=== PATIENT | female | born 1990 | race Two or more races ===

== ENCOUNTER → 2023-12-27 | Outpatient (CLI) | payer OTHER, SELFPAY ==
--- OUTSIDE RECORDS SUMMARY | 2023-12-27 21:03 | XMS RPT_ITS | CCD ---
Author Name Unknown Address [address] [place] [address] Organization [facility] Care Team Providers Care Services Manager Name Role Phone ADINA MARLOW Unavailable Unavailable ADINA MARLOW Unavailable Unavailable PHYSICIAN, NONE Unavailable Unavailable REFERRING, PHY WO ID Unavailable Unavailable ADINA MARLOW Unavailable Unavailable PHYSICIAN, NONE Unavailable Unavailable Problems Problem Classification Problem Date Documented Da te Episodic/Chronic Unclassified (2 sources) Encounter for screening for malignant neoplasm of cervix; Translations: [ENCOUNTER FOR SCREENING FOR MALIGNANT NEOPLASM OF CERVIX] Onset: 04-28-2017 Episodic Results Test Name Value Interpretation Reference Range Facil ity Encounters Encounter Date Encounter Type Care Provider Facility Start: 04-28-2017 End: 04-29-2017 Ambulatory ADINA MARLOW Facility:[facility] Start: 04-28-2017 End: 04-29-2017 Ambulatory PHY WO ID REFERRING Facility:[facility] Payers Date Payer Category Payer Unknown [id number] Summary Purpose Family History No Family History Records FoundNo Family History Records Found Advance Directives No Advanced Directives Records FoundNo Advanced Directives Records Found Additional Source Comments INFORMATION SOURCE (unrecogn ized section and content) DATE CREATED AUTHOR AUTHOR'S ORGANIZ ATION 04/18/2018 [facility] FOR RECORDS PERTAINING TO PATIENTS WHO ARE OR HAVE BEEN ENROLLED IN A CHEMICAL DEPENDENCY/SUBSTANCEABUSE PROGRAM, SOME INFORMATION MAY BE OMITTED. This clinical summary was aggregated from multiple sources. Caution should be exercised in using it in the provision of clinical care. This summary normalizes information from multiple sources, and as a consequence, information in this document may materially change the coding, format and clinical context of patient data. In addition, data may be omitted in some cases. CLINICAL DECISIONS SHOULD BE BASED ON THE PRIMARY CLINICAL RECORDS. [employer] provides no warranty or guarantee of the accuracy or completeness of information in this document.
[2024-01-01 18:07] LABS: HPV APTIMA, High Risk Negative (Negative)
== END | disposition home or self-care (01) ==
PROVIDERS: Visit Provider Nurse Practitioner Women's Health
DX: Z12.4 Encounter for screening for malignant neoplasm of cervix (principal)
CPT/HCPCS: 87624; 88175; G0145

== ENCOUNTER → 2024-12-23 | Outpatient (CLI) | payer OTHER, SELFPAY | END | disposition home or self-care (01) | LOC: MTLAB 16:46 | PROVIDERS: PCP Family Medicine; Referring Provider Family Medicine; Visit Provider Family Medicine | DX: Z00.00 Encounter for general adult medical examination without abnormal findings (principal); Z82.3 Family history of stroke | CPT/HCPCS: 36415; 81241 ==

== ENCOUNTER → 2025-05-10 | Outpatient (CLI) | payer OTHER, SELFPAY ==
--- OUTSIDE RECORDS SUMMARY | 2025-05-10 08:32 | XMS RPT_ITS | CCD ---
Author Organization [facility] Care Team Providers Care Weight Count Operator Name Role Phone MARLOWADINA L Unavailable Unavailable MARLOW, RICHELE L Unavailable Unavailable PHYSICIAN, NONE Unavailable Unavailable REFERRING, PHY WO ID Unavailable Unavailable MARLOW, RICHELE L Unavailable Unavailable PHYSICIAN, NONE Unavailable Unavailable Town Doctor, Out of [facility], Out of Referring Provider Unavailab Lawrence DIVERSIFIED CROPS SUPERVISORFUENTES Attending Provider Town Doctor, Out of Primary Care [facility], Out of Referring Provider UnavailDylan Jaramillo Attending Provider [phone] Jorje Preciado MD Primary Care Provider Dr. Jorje Preciado MD Attending Provider Dr. Jorje Preciado MD Referring Provider [phone] Dylan Nagel Attending Unavailable Town Doctor, Out of Referring Unavailable Town Doctor, Out of Primary Care Unavailable Jorje Preciado Primary Care Unavailable Mihaela Burton NP Attending Unavailable Town Doctor, Out of Referring Unavailable Jorje Preciado Referring Unavailable Jorje Preciado Primary Care Unavailable Ezequiel Hurtado Attending Unavailable Jorje Preciado Referring Unavailable Jorje Preciado Attending Unavailable Jorje Preciado Primary Care Unavailable Town Doctor, Out of Primary Care Unavailable Dylan Nagel Attending Unavailable Town Doctor, Out of Referring Unavailable Town Doctor, Out of Referring Provider Phil Lawrence NP-CMihaela Attending Provider Dr. Jorje Preciado MD Primary Care Provider Dr. Jorje Preciado MD Referring Provider Dr. Ezequiel Hurtado MD Attending Provider Allergies Allergy Classification Reported Allergen(s) Allergy Type Date of Onset Reaction(s) Facility (3 sources) Amoxicillin Drug Allergy 12-27-2023 [facility] (2 sources) Penicillins Allergy to substance 11-07-2024 [facility] (1 source) Amoxicillin Drug Allergy 02-10-2025 [facility] (1 source) Penicillins Drug allergy (disorder) 02-10-2025 [facility] Medications Current Medications Medication Drug Class(es) Dates Sig (Normalized) Sig (Original) erythromycin 0.005 mg/mg ophthalmic ointment (1 source) Macrolide, Macrolide Antimicrobial Start: 05-09-2025 Erythromycin 5 mg/gram (0.5 %) ointment Active 0.5 [in_us] OPHTHALMIC TWICE A DAY 3.5 3 0 May 09, 2025 12:00am May 11, 2025 12:00am For the left lower eyelid Completed/Discontinued Medications Medication Drug Class(es) Dates Sig (Normalized) Sig (Original) Norethindrone-E.Est radiol-Iron (6 sources) Estrogen Start: 12-27-2023 End: 02-10-2025 Norethindrone-E.Estr adiol-Iron ( Fe 24) 1 mg-20 mcg (24)/75 mg (4) tablet Discontinued 1 {tbl} PO DAILY December 27, 2023 3:58pm February 10, 2025 3:30pm Start: 12-27-2023 Norethindrone- E.Estradiol-Iron ( Fe 24) 1 mg-20 mcg (24)/75 mg (4) tablet Active 1 {tbl} PO DAILY December 27, 2023 3:58pm Start: 12-27-2023 take 1 tablet by thalia once daily Norethindrone-E.Estradiol-Iron ( Fe 24) 1 mg-20 mcg (24)/75 mg (4) tablet Active 1 TABLET PO DAILY December 27, 2023 3:58pm Start: 12-27-2023 End: 12-27-2023 Norethindrone-E.Estradiol-Ir on ( Fe 24) 1 mg-20 mcg (24)/75 mg (4) tablet Discontinued 1 {tbl} PO DAILY December 27, 2023 1:00am December 27, 2023 3:59pm Start: 12-27-2023 End: 12-27-2023 take 1 tablet by mouth once daily Norethindrone-E.Estradiol-Iron (Junel Fe 24) 1 mg-20 mcg (24)/75 mg (4) tablet Discontinued 1 TABLET PO DAILY December 27, 2023 1:00am December 27, 2023 3:59pm oseltamivir 75 mg oral capsule (2 sources) Neuraminidase Inhibitor Start: 11-07-2024 End: 11-12-2024 take 1 capsule by mouth every twelve hours Oseltamivir (Tamiflu) 75 mg capsule Discontinued 75 mg PO Q12H 10 5 0 November 07, 2024 1:00am November 11, 2024 1:00am November 12, 2024 1:08am Problems Active Problems Problem Classification Problem Date Documented Da te Episodic/Chronic Influenza (3 sources) Influenza due to Influenza A virus; Translations: [Influenza due to other identified influenza virus with other respiratory manifestations] 11-07-2024 Episodic Spondylosis; intervertebral disc disorders; other back problems (2 sources) Backache; Translations: [Dorsalgia, unspecified] 11-07-2024 Episodic Past or Other Problems Problem Classification Problem Date Documented Da te Episodic/Chronic Unclassified (2 sources) Encounter for screening for malignant neoplasm of cervix; Translations: [ENCOUNTER FOR SCREENING FOR MALIGNANT NEOPLASM OF CERVIX] Onset: 04-28-2017 Episodic Results Test Name Value Interpretation Reference Range Facility Office Visit Reporton 2024 Office Visit Report [facility] [address] [place] [id number] OFFICE VISIT Date of Service: 11/07/24 MR#: [id number] Acct: [id number] Patient: NADYA MOORE Rep #: [id number] : 1990 Provider: SCOTT Alicia Age/Sex: 34/F Location: [facility] Status: Signed Intake Vital Signs 11/07/24 06:00 Height 5 ft 3.5 in Intake Visit 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: 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/ [facility] Chief Complaint: Annual Allergies amoxicillin Allergy (Mild, Verified 02/10/25 15:23) Hives Penicillins (PCN) Allergy (Mild, Verified 02/10/25 15:23) Hives Office Procedures [facility] Billing Sheet Covid Covid Swab-Rapid: Yes Results POC CEPH COV,FluAB,RSV PCR CEPHEID COVID PCR Not DETECTED Last Edit by Zully Clemens on 11/07/24 06:52 CEPHEID FLU AB PCR ONLY FLU A DETECTED Last Edit by Zully Clemens on 11/07/24 06:52 CEPHEID RSV PCR NOT DETECTED Last Edit by Zully Clemens on 11/07/24 06:52 04/10/25 0815 Date Dylan Deutsch Signature: Date (if applicable) CC: Normal [facility] 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 Reporton 02-10-2025 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 Report [facility] [address], [address] [place] [address] OFFICE VISIT Date of Service: 02/10/25 MR#: [id number] Acct: [id number] Name: NADYA MOORE Rep #: [id number] : 1990 Provider: FUENTES osborne Age/Sex: 34/F Location: [facility] Status: Signed Intake Vital Signs 12/27/23 14:46 11/07/24 06:00 02/10/25 15:23 02/10/25 15:27 Height 5 ft 3.5 in 5 ft 3.5 in 5 ft 3.5 in 5 ft 3.5 in Weight: 152 lb 6 oz BMI 26.5 BP 116/74 Intake 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) Chief Complaint: Annual Sales And Leasing Consultant Required: No Is patient in pain?: No Allergies amoxicillin Allergy (Mild, Verified 02/10/25 15:23) Hives Penicillins (PCN) Allergy (Mild, Verified 02/10/25 15:23) Hives Is last menstrual period known: No Post menopausal: No Patient : No : No [facility] Medical History (Updated 02/10/25 @ 15:33 by Mihaela Burton DIVERSIFIED CROPS SUPERVISOR, DIVERSIFIED CROPS SUPERVISOR-C) Family history of colon cancer in mother Family history of factor V Leiden mutation Back pain Surgical History S/P wisdom tooth extraction Family History Grandmother Cancer paternal- multiple myeloma Mother Cancer melanoma Social History household members: spouse 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: employed 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 Stopped OCP. Brother had stroke from clot and found out has factor V Leiden. Has recovered well. She was tested and negative. Mother diagnosed Jul 2024 with colon cancer:had surgery and now doing chemo Last PAP: 2023 History of abnormal PAP: no Last mammogram: age 41 Colon cancer screening: age 46 Other preventative health care screenings: Ilana Female Reproductive History Questions: metorrhagia: No and sexually active: Yes ROS Const Constitutional: Denies fatigue, weight gain or weight loss Cardio Card: Denies chest pain Resp Resp: Denies cough or dyspnea on exertion GI GI: Denies abdominal pain, bloating, change in stool character, constipation or vomiting : Reports as per HPI; Denies difficulty voiding, pelvic pain, urinary frequency, urinary incontinence, urinary urgency, vaginal discharge or vaginal pruritus Exam Const General: cooperative, healthy appearing, no acute distress and well developed Orientation: alert, oriented to person and oriented to place [facility] Head: normal to inspection Neck Neck: normal visual inspection Thyroid: thyroid normal Lymphatic: no lymphadenopathy noted Chest Breast inspection: normal inspection of the breasts and normal inspection of the axillae Breast palpation: normal palpation of the breasts, normal palpation of the axillae and no axillary lymphadenopathy Resp Effort Inspection: normal respiratory effort GI Palpation: soft, no masses and nontender Rectal Exam: deferred External Female Exam: normal external appearance and normal appearance of the urethra Urethra: normal appearance of the urethra and normal palpation Speculum Exam - Vagina: normal appearance of the vagina and normal vaginal discharge Speculum Exam - Cervix: normal appearance of the cervix Bimanual Exam- Vagina Uterus: normal bimanual exam, uterine size normal, uterine shape normal and non-tender Bimanual Exam- Adnexa, other: normal adnexae, no masses, normal and non-tender Pelvic Support: normal Neuro General: patient alert and patient oriented x3 Psych Affect: normal affect Coding Level of Care Code Off vis,est,prev 18-39yrs Diagnoses Encounter for gynecological examination without abnormal finding Z01.419 Gynecological examination findings: abnormal findings ABSENT Assessment and Plan Assessment and Plan (1) Encounter for routine gynecological examination: Qualifiers: Gynecological examination findings: abnormal findings ABSENT Qualified Code(s): Z01.419 - Encounter for gynecological examination (general) (routine) without abnormal findings Medications: Discontinued norethindrone-e.estradiol-i concepción 1 mg-20 mcg (24)/75 mg (4) () Discontinued Reason: Pt no longer taking 1 TAB PO DAILY 84 tabs 4RF (more content not included)... Normal [facility] Fact V Leiden Mutationon FACTOR V LEIDEN Comment Normal . [facility] Comment on above: Result Comment: Resu lt: c.1601G>A (p.[id number]) - Not Detected This result is not associated with an increased risk for venous thromboembolism. See Additional Clinical Information and Comments. Additional Clinical Information: Venous thromboembolism is a multifactorial disease influenced by genetic, environmental, and circumstantial risk factors. The c.1601G>A (p. Xqf276Tmb) variant in the F5 gene, commonly referred to as Factor V Leiden, is a genetic risk factor for venous thromboembolism. Heterozygous carriers of this variant have a 6- to 8-fold increased risk for venous thromboembolism. Individuals homozygous for this variant (ie, with a copy of the variant on each chromosome) have an approximately 80-fold increased risk for venous thromboembolism. Individuals who carry both a c.*97G>A variant in the F2 gene and Factor V Leiden have an approximately 20-fold increased risk for venous thromboembolism. Risks are likely to be even higher in more complex genotype combinations involving the F2 c.*97G>A variant and Factor V Leiden (PMID: 60753471). Additional risk factors include but are not limited to: deficiency of protein C, protein S, or antithrombin III, age, male sex, personal or family history of deep vein thromboembolism, smoking, surgery, prolonged immobilization, malignant neoplasm, tamoxifen treatment, raloxifene treatment, oral contraceptive use, hormone replacement therapy, and . Management of thrombotic risk and thrombotic events should follow established guidelines and fit the clinical circumstance. This result cannot predict the occurrence or recurrence of a thrombotic event. Comment: Genetic counseling is recommended to discuss the potential clinical implications of positive results, as well as recommendations for testing family members. Genetic Coordinators are available for health care providers to discuss results at [phone]). Test Details: Variant Analyzed: c.1601G>A (p. Gtm283Xqw), referred to as Factor V Leiden Methods/Limitations: DNA analysis of the F5 gene (NM_000130.5) was performed by PCR amplification followed by restriction enzyme analysis. The diagnostic sensitivity is >99%. Results must be combined with clinical information for the most accurate interpretation. Molecular-based testing is highly accurate, but as in any laboratory test, diagnostic errors may occur. False positive or false negative results may occur for reasons that include genetic variants, blood transfusions, bone marrow transplantation, somatic or tissue-specific mosaicism, mislabeled samples, or erroneous representation of family relationships. This test was developed and its performance characteristics determined by [facility] It has not been cleared or approved by the Food and Drug Administration. References: Sidney S, Donita AK, Toño R, Daria WW, Berny JH; ACMG Professional Practice and Guidelines Committee. Addendum: [employer] [employer] consensus statement on factor V Leiden mutation testing. Tamy Med. 2020Dec 25. doi: 10.1038/s05492-657-81090-y. PMID: 56503083. Barak SYLVESTER. Factor V Leiden Thrombophilia. 1998March 05 (Updated 2017Oct 26). In: Alex MP, Dorian HH, Ricky RA, et al., editors. Whishertorres(R) (Internet). [place] ([place]): [facility]; 7897-8733. Available from: https://www.ncbi.nlm.nih.gov/books/PQG4258/ Ant S, Donita AK, Cliff X, Neri B, Jeni EB, Ariana P, Sherri CS; [facility] Laboratory Agriculture Laboratory Technician Committee. Venous thromboembolism laboratory testing (factor V Leiden and factor II c.*97G>A), 2018 update: a technical standard of the [employer] and [employer]omics (ACMG). Tamy Med. 2018 Sep;20(12):3294-8351. doi: 10.1038/u14353-298-6377-g. Epub 2017Jul 27. PMID: 99841904. Performed By: #### L 4500.5000 #### [facility] [address] [place], [address] Reviewed By Comment Normal . [facility] Comment on above: Result Comment: Tech nical Component performed at [facility] RT Professional Component performed by: [employer] Nickolas Mckeon, Ph.D., [facility] Director, Molecular Genetics [address] [place] [address] [place] [address] Performed at: - [facility] RTP [address] [place], [place] [id number] Neurology Professor: Kimmie Saldaña [facility], Phone: [phone] Performed By: #### L 4500.5000 #### [facility] [address] [place], [address] Clotting factor V Leiden mut ation detectionOrdered By: Jorje Preciado on 12-23-2024 Factor V Leiden Mutation Comment . [facility] Comment on above: Result: c.1601G>A (p .Alw135Zrb) - Not DetectedThis result is not associated with an increased risk for venousthromboembolism. See Additional Clinical Information andComments.Additional Clinical Information:Venous thromboembolism is a multifactorial diseaseinfluenced by genetic, environmental, and circumstantialrisk factors. The c.1601G>A (p. Qfx958Unw) variant in theF5 gene, commonly referred to as Factor V Leiden, is agenetic risk factor for venous thromboembolism.Heterozygous carriers of this variant have a 6- to 8-foldincreased risk for venous thromboembolism. Individualshomozygous for this variant (ie, with a copy of the varianton each chromosome) have an approximately 80-fold increasedrisk for venous thromboembolism. Individuals who carry constantino c.*97G>A variant in the F2 gene and Factor V Leiden havean approximately 20-fold increased risk for venousthromboembolism. Risks are likely to be even higher in morecomplex genotype combinations involving the F2 c.*97G>Avariant and Factor V Leiden (PMID: 77567122). Additionalrisk factors include but are not limited to: deficiency ofprotein C, protein S, or antithrombin III, age, male sex,personal or family history of deep vein thromboembolism,smoking, surgery, prolonged immobilization, malignantneoplasm, tamoxifen treatment, raloxifene treatment, oralcontraceptive use, hormone replacement therapy, andpregnancy. Management of thrombotic risk and thromboticevents should follow established guidelines and fit theclinical circumstance. This result cannot predict theoccurrence or recurrence of a thrombotic event.Comment:Genetic counseling is recommended to discuss thepotential clinical implications of positive results, aswell as recommendations for testing family members.Genetic Coordinators are available for health careproviders to discuss results at [phone] ([phone]).Test Details:Variant Analyzed: c.1601G>A (p. Uqf133Orh), referred toas Factor V LeidenMethods/Limitations:DNA analysis of the F5 gene (NM_000130.5) was performedby PCR amplification followed by restriction enzymeanalysis. The diagnostic sensitivity is >99%. Results mustbe combined with clinical information for the most accurateinterpretation. Molecular-based testing is highly accurate,but as in any laboratory test, diagnostic errors may occur.False positive or false negative results may occur forreasons that include genetic variants, blood transfusions,bone marrow transplantation, somatic or tissue-specificmosaicism, mislabeled samples, or erroneous representationof family relationships.This test was developed and its performance characteristicsdetermined by [facility] [employer] It has not been cleared orapproved by the Food and Drug Administration.References:Sidney S, Donita AK, Toño R, Daria WW, Berny JH; ACMGProfessional Practice and Guidelines Committee. Addendum:[employer] [employer] consensus statement onfactor V Leiden mutation testing. Tamy Med. 2020Dec 25.doi: 10.1038/w06540-239-70325-q. PMID: 06675071.Barak SYLVESTER. Factor V Leiden Thrombophilia. 1998March 05(Updated 2017Oct 26). In: Alex MP, Dorian HH, Ricky RA,et al., editors. Sukh(R) (Internet). [place] ([place]):[facility]; 2390-1508. Availablefrom: https://www.ncbi.nlm.nih.gov/books/CUW4181/Ant S, Donita AK, Cliff X, Neri B, Jeni EB, Ariana P,Sherri CS; ACMG Laboratory Agriculture Laboratory Technician Committee.Venous thromboembolism laboratory testing (factor V Leidenand factor II c.*97G>A), 2018 update: a technical standardof the [employer] [employer] and Genomics(ACMG). Tamy Med. 2018 Sep;20(12):3988-6382. doi:10.1038/[id number]-g. Epub 2017Jul 27. PMID: 29214249. Laboratory - Microbiology an d Antimicrobial susceptibilityon 11-07-2024 SARS-CoV-2 (COVID-19) RNA JAOSN+probe Ql (Unsp spec) Not detected [facility] No Panel Informationon 11-07 POC Nasal Swab Influenza A,B Detected [facility] POC Nasal Swab RSV Not detected [facility] Office Visit Reporton 2024 Office Visit Report [facility] [address] [place] [address] OFFICE VISIT Date of Service: 11/07/24 MR#: [id number] Acct: [id number] Patient: NADYA MOORE Rep #: [id number] : 1990 Provider: SCOTT Alicia Age/Sex: 34/F Location: [facility] Status: Signed Employer Purchased Covid Test Note: Patient here today for Covid Testing, requested by their Employer. Assessment and Plan Assessment and Plan Orders: Orders POC Cepheid Covid, FluAB, RSV Today Medications: New oseltamivir (Tamiflu) 75 mg PO Q12H 10 caps 0RF 5 days 11/07/24725 Date Dylan CHAVEZ Cosigner Signature: Date (if applicable) CC: Normal [facility] Urgent Care Visit Reporton 0 11-07-2024 Urgent Care Visit Report [facility] [address], [address] [place] [address] OFFICE VISIT Date of Service: 11/07/24 MR#: [id number] Acct: [id number] Name: NADYA MOORE Rep #: [id number] : 1990 Provider: SCOTT Alicia Age/Sex: 34/F Location: [facility] Status: Signed Intake Vital Signs 12/27/23 14:46 11/07/24 06:00 Height 5 ft 3.5 in 5 ft 3.5 in Weight: 153 lb 2 oz 152 lb 2 oz BMI 26.6 26.5 BP 114/72 110/64 Blood Pressure Location Lt brachial Position Sitting Respiration 16 Pulse 92 Pulse Source NIBP Temp 98.7 F Temp Source Oral Pulse Oximetry (%) 98 Oxygen Delivery Method room air Intake Visit Reasons: cough, congestion Chief Complaint: cough, congest, MORRELL, BA Sales And Leasing Consultant Required: No Is patient in pain?: No Allergies amoxicillin Allergy (Mild, Verified 11/07/24 06:15) Hives Penicillins (PCN) Allergy (Mild, Verified 11/07/24 06:15) Hives Medications ???Medication ???Instructions ???Recorded ???Confirmed ???Type norethindrone 1 mg-ethinyl 1 tab PO DAILY #84 tabs 12/27/23 11/07/24 Rx estradiol 20 mcg (24)-iron 75 mg (4) tablet () oseltamivir 75 mg capsule (Tamiflu) 75 mg PO Q12H 5 days #10 caps 11/07/24 11/07/24 Rx Is last menstrual period known: No Post menopausal: No Patient : No Have you fallen in the past year?: No Nurse's Note: cough, congest, MORRELL, BA x [address], fever. 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 Patient denies hemoptysis, shortness of breath or difficulty breathing. No fever, chills, sweats. No loss of taste or smell. No other associated symptoms or alleviating/aggravating factors. ROS Const Constitutional: No other (6 system ROS completed with pertinent findings in the HPI otherwise normal.) Exam Const General: cooperative and well developed HENIL Head: normal to inspection and atraumatic Ears: hearing grossly normal bilaterally Nose: nasal discharge clear Face and sinus: normal facial exam Mouth: oral mucosae normal Throat: abnormal tonsil bilaterally hypertrophy 1+ Resp Effort Inspection: normal respiratory effort and no audible wheezes Auscultation: Bilateral: Clear to Auscultation Cardio Palpation: normal PMI Rate: regular rate Rhythm: regular rhythm Neuro General: patient alert and CN's II-XI intact bilaterally Psych Appearance: grossly normal Mental Status: mental status grossly normal Results POC CEPH COV,FluAB,RSV PCR CEPHEID COVID PCR Not DETECTED Last Edit by Zully Clemens on 11/07/24 06:52 CEPHEID FLU AB PCR ONLY FLU A DETECTED Last Edit by Zully Clemens on 11/07/24 06:52 CEPHEID RSV PCR NOT DETECTED Last Edit by Zully Clemens on 11/07/24 06:52 Coding Level of Care Code Off vis,new,level 3 Diagnoses Influenza due to influenza virus, type A, human J10.1 Assessment and Plan Assessment and Plan (1) Influenza due to influenza virus, type A, human: Status: Acute Orders: Orders POC Cepheid Covid, FluAB, RSV Today Medications: New oseltamivir (Tamiflu) 75 mg PO Q12H 10 caps 0RF 5 days Plan Patient tested positive for influenza A in the office today. Tamiflu as prescribed today. Encouraged to get plenty of rest, drink lots of clear liquids, and use Tylenol or Ibuprofen (unless contraindicated) for fever and comfort. Patient also educated on other symptomatic management techniques. To be seen in 7-10 days if no improvement; sooner if worsening of symptoms. Patient advised of potential red flags and when appropriate to report to the ED. Patient verbalized understanding and agreement with all the above. Clinical Quality Measures Falls Risk Screening/Assistive Devices Have you fallen in the past year?: No 11/07/24 0727 Date Dylan Deutsch Signature: Date (more content not included)... Normal [facility] Cervical or vaginal specimen microscopic examination by liquid based cytology (reportOrdered By: Mihaela Burton on 12-27-2023 Cytology report Cyto stain.thin prep Doc (Cvx/Vag) Comment . [facility] Comment on above: Criteria not met, HP V Genotype not performed.Performed at: [address] [id number] Director: Cristy Luis MD, Phone: [phone] at: =[address] [id number] Director: Cristy Luis MD, Phone: [phone] Cervical or vagninal specime n microscopic examination by cytology stain (reported asOrdered By: Mihaela Burton on 12-27-2023 Cytology report Cyto stain Doc (Cvx/Vag) Comment . [facility] Comment on above: The Pap smear is a s creening test designed to aid in thedetection of premalignant and malignant conditions of theuterine cervix. It is not a diagnostic procedure andshould not be used as the sole means of detecting cervicalcancer. Both false-positive and false-negative reports dooccur. Detection in cervical specim en of any of human papilloma virus (HPV) 16, 18, 31, 33,Ordered By: Mihaela Burton on 12-27-2023 HPV 16+18+31+33+35+39+4 5+51+52+56+58+59+66 +68 DNA Probe+sig amp Ql (Cvx) Negative Negative [facility] Comment on above: This nucleic acid am plification test detects fourteen high- risk HPV types (16,18,31,33,35,39,45,51,52,56,58,59,66,68)without differentiation. Laboratory - CytologyOrdered By: Mihaela Burton on 12-27-2023 Library Circulation Assistant Cyto stain Nom (Cvx/Vag) [ID] Comment . [facility] Comment on above: Lew Concepcion totechnologist (ASCP) Laboratory - Miscellaneous t estsOrdered By: Mihaela Burton on 12-27-2023 Service comment (Unsp spec) [Interp] . . [facility] Thin prep Papanicolaou smear with manual screeningOrdered By: Mihaela Burton on 12-27-2023 Thin prep Papanicolaou smear with manual screening Comment . [facility] Comment on above: NEGATIVE FOR INTRAEP ITHELIAL LESION OR MALIGNANCY. This liquid based Th inPrep(R) pap test was screened withthe use of an image guided system. Absolute lymphocyte counton 07-22-2022 Lymphocytes Auto (Unsp spec) [#/Vol] 2.29 10*3/uL 0.83-4.51 [facility] Work Phone: Absolute reticulocyte counto n 07-22-2022 Reticulocytes (Bld) [#/Vol] 0.00 10*3/uL 0-5 [facility] Work Phone: Basophil percentageon 2021 Basophil percentage 2.7 mg/dL 2.5-4.9 [facility] Work Phone: [phone] Bilirubin [Mass/Vol] 0.70 mg/dL 0.20-1.00 [facility] Work Phone: [phone] Comment on above: For patients on eltr ombopag therapy, use of Dimension [place] TBIL is not recommended. Chloride [Moles/Vol] 108 mmol/L 98-107 [facility] Work Phone: Cholesterol [Mass/Vol] 224 mg/dL <200 [facility] Work Phone: Comment on above: <200 mg/dL Desirable 200-240 mg/dL Borderline >240 mg/dL High Risk Glucose [Mass/Vol] 91 mg/dL 74-106 [facility] Work Phone: Neutrophils (Bld) [#/Vol] 5.2 10*3/uL 2.0-7.7 [facility] Work Phone: Potassium [Moles/Vol] 3.7 mmol/L 3.5-5.1 [facility] Work Phone: Protein [Mass/Vol] 7.7 g/dL 6.4-8.2 [facility] Work Phone: [phone] Sodium [Moles/Vol] 139 mmol/L 136-145 [facility] Work Phone: Triglyceride [Mass/Vol] 73 mg/dL <199 [facility] Work Phone: [phone] Comment on above: The drugs N-Acetylcy steine and Metamizole may falsely depress this assay.Serum Triglycerides Reference Interval Normal <150 mg/dL Borderline high 150 - 199 mg/dL High 200 - 499 mg/dL Very High > or = 500 mg/dL WBC (Bld) [#/Vol] 8.4 10*3/uL 4.4-11.0 [facility] Work Phone: Bilirubin Test strip Ql (U)o n 07-22-2022 Bilirubin Ql (U) Negative Negative [facility] Work Phone: [phone] Blood erythrocytes count (nu mber/volume)on 07-22-2022 RBC (Bld) [#/Vol] 4.50 10*6/uL 4.2-5.4 [facility] Work Phone: [phone] Blood hemoglobin measurement (mass/volume)on 07-22-2022 Hemoglobin (Bld) [Mass/Vol] 13.0 g/dL 12.0-15.0 [facility] Work Phone: [phone] Blood platelet mean volumeon 07-22-2022 Platelet mean volume (Bld) [Entitic vol] 10.6 fL 6.2-12.0 [facility] Work Phone: [phone] Determination of erythrocyte mean corpuscular volume (MCV)on 07-22-2022 MCV (RBC) [Entitic vol] 91.3 fL 81-99 [facility] Work Phone: Direct bilirubinon Bilirubin.direct [Mass/Vol] 0.16 mg/dL 0.00-0.30 [facility] Work Phone: [phone] Hematocrit Auto (Bld) [Volum e fraction]on 07-22-2022 Hematocrit (Bld) [Volume fraction] 41.1 % 37-47 [facility] Work Phone: [phone] Ketones Test strip Ql (U)on 07-22-2022 Ketones Ql (U) Negative Negative [facility] Work Phone: [phone] Laboratory - Chemistry and C hemistry - challengeon 07-22-2022 ALP [Catalytic activity/Vol] 62 U/L 45-117 [facility] Work Phone: ALT [Catalytic activity/Vol] 31 U/L 13-56 [facility] Work Phone: [phone] Cholesterol.total/C holesterol in HDL [Mass ratio] 3.00 {ratio} [facility] Work Phone: [phone] CO2 [Moles/Vol] 25.0 mmol/L 21.0-32.0 [facility] Work Phone: [phone] Globulin (S) [Mass/Vol] 4.4 g/dL 2.2-4.2 [facility] Work Phone: [phone] Urea nitrogen/Creatinine [Mass ratio] 11.8 mg/mg 10-20 [facility] Work Phone: [phone] Laboratory - Hematology and Cell countson 07-22-2022 Erythrocyte distribution width (RBC) [Entitic vol] 40.2 fL 35.1-43.9 [facility] Work Phone: [phone] Erythrocyte distribution width (RBC) [Ratio] 12.0 % 11.6-14.6 [facility] Work Phone: [phone] Immature granulocytes/100 WBC (Bld) 0.600 % 0.0-0.9 [facility] Work Phone: [phone] Comment on above: IG% - Immature Granu locytes (promyelocytes, myelocytes and metamyelocytes) > 1% indicates that a LEFT SHIFT is Present. MCH (RBC) [Entitic mass] 28.9 pg 27.0-32.0 [facility] Work Phone: [phone] Nucleated RBC/100 WBC (Bld) [Ratio] 0 % 0-5 [facility] Work Phone: [phone] MCHC Auto (RBC) [Mass/Vol]on 07-22-2022 MCHC (RBC) [Mass/Vol] 31.6 g/dL 32-36 [facility] Work Phone: [phone] Nitrite Test strip Ql (U)on 07-22-2022 Nitrite Ql (U) Negative Negative [facility] Work Phone: [phone] Panel Informationon 07-22 Estimated GFR (MDRD) Amer 100 mL/min >60 [facility] Work Phone: [phone] Comment on above: GFR Calc Estimated GFR (MDRD) Non-Af Amer 83 mL/min >60 [facility] Work Phone: [phone] Comment on above: Non- GFR Calc Platelets bldon 07-22-2022 Platelets (Bld) [#/Vol] See comment 150-450 [facility] Work Phone: Comment on above: Please note: For thi s sample, a platelet estimate is provided rather than a platelet count due to platelet clumping. Other parameters associated with this sample are not affected by platelet clumping. If a more accurate platelet count is required, a redraw of the patient will be necessary. Protein Test strip Ql (U)on 07-22-2022 Protein Ql (U) 30 mg/dl Negative [facility] Work Phone: [phone] Segmented neutrophils/100 WB C Auto (Bld)on 07-22-2022 Segmented neutrophils/100 WBC (Bld) 62.2 % 47-70 [facility] Work Phone: Serum or plasma albumin emeka urement (mass/volume)on 07-22-2022 Albumin [Mass/Vol] 3.3 g/dL 3.2-5.0 [facility] Work Phone: Serum or plasma albumin/glob ulin mass ratioon 07-22-2022 Albumin/Globulin [Mass ratio] 0.8 {ratio} 0.9-2.4 [facility] Work Phone: Serum or plasma calcium emeka urement (mass/volume)on 07-22-2022 Calcium [Mass/Vol] 9.0 mg/dL 8.5-10.1 [facility] Work Phone: [phone] Serum or plasma cholesterol in HDL measurement (mass/volume)on 07-22-2022 Cholesterol in HDL [Mass/Vol] 74 mg/dL >40 [facility] Work Phone: Comment on above: The drugs N-Acetylcy steine and Metamizole may falsely depress this assay. Reference Range HDL <40 mg/dL Low HDL Cholesterol HDL >or= 60 mg/dL High HDL Cholesterol Serum or plasma cholesterol in VLDL measurement (mass/volume)on 07-22-2022 Cholesterol in VLDL [Mass/Vol] 15 mg/dL 5-40 [facility] Work Phone: [phone] Serum or plasma creatinine m easurement (mass/volume)on 07-22-2022 Creatinine [Mass/Vol] 0.85 mg/dL 0.55-1.02 [facility] Work Phone: Comment on above: The validity of the calculated GFR & GFRAA in patients over 70 years has not been determined. Clinical correlation is essential. Serum or plasma low density lipoprotein (LDL) cholesterol measurement (mass/volume)on 07-22-2022 Cholesterol in LDL [Mass/Vol] 135 mg/dL 0-130 [facility] Work Phone: [phone] Serum or plasma urea nitroge n measurement (mass/volume)on 07-22-2022 Urea nitrogen [Mass/Vol] 10 mg/dL 7-18 [facility] Work Phone: Serum or plasma uric acid me asurement (mass/volume)on 07-22-2022 Urate [Mass/Vol] 4.0 mg/dL 2.6-6.0 [facility] Work Phone: Comment on above: The drugs N-Acetylcy steine and Metamizole may falsely depress this assay. Thin prep Papanicolaou smear with manual screeningon 07-22-2022 Thin prep Papanicolaou smear with manual screening 26 U/L 15-37 [facility] Work Phone: Thin prep Papanicolaou smear with manual screening 6 5-15 [facility] Work Phone: [phone] Thin prep Papanicolaou smear with manual screening 252 U/L 84-246 [facility] Work Phone: Urine blood detectionon 06-25 RBC Ql (U) 25 /ul Negative [facility] Work Phone: [phone] Urine clarityon 07-22-2022 Clarity (U) Sl. Cloudy Clear [facility] Work Phone: Urine color determinationon 07-22-2022 Color (U) Straw Yellow [facility] Work Phone: [phone] Urine glucose detectionon Glucose Ql (U) Normal mg/dl Normal [facility] Work Phone: Urine leukocyte esterase det ection by dipstickon 07-22-2022 Leukocyte esterase Test strip Ql (U) 500 /ul Negative [facility] Work Phone: Urine pHon 07-22-2022 pH (U) 6.0 [pH] 5.0 - 8.0 [facility] Work Phone: Urine specific gravity measu rementon 07-22-2022 Specific gravity (U) [Rel density] 1.015 1.002-1.030 [facility] Work Phone: Urobilinogen Auto test strip Ql (U)on 07-22-2022 Urobilinogen Ql (U) Normal mg/dl Normal [facility] Work Phone: HPVon 05-11-2017 HPV Interp Invalid Interpretation Code [facility] ([place]) Comment on above: Order Comment: Order placed by AP_HPV_ORDER rule from [id number] Performed By: #### H PV ####[place] [address] HPV Source Cervix Normal [facility] ([place]) Comment on above: Order Comment: Order placed by AP_HPV_ORDER rule from [id number] Performed By: #### H PV ####[place] [address] Vital Signs Date Time Vital Sign Value Performing Clinician Moni landin 05-09-2025 14:17040 Body height 161.29 cm Out [facility] 05-09-2025 14:170400 Body mass index (BMI) [Ratio] 26.8 kg/m2 Out [facility] 05-09-2025 14:17040 Body temperature 97.3 [degF] Out [facility] 05-09-2025 14:17040 Body weight 69.85 kg Out [facility] 05-09-2025 14:17040 Diastolic blood pressure 76 mm[Hg] Out [facility] 05-09-2025 14:17040 Heart rate 54 /min Out [facility] 05-09-2025 14:17-0400 Respiratory rate 18 /min Out [facility] 05-09-2025 14:17-0400 SaO2% (BldA) [Mass fraction] 99 % Out [facility] 05-09-2025 14:17-0400 Systolic blood pressure 127 mm[Hg] Out [facility] 02-10-2025 15:23-0400 Body mass index (BMI) [Ratio] 26.5 kg/m2 Out [facility] 02-10-2025 15:23-0400 Body weight 69.11 kg Out [facility] 02-10-2025 15:23-0400 Diastolic blood pressure 74 mm[Hg] Out [facility] 02-10-2025 15:23-0400 Systolic blood pressure 116 mm[Hg] Out [facility] 11-07-2024 06:00-0500 Body height 161.29 cm Out [facility] 11-07-2024 06:00-0500 Body mass index (BMI) [Ratio] 26.5 kg/m2 Out [facility] 11-07-2024 06:00-0500 Body temperature 98.7 [degF] Out [facility] 11-07-2024 06:00-0500 Body weight 69 kg Out [facility] 11-07-2024 06:00-0500 Diastolic blood pressure 64 mm[Hg] Out [facility] 11-07-2024 06:00-0500 Heart rate 92 /min Out [facility] 11-07-2024 06:00-0500 Respiratory rate 16 /min Out [facility] 11-07-2024 06:00-0500 SaO2% (BldA) [Mass fraction] 98 % Out [facility] 11-07-2024 06:00-0500 Systolic blood pressure 110 mm[Hg] [facility] 12-27-2023 14:46-0500 Body height 161.29 cm Out [facility] 12-27-2023 14:46-0500 Body mass index (BMI) [Ratio] 26.6 kg/m2 Out [facility] 12-27-2023 14:46-0500 Body weight 69.45 kg Out [facility] 12-27-2023 14:46-0500 Diastolic blood pressure 72 mm[Hg] Out [facility] 12-27-2023 14:46-0500 Systolic blood pressure 114 mm[Hg] Out [facility] Encounters Encounter Date Encounter Type Care Provider Facility Start: 05-09-2025 End: 05-09-2025 ambulatory [facility] Facility[facility] Start: 05-09-2025 End: 05-09-[address] Ezequiel Hurtado MD -[facility] Work Phone: Start: 02-10-2025 End: 02-10-2025 Patient encounter procedure Mihaela NAJERAC -[place] Work Phone: Start: 02-10-2025 End: 02-10-2025 Patient encounter status Mihaela Burton [facility] Start: 02-10-2025 End: 02-10-2025 ambulatory Jorje Preciado Facility:[facility] Start: 01-03-2025 Encounter for genera l adult medical examination without abnormal findings [facility] Start: 12-23-2024 End: 12-23-2024 ambulatory Out of [facility] Work Phone: Start: 12-23-2024 End: 12-23-[address] Jorje Preciado MD -Laboratory, [place] Work Phone: Start: 12-23-2024 End: 12-23-2024 ambulatory Jorje Preciado Facility:[facility] Start: 11-07-2024 End: 11-07-2024 Patient encounter procedure Dylan CHAVEZ -[facility] Work Phone: Start: 11-07-2024 End: 11-07-2024 ambulatory Dylan CHAVEZ Facility:[facility] Start: 12-27-2023 End: 12-27-2023 ambulatory [place] [facility] Work Phone: Start: 12-27-2023 End: 12-27-2023 Patient encounter procedure Out [facility] Doctor [facility], Specimen Work Phone: Start: 12-27-2023 End: 12-27-2023 Patient encounter procedure Out [facility] Doctor [facility] Work Phone: Start: 07-22-2022 Registered Referred [facility] Start: 04-28-2017 End: 04-29-2017 Ambulatory ADINA MARLOW Facility[facility] Start: 04-28-2017 End: 04-29-2017 Ambulatory RASHID SWENSON REFERRING Facility:[facility] Immunizations Immunization Date Immunization Notes Care Provider Teresa ordaz 08-01-2024 influenza, seasonal, injectable, preservative free Out [facility] 08-02-2023 influenza, injectabl e, quadrivalent, preservative free [facility] 08-01-2022 influenza, injectabl e, quadrivalent, preservative free [facility] 08-04-2021 influenza, injectabl e, quadrivalent, preservative free [facility] 08-04-2021 influenza, seasonal, injectable [facility] Work Phone: 12-18-2020 Covid (Moderna) [facility] 11-20-2020 Covid (Moderna) [facility] 08-10-2020 influenza, injectabl e, quadrivalent, preservative free [facility] 08-10-2020 influenza, seasonal, injectable [facility] Work Phone: 08-07-2019 influenza, injectabl e, quadrivalent, preservative free [facility] 08-07-2019 influenza, seasonal, injectable [facility] Work Phone: 08-01-2018 influenza, injectabl e, quadrivalent, preservative free [facility] 08-01-2018 influenza, seasonal, injectable [facility] Work Phone: Payers Date Payer Category Payer Self-pay [id number] 2023 Unknown [id number] 2016 Unknown [id number] Unknown [id number] Unknown [facility] [id number] [id number] [id number] Unknown [id number] [id number] [id number] Unknown [id number] [id number] [id number] Unknown [id number] 2.16.8 [id number] Unknown [id number] [id number] [id number] Social History Date Type Detail [facility] Work Phone: Start: 1990 Sex Assigned At Female [facility] Start: 12-27-2023 [facility] ever smoked [facility] Start: 11-07-2024 [facility] (finding) [facility] Start: 01-03-2025 Sex Female (finding) [facility] Evaluation note 02-10-2025 Note Date & Type Note Facility 02-10-2025 Evaluation note Diagnosis Onset Date Resolution Encounter for routine gynecological examination noneactive February 10, 2025 3:22pm [facility] Work Phone: Evaluation note 11-07-2024 Note Date & Type Note Facility 11-07-2024 Evaluation note Diagnosis Onset Date Resolution Influenza due to influenza virus, type A, human acute November 07 6:08am [facility] Work Phone: Clinical Note 12-27-2023 Note Date & Type Note Facility 12-27-2023 Note [facility] Pap Smear Specimen Adequacy December 27, 2023 5:50pm Comment . Satisfactory for evaluation. Endocervical and/or squamous metaplasticcells (endocervical component) are present. Comment on above: Satisfactory for brandin luation. Endocervical and/or squamous metaplasticcells (endocervical component) are present. Evaluation note Note Date & Type Note Facility Evaluation note No assessment information availa ble [facility] Work Phone: Reason for referral (narrative) Note Date & Type Note Facility Reason for referral (narrative) No reason for referral information available [facility] Work Phone: Summary Purpose Family History Relationship Condition Age at Onset Recorded Date/T kathie grandmother Malignant neoplasm Unknown mother Malignant neoplasm Unknown Advance Directives No Advanced Directives Records FoundNo Advanced Directives Records FoundNo Advanced Directives Records Found Chief Complaint and Reason for Visit 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 (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) Chief Complaint Admit Date cough, congestion November 07, 2024 6 :08am 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/ [facility] November 07, 2024 6 :16am E[employer] December 23, 2024 4:44 pm Reason for Visit Admit Date Influenza due to influenza virus, type A , human November 07, 2024 6:08am Chief Complaint Admit Date Annual (SECURITY MONITOR) February 10, 2025 3:2 2pm SKIN TAG ON THE L EYE LID May 09 2:04pm Reason for Visit Admit Date Encounter for routine gynecological exam ination February 10, 2025 3:22pm Additional Source Comments INFORMATION SOURCE (unrecogn ized section and content) DATE CREATED AUTHOR 04/18/2018 [place] [employer] ([place]) DATE CREATED AUTHOR AUTHOR'S ORGANIZ ATION 04/18/2018 [place] [employer] DATE CREATED AUTHOR AUTHOR'S ORGANIZ ATION 04/15/2025 [facility] Goals (unrecognized section and content) Goals may be documented in a n alternate sectionGoals may be documented in an alternate sectionGoals may be documented in an alternate sectionGoals may be documented in an alternate sectionGoals may be documented in an alternate section Care Teams (unrecognized sec tion and content) Team Status: Active Member Role Status Dates Out of [facility] Doctor Primary Care Provider Active Team Status: Inactive Member Role Status Dates Out of [facility] Doctor Primary Care Provider, Referring Pr ovider Active Mihaela Burton DIVERSIFIED CROPS SUPERVISOR, DIVERSIFIED CROPS SUPERVISOR-C Attending Provider Active Team Status: Inactive Member Role Status Dates Out of [facility] Doctor Primary Care Provider Active Mihaela Burton DIVERSIFIED CROPS SUPERVISOR, DIVERSIFIED CROPS SUPERVISOR-C Attending Provider Active Team Status: Active Member Role Status Dates Dr. Jorje Preciado MD Primary Care Provider Acti ve Team Status: Inactive Member Role Status Dates Out of [facility] Doctor Primary Care Provider Active Start: November 07, 2024 End: November 07, 2024 Out of [facility] Doctor Referring Provider Active Sta rt: November 07, 2024 End: November 07, 2024 Dylan CHAVEZ PA Attending Provider Active Sta rt: November 07, 2024 End: November 07, 2024 Team Status: Inactive Member Role Status Dates Dr. Jorje Preciado MD Primary Care Provider Acti ve Start: December 23, 2024 End: December 23, 2024 Dr. Jorje Preciado MD Attending Provider Active Start: December 23, 2024 End: December 23, 2024 Dr. Jorje Preciado MD Referring Provider Active Start: December 23, 2024 End: December 23, 2024 Team Status: Active Member Role/Relationship Status Dates Dr. Jorje Preciado MD Primary Care Provider Acti ve Team Status: Inactive Member Role/Relationship Status Dates Out of [facility] Doctor Referring Provider Active Sta rt: February 10, 2025 End: February 10, 2025 Mihaela Burton DIVERSIFIED CROPS SUPERVISOR, DIVERSIFIED CROPS SUPERVISOR-C Attending Provider Active Start: February 10, 2025 End: February 10, 2025 Dr. Jorje Preciado MD Primary Care Provider Acti ve Start: February 10, 2025 End: February 10, 2025 Team Status: Inactive Member Role/Relationship Status Dates Dr. Jorje Preciado MD Primary Care Provider Acti ve Start: May 09, 2025 End: May 09, 2025 Dr. Jorje Preciado MD Referring Provider Active Start: May 09, 2025 End: May 09, 2025 Dr. Ezequiel Hurtado MD Attending Provider Active Start: May 09, 2025 End: May 09, 2025 FOR RECORDS PERTAINING TO PATIENTS WHO ARE [...] BE BASED ON THE PRIMARY CLINICAL RECORDS. [facility] provides no warranty or guarantee of the accuracy or completeness of information in this document.
--- NOTE | 2025-05-10 14:44 | LES_PTH ---
PATIENT: NADYA MOORE [facility]: [facility] U#:[id number] AGE/SX: 34/F ROOM: RE05/10/[address]: Dr. Ezequiel Hurtado MD : 1990 BED: DIS: 05/10/2025 SPEC #: [id number] RECD: 05/10/25 16:12 STATUS: ALFREDO REObey #: [id number] REAGAN: 05/10/25 14:[address]: Ezequiel Hurtado DEPT: SURGICAL PATHOLOGY RECD BY: Barrera Duncan ENTERED: 05/12/25 11:05 SP TYPE: Lesion OTHR DR: Dr. Jorje Preciado MD Tissues: A - Skin of eyelid, NOS Procedures: Surgery Specimen Level III HEADER OPERATION: Excision left lower eyelid skin tag PRE-OP DIAGNOSIS: Skin tag TISSUE SUBMITTED: A- Left lower eyelid MICROSCOPIC DIAGNOSIS A. Eyelid, left, lower, skin tag, excision: - Benign acrochordon (fibroepithelial polyp, skin tag). MICROSCOPIC DESCRIPTION Slides are reviewed. GROSS DESCRIPTION A. Received in formalin labeled with the patient's name and date of . Designated as LLL is a 0.4 x 0.2 x 0.1 cm hunter to light brown polypoid portion of skin, devoid of orientation. The resection margin is inked black and the specimen is entirely submitted in 1 cassette. [place] 05/12/2025 CPT:98455
== END | disposition home or self-care (01) ==
LOC: LABSPEC 08:29
PROVIDERS: PCP Family Medicine; Referring Provider Surgery Plastic and Reconstructive Surgery; Visit Provider Surgery Plastic and Reconstructive Surgery
DX: L91.8 Other hypertrophic disorders of the skin (principal)
CPT/HCPCS: 88304; 88305

== ENCOUNTER → 2025-07-18 | Outpatient (CLI) | payer OTHER, SELFPAY ==
--- OUTSIDE RECORDS SUMMARY | 2025-07-18 09:28 | XMS RPT_ITS | CCD ---
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 Name Role Phone ADINA MARLOW Unavailable Unavailable ADINA MARLOW Unavailable Unavailable PHYSICIAN, NONE Unavailable Unavailable REFERRING, PHY WO ID Unavailable Unavailable ADINA MARLOW Unavailable Unavailable PHYSICIAN, NONE Unavailable Unavailable [facility] Doctor, Out of Primary Care Provider [facility] Doctor, Out of Referring Provider Unavailab sarai Burton OFFICE EQUIPMENT MECHANIC, OFFICE EQUIPMENT MECHANIC-C Mihaela Attending Provider [facility] Doctor, Out of Primary Care Provider [facility] Doctor, Out of Referring Provider Unavailab Dylan Al Attending Provider [phone] Jorje Preciado MD Primary Care Provider Dr. Jorje Preciado MD Attending Provider Dr. Jorje Preciado MD Referring Provider [facility] Doctor, Out of Referring Provider Unavailab Howrad CARTER-CMihaela Attending Provider Dr. Jorje Preciado MD Primary Care Provider Dr. Jorje Preciado MD Referring Provider Dr. Ezequiel Hurtado MD Attending Provider Dr. Ezequiel Hurtado MD Referring Provider Dr. Jorje Preciado MD Primary Care Provider Kamron Chapa Attending Provider Caprice Woods CNM Attending Provider Jorje Preciado Primary Care Unavailable Ezequiel Hurtado Attending Unavailable Ezequiel Hurtado Referring Unavailable [facility] Doctor, Out of Referring Unavailable Dylan Childs Attending Unavailable [facility] Doctor, Out of Primary Care Unavailable Caprice Woods Attending Unavailable [facility] Unavailable Ranney, Christanithaer Referring Unavailable Erastoney, Christanithaer Referring Unavailable Caprice Woods Attending Unavailable [place] [facility], [facility] Unavailable Ranney, Christopher Referring Unavailable Kamron Chapa Attending Unavailable [place] [facility], [facility] Unavailable Ranney, Christopher Referring Unavailable Ranney, [facility] Unavailable Ezequiel Hurtado Attending Unavailable [facility], [facility] Referring Unavailable [place] [facility], [facility] Unavailable Ezequiel Hurtado Attending Unavailable Josephine OFFICE EQUIPMENT MECHANIC, Mihaela Attending Unavailable [facility], [facility] Unavailable [place] Doctor, Out of Referring Unavailable Dylan Childs Attending Unavailable [facility] Doctor, Out of Primary Care Unavailable [facility] Doctor, Out of Referring Unavailable Ilana, [facility] Referring Unavailable [facility], [facility] Unavailable Jorje Preciado Attending Unavailable Allergies Allergy Classification Reported Allergen(s) Allergy Type Date of Onset Reaction(s) Facility (7 sources) Amoxicillin Drug Allergy 12-27-2023 [facility] (6 sources) Penicillins Allergy to substance 11-07-2024 [facility] (1 source) Amoxicillin Drug Allergy 07-04-2025 [facility] (1 source) Penicillins Drug allergy (disorder) 07-04-2025 [facility] Medications Current Medications Medication Drug Class(es) Dates Sig (Normalized) Sig (Original) Echinacea 125 mg capsule (2 sources) Start: 06-11-2025 take 1 capsule by mouth once daily Echinacea 125 mg capsule Active 125 mg PO daily June 11, 2025 12:00am Multivitamin tablet (2 sources) Start: 06-11-2025 Multivitamin tablet Active 1 {tbl} PO daily June 11, 2025 12:00am [place] (Nk) (1 source) Start: 05-16-2025 [place] (Nk) Active May 16, 2025 12:00am Completed/Discontinued Medications Medication Drug Class(es) Dates Sig (Normalized) Sig (Original) erythromycin 0.005 mg/mg ophthalmic ointment (5 sources) Macrolide, Macrolide Antimicrobial Start: 05-09-2025 End: 05-12-2025 Erythromycin 5 mg/gram (0.5 %) ointment Discontinued 0.5 [in_us] OPHTHALMIC TWICE A DAY 3.5 3 0 May 09, 2025 12:00am May 11, 2025 12:00am May 12, 2025 12:09am For the left lower eyelid Norethindrone-E.Est radiol-Iron (14 sources) Estrogen Start: 12-27-2023 End: 02-10-2025 Norethindrone-E.Es tradiol-Iron (Marchl Fe 24) 1 mg-20 mcg (24)/75 mg (4) tablet Discontinued 1 {tbl} PO DAILY December 27, 2023 3:58pm February 10, 2025 3:30pm Start: 12-27-2023 Norethindrone- E.Estradiol-Iron (Marchl Fe 24) 1 mg-20 mcg (24)/75 mg (4) tablet Active 1 {tbl} PO DAILY December 27, 2023 3:58pm Start: 12-27-2023 take 1 tablet by thalia once daily Norethindrone-E.Estradiol-Iron (Marchl Fe 24) 1 mg-20 mcg (24)/75 mg (4) tablet Active 1 TABLET PO DAILY December 27, 2023 3:58pm Start: 12-27-2023 End: 12-27-2023 Norethindrone-E.Estradiol-Ir on (Marchl Fe 24) 1 mg-20 mcg (24)/75 mg (4) tablet Discontinued 1 {tbl} PO DAILY December 27, 2023 1:00am December 27, 2023 3:59pm Start: 12-27-2023 End: 12-27-2023 take 1 tablet by mouth once daily Norethindrone-E.Estradiol-Iron (Marchl Fe 24) 1 mg-20 mcg (24)/75 mg (4) tablet Discontinued 1 TABLET PO DAILY December 27, 2023 1:00am December 27, 2023 3:59pm methylPREDNISolone 4 mg oral tablet (2 sources) Corticosteroid Start: 06-11-2025 End: 07-04-2025 take 1 tablet by mouth once Methylprednisolone (Medrol (Lee)) 4 mg tablets,dose pack Discontinued 0 PO per package directions 21 0 June 11, 2025 12:00am July 04, 2025 8:14am PO PER PKG DIR oseltamivir 75 mg oral capsule (6 sources) Neuraminidase Inhibitor Start: 11-07-2024 End: 11-12-2024 take 1 capsule by mouth every twelve hours Oseltamivir (Tamiflu) 75 mg capsule Discontinued 75 mg PO Q12H 10 5 0 November 07, 2024 1:00am November 11, 2024 1:00am November 12, 2024 1:08am Problems Active Problems Problem Classification Problem Date Documented Da te Episodic/Chronic Influenza (7 sources) Influenza due to Influenza A virus; Translations: [Influenza due to other identified influenza virus with other respiratory manifestations] 11-07-2024 Episodic Neoplasms of unspecified nature or uncertain behavior (10 sources) Neoplasm of uncertain behavior of face; Translations: [Neoplasm of uncertain behavior of other specified sites] 05-09-2025 Episodic Comment on above: Skin tag (excised Ju 2024) Skin tag on eye (exc ised April 2025) Other skin disorders (1 source) Other hypertrophic disorders of the skin; Translations: [Other hypertrophic disorders of the skin] Onset: 05-15-2025 Episodic Spondylosis; intervertebral disc disorders; other back problems (6 sources) Backache; Translations: [Dorsalgia, unspecified] 11-07-2024 Episodic Comment on above: d/t degenerative dis c, child care specialist Past or Other Problems Problem Classification Problem Date Documented Da te Episodic/Chronic Unclassified (2 sources) Encounter for screening for malignant neoplasm of cervix; Translations: [ENCOUNTER FOR SCREENING FOR MALIGNANT NEOPLASM OF CERVIX] Onset: 04-28-2017 Episodic Results Test Name Value Interpretation Reference Range Facility Office Visit Reporton 2024 Office Visit Report [facility] [address] [place] [address] OFFICE VISIT Date of Service: 07/04/25 MR#: [id number] Acct: [id number] Patient: NADYA MOORE Rep #: [id number] : 1990 Provider: RAMIREZ Serrato ams Age/Sex: 35/F Location: [facility] Status: Signed Intake Vital Signs 06/11/25 07:26 07/04/25 09:04 Height 5 ft 3.5 in 5 ft 3 in Weight: 154 lb 4 oz BMI 27.3 BP 104/76 98/70 Blood Pressure Location Lt brachial Position Sitting Respiration 12 Pulse 99 Pulse Source Monitor Temp 98.5 F Temp Source Oral Pulse Oximetry (%) 98 Oxygen Delivery Method room air Intake Visit Reasons: PNOB Vitals Education Chief Complaint: In person PNOB Allergies amoxicillin Allergy (Mild, Verified 07/04/25 08:13) Hives Penicillins (PCN) Allergy (Mild, Verified 07/04/25 08:13) Hives Medications ???Medication ???Instructions ???Recorded ???Confirmed ???Type echinacea 125 mg capsule 125 mg PO QDAY 06/11/25 07/04/25 H istory multivitamin 1 tab PO QDAY 06/11/25 07/04/25 Hi story Is last menstrual period known: Yes Post menopausal: No Patient : Yes Nurse's Note: Pt here for secondary amenorrhea. Vitals WNL. PNOB questions completed. Problem list, allergies, and medications updated. First trimester ACOG education completed. Nursing Note reviewed Assessment and Plan Assessment and Plan Orders: Orders CBC W/Diff, Automated 07/04/25 Z34.90 - Encounter for supervision of normal , unspecified, unspecified trimester Type Screen 07/04/25 Z34.90 - Encounter for supervision of normal , unspecified, unspecified trimester Rubella IgG 07/04/25 Z34.90 - Encounter for supervision of normal , unspecified, unspecified trimester Hepatitis C Antibody 07/04/25 Z34.90 - Encounter for supervision of normal , unspecified, unspecified trimester Hepatitis B Surface Antigen 07/04/25 Z34.90 - Encounter for supervision of normal , unspecified, unspecified trimester Culture, Urine 07/04/25 Z34.90 - Encounter for supervision of normal , unspecified, unspecified trimester Syphilis Antibodies 07/04/25 Z34.90 - Encounter for supervision of normal , unspecified, unspecified trimester Chlamydia/GC JASON aptima 07/04/25 Z34.90 - Encounter for supervision of normal , unspecified, unspecified trimester HIV 07/04/25 Z34.90 - Encounter for supervision of normal , unspecified, unspecified trimester 07/15/25 0850 Date Caprice Woods CNM Cosigner Signature: Date (if applicable) CC: Normal [facility] Rapid group A Streptococcus antigen assay at point of careOrdered By: Kamron Bhakta on 06-11-2025 S. pyogenes Ag IA.rapid Ql (Throat) Negative [facility] Urgent Care Visit Reporton 0 06-11-2025 Urgent Care Visit Report [facility] [address], [address] [place] [address] OFFICE VISIT Date of Service: 06/11/25 MR#: [id number] Acct: [id number] Name: NADYA MOORE Rep #: [id number] : 1990 Provider: SCOTT Hobbs Age/Sex: 34/F Location: [facility] Status: Signed Intake Vital Signs 05/16/25 08:54 06/11/25 07:26 Height 5 ft 3.5 in 5 ft 3.5 in BP 103/69 104/76 Blood Pressure Location Lt brachial Lt brachial Position Sitting Sitting Respiration 18 12 Pulse 66 99 Pulse Source Monitor Temp 97.9 F 98.5 F Temp Source Temporal Oral Pulse Oximetry (%) 96 98 Oxygen Delivery Method room air room air Intake Visit Reasons: SORE THROAT, FEVER Inspector Barrel Required: No Accompanied by: Self Is patient in pain?: Yes (headache, sore throat) Pain scale (1-10): 5 Allergies amoxicillin Allergy (Mild, Verified 06/11/25 07:24) Hives Penicillins (PCN) Allergy (Mild, Verified 06/11/25 07:24) Hives Medications ???Medication ???Instructions ???Recorded ???Confirmed ???Type echinacea 125 mg capsule 125 mg PO QDAY 06/11/25 06/11/25 H istory methylprednisolone 4 mg tablets in See Rx Instructions PO PER PKG D IR 06/11/25 06/11/25 Rx a dose pack (Medrol (Lee)) #21 tabs multivitamin 1 tab PO QDAY 06/11/25 06/11/25 Hi story Nurse's Note: headache, sore throat x1 day. temp 98.0 at home which higher than baseline. Denies fever or chills. 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 Painful swallowing appreciated though no difficulty swallowing/drooling. No rash. No complaints of chest pressure/shortness of breath/dyspnea on exertion. Unsure if close contacts with similar complaints. ???No dsfc-tqv-hsdqjia products taken to assist. No other associated symptoms and no other alleviating/aggravating factors. ROS Const Constitutional: No other (As above) Exam Const General: cooperative, healthy appearing and no acute distress Orientation: alert, awake and oriented x3 HENMT Head: normal to inspection Ears: hearing grossly normal bilaterally, external ears normal, TM's normal bilaterally and EAC's normal Nose: external nose normal, nares normal, septum normal and no nasal discharge Face and sinus: normal facial exam, sinuses nontender and face symmetric Mouth: oral mucosae normal, lip normal, tongue normal and oropharynx normal Throat: posterior oropharynx normal, uvula midline, abnormal tonsil bilaterally erythema w/ no exudates and no hypertrophy, and no postnasal drainage Eyes General: appearance normal, both eyes and all related structures Neck Neck: normal visual inspection, full ROM, no meningeal signs, supple and lymphadenopathy (Bilateral anterior cervical lymph node trace swelling/nontender to palpation) Neck mass: No Thyroid: thyroid normal Chest Chest palpation inspection: normal inspection of the chest Resp Effort Inspection: normal respiratory effort and able to speak in complete sentences Auscultation: Bilateral: Clear to Auscultation Cardio Palpation: normal PMI Rate: regular rate Rhythm: regular rhythm Heart Sounds: S1 normal, S2 normal, no gallops, no murmurs and no rubs Pulses: radial pulses present Skin General: no rashes or lesions noted Neuro General: patient alert, patient awake and patient oriented x3 Cognition: normal cognition Speech: speech normal Psych Appearance: grossly normal Mental Status: mental status grossly normal Mood: congruent mood Affect: normal affect Speech and Movement: speech and movement normal Attitude: cooperative Diagnoses Acute pharyngitis J02.9 URI (upper respiratory infection) J06.9 Assessment and Plan Assessment and Plan (1) Acute pharyngitis: Status: Acute (2 (more content not included)... Normal [facility] Plastic Surgery Visit Report on 05-16-2025 Plastic Surgery Visit Report [facility] Plastic Reconstructive Surgery [address], [address] [place] [address] OFFICE VISIT Date of Service: 05/16/25 MR#: [id number] Acct: [id number] Name: NADYA MOORE Rep #: [id number] : 1990 Provider: Dr. Ezequiel Hurtado MD Age/Sex: 34/F Location: [facility] Status: Signed Intake Vital Signs 05/09/25 14:17 05/16/25 08:54 Height 5 ft 3.5 in 5 ft 3.5 in Weight: 154 lb BMI 26.8 BP 127/76 H 103/69 Blood Pressure Location Rt brachial Lt brachial Position Sitting Sitting Respiration 18 18 Pulse 54 L 66 Pulse Source Monitor Temp 97.3 F L 97.9 F Temp Source Temporal Temporal Pulse Oximetry (%) 99 96 Oxygen Delivery Method room air room air Intake Visit Reasons: 1 W FU Chief Complaint: 1 week follow up in office biopsy Is patient in pain?: No Allergies amoxicillin Allergy (Mild, Verified 05/16/25 08:54) Hives Penicillins (PCN) Allergy (Mild, Verified 05/16/25 08:54) Hives Medications ???Medication ???Instructions ???Recorded ???Confirmed ???Type NK 05/16/25 05/16/25 History Nurse's Note: pt here post op left lower eyelid biopsy, no issues/concerns Subjective Details: No issues after left lower eyelid skin tag excision Pathology reviewed today MICROSCOPIC DIAGNOSIS A. Eyelid, left, lower, skin tag, excision: - Benign acrochordon (fibroepithelial polyp, ???skin tag???). MICROSCOPIC DESCRIPTION Slides are reviewed. GROSS DESCRIPTION A. Received in formalin labeled with the patient's name and date of . Designated as LLL is a 0.4 x 0.2 x 0.1 cm hunter to light brown polypoid portion of skin, devoid of orientation. The resection margin is inked black and the specimen is entirely submitted in 1 cassette. ME 05/12/2025 CPT:46192 Electronically Signed by: Dr. Dr. 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[employer] 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 Status: Never smoker alcohol intake: current alcohol intake frequency: a few times a month substance use type: does not use seatbelt use: always do you feel safe at home: Yes 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 Assessment and Plan (No Qualifiers) Assessment and Plan (1) Neoplasm of uncertain behavior of face: Status: Acute Comment: Skin tag (excised April 2025) Plan: Expected course Follow-up as needed 05/16/25 454 Date Ezequiel Hurtado MD [facility] Signature: Date (if applicable) CC: Normal [facility] Surgical pathology reportOrd ered By: Laila Bucio on 05-14-2025 Surgical pathology study [facility] Surgery Specimen Level Irina 05-10-2025 Surgery Specimen Level IV Patient Age/Sex Location Account Attending Physician NADYA MOORE 34/F LABSPEC [id number] Dr. Ezequiel Hurtado MD Specimen: [id number] Received: 05/10/25 Status: ALFREDO Ott Num: [id number] Spec Type: Lesion Subm Dr: Dr. Ezequiel Hurtado MD HEADER OPERATION: Excision left lower eyelid skin tag PRE-OP DIAGNOSIS: Skin tag TISSUE SUBMITTED: A- Left lower eyelid MICROSCOPIC DIAGNOSIS A. Eyelid, left, lower, skin tag, excision: - Benign acrochordon (fibroepithelial polyp, skin tag). MICROSCOPIC DESCRIPTION Slides are reviewed. GROSS DESCRIPTION A. Received in formalin labeled with the patient's name and date of . Designated as LLL is a 0.4 x 0.2 x 0.1 cm hunter to light brown polypoid portion of skin, devoid of orientation. The resection margin is inked black and the specimen is entirely submitted in 1 cassette. ME 05/12/2025 CPT:64305 Patient Age/Sex Location Account Attending Physician FINESSENADYA HernandezN 34/F LABSPEC [id number] Dr. Ezequiel Hurtado MD Signed (signature on file) Dr. Laila Bucio MD 05/14/25 1334 Normal [facility] Comment on above: Performed By: #### P SUIV #### [facility] [address] [place] [address]. [place], [place], [id number] Plastic Surgery Visit Report on 05-09-2025 Plastic Surgery Visit Report [facility] Plastic Reconstructive Surgery [address], [address] [place] [address] OFFICE VISIT Date of Service: 05/09/25 MR#: [id number] Acct: [id number] Name: NADYA MOORE Rep #: [id number] : 1990 Provider: Dr. Ezequiel Hurtado MD Age/Sex: 34/F Location: [facility] Status: Signed Intake Vital Signs 3 02/10/25 15:27 05/09/25 14:17 Height 5 ft 3.5 in 5 ft 3.5 in Weight: 154 lb BMI 26.8 BP 127/76 H Blood Pressure Location Rt brachial Position Sitting Respiration 18 Pulse 54 L Pulse Source Monitor Temp 97.3 F L Temp Source Temporal Pulse Oximetry (%) 99 Oxygen Delivery Method room air Intake Visit Reasons: SKIN TAG ON THE L EYE LID Inspector Barrel Required: No DME Vendor: n/a Accompanied by: Self Is patient in pain?: No Allergies amoxicillin Allergy (Mild, Verified 05/09/25 14:18) Hives Penicillins (PCN) Allergy (Mild, Verified 05/09/25 14:18) Hives Medications 3 ???Medication ???Instructions ???Recorded ???Confirmed ???Type erythromycin 5 mg/gram (0.5 %) eye 0.5 inch ophthalmic (eye) BID 3 05/09/25 05/09/25 Rx ointment days #3.5 grams PFSH Medical History Family history of colon cancer in mother Family history of factor V Leiden mutation Back pain Surgical History S/P wisdom tooth extraction Family History Grandmother Cancer paternal- multiple myeloma Mother Cancer melanoma Social History household members: spouse 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: employed 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 The skin tag has been present for an unspecified duration and is located in a challenging area on the eyelid, making it difficult for previous providers to address. The patient finds the skin tag annoying as it is visible and sometimes palpable, causing discomfort. There is no significant past medical history reported, and the patient does not take any medications or smoke. ROS: - General: Denies any other health issues or medication use. Attestation: Documentation on this patient encounter was supported using ambient scribe technology/ voice AI technology. The patient consented to recording for the purpose of documenting the encounter. Provider reviewed content of the generated note prior to signature. 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 The lesion is located in a challenging area on the eyelid, which has made previous interventions difficult. The patient reports that the skin tag is bothersome due to its visibility and occasional palpability. 1. Lesion on left lower eyelid The plan is to excise the skin tag and send it for histopathological examination to confirm its benign nature. The patient was informed about the potential for minor bleeding and scarring, and the need for follow-up in one week to assess healing. Procedure Shave biopsy left lower light lid lesion Consent obtained 1/2 cc of 1% lidocaine with 1-200,000 epinephrine was injected in the location given time to take effect Pickup and scissors were used for tangential biopsy at the base of the lesion Hemostasis was obtained with pressure The lesion was sent to pathology CPT: 12732 Plan: Erythromycin ointment to be applied twice daily (ordered) for 3 days Anticipate some swelling and bruising Follow-up in 1 week for wound check and to review the pathology report 05/09/25 1829 Date Ezequiel Fitzpatrick Signature: Date (if applicable) CC: Normal [facility] Office Visit Reporton 2024 Office Visit Report [facility] [address] [place] [address] OFFICE VISIT Date of Service: 11/07/24 MR#: [id number] Acct: [id number] Patient: NADYA MOORE Rep #: [id number] : 1990 Provider: SCOTT Alicia Age/Sex: 34/F Location: [facility] Status: Signed Intake Vital Signs 11/07/24 06:00 Height 5 ft 3.5 in Intake Visit Reasons: 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/ [employer] [facility] Chief Complaint: Annual Allergies amoxicillin Allergy [...] Deutsch Signature: Date (if applicable) CC: Normal [facility] Tool Dispatcher Office Visit Reporton 02-10-2025 Tool Dispatcher Office Visit Report [facility] [address], [facility] [address] [place] [address] OFFICE VISIT Date of Service: 02/10/25 MR#: [id number] Acct: [id number] Name: NADYA MOORE Rep #: [id number] : 1990 Provider: FUENTES osborne Age/Sex: 34/F Location: [facility] [place] Status: Signed Intake Vital Signs 12/27/23 14:46 11/07/24 06:00 02/10/25 15:23 02/10/25 15:27 Height 5 ft 3.5 in 5 ft 3.5 in 5 ft 3.5 in 5 ft 3.5 in Weight: 152 lb 6 oz BMI 26.5 BP 116/74 Intake Visit Reasons: Annual (NREMT) Chief Complaint: Annual Inspector Barrel Required: No Is patient in pain?: No Allergies amoxicillin Allergy (Mild, Verified 02/10/25 15:23) Hives Penicillins (PCN) Allergy (Mild, Verified 02/10/25 15:23) Hives Is last menstrual period known: No Post menopausal: No Patient : No : No PFSH Medical History (Updated 02/10/25 @ 15:33 by Mihaela Burton NP, OFFICE EQUIPMENT MECHANIC-C) Family history of colon cancer in mother Family history of factor V Leiden mutation Back pain Surgical History S/P wisdom tooth extraction Family History Grandmother Cancer paternal- multiple myeloma Mother Cancer melanoma Social History household members: spouse 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: employed 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 Normal [facility] Fact V Leiden Mutationon FACTOR V LEIDEN Comment Normal . [facility] Comment on above: Result Comment: Resu lt: c.1601G>A (p.[id number]) - Not Detected This result is not associated with an increased risk for venous thromboembolism. See Additional Clinical Information and Comments. Additional Clinical Information: Venous thromboembolism is a multifactorial disease influenced by genetic, environmental, and circumstantial risk factors. The c.1601G>A (p. [id number]) variant in the F5 gene, commonly referred [...] c.*97G>A variant and Factor V Leiden (PMID: 93970547). Additional risk factors include but are not [...] health care providers to discuss results at [phone] Test Details: Variant Analyzed: c.1601G>A (p. [id number]), referred to as Factor V Leiden Methods/Limitations: [...] developed and its performance characteristics determined by [facility]. It has not been cleared or approved by the Food and Drug Administration. References: Sidney S, Donita PIEDRA, Toño R, Daria WW, Berny JH; ACMG Professional Practice and Guidelines Committee. Addendum: [employer] consensus statement on factor V Leiden mutation testing. [employer]. 2020Dec 25. doi: 10.1038/[id number]-h. PMID: 79258814. Barak SYLVESTER. Factor V Leiden Thrombophilia. 1998March 05 (Updated 2017Oct 26). In: Alex MP, Dorian HH, Ricky RA, et al., editors. [employer](R) (Internet). [place] ([place]): [facility], [place]; 7555-1631. Available from: https://www.ncbi.nlm.nih.gov/books/QRJ9050/ Ant S, Donita PIEDRA, Cliff X, Neri B, Jeni EB, Ariana P, Sherri CS; ACMG Laboratory Rail Detector Car Operator Committee. Venous thromboembolism laboratory testing (factor V Leiden and factor II c.*97G>A), 2018 update: a technical standard of the [employer] and Genomics (ACMG). Tamy Med. 2018 Sep;20(12):5014-4042. doi: 10.1038/[id number]-c. Epub 2017Jul 27. PMID: 79071865. Performed By: #### L 4500.5000 #### [facility] [address]. [place], [place], [address] Reviewed By Comment Normal . [facility] Comment on above: Result Comment: Tech nical Component performed at [facility] Professional Component performed by: [employer] Nickolas Mckeon, Ph.D., [facility] Director, Molecular Genetics [address] [place] [address] Dr Zoraida GONZALEZ [address] Performed at: - [facility] [address] [facility], [place] [id number] Electro Mechanical Technologist: Kimmie Saldaña [facility], Phone: [phone] Performed By: #### L 4500.5000 #### [facility] [address] [place], [address] Clotting factor V Leiden [facility] ation detectionOrdered By: Jorje Preciado on 12-23-2024 Factor V Leiden Mutation Comment . [facility] Comment on above: Result: c.1601G>A (p .Zpy359Swg) - Not DetectedThis result is not associated with an increased risk for venousthromboembolism. See Additional Clinical Information andComments.Additional Clinical Information:Venous thromboembolism is a multifactorial diseaseinfluenced by genetic, environmental, and circumstantialrisk factors. The c.1601G>A (p. Rpq384Hlh) variant in theF5 gene, commonly referred to [...] F2 c.*97G>Avariant and Factor V Leiden (PMID: 84264329). Additionalrisk factors include but are not limited [...] for health careproviders to discuss results at [phone] (7421).Test Details:Variant Analyzed: c.1601G>A (p. Ldl337Exn), referred toas Factor V LeidenMethods/Limitations:DNA analysis of [...] was developed and its performance characteristicsdetermined by [facility]. It has not been cleared orapproved by the Food and Drug Administration.References:Sidney S, Donita PIEDRA, Toño R, Daria WW, Berny JH; ACMGProfessional Practice and Guidelines Committee. Addendum:[employer] consensus statement onfactor V Leiden mutation testing. Tamy Med. 2020Dec 25.doi: 10.1038/[id number]-t. PMID: 80644818.Barak SYLVESTER. Factor V Leiden Thrombophilia. 1998March 05(Updated 2017Oct 26). In: Alex MP, Dorian HH, Ricky RA,et al., editors. [employer](R) (Internet). [place] ([place]):[facility] [place]; 4686-7279. Availablefrom: https://www.ncbi.nlm.nih.gov/books/KTJ7916/Ant Holden, Donita PIEDRA, Cliff X, Neri B, Jeni EB, Ariana P,Sherri CS; ACMG Laboratory Rail Detector Car Operator Committee.Venous thromboembolism laboratory testing (factor V Leidenand factor II c.*97G>A), 2018 update: a technical standardof the [employer] and Genomics(ACMG). Tamy Med. 2018 Sep;20(12):1000-2354. doi:10.1038/[id number]-o. Epub 2017Jul 27. PMID: 86744017. Laboratory - Microbiology an d Antimicrobial susceptibilityon 11-07-2024 SARS-CoV-2 (COVID-19) RNA JASON+probe Ql (Unsp spec) Not detected [facility] No Panel Informationon 11-07 POC Nasal Swab Influenza A,B Detected [facility] POC Nasal Swab RSV Not detected [facility] Office Visit Reporton 2024 Office Visit Report [facility] [address] [place] [address] OFFICE VISIT Date of Service: 11/07/24 MR#: [id number] Acct: [id number] Patient: NADYA MOORE Rep #: [id number] [...] Cosigner Signature: Date (if applicable) CC: Normal [facility] Urgent Care Visit Reporton 0 11-07-2024 Urgent Care Visit Report [facility] [address], [address] [place] [address] OFFICE VISIT Date of Service: 11/07/24 MR#: [id number] Acct: [id number] Name: NADYA MOORE Rep #: [id number] : 1990 Provider: SCOTT Alicia Age/Sex: 34/F [...] congestion Chief Complaint: cough, congest, MORRELL, BA Inspector Barrel Required: No Is patient in pain?: No [...] occupational status: employed 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 Normal [facility] Cervical or vaginal specimen microscopic examination by liquid based cytology (reportOrdered By: Mihaela Burton on 12-27-2023 Cytology report Cyto stain.thin prep Doc (Cvx/Vag) Comment . [facility] Comment on above: Criteria not met, HP V Genotype not performed.Performed at: - [facility] [id number] Director: Cristy Luis MD, Phone: [phone] at: = - [facility] [id number] Director: Cristy Luis MD, Phone: [phone] Cervical or vagninal specime n microscopic examination by cytology stain (reported asOrdered By: Mihaela Burton on 12-27-2023 Cytology report Cyto stain Doc (Cvx/Vag) Comment . [facility] Comment on above: The Pap [...] DNA Probe+sig amp Ql (Cvx) Negative Negative [facility] Comment on above: This nucleic acid am plification test detects fourteen high- risk HPV types (16,18,31,33,35,39,45,51,52,56,58,59,66,68)without differentiation. Laboratory - CytologyOrdered By: Mihaela Burton on 12-27-2023 Materials Technician Cyto stain Nom (Cvx/Vag) [ID] Comment . [facility] Comment on above: Lew Concepcion totechnologist (ASCP) Laboratory - Miscellaneous t estsOrdered By: Mihaela Burton on 12-27-2023 Service comment (Unsp spec) [Interp] . . [facility] Thin prep Papanicolaou smear with manual screeningOrdered By: Mihaela Burton on 12-27-2023 Thin prep Papanicolaou smear with manual screening Comment . [facility] Comment on above: NEGATIVE FOR INTRAEP ITHELIAL LESION OR MALIGNANCY. This liquid based Th inPrep(R) pap test was screened withthe use of an image guided system. Absolute lymphocyte counton 07-22-2022 Lymphocytes Auto (Unsp spec) [#/Vol] 2.29 10*3/uL 0.83-4.51 [facility] Work Phone: Absolute reticulocyte counto n 07-22-2022 Reticulocytes (Bld) [#/Vol] 0.00 10*3/uL 0-5 [facility] Work Phone: Basophil percentageon 2021 Basophil percentage 2.7 mg/dL 2.5-4.9 [facility] Work Phone: Bilirubin [Mass/Vol] 0.70 mg/dL 0.20-1.00 [facility] Work Phone: Comment on above: For patients on eltr ombopag therapy, use of Dimension [place] TBIL is not recommended. Chloride [Moles/Vol] 108 mmol/L 98-107 [facility] Work Phone: Cholesterol [Mass/Vol] 224 mg/dL <200 [facility] Work Phone: Comment on above: <200 mg/dL Desirable 200-240 mg/dL Borderline >240 mg/dL High Risk Glucose [Mass/Vol] 91 mg/dL 74-106 [facility] Work Phone: Neutrophils (Bld) [#/Vol] 5.2 10*3/uL 2.0-7.7 [facility] Work Phone: Potassium [Moles/Vol] 3.7 mmol/L 3.5-5.1 [facility] Work Phone: Protein [Mass/Vol] 7.7 g/dL 6.4-8.2 [facility] Work Phone: [phone] Sodium [Moles/Vol] 139 mmol/L 136-145 [facility] Work Phone: [phone] Triglyceride [Mass/Vol] 73 mg/dL <199 [facility] Work Phone: Comment on above: The drugs N-Acetylcy steine and Metamizole may falsely depress this assay.Serum Triglycerides Reference Interval Normal <150 mg/dL Borderline high 150 - 199 mg/dL High 200 - 499 mg/dL Very High > or = 500 mg/dL WBC (Bld) [#/Vol] 8.4 10*3/uL 4.4-11.0 [facility] Work Phone: [phone] Bilirubin Test strip Ql (U)o n 07-22-2022 Bilirubin Ql (U) Negative Negative [facility] Work Phone: [phone] Blood erythrocytes count (nu mber/volume)on 07-22-2022 RBC (Bld) [#/Vol] 4.50 10*6/uL 4.2-5.4 [facility] Work Phone: [phone] Blood hemoglobin measurement (mass/volume)on 07-22-2022 Hemoglobin (Bld) [Mass/Vol] 13.0 g/dL 12.0-15.0 [facility] Work Phone: [phone] Blood platelet mean volumeon 07-22-2022 Platelet mean volume (Bld) [Entitic vol] 10.6 fL 6.2-12.0 [facility] Work Phone: [phone] Determination of erythrocyte mean corpuscular volume (MCV)on 07-22-2022 MCV (RBC) [Entitic vol] 91.3 fL 81-99 [facility] Work Phone: [phone] Direct bilirubinon Bilirubin.direct [Mass/Vol] 0.16 mg/dL 0.00-0.30 [facility] Work Phone: [phone] Hematocrit Auto (Bld) [Volum e fraction]on 07-22-2022 Hematocrit (Bld) [Volume fraction] 41.1 % 37-47 [facility] Work Phone: [phone] Ketones Test strip Ql (U)on 07-22-2022 Ketones Ql (U) Negative Negative [facility] Work Phone: [phone] Laboratory - Chemistry and C hemistry - challengeon 07-22-2022 ALP [Catalytic activity/Vol] 62 U/L 45-117 [facility] Work Phone: [phone] ALT [Catalytic activity/Vol] 31 U/L 13-56 [facility] Work Phone: [phone] Cholesterol.total/C holesterol in HDL [Mass ratio] 3.00 {ratio} [facility] Work Phone: [phone] CO2 [Moles/Vol] 25.0 mmol/L 21.0-32.0 [facility] Work Phone: [phone] Globulin (S) [Mass/Vol] 4.4 g/dL 2.2-4.2 [facility] Work Phone: [phone] Urea nitrogen/Creatinine [Mass ratio] 11.8 mg/mg 10-20 [facility] Work Phone: [phone] Laboratory - Hematology and Cell countson 07-22-2022 Erythrocyte distribution width (RBC) [Entitic vol] 40.2 fL 35.1-43.9 [facility] Work Phone: [phone] Erythrocyte distribution width (RBC) [Ratio] 12.0 % 11.6-14.6 [facility] Work Phone: [phone] Immature granulocytes/100 WBC (Bld) 0.600 % 0.0-0.9 [facility] Work Phone: [phone] Comment on above: IG% - Immature Granu locytes (promyelocytes, myelocytes and metamyelocytes) > 1% indicates that a LEFT SHIFT is Present. MCH (RBC) [Entitic mass] 28.9 pg 27.0-32.0 [facility] Work Phone: [phone] Nucleated RBC/100 WBC (Bld) [Ratio] 0 % 0-5 [facility] Work Phone: [phone] MCHC Auto (RBC) [Mass/Vol]on 07-22-2022 MCHC (RBC) [Mass/Vol] 31.6 g/dL 32-36 [facility] Work Phone: Nitrite Test strip Ql (U)on 07-22-2022 Nitrite Ql (U) Negative Negative [facility] Work Phone: No Panel Informationon 07-22 Estimated GFR (MDRD) Amer 100 mL/min >60 [facility] Work Phone: Comment on above: GFR Calc Estimated GFR (MDRD) Non-Af Amer 83 mL/min >60 [facility] Work Phone: Comment on above: Non- GFR Calc Platelets bldon 07-22-2022 Platelets (Bld) [#/Vol] See comment 150-450 [facility] Work Phone: Comment on above: [...] 07-22-2022 Protein Ql (U) 30 mg/dl Negative [facility] Work Phone: Segmented neutrophils/100 WB C Auto (Bld)on 07-22-2022 Segmented neutrophils/100 WBC (Bld) 62.2 % 47-70 [facility] Work Phone: Serum or plasma albumin emeka urement (mass/volume)on 07-22-2022 Albumin [Mass/Vol] 3.3 g/dL 3.2-5.0 [facility] Work Phone: [phone] Serum or plasma albumin/glob ulin mass ratioon 07-22-2022 Albumin/Globulin [Mass ratio] 0.8 {ratio} 0.9-2.4 [facility] Work Phone: Serum or plasma calcium emeka urement (mass/volume)on 07-22-2022 Calcium [Mass/Vol] 9.0 mg/dL 8.5-10.1 [facility] Work Phone: Serum or plasma cholesterol in HDL measurement (mass/volume)on 07-22-2022 Cholesterol in HDL [Mass/Vol] 74 mg/dL >40 [facility] Work Phone: Comment on above: The drugs N-Acetylcy steine and Metamizole may falsely depress this assay. Reference Range HDL <40 mg/dL Low HDL Cholesterol HDL >or= 60 mg/dL High HDL Cholesterol Serum or plasma cholesterol in VLDL measurement (mass/volume)on 07-22-2022 Cholesterol in VLDL [Mass/Vol] 15 mg/dL 5-40 [facility] Work Phone: Serum or plasma creatinine m easurement (mass/volume)on 07-22-2022 Creatinine [Mass/Vol] 0.85 mg/dL 0.55-1.02 [facility] Work Phone: Comment on above: The validity of the calculated GFR & GFRAA in patients over 70 years has not been determined. Clinical correlation is essential. Serum or plasma low density lipoprotein (LDL) cholesterol measurement (mass/volume)on 07-22-2022 Cholesterol in LDL [Mass/Vol] 135 mg/dL 0-130 [facility] Work Phone: Serum or plasma urea nitroge n measurement (mass/volume)on 07-22-2022 Urea nitrogen [Mass/Vol] 10 mg/dL 7-18 [facility] Work Phone: Serum or plasma uric acid me asurement (mass/volume)on 07-22-2022 Urate [Mass/Vol] 4.0 mg/dL 2.6-6.0 [facility] Work Phone: Comment on above: The drugs N-Acetylcy steine and Metamizole may falsely depress this assay. Thin prep Papanicolaou smear with manual screeningon 07-22-2022 Thin prep Papanicolaou smear with manual screening 26 U/L 15-37 [facility] Work Phone: [phone] Thin prep Papanicolaou smear with manual screening 6 5-15 [facility] Work Phone: Thin prep Papanicolaou smear with manual screening 252 U/L 84-246 [facility] Work Phone: Urine blood detectionon 06-25 RBC Ql (U) 25 /ul Negative [facility] Work Phone: [phone] Urine clarityon 07-22-2022 Clarity (U) Sl. Cloudy Clear [facility] Work Phone: [phone] Urine color determinationon 07-22-2022 Color (U) Straw Yellow [facility] Work Phone: [phone] Urine glucose detectionon Glucose Ql (U) Normal mg/dl Normal [facility] Work Phone: [phone] Urine leukocyte esterase det ection by dipstickon 07-22-2022 Leukocyte esterase Test strip Ql (U) 500 /ul Negative [facility] Work Phone: Urine pHon 07-22-2022 pH (U) 6.0 [pH] 5.0 - 8.0 [facility] Work Phone: Urine specific gravity measu rementon 07-22-2022 Specific gravity (U) [Rel density] 1.015 1.002-1.030 [facility] Work Phone: Urobilinogen Auto test strip Ql (U)on 07-22-2022 Urobilinogen Ql (U) Normal mg/dl Normal [facility] Work Phone: HPVon 05-11-2017 HPV Interp Invalid Interpretation Code [facility] ([place] Comment on above: Order Comment: Order placed by AP_HPV_ORDER rule from [id number] Performed By: #### H PV ####[address] [address] HPV Source Cervix Normal [facility] [place] Comment on above: Order Comment: Order placed by AP_HPV_ORDER rule from [id number] Performed By: #### H PV ####[address] [address] Vital Signs Date Time Vital Sign Value Performing Clinician Faci lity 06-11-2025 07:26-0400 Body height 161.[address] Jorje Preciado MD Work Phone: [facility] 06-11-2025 07:26-0400 Body temperature 98.5 [degF] Dr. Jorje Preciado MD Work Phone: [facility] 06-11-2025 07:26-0400 Diastolic blood pressure 76 mm[Hg] Dr. Jorje Preciado MD Work Phone: [facility] 06-11-2025 07:26-0400 Heart rate 99 /min Dr. Jorje Preciado MD Work Phone: [facility] 06-11-2025 07:26-0400 Respiratory rate 12 /min Dr. Jorje Preciado MD Work Phone: [facility] 06-11-2025 07:26-0400 SaO2% (BldA) [Mass fraction] 98 % Dr. Jorje Preciado MD Work Phone: [facility] 06-11-2025 07:26-0400 Systolic blood pressure 104 mm[Hg] Dr. Jorje Preciado MD Work Phone: [facility] 05-16-2025 08:54-0400 Body height 161.29 cm Out [facility] 05-16-2025 08:54-0400 Body temperature 97.9 [degF] Out [facility] 05-16-2025 08:54-0400 Diastolic blood pressure 69 mm[Hg] Out [facility] 05-16-2025 08:54-0400 Heart rate 66 /min Out [facility] 05-16-2025 08:54-0400 Respiratory rate 18 /min Out [facility] 05-16-2025 08:54-0400 SaO2% (BldA) [Mass fraction] 96 % Out [facility] 05-16-2025 08:54-0400 Systolic blood pressure 103 mm[Hg] Out [facility] 05-09-2025 14:17-0400 Body height 161.29 cm Out [facility] 05-09-2025 14:17-0400 Body mass index (BMI) [Ratio] 26.8 kg/m2 Out [facility] 05-09-2025 14:17-0400 Body temperature 97.3 [degF] Out [facility] 05-09-2025 14:17-0400 Body weight 69.85 kg Out [facility] 05-09-2025 14:17-0400 Diastolic blood pressure 76 mm[Hg] Out [facility] 05-09-2025 14:17-0400 Heart rate 54 /min Out [facility] 05-09-2025 14:17-0400 Respiratory rate 18 /min Out [facility] 05-09-2025 14:17-0400 SaO2% (BldA) [Mass fraction] 99 % Out [facility] 05-09-2025 14:17-0400 Systolic blood pressure 127 mm[Hg] Out [facility] 02-10-2025 15:23-0400 Body mass index (BMI) [Ratio] 26.5 kg/m2 Out [facility] 02-10-2025 15:23-0400 Body weight 69.11 kg Out [facility] 02-10-2025 15:23-0400 Diastolic blood pressure 74 mm[Hg] Out [facility] 02-10-2025 15:23-0400 Systolic blood pressure 116 mm[Hg] Out [facility] 11-07-2024 06:00-0500 Body height 161.29 cm Out [facility] 11-07-2024 06:00-0500 Body mass index (BMI) [Ratio] 26.5 kg/m2 Out [facility] 11-07-2024 06:00-0500 Body temperature 98.7 [degF] Out [facility] 11-07-2024 06:00-0500 Body weight 69 kg Out [facility] 11-07-2024 06:00-0500 Diastolic blood pressure 64 mm[Hg] Out [facility] 11-07-2024 06:00-0500 Heart rate 92 /min [facility] 11-07-2024 06:00-0500 Respiratory rate 16 /min [facility] 11-07-2024 06:00-0500 SaO2% (BldA) [Mass fraction] 98 % [facility] 11-07-2024 06:00-0500 Systolic blood pressure 110 mm[Hg] [facility] 12-27-2023 14:46-0500 Body height 161.29 cm [facility] 12-27-2023 14:46-0500 Body mass index (BMI) [Ratio] 26.6 kg/m2 [facility] 12-27-2023 14:46-0500 Body weight 69.45 kg [facility] 12-27-2023 14:46-0500 Diastolic blood pressure 72 mm[Hg] [facility] 12-27-2023 14:46-0500 Systolic blood pressure 114 mm[Hg] [facility] Encounters Encounter Date Encounter Type Care Provider Facility Start: 07-18-2025 ambulatory Caprice Woods Facility :[facility] Start: 07-04-2025 End: 07-04-2025 Patient encounter procedure Caprice Woods [facility] Work Phone: Start: 07-04-2025 End: 07-04-[address] Jorje Preciado MD Work Phone: -[facility] Start: 06-11-2025 End: 06-11-2025 Patient encounter procedure Kamron Bhakta [facility] Work Phone: Start: 06-11-2025 End: 06-11-[address] Jorje Preciado MD Work Phone: -[facility] Start: 05-16-2025 End: 05-16-[address] Ezequiel Hurtado MD -[facility] Work Phone: Start: 05-16-2025 End: 05-16-2025 ambulatory Out of Town Doctor -[facility] Start: 05-10-2025 End: 05-10-2025 ambulatory Out of Town Doctor -Laboratory Specimen Start: 05-10-2025 End: 05-10-[address] Ezequiel Hurtado MD -Laboratory Specimen Work Phone: Start: 05-09-2025 End: 05-09-[address] Ezequiel Hurtado MD -[facility] Work Phone: Start: 05-09-2025 End: 05-10-2025 ambulatory Out of Town Doctor -[facility] Start: 02-10-2025 End: 02-10-2025 Patient encounter procedure Mihaela Burton NP-C -[facility] Work Phone: Start: 02-10-2025 End: 02-10-2025 Patient encounter status Mihaela Burton OFFICE EQUIPMENT MECHANIC-C [facility] Start: 02-10-2025 End: 02-10-2025 ambulatory Mihaela Burton NP Facility:[facility] Start: 01-03-2025 Encounter for genera l adult medical examination without abnormal findings [facility] Start: 12-23-2024 End: 12-23-2024 ambulatory Out of Town [facility] Work Phone: Start: 12-23-2024 End: 12-23-[address] Jorje Preciado MD -Laboratory, [place] Work Phone: Start: 12-23-2024 End: 12-23-2024 ambulatory Jojre Preciado Facility:[facility] Start: 11-07-2024 End: 11-07-2024 Patient encounter procedure Dylan CHAVEZ [facility] Work Phone: Start: 11-07-2024 End: 11-07-2024 ambulatory Out of Town Doctor Facility:[facility] Start: 12-27-2023 End: 12-27-2023 ambulatory Out of Town [facility] Work Phone: Start: 12-27-2023 End: 12-27-2023 Patient encounter procedure Out [facility], [facility] Work Phone: Start: 12-27-2023 End: 12-27-2023 Patient encounter procedure Out [facility] Doctor [facility] Work Phone: Start: 07-22-2022 Registered Referred [facility] Start: 04-28-2017 End: 04-29-2017 Ambulatory ADINA MARLOW Facility[facility] Start: 04-28-2017 End: 04-29-2017 Ambulatory RASHID WO LEELA REFERRING Facility:[facility] Plan of Treatment Date Care Activity Detail Author Streptococcus pyogen es Ag [Presence] in Throat by Rapid immunoassay [facility] Immunizations Immunization Date Immunization Notes Care Provider Teresa ordaz 08-01-2024 influenza, seasonal, injectable, preservative free [facility] 08-02-2023 influenza, injectabl e, quadrivalent, preservative free [facility] 08-01-2022 influenza, injectabl e, quadrivalent, preservative free [facility] 08-04-2021 influenza, injectabl e, quadrivalent, preservative free [facility] 08-04-2021 influenza, seasonal, injectable [facility] Work Phone: 12-18-2020 Covid (Moderna) [facility] 11-20-2020 Covid (Moderna) [facility] 08-10-2020 influenza, injectabl e, quadrivalent, preservative free [facility] 08-10-2020 influenza, seasonal, injectable [facility] Work Phone: 08-07-2019 influenza, injectabl e, quadrivalent, preservative free [facility] 08-07-2019 influenza, seasonal, injectable [facility] Work Phone: 08-01-2018 influenza, injectabl e, quadrivalent, preservative free [facility] 08-01-2018 influenza, seasonal, injectable [facility] Work Phone: Payers Date Payer Category Payer Self-pay [id number] 2023 Unknown [id number] 2016 Unknown [id number] Unknown [id number] Unknown [facility] [id number] Unknown [id number] 2.16.8 [id number] Unknown [id number] 2.16.8 [id number] Unknown [id number] 2.16.8 [id number] Unknown [id number] 2.16.8 [id number] Unknown [id number] 2.16.8 [id number] Unknown [id number] 2.16.8 [id number] Unknown [id number] 2.16.8 [id number] Unknown [id number] 2.16.8 [id number] Unknown [id number] 2.16.8 [id number] Unknown [id number] 2.16.8 [id number] Social History Date Type Detail Facility [facility] Work Phone: Start: 1990 Sex Assigned At Female [facility] Start: 12-27-2023 [facility] if ever smoked [facility] Start: 11-07-2024 End: 07-04-2025 Tobacco smoking status NHIS Never smoked tobacco (finding) [facility] Start: 01-03-2025 Sex Female (finding) [facility] Evaluation note 05-09-2025 Note Date & Type Note Facility 05-09-2025 Evaluation note Diagnosis Onset Date Resolution 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, 2025 2:04pm 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 16, 2025 8:48am [employer] Work Phone: Evaluation note 05-09-2025 Note Date & Type Note Facility 05-09-2025 Evaluation note Diagnosis Onset Date Resolution 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 May 09, 2025 2:04pm 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 May 16, 2025 8:48am [employer] Work Phone: Evaluation note 02-10-2025 Note Date & Type Note Facility 02-10-2025 Evaluation note Diagnosis Onset Date Resolution Encounter for routine gynecological examination noneactive February 10, 2025 3:22pm [employer] Work Phone: Evaluation note 02-10-2025 Note Date & Type Note Facility 02-10-2025 Evaluation note Diagnosis Onset Date Resolution Encounter for routine gynecological examination noneactive February 10, 2025 3:22pm 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 Satisfactory for evaluation. Endocervical and/or squamous metaplasticcells (endocervical component) are present. Comment on above: Satisfactory for brandin luation. Endocervical and/or squamous metaplasticcells (endocervical component) are present. Evaluation note Note Date & Type Note Facility Evaluation note No assessment information availa ble [facility] Work Phone: Reason for referral (narrative) Note Date & Type Note Facility Reason for referral (narrative) No reason for referral information available [facility] Work Phone: Summary Purpose Family History No Family History Records Found Relationship Condition Age at Onset Recorded Date/T kathie grandmother Malignant neoplasm Unknown mother Malignant neoplasm Unknown Relationship Condition Age at Onset Recorded Date/T kathie grandmother Malignant neoplasm Unknown mother Malignant neoplasm Unknown Malignant neoplasm of colon 60 brother Factor V Leiden mutation Unknown Bicuspid aortic valve Unknown Congenital anomaly of heart Unknown sister Congenital anomaly of heart Unknown Advance Directives No Advanced Directives Records FoundNo Advanced Directives Records FoundNo Advanced Directives Records Found Chief Complaint and Reason for Visit 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 (NREMT) Chief Complaint Admit Date cough, congestion November 07, 2024 6 :08am 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/ [facility] November 07, 2024 6 :16am [facility] December 23, 2024 4:44 pm Reason for Visit Admit Date Influenza due to influenza virus, type A , human November 07, 2024 6:08am Chief Complaint Admit Date Annual (NREMT) February 10, 2025 3:2 2pm SKIN TAG ON THE L EYE LID May 09 2:04pm Reason for Visit Admit Date Encounter for routine gynecological exam ination February 10, 2025 3:22pm Chief Complaint Admit Date Annual (NREMT) February 10, 2025 3:2 2pm SKIN TAG ON THE L EYE LID May 09 2:04pm LEFT LOWER EYELID EXCISION SKIN TAG May 10, 2025 8:29am Reason for Visit Admit Date Encounter for routine gynecological exam ination February 10, 2025 3:22pm Neoplasm of uncertain behavior of face J david 2024 2:04pm Chief Complaint Admit Date Annual (NREMT) February 10, 2025 3:2 2pm SKIN TAG ON THE L EYE LID May 09 2:04pm LEFT LOWER EYELID EXCISION SKIN TAG May 10, 2025 8:29am 1 W FU May 16, 2025 8:48 am Chief Complaint Admit Date SKIN TAG ON THE L EYE LID May 09 2:04pm LEFT LOWER EYELID EXCISION SKIN TAG May 10, 2025 8:29am 1 W FU May 16, 2025 8:48 am SORE THROAT, FEVER June 11, 2025 7: 22am Reason for Visit Admit Date Neoplasm of uncertain behavior of face J david 2024 2:04pm Neoplasm of uncertain behavior of face J david 2024 8:48am Chief Complaint Admit Date SKIN TAG ON THE L EYE LID May 09 2:04pm LEFT LOWER EYELID EXCISION SKIN TAG May 10, 2025 8:29am 1 W FU May 16, 2025 8:48 am SORE THROAT, FEVER June 11, 2025 7: 22am [facility] July 04, 2025 8:05am Additional Source Comments INFORMATION SOURCE (unrecogn ized section and content) DATE CREATED AUTHOR 04/18/2018 [employer] ([place]) DATE CREATED AUTHOR AUTHOR'S ORGANIZ ATION 04/18/2018 [employer] DATE CREATED AUTHOR AUTHOR'S ORGANIZ ATION 07/16/2025 [facility] Goals (unrecognized section and content) Goals may [...] Active Member Role Status Dates Out of [facility] Doctor Primary Care Provider Active Team Status: Inactive Member Role Status Dates Out of [facility] Doctor Primary Care Provider, Referring Pr yesica Active Mihaela Burton OFFICE EQUIPMENT MECHANIC, OFFICE EQUIPMENT MECHANIC-C Attending Provider Active Team Status: Inactive Member Role Status Dates Out of [facility] Doctor Primary Care Provider Active Mihaela Burton OFFICE EQUIPMENT MECHANIC, OFFICE EQUIPMENT MECHANIC-C Attending Provider Active Team Status: Active Member Role Status Dates Dr. Jorje Preciado MD Primary Care Provider Acti ve Team Status: Inactive Member Role Status Dates Out of [facility] Doctor Primary Care Provider Active Start: November 07, 2024 End: November 07, 2024 Out of [facility] Doctor Referring Provider Active Sta rt: [...] Inactive Member Role/Relationship Status Dates Out of [facility] Doctor Referring Provider Active Sta rt: February 10, 2025 End: February 10, 2025 Mihaela Burton OFFICE EQUIPMENT MECHANIC, OFFICE EQUIPMENT MECHANIC-C Attending Provider Active Start: February 10, 2025 [...] May 09, 2025 End: May 09, 2025 Team Status: Inactive Member Role/Relationship Status Dates Dr. Jorje Preciado MD Primary Care Provider Acti ve Start: May 10, 2025 End: May 10, 2025 Dr. Ezequiel Hurtado MD Attending Provider Active Start: May 10, 2025 End: May 10, 2025 Dr. Ezequiel Hurtado MD Referring Provider Active Start: May 10, 2025 End: May 10, 2025 Team Status: Inactive Member Role/Relationship Status Dates Dr. Jorje Preciado MD Primary Care Provider Acti ve Start: May 16, 2025 End: May 16, 2025 Dr. Jorje Preciado MD Referring Provider Active Start: May 16, 2025 End: May 16, 2025 Dr. Ezequiel Hurtado MD Attending Provider Active Start: May 16, 2025 End: May 16, 2025 Team Status: Inactive Member Role/Relationship Status Dates Dr. Jorje Preciado MD Primary Care Provider Acti ve Start: May 09, 2025 End: May 09, 2025 Dr. Jorje Preciado MD Referring Provider Active Start: May 09, 2025 End: May 09, 2025 Dr. Ezequiel Hutrado MD Attending Provider Active Start: May 09, 2025 End: May 09, 2025 Team Status: Inactive Member Role/Relationship Status Dates Dr. Jorje Preciado MD Primary Care Provider Acti ve Start: May 10, 2025 End: May 10, 2025 Dr. Ezequiel Hurtado MD Attending Provider Active Start: May 10, 2025 End: May 10, 2025 Dr. Ezequiel Hurtado MD Referring Provider Active Start: May 10, 2025 End: May 10, 2025 Team Status: Inactive Member Role/Relationship Status Dates Dr. Jorje Preciado MD Primary Care Provider Acti ve Start: May 16, 2025 End: May 16, 2025 Dr. Jorje Preciado MD Referring Provider Active Start: May 16, 2025 End: May 16, 2025 Dr. Ezequiel Hurtado MD Attending Provider Active Start: May 16, 2025 End: May 16, 2025 Team Status: Inactive Member Role/Relationship Status Dates Dr. Jorje Preciado MD Primary Care Provider Acti ve Start: June 11, 2025 End: June 11, 2025 Dr. Jorje Preciado MD Referring Provider Active Start: June 11, 2025 End: June 11, 2025 Kamron CHAVEZ PA Attending Provider Active Start: June 11, 2025 End: June 11, 2025 Team Status: Inactive Member Role/Relationship Status Dates Dr. Jorje Preciado MD Primary Care Provider Acti ve Start: July 04, 2025 End: July 04, 2025 Dr. Jorje Preciado MD Referring Provider Active Start: July 04, 2025 End: July 04, 2025 Caprice Woods CNM Attending Provider Active S tart: July 04, 2025 End: July 04, 2025 FOR RECORDS PERTAINING TO PATIENTS WHO [...] BE BASED ON THE PRIMARY CLINICAL RECORDS. [facility]. provides no warranty or guarantee of the accuracy or completeness of information in this document.
--- OUTSIDE RECORDS SUMMARY | 2025-07-18 09:28 | XMS RPT_ITS | CCD ---
Author Organization [facility] Care Team Providers Care Traverse Rod Assembler Name Role Phone ADINA MARLOW Unavailable Unavailable ADINA MARLOW Unavailable Unavailable PHYSICIAN, NONE Unavailable Unavailable REFERRING, PHY WO ID Unavailable Unavailable ADINA MARLOW Unavailable Unavailable PHYSICIAN, NONE Unavailable Unavailable [facility] Doctor, Out of Primary Care Provider [facility] Doctor, Out of Referring Provider Unavailab sarai Burton PORTAL DEVELOPER, PORTAL DEVELOPER-C Mihaela Attending Provider [facility] Doctor, Out of Primary Care Provider [facility] Doctor, Out of Referring Provider Unavailab Dylan Al Attending Provider [phone] Jorje Preciado MD Primary Care Provider Dr. Jorje Preciado MD Attending Provider [phone] Dr. Jorje Preciado MD Referring Provider [phone] [facility] Doctor, Out of Referring Provider Unavailab Howard CARTER-CMihaela Attending Provider Dr. Jorje Preciado MD Primary Care Provider Dr. Jorje Preciado MD Referring Provider Dr. Ezequiel Hurtado MD Attending Provider Dr. Ezequiel Hurtado MD Referring Provider Dr. Jorje Preciado MD Primary Care Provider Kamron Chapa Attending Provider [phone] Caprice Woods CNM Attending Provider Jorje Preciado Primary Care Unavailable Ezequiel Hurtado Attending Unavailable Ezequiel Hurtado Referring Unavailable [facility] Doctor, Out of Referring Unavailable Dylan Childs Attending Unavailable [facility] Doctor, Out of Primary Care Unavailable Caprice Woods Attending Unavailable [place] Unavailable Ranney, Christanithaer Referring Unavailable Erastoney, Christanithaer Referring Unavailable Caprice Woods Attending Unavailable [place], [facility] Unavailable Ranney, Christopher Referring Unavailable Kamron Chapa Attending Unavailable [place], [facility] Unavailable Ranney, Christopher Referring Unavailable [place], [facility] Unavailable Ezequiel Hurtado Attending Unavailable [place], [facility] Referring Unavailable [place], [facility] Unavailable Ezequiel Hurtado Attending Unavailable Josephine PORTAL DEVELOPER, Mihaela Attending Unavailable [facility], [facility] Primary [facility] Unavailable [place] Doctor, Out of Referring Unavailable Dylan Childs Attending Unavailable [facility] Doctor, Out of Primary Care Unavailable [facility] Doctor, Out of Referring Unavailable Ilana, [facility] Referring Unavailable [facility], [facility] Unavailable Jorje Preciado Attending Unavailable Allergies Allergy Classification Reported Allergen(s) Allergy Type Date of Onset Reaction(s) Facility (7 sources) Amoxicillin Drug Allergy 12-27-2023 [facility] (6 sources) Penicillins Allergy to substance 11-07-2024 [facility] (1 source) Amoxicillin Drug Allergy 07-04-2025 [facility] (1 source) Penicillins Drug allergy (disorder) 07-04-2025 [facility] Medications Current Medications Medication Drug Class(es) Dates Sig (Normalized) Sig (Original) Echinacea 125 mg capsule (2 sources) Start: 06-11-2025 take 1 capsule by mouth once daily Echinacea 125 mg capsule Active 125 mg PO daily June 11, 2025 12:00am Multivitamin tablet (2 sources) Start: 06-11-2025 Multivitamin tablet Active 1 {tbl} PO daily June 11, 2025 12:00am Pocahontas (Nk) (1 source) Start: 05-16-2025 [place] (Nk) Active May 16, 2025 12:00am Completed/Discontinued [...] Comment on above: d/t degenerative dis c, 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 Past or Other Problems Problem Classification Problem Date Documented Da te Episodic/Chronic Unclassified (2 sources) Encounter for screening for malignant neoplasm of cervix; Translations: [ENCOUNTER FOR SCREENING FOR MALIGNANT NEOPLASM OF CERVIX] Onset: 04-28-2017 Episodic Results Test Name Value Interpretation Reference Range Facility Office Visit Reporton 2024 Office Visit Report [facility] [address] [place] [address] OFFICE VISIT Date of Service: 07/04/25 MR#: [id number] Acct: [id number] Patient: NADYA MOORE Rep #: [id number] : 1990 Provider: RAMIREZ Serrato ams Age/Sex: 35/F Location: [facility] Status: Signed Intake Vital Signs 06/11/25 07:26 [...] Cosigner Signature: Date (if applicable) CC: Normal [facility] Rapid group A Streptococcus antigen assay at point of careOrdered By: Kamron Bhakta on 06-11-2025 S. 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 Denies fever or chills. 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 ???No wbps-isz-gqwpify products taken to assist. No other associated [...] Acute (2 (more content not included)... Normal [facility] Plastic Surgery Visit Report on 05-16-2025 Plastic Surgery Visit Report [facility] Plastic Re[facility]ive Surgery [address], [address] [place] [address] OFFICE VISIT Date of Service: 05/16/25 MR#: [id number] Acct: [id number] Name: NADYA MOORE Rep #: [id number] : 1990 Provider: Dr. Ezequiel Hurtado MD Age/Sex: 34/F Location: [facility] Status: Signed Intake Vital Signs 05/09/25 14:17 [...] specimen is entirely submitted in 1 cassette. LA 05/12/2025 CPT:26069 Electronically Signed by: Dr. Dr. 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 smoker alcohol intake: current alcohol intake frequency: a few times a month substance use type: does not use seatbelt use: always do you feel safe at home: Yes 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 Ezequiel Hurtado MD Specimen: [id number] Received: 05/10/25 Status: ALFREDO Ott Num: [id number] Spec Type: Lesion Subm Dr: Dr. Ezequiel [...] specimen is entirely submitted in 1 cassette. LA 05/12/2025 CPT:17117 Patient Age/Sex Location Account Attending Physician FINESSENADYA HernandezN 34/F [facility] [id number] Dr. Ezequiel Hurtado MD Signed (signature on file) Dr. Laila Bucio MD 05/14/25 1334 Normal [facility] Comment on above: Performed By: #### P SUIV #### [facility] [address] [place] [address]. [place], [place], [id number] Plastic Surgery Visit Report on 05-09-2025 Plastic Surgery Visit Report [facility] Plastic Reconstructive Surgery [address], [address] [place] [address] OFFICE VISIT Date of Service: 05/09/25 MR#: [id number] Acct: [id number] Name: NADYA MOORE Rep #: [id number] : 1990 Provider: Dr. 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 HPI SKIN TAG ON THE L EYE [...] face D48.7 Comment 25 modifier with cpt 41829 Assessment and Plan (No Qualifiers) Assessment and [...] The lesion was sent to pathology CPT: 11996 Plan: Erythromycin ointment to be applied twice daily (ordered) for 3 days Anticipate some swelling and bruising Follow-up in 1 week for wound check and to review the pathology report 05/09/25 1829 Date Ezequiel Fitzpatrick Signature: Date (if applicable) CC: Normal [facility] Office Visit Reporton 2024 Office Visit Report [facility] [address] [place] [address] OFFICE VISIT Date of Service: 11/07/24 MR#: [id number] Acct: [id number] Patient: NADYA MOORE Rep #: [id number] : 1990 Provider: SCOTT Alicia Age/Sex: 34/F Location: [facility] Status: Signed Intake Vital Signs 11/07/24 06:00 Height 5 ft 3.5 in Intake Visit Reasons: 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/ [facility] [employer] Chief Complaint: Annual Allergies amoxicillin Allergy [...] Deutsch Signature: Date (if applicable) CC: Normal [facility] Research Assistant Office Visit Reporton 02-10-2025 Research Assistant Office Visit Report [facility] [address], [address] [place] [address] OFFICE VISIT Date of Service: 02/10/25 MR#: [id number] Acct: [id number] Name: NADYA MOORE Rep #: [id number] : 1990 Provider: FUENTES osborne Age/Sex: 34/F Location: [facility] Status: Signed Intake Vital Signs 12/27/23 14:46 11/07/24 06:00 02/10/25 15:23 02/10/25 15:27 Height 5 ft 3.5 in 5 ft 3.5 in 5 ft 3.5 in 5 ft 3.5 in Weight: 152 lb 6 oz BMI 26.5 BP 116/74 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 Complaint: Annual 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 Inside Required: No Is patient in pain?: No Allergies amoxicillin Allergy (Mild, Verified 02/10/25 15:23) Hives Penicillins (PCN) Allergy (Mild, Verified 02/10/25 15:23) Hives Is last menstrual period known: No Post menopausal: No Patient : No : No PFSH Medical History (Updated 02/10/25 @ 15:33 by Mihaela Burton NP, PORTAL DEVELOPER-C) Family history of colon cancer in mother Family history of factor V Leiden mutation Back pain Surgical History S/P wisdom tooth extraction Family History Grandmother Cancer paternal- multiple myeloma Mother Cancer melanoma Social History household members: spouse 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: employed 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 History 0 Elective abortions Hx Para Spontaneous [...] oriented to person and oriented to place HENOR Head: normal to inspection Neck Neck: normal [...] tabs 4RF (more content not included)... Normal [facility] Fact V Leiden Mutationon FACTOR V LEIDEN Comment Normal . [facility] Comment on above: Result Comment: Resu lt: c.1601G>A (p.Ugy344Atp) - Not Detected This result is not associated with an increased risk for venous thromboembolism. See Additional Clinical Information and Comments. Additional Clinical Information: Venous thromboembolism is a multifactorial disease influenced by genetic, environmental, and circumstantial risk factors. The c.1601G>A (p. Mdl249Hez) variant in the F5 gene, commonly referred [...] c.*97G>A variant and Factor V Leiden (PMID: 18426663). Additional risk factors include but are not [...] health care providers to discuss results at [phone] ([phone]). Test Details: Variant Analyzed: c.1601G>A (p. Ulj487Tkw), referred to as Factor V Leiden Methods/Limitations: [...] developed and its performance characteristics determined by [employer]. It has not been cleared or approved by the Food and Drug Administration. References: Sidney S, Donita PIEDRA, Toño R, Daria WW, Berny JH; ACMG Professional Practice and Guidelines Committee. Addendum: [place] [employer] consensus statement on factor V Leiden mutation testing. Tamy Med. 2020Dec 25. doi: 10.1038/o77278-901-50307-g. PMID: 52246390. Barak SYLVESTER. Factor V Leiden Thrombophilia. 1998March 05 (Updated 2017Oct 26). In: Alex MP, Dorian HH, Ricky RA, et al., editors. [employer](R) (Internet). [place] ([place]): [facility], [place]; 0018-9030. Available from: https://www.ncbi.nlm.nih.gov/books/DZN3148/ Ant S, Donita PIEDRA, Cliff X, Neri B, Jeni EB, Ariana P, Sherri CS; [employer]G Laboratory Lime Mixer Committee. Venous thromboembolism laboratory testing (factor V Leiden and factor II c.*97G>A), 2018 update: a technical standard of the [place] [employer] and Genomics (ACMG). Tamy Med. 2018 Sep;20(12):6061-1757. doi: 10.1038/s91395-101-2221-v. Epub 2017Jul 27. PMID: 99694190. Performed By: #### L 4500.5000 #### [facility] [address] [place], [place], [address] Reviewed By Comment Normal . [facility] Comment on above: Result Comment: Tech nical Component performed at [facility] Professional Component performed by: [employer] Nickolas Mckeon, Ph.D., [facility] Director, Molecular Genetics [address] [place] [address] Dr Zoraida GONZALEZ [address] Performed at: - [facility] [address] [facility], [place] [id number] Route Relief Driver: Kimmie Saldaña [facility], Phone: [phone] Performed By: #### L 4500.5000 #### [facility] [address] [place], [address] Clotting factor V Leiden [facility] ation detectionOrdered By: Jorje Preciado on 12-23-2024 Factor V Leiden Mutation Comment . [facility] Comment on above: Result: c.1601G>A (p .Jqw006Psa) - Not DetectedThis result is not associated with an increased risk for venousthromboembolism. See Additional Clinical Information andComments.Additional Clinical Information:Venous thromboembolism is a multifactorial diseaseinfluenced by genetic, environmental, and circumstantialrisk factors. The c.1601G>A (p. Zav186Txc) variant in theF5 gene, commonly referred to [...] F2 c.*97G>Avariant and Factor V Leiden (PMID: 03224286). Additionalrisk factors include but are not limited [...] for health careproviders to discuss results at [phone] ([phone]).Test Details:Variant Analyzed: c.1601G>A (p. Fxm730Piv), referred toas Factor V LeidenMethods/Limitations:DNA analysis of [...] was developed and its performance characteristicsdetermined by [employer]. It has not been cleared orapproved by the Food and Drug Administration.References:Sidney S, Donita PIEDRA, Toño R, Daria WW, Berny JH; ACMGProfessional Practice and Guidelines Committee. Addendum:[employer] consensus statement onfactor V Leiden mutation testing. Tamy Med. 2020Dec 25.doi: 10.1038/l91662-180-61733-z. PMID: 01706968.Barak SYLVESTER. Factor V Leiden Thrombophilia. 1998March 05(Updated 2017Oct 26). In: Alex MP, Dorian HH, Ricky RA,et al., editors. Liquefied [employer](R) (Internet). [place] ([place]):[facility], [place]; 0497-1312. Availablefrom: https://www.ncbi.nlm.nih.gov/books/JYK1054/Ant Holden, Donita PIEDRA, Cliff X, Neri B, Jeni EB, Airana P,Sherri CS; ACMG Laboratory Lime Mixer Committee.Venous thromboembolism laboratory testing (factor V Leidenand factor II c.*97G>A), 2018 update: a technical standardof the [place] College of [employer]etics and Genomics(ACMG). Tamy Med. 2018 Sep;20(12):3231-4104. doi:10.1038/i48333-017-9323-f. Epub 2017Jul 27. PMID: 06566945. Laboratory - Microbiology an d Antimicrobial susceptibilityon 11-07-2024 SARS-CoV-2 (COVID-19) RNA JASON+probe Ql (Unsp spec) Not detected [facility] No Panel Informationon 11-07 POC Nasal Swab Influenza A,B Detected [facility] POC Nasal Swab RSV Not detected [facility] Office Visit Reporton 2024 Office Visit Report [facility] [address] [place] [address] OFFICE VISIT Date of Service: 11/07/24 MR#: [id number] Acct: [id number] Patient: NADYA MOORE Rep #: [id number] : 1990 Provider: SCOTT Alicia Age/Sex: 34/F Location: [facility] Status: Signed Employer Purchased Covid Test Note: Patient here today for Covid Testing, requested by their Employer. Assessment and Plan Assessment and Plan Orders: Orders POC Cepheid Covid, FluAB, RSV Today Medications: New oseltamivir (Tamiflu) 75 mg PO Q12H 10 caps 0RF 5 days 11/07/24725 Date Dylan CHAVEZ Cosigner Signature: Date (if applicable) CC: Normal [facility] Urgent Care Visit Reporton 0 11-07-2024 Urgent Care Visit Report [facility] [address], [address] [place] [address] OFFICE VISIT Date of Service: 11/07/24 MR#: [id number] Acct: [id number] Name: NADYA MOORE Rep #: [id number] : 1990 Provider: SCOTT Alicia Age/Sex: 34/F Location: [facility] Status: Signed Intake Vital [...] congestion Chief Complaint: cough, congest, MORRELL, BA 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 Inside Required: No Is patient in pain?: No [...] occupational status: employed 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 Normal [facility] Cervical or vaginal specimen microscopic examination by liquid based cytology (reportOrdered By: Mihaela Burton on 12-27-2023 Cytology report Cyto stain.thin prep Doc (Cvx/Vag) Comment . [facility] Comment on above: Criteria not met, HP V Genotype not performed.Performed at: - [facility] [id number] Director: Cristy Luis MD, Phone: [phone] at: = - [facility] [id number] Director: Cristy Luis MD, Phone: [phone] Cervical or vagninal specime n microscopic examination by cytology stain (reported asOrdered By: Mihaela Burton on 12-27-2023 Cytology report Cyto stain Doc (Cvx/Vag) Comment . [facility] Comment on above: The Pap smear [...] DNA Probe+sig amp Ql (Cvx) Negative Negative [facility] Comment on above: This nucleic acid am plification test detects fourteen high- risk HPV types (16,18,31,33,35,39,45,51,52,56,58,59,66,68)without differentiation. Laboratory - CytologyOrdered By: Mihaela Burton on 12-27-2023 Surface Grinding Machine Hand Cyto stain Nom (Cvx/Vag) [ID] Comment . [facility] Comment on above: Lew Concepcion totechnologist (ASCP) Laboratory - Miscellaneous t estsOrdered By: Mihaela Burton on 12-27-2023 Service comment (Unsp spec) [Interp] . . [facility] Thin prep Papanicolaou smear with manual screeningOrdered By: Mihaela Burton on 12-27-2023 Thin prep Papanicolaou smear with manual screening Comment . [facility] Comment on above: NEGATIVE FOR INTRAEP ITHELIAL LESION OR MALIGNANCY. This liquid based Th inPrep(R) pap test was screened withthe use of an image guided system. Absolute lymphocyte counton 07-22-2022 Lymphocytes Auto (Unsp spec) [#/Vol] 2.29 10*3/uL 0.83-4.51 [facility] Work Phone: Absolute reticulocyte counto n 07-22-2022 Reticulocytes (Bld) [#/Vol] 0.00 10*3/uL 0-5 [facility] Work Phone: Basophil percentageon 2021 Basophil percentage 2.7 mg/dL 2.5-4.9 [facility] Work Phone: Bilirubin [Mass/Vol] 0.70 mg/dL 0.20-1.00 [facility] Work Phone: Comment on above: For patients on eltr ombopag therapy, use of Dimension [place] TBIL is not recommended. Chloride [Moles/Vol] 108 mmol/L 98-107 [facility] Work Phone: Cholesterol [Mass/Vol] 224 mg/dL <200 [facility] Work Phone: Comment on above: <200 mg/dL Desirable 200-240 mg/dL Borderline >240 mg/dL High Risk Glucose [Mass/Vol] 91 mg/dL 74-106 [facility] Work Phone: Neutrophils (Bld) [#/Vol] 5.2 10*3/uL 2.0-7.7 [facility] Work Phone: Potassium [Moles/Vol] 3.7 mmol/L 3.5-5.1 [facility] Work Phone: Protein [Mass/Vol] 7.7 g/dL 6.4-8.2 [facility] Work Phone: [phone] Sodium [Moles/Vol] 139 mmol/L 136-145 [facility] Work Phone: [phone] Triglyceride [Mass/Vol] 73 mg/dL <199 [facility] Work Phone: Comment on above: The drugs N-Acetylcy steine and Metamizole may falsely depress this assay.Serum Triglycerides Reference Interval Normal <150 mg/dL Borderline high 150 - 199 mg/dL High 200 - 499 mg/dL Very High > or = 500 mg/dL WBC (Bld) [#/Vol] 8.4 10*3/uL 4.4-11.0 [facility] Work Phone: [phone] Bilirubin Test strip Ql (U)o n 07-22-2022 Bilirubin Ql (U) Negative Negative [facility] Work Phone: [phone] Blood erythrocytes count (nu mber/volume)on 07-22-2022 RBC (Bld) [#/Vol] 4.50 10*6/uL 4.2-5.4 [facility] Work Phone: [phone] Blood hemoglobin measurement (mass/volume)on 07-22-2022 Hemoglobin (Bld) [Mass/Vol] 13.0 g/dL 12.0-15.0 [facility] Work Phone: [phone] Blood platelet mean volumeon 07-22-2022 Platelet mean volume (Bld) [Entitic vol] 10.6 fL 6.2-12.0 [facility] Work Phone: [phone] Determination of erythrocyte mean corpuscular volume (MCV)on 07-22-2022 MCV (RBC) [Entitic vol] 91.3 fL 81-99 [facility] Work Phone: [phone] Direct bilirubinon Bilirubin.direct [Mass/Vol] 0.16 mg/dL 0.00-0.30 [facility] Work Phone: [phone] Hematocrit Auto (Bld) [Volum e fraction]on 07-22-2022 Hematocrit (Bld) [Volume fraction] 41.1 % 37-47 [facility] Work Phone: [phone] Ketones Test strip Ql (U)on 07-22-2022 Ketones Ql (U) Negative Negative [facility] Work Phone: [phone] Laboratory - Chemistry and C hemistry - challengeon 07-22-2022 ALP [Catalytic activity/Vol] 62 U/L 45-117 [facility] Work Phone: [phone] [Catalytic activity/Vol] 31 U/L 13-56 [facility] Work Phone: [phone] Cholesterol.total/C holesterol in HDL [Mass ratio] 3.00 {ratio} [facility] Work Phone: [phone] CO2 [Moles/Vol] 25.0 mmol/L 21.0-32.0 [facility] Work Phone: [phone] Globulin (S) [Mass/Vol] 4.4 g/dL 2.2-4.2 [facility] Work Phone: [phone] Urea nitrogen/Creatinine [Mass ratio] 11.8 mg/mg 10-20 [facility] Work Phone: [phone] Laboratory - Hematology and Cell countson 07-22-2022 Erythrocyte distribution width (RBC) [Entitic vol] 40.2 fL 35.1-43.9 [facility] Work Phone: [phone] Erythrocyte distribution width (RBC) [Ratio] 12.0 % 11.6-14.6 [facility] Work Phone: [phone] Immature granulocytes/100 WBC (Bld) 0.600 % 0.0-0.9 [facility] Work Phone: [phone] Comment on above: IG% - Immature Granu locytes (promyelocytes, myelocytes and metamyelocytes) > 1% indicates that a LEFT SHIFT is Present. MCH (RBC) [Entitic mass] 28.9 pg 27.0-32.0 [facility] Work Phone: [phone] Nucleated RBC/100 WBC (Bld) [Ratio] 0 % 0-5 [facility] Work Phone: [phone] MCHC Auto (RBC) [Mass/Vol]on 07-22-2022 MCHC (RBC) [Mass/Vol] 31.6 g/dL 32-36 [facility] Work Phone: Nitrite Test strip Ql (U)on 07-22-2022 Nitrite Ql (U) Negative Negative [facility] Work Phone: No Panel Informationon 07-22 Estimated GFR (MDRD) Amer 100 mL/min >60 [facility] Work Phone: Comment on above: GFR Calc Estimated GFR (MDRD) Non-Af Amer 83 mL/min >60 [facility] Work Phone: Comment on above: Non- GFR Calc Platelets bldon 07-22-2022 Platelets (Bld) [#/Vol] See comment 150-450 [facility] Work Phone: Comment on above: Please [...] 07-22-2022 Protein Ql (U) 30 mg/dl Negative [facility] Work Phone: Segmented neutrophils/100 WB C Auto (Bld)on 07-22-2022 Segmented neutrophils/100 WBC (Bld) 62.2 % 47-70 [facility] Work Phone: Serum or plasma albumin emeka urement (mass/volume)on 07-22-2022 Albumin [Mass/Vol] 3.3 g/dL 3.2-5.0 [facility] Work Phone: [phone] Serum or plasma albumin/glob ulin mass ratioon 07-22-2022 Albumin/Globulin [Mass ratio] 0.8 {ratio} 0.9-2.4 [facility] Work Phone: Serum or plasma calcium emeka urement (mass/volume)on 07-22-2022 Calcium [Mass/Vol] 9.0 mg/dL 8.5-10.1 [facility] Work Phone: Serum or plasma cholesterol in HDL measurement (mass/volume)on 07-22-2022 Cholesterol in HDL [Mass/Vol] 74 mg/dL >40 [facility] Work Phone: Comment on above: The drugs N-Acetylcy steine and Metamizole may falsely depress this assay. Reference Range HDL <40 mg/dL Low HDL Cholesterol HDL >or= 60 mg/dL High HDL Cholesterol Serum or plasma cholesterol in VLDL measurement (mass/volume)on 07-22-2022 Cholesterol in VLDL [Mass/Vol] 15 mg/dL 5-40 [facility] Work Phone: Serum or plasma creatinine m easurement (mass/volume)on 07-22-2022 Creatinine [Mass/Vol] 0.85 mg/dL 0.55-1.02 [facility] Work Phone: Comment on above: The validity of the calculated GFR & GFRAA in patients over 70 years has not been determined. Clinical correlation is essential. Serum or plasma low density lipoprotein (LDL) cholesterol measurement (mass/volume)on 07-22-2022 Cholesterol in LDL [Mass/Vol] 135 mg/dL 0-130 [facility] Work Phone: Serum or plasma urea nitroge n measurement (mass/volume)on 07-22-2022 Urea nitrogen [Mass/Vol] 10 mg/dL 7-18 [facility] Work Phone: Serum or plasma uric acid me asurement (mass/volume)on 07-22-2022 Urate [Mass/Vol] 4.0 mg/dL 2.6-6.0 [facility] Work Phone: Comment on above: The drugs N-Acetylcy steine and Metamizole may falsely depress this assay. Thin prep Papanicolaou smear with manual screeningon 07-22-2022 Thin prep Papanicolaou smear with manual screening 26 U/L 15-37 [facility] Work Phone: [phone] Thin prep Papanicolaou smear with manual screening 6 5-15 [facility] Work Phone: Thin prep Papanicolaou smear with manual screening 252 U/L 84-246 [facility] Work Phone: Urine blood detectionon 06-25 RBC Ql (U) 25 /ul Negative [facility] Work Phone: [phone] Urine clarityon 07-22-2022 Clarity (U) Sl. Cloudy Clear [facility] Work Phone: [phone] Urine color determinationon 07-22-2022 Color (U) Straw Yellow [facility] Work Phone: [phone] Urine glucose detectionon Glucose Ql (U) Normal mg/dl Normal [facility] Work Phone: [phone] Urine leukocyte esterase det ection by dipstickon 07-22-2022 Leukocyte esterase Test strip Ql (U) 500 /ul Negative [facility] Work Phone: Urine pHon 07-22-2022 pH (U) 6.0 [pH] 5.0 - 8.0 [facility] Work Phone: Urine specific gravity measu rementon 07-22-2022 Specific gravity (U) [Rel density] 1.015 1.002-1.030 [facility] Work Phone: Urobilinogen Auto test strip Ql (U)on 07-22-2022 Urobilinogen Ql (U) Normal mg/dl Normal [facility] Work Phone: HPVon 05-11-2017 HPV Interp Invalid Interpretation Code [facility] ([facility]) Comment on above: Order Comment: Order placed by AP_HPV_ORDER rule from [id number] Performed By: #### H PV ####[address] [address] HPV Source Cervix Normal [facility] ([facility]) Comment on above: Order Comment: Order placed by AP_HPV_ORDER rule from [id number] Performed By: #### H PV ####[address] [address] Vital Signs Date Time Vital Sign Value Performing Clinician Faci lity 06-11-2025 07:26-0400 Body height 161.[address] Jorje Preciado MD Work Phone: [facility] 06-11-2025 07:26-0400 Body temperature 98.5 [degF] Dr. Jorje Preciado MD Work Phone: [facility] 06-11-2025 07:26-0400 Diastolic blood pressure 76 mm[Hg] Dr. Jorje Preciado MD Work Phone: [facility] 06-11-2025 07:26-0400 Heart rate 99 /min Dr. Jorje Preciado MD Work Phone: [facility] 06-11-2025 07:26-0400 Respiratory rate 12 /min Dr. Jorje Preciado MD Work Phone: [facility] 06-11-2025 07:26-0400 SaO2% (BldA) [Mass fraction] 98 % Dr. Jorje Preciado MD Work Phone: [facility] 06-11-2025 07:26-0400 Systolic blood pressure 104 mm[Hg] Dr. Jorje Preciado MD Work Phone: [facility] 05-16-2025 08:54-0400 Body height 161.29 cm Out [facility] 05-16-2025 08:54-0400 Body temperature 97.9 [degF] Out [facility] 05-16-2025 08:54-0400 Diastolic blood pressure 69 mm[Hg] Out [facility] 05-16-2025 08:54-0400 Heart rate 66 /min Out [facility] 05-16-2025 08:54-0400 Respiratory rate 18 /min Out [facility] 05-16-2025 08:54-0400 SaO2% (BldA) [Mass fraction] 96 % Out [facility] 05-16-2025 08:54-0400 Systolic blood pressure 103 mm[Hg] Out [facility] 05-09-2025 14:17-0400 Body height 161.29 cm Out [facility] 05-09-2025 14:17-0400 Body mass index (BMI) [Ratio] 26.8 kg/m2 Out [facility] 05-09-2025 14:17-0400 Body temperature 97.3 [degF] Out [facility] 05-09-2025 14:17-0400 Body weight 69.85 kg Out [facility] 05-09-2025 14:17-0400 Diastolic blood pressure 76 mm[Hg] Out [facility] 05-09-2025 14:17-0400 Heart rate 54 /min Out [facility] 05-09-2025 14:17-0400 Respiratory rate 18 /min Out [facility] 05-09-2025 14:17-0400 SaO2% (BldA) [Mass fraction] 99 % Out [facility] 05-09-2025 14:17-0400 Systolic blood pressure 127 mm[Hg] Out [facility] 02-10-2025 15:23-0400 Body mass index (BMI) [Ratio] 26.5 kg/m2 Out [facility] 02-10-2025 15:23-0400 Body weight 69.11 kg Out [facility] 02-10-2025 15:23-0400 Diastolic blood pressure 74 mm[Hg] Out [facility] 02-10-2025 15:23-0400 Systolic blood pressure 116 mm[Hg] Out [facility] 11-07-2024 06:00-0500 Body height 161.29 cm Out [facility] 11-07-2024 06:00-0500 Body mass index (BMI) [Ratio] 26.5 kg/m2 Out [facility] 11-07-2024 06:00-0500 Body temperature 98.7 [degF] Out [facility] 11-07-2024 06:00-0500 Body weight 69 kg Out [facility] 11-07-2024 06:00-0500 Diastolic blood pressure 64 mm[Hg] Out [facility] 11-07-2024 06:00-0500 Heart rate 92 /min [facility] 11-07-2024 06:00-0500 Respiratory rate 16 /min [facility] 11-07-2024 06:00-0500 SaO2% (BldA) [Mass fraction] 98 % [facility] 11-07-2024 06:00-0500 Systolic blood pressure 110 mm[Hg] [facility] 12-27-2023 14:46-0500 Body height 161.29 cm [facility] 12-27-2023 14:46-0500 Body mass index (BMI) [Ratio] 26.6 kg/m2 [facility] 12-27-2023 14:46-0500 Body weight 69.45 kg [facility] 12-27-2023 14:46-0500 Diastolic blood pressure 72 mm[Hg] [facility] 12-27-2023 14:46-0500 Systolic blood pressure 114 mm[Hg] [facility] Encounters Encounter Date Encounter Type Care Provider Facility Start: 07-18-2025 ambulatory Caprice Woods Facility :[facility] Start: 07-04-2025 End: 07-04-2025 Patient encounter procedure Caprice Woods [facility] Work Phone: Start: 07-04-2025 End: 07-04-[address] Jorje Preciado MD Work Phone: -[facility] Start: 06-11-2025 End: 06-11-2025 Patient encounter procedure Kamron Bhakta [facility] Work Phone: Start: 06-11-2025 End: 06-11-[address] Jorje Preciado MD Work Phone: -[facility] Start: 05-16-2025 End: 05-16-[address] Ezequiel Hurtado MD -[facility] Work Phone: Start: 05-16-2025 End: 05-16-2025 ambulatory Out of Town Doctor -[facility] Start: 05-10-2025 End: 05-10-2025 ambulatory Out of Town Doctor -Laboratory [facility] Start: 05-10-2025 End: 05-10-[address] Ezequiel Hurtado MD -[facility] Work Phone: Start: 05-09-2025 End: 05-09-[address] Ezequiel Hurtado MD -[facility] Work Phone: Start: 05-09-2025 End: 05-10-2025 ambulatory Out of Town Doctor -[facility] Start: 02-10-2025 End: 02-10-2025 Patient encounter procedure Mihaela Burton NP-C -[facility] Work Phone: Start: 02-10-2025 End: 02-10-2025 Patient encounter status Mihaela Burton PORTAL DEVELOPER-C [facility] Start: 02-10-2025 End: 02-10-2025 ambulatory Mihaela Burton NP Facility:[facility] Start: 01-03-2025 Encounter for genera l adult medical examination without abnormal findings [facility] Start: 12-23-2024 End: 12-23-2024 ambulatory Out of Town [facility] Work Phone: Start: 12-23-2024 End: 12-23-[address] Jorje Preciado MD -Laboratory, [place] Work Phone: Start: 12-23-2024 End: 12-23-2024 ambulatory Jorje Preciado Facility:[facility] Start: 11-07-2024 End: 11-07-2024 Patient encounter procedure Dylan CHAVEZ -[facility] Work Phone: Start: 11-07-2024 End: 11-07-2024 ambulatory Out of Town Doctor Facility:[facility] Start: 12-27-2023 End: 12-27-2023 ambulatory Out of Town [facility] Work Phone: Start: 12-27-2023 End: 12-27-2023 Patient encounter procedure Out [facility], Spec[facility] Work Phone: Start: 12-27-2023 End: 12-27-2023 Patient encounter procedure Out [facility] Doctor [facility] Work Phone: Start: 07-22-2022 Registered Referred [facility] Start: 04-28-2017 End: 04-29-2017 Ambulatory ADINA MARLOW Facility:[facility] Start: 04-28-2017 End: 04-29-2017 Ambulatory RASHID WO LEELA REFERRING Facility:[facility] Plan of Treatment Date Care Activity Detail Author Streptococcus pyogen es Ag [Presence] in Throat by Rapid immunoassay [facility] Immunizations Immunization Date Immunization Notes Care Provider Teresa ordaz 08-01-2024 influenza, seasonal, injectable, preservative free [facility] 08-02-2023 influenza, injectabl e, quadrivalent, preservative free [facility] 08-01-2022 influenza, injectabl e, quadrivalent, preservative free [facility] 08-04-2021 influenza, injectabl e, quadrivalent, preservative free [facility] 08-04-2021 influenza, seasonal, injectable [facility] Work Phone: 12-18-2020 Covid (Moderna) [facility] 11-20-2020 Covid (Moderna) [facility] 08-10-2020 influenza, injectabl e, quadrivalent, preservative free [facility] 08-10-2020 influenza, seasonal, injectable [facility] Work Phone: 08-07-2019 influenza, injectabl e, quadrivalent, preservative free [facility] 08-07-2019 influenza, seasonal, injectable [facility] Work Phone: 08-01-2018 influenza, injectabl e, quadrivalent, preservative free [facility] 08-01-2018 influenza, seasonal, injectable [facility] Work Phone: Payers Date Payer Category Payer Self-pay [id number] 2023 Unknown [id number] 2016 Unknown [id number] Unknown [id number] Unknown [facility] [id number] Unknown [id number] 2.16.8 [id number] Unknown [id number] 2.16.8 [id number] Unknown [id number] 2.16.8 [id number] Unknown [id number] 2.16.8 [id number] Unknown [id number] 2.16.8 [id number] Unknown [id number] 2.16.8 [id number] Unknown [id number] 2.16.8 [id number] Unknown [id number] 2.16.8 [id number] Unknown [id number] 2.16.8 [id number] Unknown [id number] 2.16.8 [id number] Social History Date Type Detail [facility] Work Phone: Start: 1990 Sex Assigned At Female [facility] Start: 12-27-2023 [facility] Start: 11-07-2024 End: 07-04-2025 Tobacco smoking status NHIS Never smoked tobacco (finding) [facility] Start: 01-03-2025 Sex Female (finding) [facility] Evaluation note 05-09-2025 Note Date & Type Note Facility 05-09-2025 Evaluation note Diagnosis Onset Date Resolution 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, 2025 2:04pm 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 16, 2025 8:48am [facility] Work Phone: Evaluation note 05-09-2025 Note Date & Type Note Facility 05-09-2025 Evaluation note Diagnosis Onset Date Resolution 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 May 09, 2025 2:04pm 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 May 16, 2025 8:48am [facility] Work Phone: Evaluation note 02-10-2025 Note Date & Type Note Facility 02-10-2025 Evaluation note Diagnosis Onset Date Resolution Encounter for routine gynecological examination noneactive February 10, 2025 3:22pm [facility] Work Phone: Evaluation note 02-10-2025 Note Date & Type Note Facility 02-10-2025 Evaluation note Diagnosis Onset Date Resolution Encounter for routine gynecological examination noneactive February 10, 2025 3:22pm 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 Satisfactory for evaluation. Endocervical and/or squamous metaplasticcells (endocervical component) are present. Comment on above: Satisfactory for brandin luation. Endocervical and/or squamous metaplasticcells (endocervical component) are present. 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/ [facility] November 07, 2024 6 :16am [employer] December 23, 2024 4:44 pm Reason for Visit Admit Date Influenza due to influenza virus, type A , human November 07, 2024 6:08am Chief Complaint Admit Date 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..] section and content) DATE CREATED AUTHOR 04/18/2018 [place] [facility] ([place] DATE CREATED AUTHOR AUTHOR'S ORGANIZ ATION 04/18/2018 [place] [employer] [facility] DATE CREATED AUTHOR AUTHOR'S ORGANIZ ATION 07/16/2025 [facility] Goals (unrecognized section and content) Goals may [...] Active Member Role Status Dates Out of [facility] Doctor Primary Care Provider Active Team Status: Inactive Member Role Status Dates Out of [facility] Doctor Primary Care Provider, Referring Pr yesica Active Mihaela Burton PORTAL DEVELOPER, PORTAL DEVELOPER-C Attending Provider Active Team Status: Inactive Member Role Status Dates Out of [facility] Doctor Primary Care Provider Active Mihaela Burton PORTAL DEVELOPER, PORTAL DEVELOPER-C Attending Provider Active Team Status: Active Member Role Status Dates Dr. Jorje Preciado MD Primary Care Provider Acti ve Team Status: Inactive Member Role Status Dates Out of [facility] Doctor Primary Care Provider Active Start: November 07, 2024 End: November 07, 2024 Out of [facility] Doctor Referring Provider Active Sta rt: November [...] Inactive Member Role/Relationship Status Dates Out of [facility] Doctor Referring Provider Active Sta rt: February 10, 2025 End: February 10, 2025 Mihaela Burton PORTAL DEVELOPER, PORTAL DEVELOPER-C Attending Provider Active Start: February 10, 2025 [...] BE BASED ON THE PRIMARY CLINICAL RECORDS. [facility] provides no warranty or guarantee of the accuracy or completeness of information in this document.
[2025-07-18 11:07] LABS: hCG Titer Quant., Serum 35700 mIU/mL (<9 non-preg)
[2025-07-21 03:07] LABS: Chlamydia By Nucleic Acid AMP Negative (Negative); Gonococcus By Nucleic Acid AMP Negative (Negative)
== END | disposition home or self-care (01) ==
PROVIDERS: PCP Family Medicine; Visit Provider Advanced Practice Midwife
DX: Z34.90 Encounter for supervision of normal pregnancy, unspecified, unspecified trimester (principal); N91.2 Amenorrhea, unspecified
CPT/HCPCS: 36415; 84702; 87086; 87088; 87491; 87591

== ENCOUNTER → 2025-07-20 | Outpatient (CLI) | payer OTHER, SELFPAY ==
[2025-07-20 09:28] LABS: hCG Titer Quant., Serum 38450 mIU/mL (<9 non-preg)
== END | disposition home or self-care (01) ==
LOC: LAB 08:22
PROVIDERS: PCP Family Medicine; Visit Provider Advanced Practice Midwife
DX: N91.2 Amenorrhea, unspecified (principal)
CPT/HCPCS: 36415; 84702

== ENCOUNTER → 2025-07-25 | Outpatient (CLI) | payer OTHER, SELFPAY ==
[2025-07-25 12:23] LABS: Hematocrit 41.5 % (37-47); Hemoglobin 13.8 g/dL (12.0-15.0); Immature Granulocytes Count 0.020 X10^3/uL (0.0-0.0); Mean Corp Hgb Conc 33.3 g/dL (32-36); Mean Corpuscular Volume 89.2 fL (81-99); Mean Platelet Vol. 11.0 fl (6.2-12.0); NRBC Flagged by Analyzer 0 % (0-5); Platelet Count 386 K/mm3 (150-450); RBC Distribution Width CV 12.2 % (11.6-14.6); RBC Distribution Width SD 39.8 fl (35.1-43.9); Red Blood Count 4.65 M/mm3 (4.2-5.4); White Blood Count 7.3 K/mm3 (4.4-11.0)
[2025-07-25 13:26] LABS: hCG Titer Quant., Serum 43578 mIU/mL (<9 non-preg)
[2025-07-25 13:59] LABS: HIV Nonreactive (Nonreactive); Hepatitis B Surface Antigen Nonreactive (Nonreactive); Hepatitis C Antibody Nonreactive (Nonreactive); Syphilis Antibodies Nonreactive (Nonreactive)
== END | disposition home or self-care (01) ==
PROVIDERS: PCP Family Medicine; Visit Provider Advanced Practice Midwife
DX: Z34.90 Encounter for supervision of normal pregnancy, unspecified, unspecified trimester (principal)
CPT/HCPCS: 36415; 84702; 85025; 86703; 86762; 86780; 86803; 86850; 86900; 86901; 87340

== ENCOUNTER → 2025-08-08 | Outpatient (CLI) | payer OTHER, SELFPAY ==
[2025-08-08 18:12] LABS: hCG Titer Quant., Serum 20698 mIU/mL (<9 non-preg)
== END | disposition home or self-care (01) ==
LOC: BWCLAB 13:33
PROVIDERS: PCP Family Medicine; Visit Provider Obstetrics & Gynecology
DX: O20.0 Threatened abortion (principal)
CPT/HCPCS: 36415; 84702

== ENCOUNTER → 2025-08-15 | Outpatient (CLI) | payer OTHER, SELFPAY ==
[2025-08-15 16:16] LABS: hCG Titer Quant., Serum 2069 mIU/mL (<9 non-preg)
== END | disposition home or self-care (01) ==
LOC: BWCLAB 14:14
PROVIDERS: PCP Family Medicine; Visit Provider Obstetrics & Gynecology
DX: O03.4 Incomplete spontaneous abortion without complication (principal)
CPT/HCPCS: 36415; 84702

== ENCOUNTER → 2025-08-22 | Outpatient (CLI) | payer OTHER, SELFPAY ==
--- OUTSIDE RECORDS SUMMARY | 2025-08-22 08:36 | XMS RPT_ITS | CCD ---
Author Organization [facility] Care Team Providers Care Food Preparation Supervisor Name Role Phone ADINA MARLOW Unavailable Unavailable ADINA MARLOW Unavailable Unavailable PHYSICIAN, NONE Unavailable Unavailable REFERRING, PHY WO ID Unavailable Unavailable ADINA MARLOW Unavailable Unavailable PHYSICIAN, NONE Unavailable Unavailable [facility] Doctor, Out of Primary Care Provider [facility] Doctor, Out of Referring Provider Unavailab sarai Burton PACKAGER HEAD, PACKAGER HEAD-C Mihaela Attending Provider [facility] Doctor, Out of Primary Care Provider [facility] Doctor, Out of Referring Provider Unavailab Dylan Al Attending Provider [phone] Jorje Preciado MD Primary Care Provider Dr. Jorje Preciado MD Attending Provider [phone] Dr. Jorje Preciado MD Referring Provider [phone] [facility] Doctor, Out of Referring Provider Unavailab Howard CARTER-CMihaela Attending Provider Dr. Jorje Preciado MD Primary Care Provider Dr. Jorje Preciado MD Referring Provider Dr. Ezequiel Hurtado MD Attending Provider Dr. Ezequiel Hurtado MD Referring Provider Dr. Jorje Preciado MD Primary Care Provider Kamron Chapa Attending Provider Caprice Woods CNM Attending Provider Dr. Jorje Preciado MD Primary Care Physicia n Dr. Ezequiel Hurtado MD Attending Physician [phone] Kamron Chapa Attending Physician Caprice Woods CNM Attending Physician Ranney, Christopher Primary Care Unavailable Mihaela Burton NP Attending Unavailable Town Doctor, Out of Referring Unavailable Ranney, Christopher Referring Unavailable Eugenia Paul Attending Unavailabl e Ranney, Christopher Primary Care Unavailable Ranney, Christopher Primary Care Unavailable Eugenia Paul Attending Unavailabl e Ranney, Christopher Referring Unavailable Ranney, Christopher Primary Care Unavailable Ranney, Christopher Referring Unavailable Caprice Woods Attending Unavailable Town Doctor, Out of Referring Unavailable [place] Doctor, Out of Primary Care Unavailable Dylan Nagel Attending Unavailable Ranney, Christopher Primary Care Unavailable Ranney, Christopher Referring Unavailable Caprice Woods Attending Unavailable Ranney, Christopher Primary Care Unavailable Ranney, Christopher Referring Unavailable Caprice Woods Attending Unavailable Ranney, Christopher Primary Care Unavailable Ranney, Christopher Referring Unavailable Kamron Chapa Attending Unavailable [place] Doctor, Out of Referring Unavailable [place] Doctor, Out of Primary Care Unavailable Dylan Nagel Attending Unavailable Ranney, Christopher Primary Care Unavailable Caprice Woods Attending Unavailable Ranney, Christopher Primary Care Unavailable Eugenia Paul Attending Unavailabl e Ranney, Christopher Primary Care Unavailable Caprice Woods Attending Unavailable Ranney, Christopher Primary Care Unavailable Caprice Woods Attending Unavailable Ranney, Christopher Attending Unavailable Ranney, Christopher Primary Care Unavailable Ranney, Christopher Referring Unavailable Ranney, Christopher Primary Care Unavailable Ezequiel Hurtado Referring Unavailable Ezequiel Hurtado Attending Unavailable Eugenia Paul Attending Unavailabl e Ranney, Christopher Primary Care Unavailable Ranney, Christopher Referring Unavailable Ranney, Christopher Primary Care Unavailable Eugenia Paul Attending Unavailabl e Ranney, Christopher Primary Care Unavailable Ranney, Christopher Referring Unavailable SisEzequiel ramos Attending Unavailable Ranney, Christopher Primary Care Unavailable Ranney, Christopher Referring Unavailable Ezequiel Hurtado Attending Unavailable Dr. Eugenia Paul DO Attending Physician Allergies Allergy Classification Reported Allergen(s) Allergy Type Date of Onset Reaction(s) Facility (10 sources) Amoxicillin Drug Allergy 12-27-2023 [facility] (9 sources) Penicillins Allergy to substance 11-07-2024 [facility] (1 source) Amoxicillin Drug Allergy 08-15-2025 [facility] (1 source) Penicillins Drug allergy (disorder) 08-15-2025 [facility] Medications Current Medications Medication Drug Class(es) Dates Sig (Normalized) Sig (Original) Echinacea 125 mg capsule (5 sources) Start: 06-11-2025 take 1 capsule by mouth once daily Start: 06-11-2025 take 1 capsule by mo [facility] once daily Echinacea 125 mg capsule Active 125 mg PO daily June 11, 2025 12:00am ethinyl estradiol 0.02 mg / levonorgestrel 0.1 mg oral tablet (1 source) Progestin, Estrogen, Progestin-containing Intrauterine Device Start: 08-15-2025 take 1 tablet by mouth once daily Start: 08-15-2025 take 1 tablet by mouth once da robin miSOPROStol 0.2 mg oral tablet (1 source) Prostaglandin E1 Analog Start: 08-08-2025 End: 08-15-2025 Misoprostol (Cytotec) 200 mcg tablet Discontinued 600 ug VAGINAL ONCE 3 0 August 08, 2025 12:00am August 15, 2025 1:15pm Multivitamin tablet (5 sources) Start: 06-11-2025 Start: 06-11-2025 Multivitamin t ablet Active 1 {tbl} PO daily June 11, 2025 12:00am Burket (Nk) (1 source) Start: 05-16-2025 [place] (Nk) A ctive May 16, 2025 12:00am Completed/Discontinued Medications Medication Drug Class(es) Dates Sig (Normalized) Sig (Original) erythromycin 0.005 mg/mg ophthalmic ointment (8 sources) Macrolide, Macrolide Antimicrobial Start: 05-09-2025 End: 05-12-2025 Erythromycin 5 mg/gram (0.5 %) ointment Discontinued 0.5 [in_us] OPHTHALMIC TWICE A DAY 3.5 3 0 May 09, 2025 12:00am May 11, 2025 12:00am May 12, 2025 12:09am For the left lower eyelid Norethindrone-E.Est radiol-Iron (20 sources) Estrogen Start: 12-27-2023 End: 02-10-2025 Norethindrone-E.Es tradiol-Iron (Marchl Fe 24) 1 mg-20 mcg (24)/75 mg (4) tablet Discontinued 1 {tbl} PO DAILY 84 4 December 27, 2023 3:58pm February 10, 2025 [...] Start: 12-27-2023 End: 12-27-2023 Norethindrone-E.Estradiol-Ir on ( 24) 1 mg-20 mcg (24)/75 mg (4) tablet Discontinued 1 {tbl} PO DAILY December 27, 2023 1:00am December 27, 2023 3:59pm Start: 12-27-2023 End: 12-27-2023 take 1 tablet by mouth once daily Norethindrone-E.Estradiol-Iron (Marchl Fe 24) 1 mg-20 mcg (24)/75 mg (4) tablet Discontinued 1 TABLET PO DAILY December 27, 2023 1:00am December 27, 2023 3:59pm methylPREDNISolone 4 mg oral tablet (5 sources) Corticosteroid Start: 06-11-2025 End: 07-04-2025 take 1 tablet by mouth once Methylprednisolone (Medrol (Lee)) 4 mg tablets,dose pack Discontinued 0 PO per package directions June 11, 2025 12:00am July 04, 2025 8:14am PO PER PKG DIR oseltamivir 75 mg oral capsule (9 sources) Neuraminidase Inhibitor Start: 11-07-2024 End: 11-12-2024 take 1 capsule by mouth every twelve hours Oseltamivir (Tamiflu) 75 mg capsule Discontinued 75 mg PO Q12H 10 5 0 November 07, 2024 1:00am November 11, 2024 1:00am November 12, 2024 1:08am Problems Active Problems Problem Classification Problem Date Documented Da te Episodic/Chronic Genitourinary congenital anomalies (6 sources) Bicornuate uterus; Translations: [Bicornate uterus] Onset: 08-08-2025 07-25-2025 Chronic Comment on above: in left ho rn Hemorrhage during ; abruptio placenta; placenta previa (9 sources) Threatened miscarriage; Translations: [Threatened ] Onset: 08-18-2025 07-18-2025 Episodic Comment on above: hcg x 2 and repeat U S next week Influenza (10 sources) Influenza due to Influenza A virus; Translations: [Influenza due to other identified influenza virus with other respiratory manifestations] 11-07-2024 Episodic Menstrual disorders (1 source) Amenorrhea, unspecified; Translations: [Amenorrhea, unspecified] Onset: 08-15-2025 Chronic Neoplasms of unspecified nature or uncertain behavior (19 sources) Neoplasm of uncertain behavior of face; Translations: [Neoplasm of uncertain behavior of other specified sites] 05-09-2025 Episodic Comment on above: Skin tag (excised Ju 2024) Skin tag on eye (exc ised April 2025) Other and delivery including normal (17 sources) Normal ; Translations: [Encounter for supervision of normal , unspecified, unspecified trimester] Onset: 08-18-2025 07-04-2025 Episodic Comment on above: , EAMON 02/19/26, : Wilbur Discussed genetic/ca rrier testing - undecided Residual codes; unclassified (1 source) Less than 8 weeks gestation of ; Translations: [Less than 8 weeks gestation of ] Onset: 07-25-2025 Episodic Residual codes; unclassified (1 source) 9 weeks gestation of ; Translations: [9 weeks gestation of ] Onset: 07-18-2025 Episodic Spondylosis; intervertebral disc disorders; other back problems (9 sources) Backache; Translations: [Dorsalgia, unspecified] 11-07-2024 Episodic Comment on above: d/t degenerative 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, 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 Spontaneous (4 sources) Incomplete spontaneous without complication; Translations: [ with abortive outcome] Onset: 08-15-2025 08-08-2025 Episodic Past or Other Problems Problem Classification Problem Date Documented Da te Episodic/Chronic Other skin disorders (1 source) Other hypertrophic disorders of the skin; Translations: [Other hypertrophic disorders of the skin] Onset: 05-15-2025 Episodic Unclassified (2 sources) Encounter for screening for malignant neoplasm of cervix; Translations: [ENCOUNTER FOR SCREENING FOR MALIGNANT NEOPLASM OF CERVIX] Onset: 04-28-2017 Episodic Results Test Name Value Interpretation Reference Range Facility [facility] Office Visit Reporton 08-15-2025 [facility] [employer] [facility] Office Visit Report [facility] [address], [address] [place] [address] OFFICE VISIT Date of Service: 08/15/25 MR#: [id number] Acct: [id number] Name: NADYA MOORE Rep #: [id number] : 1990 Provider: Dr. Eugenia Head DO Age/Sex: 35/F Location: [facility] Status: Signed Intake Vital Signs 08/08/25 13:09 08/15/25 13:16 08/15/25 13:16 Height 5 ft 3 in 5 ft 3 in 5 ft 3 in Weight: 156 lb 8 oz BMI 27.7 BP 129/81 H Intake Visit Reasons: Rescan, miscarriage FU Lay Out Former Required: No Is patient in pain?: No Allergies amoxicillin Allergy (Mild, Verified 08/15/25 13:15) Hives Penicillins (PCN) Allergy (Mild, Verified 08/15/25 13:15) Hives Medications ???Medication ???Instructions ???Recorded ???Confirmed ???Type echinacea 125 mg capsule 125 mg PO QDAY 06/11/25 08/15/25 H istory multivitamin 1 tab PO QDAY 06/11/25 08/15/25 Hi story levonorgestrel-ethinyl estradiol 1 tab PO QDAY #90 tabs 08/15/25 Rx 0.1 mg-20 mcg tablet (Aviane) Post menopausal: No : No PFSH Medical History Family history of colon cancer in mother Family history of factor V Leiden mutation Back pain Surgical History Neoplasm of uncertain behavior of face S/P wisdom tooth extraction Family History Grandmother Cancer paternal- multiple myeloma Mother Cancer melanoma Colon cancer, Onset Age: 60 Brother Factor V Leiden Bicuspid aortic valve Congenital heart defect Sister Congenital heart defect Bicuspid aortic valve Social History adopted: No household members: spouse number of children: 0 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 exposures/hazards: No pets and animals: Yes pets and animals: dog(s) history of recent travel: Yes sexually active: Yes Smoking Status: Never smoker second hand exposure: No alcohol intake: current alcohol intake frequency: a few times a month details: Not while substance use type: does not use well-balanced diet: daily or most days caffeine: Yes Type: coffee Number of servings: 1 eating out: rarely or never during the past year weight has: remained stable what type of physical activity do you participate in: walking, weight training and other details: Also gets physical activity with job frequency: 3-4 times per week duration: 30-45 minutes/day dago/nondenominational: Latter-Day seatbelt use: always do you feel safe at home: Yes additional social history: : Wilbur Willoughby @ [employer] HPI Rescan, miscarriage FU Details: NADYA MOORE is a 35 year old who presents for repeat scan. She believes she completely miscarried without the use of the cytotec. She feels some fatigue but overall beter. History 1 Elective abortions 0 Hx Para 0 Spontaneous abortions 1 Hx # Term Pregnancies Ectopic pregnancies Hx # Pregnancies Multiple births # of living children 0 ROS Const ROS Unobtainable: All systems reviewed are unremarkable except as noted in H Resp Resp: Reports system reviewed and no additional complaints, except as documented; Denies cough GI GI: Reports as per HPI Psych Psych: Reports system reviewed and no additional complaints, except as documented Exam Const General: cooperative, healthy appearing, comfortable and no acute distress Resp Effort Inspection: normal respiratory effort Other: ultrasound shows a thin endometrium consistent with complete miscarriage Skin General: no rashes or lesions noted Psych Appearance: grossly normal Speech and Movement: speech and movement normal Coding Level of Care Code Off vis,est,level 4 Diagnoses Incomplete O03.4 Assessment and Plan Assessment and Plan (1) Incomplete : Status: Acute Plan: plan to follow quants to zero wants to start ocps Orders: Orders hCG Titer Quant., Serum Today O03.4 - Incomplete spontaneous without complication hCG Titer Quant., Serum 08/22/25 O03.4 - Incomplete spontaneous without complication Medications: New levonorgestrel-ethinyl estrad 0.1-20 mg-mcg (Aviane) 1 TAB PO QDAY 90 tabs 4RF 08/15/25 1406 Date Eugenia Paul DO [facility] Signature: Date (if applicable) CC: Normal [facility] Serum human chorionic gonado tropin detection for pregnancyOrdered By: Eugenia Salas on 08-15-2025 HCG ( test) Ql 2069 mIU/mL High <9 [facility] Comment on above: Gestational Age0.2-1 Week: 5-50 mIU/mL1-2 Weeks: 50-500 mIU/mL2-3 Weeks: 100-5000 mIU/mL3-4 Weeks: 500-10,000 mIU/mL4-5 Weeks:1000-50,000 mIU/mL5-6 Weeks: 10,000-100,000 mIU/mL6-8 Weeks: 15,000-200,000 mIU/mL2-3 Months:10,000-100,000 mIU/mL hCG Titer Quant., Serumon HCG QUANT. 2069 mIU/mL High <9 non-preg [facility] Comment on above: Result Comment: Gest ational Age 0.2-1 Week: 5-50 mIU/mL 1-2 Weeks: 50-500 mIU/mL 2-3 Weeks: 100-5000 mIU/mL 3-4 Weeks: 500-10,000 mIU/mL 4-5 Weeks:1000-50,000 mIU/mL 5-6 Weeks: 10,000-100,000 mIU/mL 6-8 Weeks: 15,000-200,000 mIU/mL 2-3 Months:10,000-100,000 mIU/mL Performed By: #### L 700.8000 ####[facility] [id number] [place], [address] [facility] [employer] [facility] Office Visit Reporton 08-08-2025 [employer] Office Visit Report [facility] [address], [address] [place] [address] OFFICE VISIT Date of Service: 08/08/25 MR#: [id number] Acct: [id number] Name: NADYA MOORE Rep #: [id number] : 1990 Provider: Dr. Eugenia Head DO Age/Sex: 35/F Location: [facility] Status: Signed Intake Vital Signs 07/25/25 07:56 08/08/25 13:07 08/08/25 13:09 Height 5 ft 3 in 5 ft 3 in 5 ft 3 in Weight: 154 lb 1 oz 156 lb 1 oz BMI 27.3 27.6 BP 110/68 135/80 H Intake Visit Reasons: RESCAN *8w 1d Lay Out Former Required: No Is patient in pain?: No Allergies amoxicillin Allergy (Mild, Verified 08/08/25 13:06) Hives Penicillins (PCN) Allergy (Mild, Verified 08/08/25 13:06) Hives Medications ???Medication ???Instructions ???Recorded ???Confirmed ???Type echinacea 125 mg capsule 125 mg PO QDAY 06/11/25 08/08/25 H istory multivitamin 1 tab PO QDAY 06/11/25 08/08/25 Hi story misoprostol 200 mcg tablet 600 mcg (3 x 200 mcg) vaginal ONCE 08/08/25 08/08/25 Rx (Cytotec) #3 tabs Last Menstrual Period: 05/15/25 Zika: Zika virus screening: Negative : No PFSH PFSH Medical History Family history of colon cancer in mother Family history of factor V Leiden mutation Back pain Surgical History Neoplasm of uncertain behavior of face S/P wisdom tooth extraction Family History Grandmother Cancer paternal- multiple myeloma Mother Cancer melanoma Colon cancer, Onset Age: 60 Brother Factor V Leiden Bicuspid aortic valve Congenital heart defect Sister Congenital heart defect Bicuspid aortic valve Social History adopted: No household members: spouse number of children: 0 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/hazards: No pets and animals: Yes pets and animals: dog(s) history of recent travel: Yes sexually active: Yes Smoking Status: Never smoker second hand exposure: No alcohol intake: current alcohol intake frequency: a few times a month details: Not while substance use type: does not use well-balanced diet: daily or most days caffeine: Yes Type: coffee Number of servings: 1 eating out: rarely or never during the past year weight has: remained stable what type of physical activity do you participate in: walking, weight training and other details: Also gets physical activity with job frequency: 3-4 times per week duration: 30-45 minutes/day dago/nondenominational: L[employer] seatbelt use: always do you feel safe at home: Yes additional social history: : Wilbur Willoughby @ [employer] History 1 Elective abortions 0 Hx Para 0 Spontaneous abortions 1 Hx # Term Pregnancies Ectopic pregnancies Hx # Pregnancies Multiple births # of living children 0 HPI RESCAN *8w 1d Details: NADYA MOORE is a 35 year old who presents for routine OB visit. OB Visit EAMON Calculator Estimated Delivery Date Method Current WG Current Estimate 03/14/26 Ultrasound #1 8w 6d Other Estimates 02/19/26 LMP (Certain) 12w 1d Expected Delivery Route/Plan Labor Preferences- CB/BF classes: [] labor support person: [] labor intervention preferences: [] pain management options preferred: [] cut cord/dad catch: [] : [] PP control planned: [] discussed possible routes of delivery and associated risks: [] special requests: [] Specific Issue/Plans Covid status: [] Flu vaccine: [] Tdap vaccine: [] Rhogam: [] LARC form signed: [] Problem list reviewed and updated with the most current plan of care details and appropriate orders placed. Relevant counseling for the gestational age provided. Continue routine care and follow up unless otherwise noted in visit notes/problem list details Initial Weight: 154 lb Date -???-???-???-???-???-???- ???-???-???-???-???-???- EGA Weight BP Urine Prot -???-???-???-???-???-???- ???-???-???-???-???-???- Glucose FHR FuHt Pres Dilation -???-???-???-???-???-???- ???-???-???-???-???-???- Effaced St Visit Note 07/18/25 -???-???-???-???-???-???- ???-???-???-???-???-???- 5w 6d 154 lb 2 oz (+2 oz) 132/83 -???-???-???-???-???-???- ???-???-???-???-???-???- -???-???-???-???-???-???- ???-???-???-???-???-???- KW- CRL show s 5.6 weeks gestation. plan HCG x 2 and repeat US next week. did have irregular cycles at q 6 weeks. HCG on Jun 4 07/25/25 -???-???-???-???-???-???- ???-???-???-???-???-???- 6w 6d 154 lb 1 oz (+1 oz) 110/68 Negative -???-???-???-???-???-???- ???-? (more content not included)... Normal [facility] Serum human chorionic gonado tropin detection for pregnancyOrdered By: Eugenia Salas on 08-08-2025 HCG ( test) Ql [address]23 mIU/mL High <9 [facility] Comment on above: Gestational Age0.2-1 Week: 5-50 mIU/mL1-2 Weeks: 50-500 mIU/mL2-3 Weeks: 100-5000 mIU/mL3-4 Weeks: 500-10,000 mIU/mL4-5 Weeks:1000-50,000 mIU/mL5-6 Weeks: 10,000-100,000 mIU/mL6-8 Weeks: 15,000-200,000 mIU/mL2-3 Months:10,000-100,000 mIU/mL hCG Titer Quant., Serumon HCG QUANT. 39874 mIU/mL High <9 non-preg [facility] Comment on above: Result Comment: Gest ational Age 0.2-1 Week: 5-50 mIU/mL 1-2 Weeks: 50-500 mIU/mL 2-3 Weeks: 100-5000 mIU/mL 3-4 Weeks: 500-10,000 mIU/mL 4-5 Weeks:1000-50,000 mIU/mL 5-6 Weeks: 10,000-100,000 mIU/mL 6-8 Weeks: 15,000-200,000 mIU/mL 2-3 Months:10,000-100,000 mIU/mL Performed By: #### L 700.1462 ####[facility] [id number] [place], [place], [address] Absolute lymphocyte countOrd ered By: Caprice Woods on 07-25-2025 Lymphocytes Auto (Unsp spec) [#/Vol] 2.19 10*3/uL 0.83-4.51 [facility] Absolute neutrophil countOrd ered By: Caprice Woods on 07-25-2025 Neutrophils (Bld) [#/Vol] 4.3 10*3/uL 2.0-7.7 [facility] Automated lymphocyte count a s percentage of total leukocytesOrdered By: Caprice Chuck on 07-25-2025 Lymphocytes/100 WBC Auto (Unsp spec) 30.2 % 19-41 [facility] Basophil percentageOrdered B y: Caprice Woods on 07-25-2025 Basophils/100 WBC (Bld) 0.7 % 0-1 [facility] CBC W/Diff, Automatedon Absolute Lymph 2.19 X10 3/uL Normal 0.83-4.51 [facility] Comment on above: Performed By: #### L 3890.6006, L3890.6301, L509.4006, L3890.6102, BTS, L100.0100, L700.8000, L509.8002 #### [facility] [address] [place], [address] Absolute Neut 4.3 X10 3/uL Normal 2.0-7.7 [facility] Comment on above: Performed By: #### L 3890.6006, L3890.6301, L509.4006, L3890.6102, BTS, L100.0100, L700.8000, L509.8002 #### [facility] [address] [place], [address] Basophils/100 WBC (Bld) 0.7 % Normal 0-1 [facility] Comment on above: Performed By: #### L 3890.6006, L3890.6301, L509.4006, L3890.6102, BTS, L100.0100, L700.8000, L509.8002 #### [facility] [address] [place], [address] Eosinophils/100 WBC (Bld) 2.2 % Normal 0-5 [facility] Comment on above: Performed By: #### L 3890.6006, L3890.6301, L509.4006, L3890.6102, BTS, L100.0100, L700.8000, L509.8002 #### [facility] [address] [place], [address] Erythrocyte distribution width (RBC) [Ratio] 12.2 % Normal 11.6-14.6 [facility] Comment on above: Performed By: #### L 3890.6006, L3890.6301, L509.4006, L3890.6102, BTS, L100.0100, L700.8000, L509.8002 #### [facility] [address] [place], [address] Hematocrit (Bld) [Volume fraction] 41.5 % Normal 37-47 [facility] Comment on above: Performed By: #### L 3890.6006, L3890.6301, L509.4006, L3890.6102, BTS, L100.0100, L700.8000, L509.8002 #### [facility] [address] [place], [address] Hemoglobin (Bld) [Mass/Vol] 13.8 g/dL Normal 12.0-15.0 [facility] Comment on above: Performed By: #### L 3890.6006, L3890.6301, L509.4006, L3890.6102, BTS, L100.0100, L700.8000, L509.8002 #### [facility] [address] [place], [address] IG% 0.300 Normal 0.0-0.9 [facility] Comment on above: Result Comment: IG% - Immature Granulocytes (promyelocytes, myelocytes and metamyelocytes) > 1% indicates that a LEFT SHIFT is Present. Performed By: #### L 3890.6006, L3890.6301, L509.4006, L3890.6102, BTS, L100.0100, L700.8000, L509.8002 #### [facility] [address] [place], [address] Lymphocytes/100 WBC (Bld) 30.2 % Normal 19-41 [facility] Comment on above: Performed By: #### L 3890.6006, L3890.6301, L509.4006, L3890.6102, BTS, L100.0100, L700.8000, L509.8002 #### [facility] [address] [place], [address] MCH (RBC) [Entitic mass] 29.7 pg Normal 27.0-32.0 [facility] Comment on above: Performed By: #### L 3890.6006, L3890.6301, L509.4006, L3890.6102, BTS, L100.0100, L700.8000, L509.8002 #### [facility] [address] [place], [address] MCHC (RBC) [Mass/Vol] 33.3 g/dL Normal 32-36 [facility] Comment on above: Performed By: #### L 3890.6006, L3890.6301, L509.4006, L3890.6102, BTS, L100.0100, L700.8000, L509.8002 #### [facility] [address] [place], [address] MCV (RBC) [Entitic vol] 89.2 fL Normal 81-99 [facility] Comment on above: Performed By: #### L 3890.6006, L3890.6301, L509.4006, L3890.6102, BTS, L100.0100, L700.8000, L509.8002 #### [facility] [address] [place], [address] Monocytes/100 WBC (Bld) 7.4 % Normal 0-10 [facility] Comment on above: Performed By: #### L 3890.6006, L3890.6301, L509.4006, L3890.6102, BTS, L100.0100, L700.8000, L509.8002 #### [facility] [address] [place], [address] Neutrophils/100 WBC (Bld) 59.2 % Normal 47-70 [facility] Comment on above: Performed By: #### L 3890.6006, L3890.6301, L509.4006, L3890.6102, BTS, L100.0100, L700.8000, L509.8002 #### [facility] [address] [place], [address] Nucleated RBC (Bld) [#/Vol] 0 10*3/uL Normal 0-5 [facility] Comment on above: Performed By: #### L 3890.6006, L3890.6301, L509.4006, L3890.6102, BTS, L100.0100, L700.8000, L509.8002 #### [facility] [address] [place], [address] Platelet mean volume (Bld) [Entitic vol] 11.0 fL Normal 6.2-12.0 [facility] Comment on above: Performed By: #### L 3890.6006, L3890.6301, L509.4006, L3890.6102, BTS, L100.0100, L700.8000, L509.8002 #### [facility] [address] [place], [address] Platelets (Bld) [#/Vol] 386 10*3/uL Normal 150-450 [facility] Comment on above: Performed By: #### L 3890.6006, L3890.6301, L509.4006, L3890.6102, BTS, L100.0100, L700.8000, L509.8002 #### [facility] [address] [place], [address] RBC (Bld) [#/Vol] 4.65 10*6/uL Normal 4.2-5.4 [facility] Comment on above: Performed By: #### L 3890.6006, L3890.6301, L509.4006, L3890.6102, BTS, L100.0100, L700.8000, L509.8002 #### [facility] [address] [place], [address] RDW SD 39.8 fl Normal 35.1-43.9 [facility] Comment on above: Performed By: #### L 3890.6006, L3890.6301, L509.4006, L3890.6102, BTS, L100.0100, L700.8000, L509.8002 #### [facility] [address] [place], [address] WBC (Bld) [#/Vol] 7.3 10*3/uL Normal 4.4-11.0 [facility] Comment on above: Performed By: #### L 3890.6006, L3890.6301, L509.4006, L3890.6102, BTS, L100.0100, L700.8000, L509.8002 #### [facility] [address] [place], [address] Eosinophil percentageOrdered By: Caprice Woods on 07-25-2025 Eosinophils/100 WBC (Bld) 2.2 % 0-5 [facility] Erythrocyte distribution wid th ratioOrdered By: Caprice Woods on 07-25-2025 Erythrocyte distribution width (RBC) [Ratio] 12.2 % 11.6-14.6 [facility] Erythrocyte distribution wid th standard deviationOrdered By: Caprice Woods on 07-25-2025 Erythrocyte distribution width (RBC) [Ratio] 39.8 fl 35.1-43.9 [facility] HIVon 07-25-2025 HIV Non-Reactive Normal Nonreactive [facility] Comment on above: Result Comment: Non- Reactive Reactive Repeatedly reactive samples must be confirmed according to CDC recommended confirmatory algorithms. The subresults for either HIVAG or AHIV can be used as an aid in the selection of the confirmation algorithm for reactive samples. Send out specimens with Reactive results to [facility] for confirmation. Order the HIV antibody detection and differentiation: lc#[id number] Performed By: #### L 3890.6006, L3890.6301, L509.4006, L3890.6102, BTS, L100.0100, L700.8000, L509.8002 ####[facility] [address] [place], [address] Hematocrit Auto (Bld) [Volum e fraction]Ordered By: Caprice Woods on 07-25-2025 Hematocrit (Bld) [Volume fraction] 41.5 % 37-47 [facility] Hemoglobin measurementOrdere d By: Caprice Woods on 07-25-2025 Hemoglobin (Bld) [Mass/Vol] 13.8 g/dL 12.0-15.0 [facility] Hepatitis C Antibodyon 07-25 Hepatitis C Ab Non-Reactive Normal Nonreactive [facility] Comment on above: Result Comment: Reac tive: Presumptive evidence of antibodies to HCV. Follow CDC recommendations for supplemental testing. Non-Reactive: Antibodies to HCV were not detected; does not exclude the possibility of exposure to HCV Reactive Results are presumptive evidence of antibodies to HCV. Follow CDC recommendations for supplemental testing. Order confirmation testing: HCV Quant by PCR testing - HCVPCR #[id number] Non Reactive: < 0.8 Equivocal: >/= 0.8 to < 1.0 Reactive: >/= 1.0 The CDC requires that a reactive/equivocal HCV antibody result be sent out for confirmation. HCV Quant by PCR testing. Performed By: #### L 3890.6006, L3890.6301, L509.4006, L3890.6102, BTS, L100.0100, L700.8000, L509.8002 ####[facility] [address] [place], [address] Immature granulocytes/100 WB C Auto (Bld)Ordered By: Caprice Woods on 07-25-2025 Immature granulocytes/100 WBC (Bld) 0.300 % 0.0-0.9 [facility] Comment on above: IG% - Immature Granu locytes (promyelocytes, myelocytes and metamyelocytes) > 1% indicates that a LEFT SHIFT is Present. L3890.6102on 07-25-2025 HEP B Surf Ag Non-Reactive Normal Nonreactive [facility] Comment on above: Result Comment: Reac tive: Presumptive evidence of HBV. Repeatedly reactive samples must be confirmed using a neutralization test ([employer] HBsAg Confirmatory Test) Non-Reactive: HBsAg not detected; does not exclude the possibility of exposure to HBV Performed By: #### L 3890.6006, L3890.6301, L509.4006, L3890.6102, BTS, L100.0100, L700.8000, L509.8002 ####[facility] [address] [place], [address] L509.4006on 07-25-2025 Rubella IgG REAC Normal Nonreactive [facility] Comment on above: Result Comment: Anti body Result: Interpretation Non-Reactive: Non-Immune Reactive: Immune The following results were obtained with the [employer] Rubella IgG assay. Results from assays of other manufacturers cannot be used interchangeably. Performed By: #### L 3890.6006, L3890.6301, L509.4006, L3890.6102, BTS, L100.0100, L700.8000, L509.8002 #### [facility] [address] [place], [address] Laboratory - Chemistry and C hemistry - challengeOrdered By: Caprice Woods on 07-25-2025 Glucose Ql (U) Negative [facility] - Microbiology an d Antimicrobial susceptibilityOrdered By: Caprice Woods on 07-25-2025 HBV surface Ag Ql (S) Non-Reactive Nonreactive [facility] Comment on above: Reactive: Presumptiv e evidence of HBV. Repeatedly reactive samples must be confirmed using a neutralization test ([employer] HBsAg Confirmatory Test)Non-Reactive: HBsAg not detected; does not exclude the possibility of exposure to HBV Laboratory - UrinalysisOrder ed By: Caprice Woods on 07-25-2025 Protein Ql (U) Negative [facility] MCV (mean corpuscular volume ) determinationOrdered By: Caprice Woods on 07-25-2025 MCV (RBC) [Entitic vol] 89.2 fL 81-99 [facility] Mean corpuscular hemoglobin (MCH) determinationOrdered By: Caprice Woods on 07-25-2025 MCH (RBC) [Entitic mass] 29.7 pg 27.0-32.0 [facility] Mean corpuscular hemoglobin concentration (MCHC) determinationOrdered By: Caprice Woods on 07-25-2025 MCHC (RBC) [Mass/Vol] 33.3 g/dL 32-36 [facility] Mean platelet volume determi nationOrdered By: Caprice Woods on 07-25-2025 Platelet mean volume (Bld) [Entitic vol] 11.0 fL 6.2-12.0 [facility] Monocyte percentageOrdered B y: Caprice Woods on 07-25-2025 Monocytes/100 WBC (Bld) 7.4 % 0-10 [facility] Neutrophil percentageOrdered By: Caprice Woods on 07-25-2025 Neutrophils/100 WBC (Bld) 59.2 % 47-70 [facility] No Panel InformationOrdered By: Caprice Woods on 07-25-2025 HIV (1&2) Antibody Non-Reactive Nonreactive [facility] Comment on above: Non-ReactiveReactive Repeatedly reactive samples must be confirmed according to CDC recommended confirmatory algorithms. The subresults for either HIVAG or AHIV can be used as an aid in the selection of the confirmation algorithm for reactive samples.Send out specimens with Reactive results to [facility] for confirmation.Order the HIV antibody detection and differentiation: #[id number] Nucleated red blood cell per centageOrdered By: Caprice Woods on 07-25-2025 Nucleated RBC/100 WBC (Bld) [Ratio] 0 % 0-5 [facility] [employer] Office Visit Reporton 07-25-2025 [employer] Office Visit Report [facility] [address] [facility], [address] [place] [address] OFFICE VISIT Date of Service: 07/25/25 MR#: [id number] Acct: [id number] Name: NADYA MOORE Rep #: [id number] : 1990 Provider: RAMIREZ Serrato ams Age/Sex: 35/F Location: [facility] [place] Status: Signed Intake Vital Signs 07/18/25 08:33 07/25/25 07:56 Height 5 ft 3 in 5 ft 3 in Weight: 154 lb 1 oz BMI 27.3 BP 110/68 Intake Visit Reasons: rescan *kw Lay Out Former Required: No Is patient in pain?: No Allergies amoxicillin Allergy (Mild, Verified 07/25/25 07:57) Hives Penicillins (PCN) Allergy (Mild, Verified 07/25/25 07:57) Hives Medications ???Medication ???Instructions ???Recorded ???Confirmed ???Type echinacea 125 mg capsule 125 mg PO QDAY 06/11/25 07/25/25 H istory multivitamin 1 tab PO QDAY 06/11/25 07/25/25 Hi story Last Menstrual Period: 05/15/25 Zika: Zika virus screening: Negative : No Have you fallen in the past year?: No PFSH PFSH Medical History Family history of colon cancer in mother Family history of factor V Leiden mutation Back pain Surgical History Neoplasm of uncertain behavior of face S/P wisdom tooth extraction Family History Grandmother Cancer paternal- multiple myeloma Mother Cancer melanoma Colon cancer, Onset Age: 60 Brother Factor V Leiden Bicuspid aortic valve Congenital heart defect Sister Congenital heart defect Bicuspid aortic valve Social History adopted: No household members: spouse number of children: 0 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 exposures/hazards: No pets and animals: Yes pets and animals: dog(s) history of recent travel: Yes sexually active: Yes Smoking Status: Never smoker second hand exposure: No alcohol intake: current alcohol intake frequency: a few times a month details: Not while substance use type: does not use well-balanced diet: daily or most days caffeine: Yes Type: coffee Number of servings: 1 eating out: rarely or never during the past year weight has: remained stable what type of physical activity do you participate in: walking, weight training and other details: Also gets physical activity with job frequency: 3-4 times per week duration: 30-45 minutes/day dago/nondenominational: L[employer]-Day seatbelt use: always do you feel safe at home: Yes additional social history: : [employer]bur Will[employer] @ [employer] History 1 Elective abortions 0 Hx Para 0 Spontaneous abortions 0 Hx # Term Pregnancies Ectopic pregnancies Hx # Pregnancies Multiple births # of living children 0 HPI rescan *kw Details: NADYA MOORE is a 35 year old who presents for routine OB visit. OB Visit EAMON Calculator Estimated Delivery Date Method Current WG Current Estimate 03/14/26 Ultrasound #1 6w 6d Other Estimates 02/19/26 LMP (Certain) 10w 1d Comments: HIV: Urine Culture: Sequential Screen: NIPT Screen: Expected Delivery Route/Plan Labor Preferences- CB/BF classes: [] labor support person: [] labor intervention preferences: [] pain management options preferred: [] cut cord/dad catch: [] : [] PP control planned: [] discussed possible routes of delivery and associated risks: [] special requests: [] Specific Issue/Plans Covid status: [] Flu vaccine: [] Tdap vaccine: [] Rhogam: [] LARC form signed: [] Problem list reviewed and updated with the most current plan of care details and appropriate orders placed. Relevant counseling for the gestational age provided. Continue routine care and follow up unless otherwise noted in visit notes/problem list details Initial Weight: 154 lb Date -???-???-???-???-???-???- ???-???-???-???-???-???- EGA Weight BP Urine Prot -???-???-???-???-???-???- ???-???-???-???-???-???- Glucose FHR FuHt Pres Dilation -???-???-???-???-???-???- ???-???-???-???-???-???- Effaced St Visit Note 07/18/25 -???-???-???-???-???-???- ???-???-???-???-???-???- 5w 6d 154 lb 2 oz (+2 oz) 132/83 -???-???-???-???-???-???- ???-???-???-???-???-???- -???-???-???-???-???-???- ???-???-???-???-???-???- KW- CRL show s 5.6 weeks gestation. plan HCG x 2 and repeat US next week. did have irregular cycles at q 6 weeks. HCG on Jun 4 07/25/25 -???-???-???-???-???-???- ???-???-???-???-???-???- 6w 6d 154 lb 1 oz (+1 oz) 110/68 Negative -???-???-???-???-???-???- ???-???-???-???-???-???- Negative -???-???-???-???-???-???- ???-???-???-???-???-???- (more content not included)... Normal [facility] Platelet countOrdered By: Ramiro Woods on 07-25-2025 Platelets (Bld) [#/Vol] 386 10*3/uL 150-450 [facility] RBC Auto (Bld) [#/Vol]Ordere d By: Caprice Woods on 07-25-2025 RBC (Bld) [#/Vol] 4.65 10*6/uL 4.2-5.4 [facility] Serum human chorionic gonado tropin detection for pregnancyOrdered By: Caprice Woods on 07-25-2025 HCG ( test) Ql [address] mIU/mL High <9 [facility] Comment on above: Gestational Age0.2-1 Week: 5-50 mIU/mL1-2 Weeks: 50-500 mIU/mL2-3 Weeks: 100-5000 mIU/mL3-4 Weeks: 500-10,000 mIU/mL4-5 Weeks:1000-50,000 mIU/mL5-6 Weeks: 10,000-100,000 mIU/mL6-8 Weeks: 15,000-200,000 mIU/mL2-3 Months:10,000-100,000 mIU/mL Syphilis Antibodieson 2024 Syphilis Abs Non-Reactive Normal Nonreactive [facility] Comment on above: Performed By: #### L 3890.6006, L3890.6301, L509.4006, L3890.6102, BTS, L100.0100, L700.8000, L509.8002 ####[facility] [address] [place], [place], [id number] Type AND Screenon 07-25-2025 ABO and Rh group Nom (Bld) Blood group A Rh(D) positive Normal [facility] Comment on above: Order Comment: PN Performed By: #### L 3890.6006, L3890.6301, L509.4006, L3890.6102, BTS, L100.0100, L700.8000, L509.8002 #### [facility] [address] [place], [place], [id number] White blood cell (WBC) count Ordered By: Caprice Woods on 07-25-2025 WBC (Bld) [#/Vol] 7.3 10*3/uL 4.4-11.0 [facility] hCG Titer Quant., Serumon HCG QUANT. 86403 mIU/mL High <9 non-preg [facility] Comment on above: Result Comment: Gest ational Age 0.2-1 Week: 5-50 mIU/mL 1-2 Weeks: 50-500 mIU/mL 2-3 Weeks: 100-5000 mIU/mL 3-4 Weeks: 500-10,000 mIU/mL 4-5 Weeks:1000-50,000 mIU/mL 5-6 Weeks: 10,000-100,000 mIU/mL 6-8 Weeks: 15,000-200,000 mIU/mL 2-3 Months:10,000-100,000 mIU/mL Performed By: #### L 3890.6006, L3890.6301, L509.4006, L3890.6102, BTS, L100.0100, L700.8000, L509.8002 #### [facility] [address] [place], [address] Chlamydia/GC JASON aptimaon CHLAMY,NUC ACID Negative Normal Negative [facility] Comment on above: Performed By: #### L 7000.1800, M100.2200 ####[facility] [address] [place], [address] GC BY NUC ACID Negative Normal Negative [facility] Comment on above: Result Comment: Perf ormed at: =G - [facility] [address] [id number] [employer] Correspondent: Cristy Luis MD, Phone: [phone] Performed By: #### L 7000.1800, M100.2200 ####[facility] [address] [place], [address] Serum human chorionic gonado tropin detection for pregnancyOrdered By: Caprice Woods on 07-20-2025 HCG ( test) [place]l [address] mIU/mL High <9 [facility] Comment on above: Gestational Age0.2-1 Week: 5-50 mIU/mL1-2 Weeks: 50-500 mIU/mL2-3 Weeks: 100-5000 mIU/mL3-4 Weeks: 500-10,000 mIU/mL4-5 Weeks:1000-50,000 mIU/mL5-6 Weeks: 10,000-100,000 mIU/mL6-8 Weeks: 15,000-200,000 mIU/mL2-3 Months:10,000-100,000 mIU/mL Urine Cultureon 07-20-2025 URC Below infection adriana mayo Mixed Gram Positive Organisms Floyd Count 1000-10,000 MIXC Mixed contaminants. Submit a new specimen if indicated. Normal [facility] Comment on above: Performed By: #### L 7000.1800, M100.2200 ####[facility] [address] [place], [place], [address] hCG Titer Quant., Serumon HCG QUANT. 17698 mIU/mL High <9 non-preg [facility] Comment on above: Result Comment: Gest ational Age 0.2-1 Week: 5-50 mIU/mL 1-2 Weeks: 50-500 mIU/mL 2-3 Weeks: 100-5000 mIU/mL 3-4 Weeks: 500-10,000 mIU/mL 4-5 Weeks:1000-50,000 mIU/mL 5-6 Weeks: 10,000-100,000 mIU/mL 6-8 Weeks: 15,000-200,000 mIU/mL 2-3 Months:10,000-100,000 mIU/mL Performed By: #### L 700.8000 ####[facility] [address] [place], [place], [address] Chlamydia trachomatis rRNA d etection by probe and target amplification methodOrdered By: Caprice Woods on 07-18-2025 C. trachomatis rRNA JASON+probe Ql (Unsp spec) Negative Negative [facility] Neisseria gonorrhoeae nuclei c acid detection by amplified probe techniqueOrdered By: Caprice Woods on 07-18-2025 N. gonorrhoeae DNA JASON+probe Ql (Unsp spec) Negative Negative [facility] Comment on above: Performed at: =[address], [place], [place] [id number] Director: Cristy Luis MD, Phone: [phone] [employer] Office Visit Reporton 07-18-2025 [employer] Office Visit Report [facility] [address], [address] [place] [address] OFFICE VISIT Date of Service: 07/18/25 MR#: [id number] Acct: [id number] Name: NADYA MOORE Rep #: [id number] : 1990 Provider: RAMIREZ Serrato ams Age/Sex: 35/F Location: [facility] [place] Status: Signed Intake Vital Signs 06/11/25 07:26 07/04/25 09:04 07/18/25 08:31 07/18/25 08:33 Height 5 ft 3.5 in 5 ft 3 in 5 ft 3 in 5 ft 3 in Weight: 154 lb 2 oz BMI 27.3 BP 132/83 H Intake Visit Reasons: *EST* NOB LMP 05/15, EAMON 02/19 Lay Out Former Required: No Is patient in pain?: No Allergies amoxicillin Allergy (Mild, Verified 07/18/25 08:30) Hives Penicillins (PCN) Allergy (Mild, Verified 07/18/25 08:30) Hives Medications ???Medication ???Instructions ???Recorded ???Confirmed ???Type echinacea 125 mg capsule 125 mg PO QDAY 06/11/25 07/18/25 H istory multivitamin 1 tab PO QDAY 06/11/25 07/18/25 Hi story Last Menstrual Period: 05/15/25 Zika: Zika virus screening: Negative : Yes Have you fallen in the past year?: No PFSH PFSH Medical History Family history of colon cancer in mother Family history of factor V Leiden mutation Back pain Surgical History Neoplasm of uncertain behavior of face S/P wisdom tooth extraction Family History Grandmother Cancer paternal- multiple myeloma Mother Cancer melanoma Colon cancer, Onset Age: 60 Brother Factor V Leiden Bicuspid aortic valve Congenital heart defect Sister Congenital heart defect Bicuspid aortic valve Social History adopted: No household members: spouse number of children: 0 financial difficulty paying for basics: not very hard service: No 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 exposures/hazards: No pets and animals: Yes pets and animals: dog(s) history of recent travel: Yes sexually active: Yes do you think of yourself as: straight/heterosexual current gender identity: female Smoking Status: Never smoker second hand exposure: No alcohol intake: current alcohol intake frequency: a few times a month details: Not while substance use type: does not use well-balanced diet: daily or most days caffeine: Yes Type: coffee Number of servings: 1 eating out: rarely or never during the past year weight has: remained stable what type of physical activity do you participate in: walking, weight training and other details: Also gets physical activity with job How many days of moderate to strenuous exercise, like a brisk walk, did you do in the last 7 days: 3 frequency: 3-4 times per week duration: 30-45 minutes/day dago/nondenominational: Latter-Day seatbelt use: always do you feel safe at home: Yes additional social history: : 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 OB Visit EAMON Calculator Estimated Delivery Date Method Current WG Current Estimate 03/14/26 Ultrasound #1 5w 6d Other Estimates 02/19/26 LMP (Certain) 9w 1d Estimated Due Date: 02/19/26 Expected Delivery Route/Plan Labor Preferences- CB/BF classes: [] labor support person: [] labor intervention preferences: [] pain management options preferred: [] cut cord/dad catch: [] : [] PP control planned: [] discussed possible routes of delivery and associated risks: [] special requests: [] Specific Issue/Plans Covid status: [] Flu vaccine: [] Tdap vaccine: [] Rhogam: [] LARC form signed: [] Problem list reviewed and updated with the most current plan of care details and appropriate orders placed. Relevant counseling for the gestational age provided. Continue routine care and follow up unless otherwise noted in visit notes/problem list details Initial Weight: 154 lb Date -???-???-???-???-???-???- ???-???-???-???-???-???- EGA Weight BP Urine Prot -???-???-???-???-???-???- ???-???-???-???-???-???- Glucose FHR FuHt Pres Dilation -???-???-???-???-???-???- ???-???-???-???-???-???- Effaced St Visit Note 07/18/25 -???-???-???-???-???-???- ???-???-???-???-???-???- 5w 6d 154 lb 2 oz (+2 oz) 132/83 -???-???-???-???-???-???- ???-???-???-???-???-???- -???-???-???-???-???-???- ???-???-???-???-???-???- KW- CRL show s 5.6 weeks gestation. p (more content not included)... Normal [facility] Serum human chorionic gonado tropin detection for pregnancyOrdered By: Caprice Woods on 07-18-2025 HCG ( test) Ql [address]73 mIU/mL High <9 [facility] Comment on above: Gestational Age0.2-1 Week: 5-50 mIU/mL1-2 Weeks: 50-500 mIU/mL2-3 Weeks: 100-5000 mIU/mL3-4 Weeks: 500-10,000 mIU/mL4-5 Weeks:1000-50,000 mIU/mL5-6 Weeks: 10,000-100,000 mIU/mL6-8 Weeks: 15,000-200,000 mIU/mL2-3 Months:10,000-100,000 mIU/mL Urine cultureOrdered By: Henry Woods on 07-18-2025 Bacteria identified Cx Nom (U) Positive Abnormal [facility] hCG Titer Quant., Serumon HCG QUANT. 15462 mIU/mL High <9 non-preg [facility] Comment on above: Result Comment: Gest ational Age 0.2-1 Week: 5-50 mIU/mL 1-2 Weeks: 50-500 mIU/mL 2-3 Weeks: 100-5000 mIU/mL 3-4 Weeks: 500-10,000 mIU/mL 4-5 Weeks:1000-50,000 mIU/mL 5-6 Weeks: 10,000-100,000 mIU/mL 6-8 Weeks: 15,000-200,000 mIU/mL 2-3 Months:10,000-100,000 mIU/mL Performed By: #### L 700.8000 ####[facility] [address] [place], [address] Office Visit Reporton 2024 Office Visit Report [facility] [address] [place] [address] OFFICE VISIT Date of Service: 07/04/25 MR#: [id number] Acct: [id number] Patient: NADYA MOORE Rep #: [id number] : 1990 Provider: RAMIREZ Serrato ams Age/Sex: 35/F Location: [facility] [place] Status: Signed Intake Vital Signs 06/11/25 07:26 [...] unspecified, unspecified trimester 07/15/25 0850 Date Caprice Deutsch Signature: Date (if applicable) CC: Normal [facility] Rapid group A Streptococcus antigen assay at point of careOrdered By: Kamron Bhakta on 06-11-2025 S. pyogenes Ag IA.rapid Ql (Throat) Negative [facility] Urgent Care Visit Reporton 0 06-11-2025 Urgent Care Visit Report [facility] [address], [address] [place] [address] OFFICE VISIT Date of Service: 06/11/25 MR#: [id number] Acct: [id number] Name: NADYA MOORE Rep #: [id number] : 1990 Provider: SCOTT Hobbs Age/Sex: 34/F Location: [facility] Status: Signed Intake Vital Signs 05/16/25 08:54 [...] air Intake Visit Reasons: SORE THROAT, FEVER Lay Out Former Required: No Accompanied by: Self Is patient [...] higher than baseline. Denies fever or chills. 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 ???No qwsh-gct-cxnslgt products taken to assist. No other associated [...] Acute (2 (more content not included)... Normal [facility] Plastic Surgery Visit Report on 05-16-2025 Plastic Surgery Visit Report [facility] Plastic Reconstructive Surgery [address] [place] [address] OFFICE VISIT Date of Service: 05/16/25 MR#: [id number] Acct: [id number] Name: NADYA MOORE Rep #: [id number] : 1990 Provider: Dr. Ezequiel Hurtado MD Age/Sex: 34/F Location: [facility] Status: Signed Intake Vital Signs 05/09/25 [...] specimen is entirely submitted in 1 cassette. OK 05/12/2025 CPT:62558 _ Electronically Signed by: Dr. Dr. 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 @ [employer] Smoking Status: Never smoker alcohol intake: current alcohol intake frequency: a few times a month substance use type: does not use seatbelt use: always do you feel safe at home: Yes additional social history: -[employer]- [employer] Assessment and Plan (No Qualifiers) Assessment and Plan (1) Neoplasm of uncertain behavior of face: Status: Acute Comment: Skin tag (excised April 2025) Plan: Expected course Follow-up as needed 05/16/25 4783 Date Ezequiel Hurtado MD [facility] Signature: Date (if applicable) CC: Normal [facility] Surgical pathology reportOrd ered By: Laila Bucio on 05-14-2025 Surgical pathology study [facility] Surgery Specimen Level Irina 05-10-2025 Surgery Specimen Level IV Patient Age/Sex Location Account Attending Physician NADYA MOORE 34/F [facility] [id number] Dr. Ezequiel Hurtado MD Specimen: [id number] Received: 05/10/25 Status: ALFREDO Ott Num: [id number] Spec Type: Lesion Subm Dr: Dr. Ezequiel [...] specimen is entirely submitted in 1 cassette. OK 05/12/2025 CPT:86619 Patient Age/Sex Location Account Attending Physician NADYA MOORE 34/F [facility] [id number] Dr. Ezequiel Hurtado MD Signed (signature on file) Dr. Laila Bucio MD 05/14/25 1334 Normal [facility] Comment on above: Performed By: #### P SUIV ####[facility] [address] [place], [place], [id number] Plastic Surgery Visit Report on 05-09-2025 Plastic Surgery Visit Report [facility] Plastic Reconstructive Surgery [address], [address] [place] [address] OFFICE VISIT Date of Service: 05/09/25 MR#: [id number] Acct: [id number] Name: NADYA MOORE Rep #: [id number] : 1990 Provider: Dr. 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 HPI SKIN TAG ON THE L EYE [...] face D48.7 Comment 25 modifier with cpt 55678 Assessment and Plan (No Qualifiers) Assessment and [...] The lesion was sent to pathology CPT: 57737 Plan: Erythromycin ointment to be applied twice daily (ordered) for 3 days Anticipate some swelling and bruising Follow-up in 1 week for wound check and to review the pathology report 05/09/25 1829 Date Ezequiel Hurtado MD [facility] Signature: Date (if applicable) CC: Normal [facility] Office Visit Reporton 2024 Office Visit Report [facility] [address] [place] [address] OFFICE VISIT Date of Service: 11/07/24 MR#: [id number] Acct: [id number] Patient: NADYA MOORE Rep #: [id number] : 1990 Provider: SCOTT Alicia Age/Sex: 34/F Location: [facility] Status: Signed Intake Vital Signs 11/07/24 06:00 Height 5 ft 3.5 in Intake Visit Reasons: 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/ [employer] Chief Complaint: Annual Allergies amoxicillin Allergy (Mild, [...] Deutsch Signature: Date (if applicable) CC: Normal [facility] [employer] Office Visit Reporton 02-10-2025 [employer] Office Visit Report [facility] [address], [address] [place] [address] OFFICE VISIT Date of Service: 02/10/25 MR#: [id number] Acct: [id number] Name: NADYA MOORE Rep #: [id number] : 1990 Provider: FUENTES osborne Age/Sex: 34/F Location: [facility] Status: Signed Intake Vital Signs 12/27/23 14:46 11/07/24 06:00 02/10/25 15:23 04/21/25 15:27 Height 5 ft 3.5 in 5 ft 3.5 in 5 ft 3.5 in 5 ft 3.5 in Weight: 152 lb 6 oz BMI 26.5 BP 116/74 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: Annual Lay Out Former Required: No Is patient in pain?: No Allergies amoxicillin Allergy (Mild, Verified 02/10/25 15:23) Hives Penicillins (PCN) Allergy (Mild, Verified 02/10/25 15:23) Hives Is last menstrual period known: No Post menopausal: No Patient : No : No [facility] Medical History (Updated 02/10/25 @ 15:33 by Mihaela Burton PACKAGER HEAD, PACKAGER HEAD-C) Family history of colon cancer in mother Family history of factor V Leiden mutation Back pain Surgical History S/P wisdom tooth extraction Family History Grandmother Cancer paternal- multiple myeloma Mother Cancer melanoma Social History household members: spouse 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: employed 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 @ [employer] 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 Status: 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 Normal [facility] Fact V Leiden Mutationon FACTOR V LEIDEN Comment Normal . [facility] Comment on above: Result Comment: Resu lt: c.1601G>A (p.Vvm043Rhy) - Not Detected This result is not associated with an increased risk for venous thromboembolism. See Additional Clinical Information and Comments. Additional Clinical Information: Venous thromboembolism is a multifactorial disease influenced by genetic, environmental, and circumstantial risk factors. The c.1601G>A (p. Eow376Dzk) variant in the F5 gene, commonly referred [...] c.*97G>A variant and Factor V Leiden (PMID: 36656465). Additional risk factors include but are not [...] health care providers to discuss results at [phone] (8763). Test Details: Variant Analyzed: c.1601G>A (p. Sxv249Wjn), referred to as Factor V Leiden Methods/Limitations: [...] developed and its performance characteristics determined by [facility]. It has not been cleared or approved by the Food and Drug Administration. References: Donita Banda AK, Toño R, Daria WW, Berny JH; ACMG Professional Practice and Guidelines Committee. Addendum: [employer] consensus statement on factor V Leiden mutation testing. Tamy Med. 2020Dec 25. doi: 10.1038/z86698-372-76703-t. PMID: 56486938. Barak SYLVESTER. Factor V Leiden Thrombophilia. 1998March 05 (Updated 2017Oct 26). In: Alex MP, Dorian HH, Ricky RA, et al., editors. Sukh(R) (Internet). [place] ([place]): [facility]; 7476-2243. Available from: https://www.ncbi.nlm.nih.gov/books/UWJ4705/ Ant S, Donita PIEDRA, Cliff X, Neri B, Jeni EB, Ariana P, Sherri CS; ACMG Laboratory Comfort Filler Committee. Venous thromboembolism laboratory testing (factor V Leiden and factor II c.*97G>A), 2018 update: a technical standard of the [employer] and Genomics (ACMG). Tamy Med. 2018 Sep;20(12):2273-4537. doi: 10.1038/o56935-922-0127-u. Epub 2017Jul 27. PMID: 39511379. Performed By: #### L 4500.5000 #### [facility] [address] [place], [place], [id number] Reviewed By Comment Normal . [facility] Comment on above: Result Comment: Tech nical Component performed at [facility] RT Professional Component performed by: Retty Nickolas Mckeon, Ph.D., [facility] Director, Molecular Genetics [address] [place] [address] Dr Zoraida GONZALEZ [id number] Performed at: - [facility] [address] [place], [place] [id number] [employer] Correspondent: Kimmie Saldaña [facility], Phone: [phone] Performed By: #### L 4500.5000 #### [facility] [address] [place], [place], [id number] Clotting factor V Leiden mut ation detectionOrdered By: Jorje Preciado on 12-23-2024 Factor V Leiden Mutation Comment . [facility] Comment on above: Result: c.1601G>A (p .Jkn297Kfb) - Not DetectedThis result is not associated with an increased risk for venousthromboembolism. See Additional Clinical Information andComments.Additional Clinical Information:Venous thromboembolism is a multifactorial diseaseinfluenced by genetic, environmental, and circumstantialrisk factors. The c.1601G>A (p. Qcl062Ehj) variant in theF5 gene, commonly referred to [...] F2 c.*97G>Avariant and Factor V Leiden (PMID: 14245852). Additionalrisk factors include but are not limited [...] for health careproviders to discuss results at [phone] ([phone]).Test Details:Variant Analyzed: c.1601G>A (p. Kek728Gan), referred toas Factor V LeidenMethods/Limitations:DNA analysis of [...] was developed and its performance characteristicsdetermined by [facility]. It has not been cleared orapproved by the Food and Drug Administration.References:Sidney Oropeza, Donita PIEDRA, Toño R, Daria WW, Berny JH; ACMGProfessional Practice and Guidelines Committee. Addendum:[employer] consensus statement onfactor V Leiden mutation testing. Tamy Med. 2020Dec 25.doi: 10.1038/m91310-305-83322-k. PMID: 37796647.Barak SYLVESTER. Factor V Leiden Thrombophilia. 1998March 05(Updated 2017Oct 26). In: Alex MP, Dorian HH, Ricky RA,et al., editors. Sukh(R) (Internet). [place] ([place]):[facility]; 3200-0768. Availablefrom: https://www.ncbi.nlm.nih.gov/books/LYM4974/Ant Oropeza, Donita PIEDRA, Cliff X, Neri B, Jeni EB, Ariana P,Sherri CS; ACMG Laboratory Comfort Filler Committee.Venous thromboembolism laboratory testing (factor V Leidenand factor II c.*97G>A), 2018 update: a technical standardof the [employer] College of [employer] Genetics and Genomics(ACMG). Tamy Med. 2018 Sep;20(12):0091-3701. doi:10.1038/k53753-338-0354-r. Epub 2017Jul 27. PMID: 04335040. Laboratory - Microbiology an d Antimicrobial susceptibilityon 11-07-2024 SARS-CoV-2 (COVID-19) RNA JASON+probe Ql (Unsp spec) Not detected [facility] No Panel Informationon 11-07 POC Nasal Swab Influenza A,B Detected [facility] POC Nasal Swab RSV Not detected [facility] Office Visit Reporton 2024 Office Visit Report [facility] [address] [place] [address] OFFICE VISIT Date of Service: 11/07/24 MR#: [id number] Acct: [id number] Patient: NADYA MOORE Rep #: [id number] : 1990 Provider: SCOTT Alicia Age/Sex: 34/F Location: [facility] Status: Signed Employer Purchased Covid Test Note: Patient here today for Covid Testing, requested by their Employer. Assessment and Plan Assessment and Plan Orders: Orders POC Cepheid Covid, FluAB, RSV Today Medications: New oseltamivir (Tamiflu) 75 mg PO Q12H 10 caps 0RF 5 days 11/07/24725 Date Dylan Deutsch Signature: Date (if applicable) CC: Normal [facility] Urgent Care Visit Reporton 0 11-07-2024 Urgent Care Visit Report [facility] [address], [address] [place] [address] OFFICE VISIT Date of Service: 11/07/24 MR#: [id number] Acct: [id number] Name: NADYA MOORE Rep #: [id number] : 1990 Provider: SCOTT Alicia Age/Sex: 34/F Location: [facility] Status: Signed Intake Vital Signs 12/27/23 14:46 [...] congestion Chief Complaint: cough, congest, MORRELL, BA Lay Out Former Required: No Is patient in pain?: No [...] BA x [address], fever. 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 Normal [facility] Cervical or vaginal specimen microscopic examination by liquid based cytology (reportOrdered By: Mihaela Burton on 12-27-2023 Cytology report Cyto stain.thin prep Doc (Cvx/Vag) Comment . [facility] Comment on above: Criteria not met, HP V Genotype not performed.Performed at: - [facility] [id number] Director: Cristy Luis MD, Phone: [phone] at: = - [facility] [id number] Director: Cristy Luis MD, Phone: [phone] Cervical or vagninal specime n microscopic examination by cytology stain (reported asOrdered By: Mihaela Burton on 12-27-2023 Cytology report Cyto stain Doc (Cvx/Vag) Comment . [facility] Comment on above: The Pap smear [...] 34,Ordered By: Mihaela Burton on 12-27-2023 HPV 16+18+31+33+35+39+45+5 1+52+56+58+59+66+68 DNA Probe+sig amp Ql (Cvx) Negative Negative [facility] Comment on above: This nucleic acid am plification test detects fourteen high- risk HPV types (16,18,31,33,35,39,45,51,52,56,58,59,66,68)without differentiation. Laboratory - CytologyOrdered By: Mihaela Burton on 12-27-2023 Software Manager Cyto stain Nom (Cvx/Vag) [ID] Comment . [facility] Comment on above: Lew Concepcion totechnologist (ASCP) Laboratory - Miscellaneous t estsOrdered By: Mihaela Burton on 12-27-2023 Service comment (Unsp spec) [Interp] . . [facility] Thin prep Papanicolaou smear with manual screeningOrdered By: Mihaela Burton on 12-27-2023 Thin prep Papanicolaou smear with manual screening Comment . [facility] Comment on above: NEGATIVE FOR INTRAEP ITHELIAL LESION OR MALIGNANCY. This liquid based Th inPrep(R) pap test was screened withthe use of an image guided system. Absolute lymphocyte counton 07-22-2022 Lymphocytes Auto (Unsp spec) [#/Vol] 2.29 10*3/uL 0.83-4.51 [facility] Work Phone: Absolute reticulocyte counto n 07-22-2022 Reticulocytes (Bld) [#/Vol] 0.00 10*3/uL 0-5 [facility] Work Phone: Basophil percentageon 2021 Basophil percentage 2.7 mg/dL 2.5-4.9 [facility] Work Phone: Bilirubin [Mass/Vol] 0.70 mg/dL 0.20-1.00 [facility] Work Phone: Comment on above: For patients on eltr ombopag therapy, use of Dimension [place] TBIL is not recommended. Chloride [Moles/Vol] 108 mmol/L 98-107 [facility] Work Phone: Cholesterol [Mass/Vol] 224 mg/dL <200 [facility] Work Phone: Comment on above: <200 mg/dL Desirable 200-240 mg/dL Borderline >240 mg/dL High Risk Glucose [Mass/Vol] 91 mg/dL 74-106 [facility] Work Phone: Neutrophils (Bld) [#/Vol] 5.2 10*3/uL 2.0-7.7 [facility] Work Phone: Potassium [Moles/Vol] 3.7 mmol/L 3.5-5.1 [facility] Work Phone: Protein [Mass/Vol] 7.7 g/dL 6.4-8.2 [facility] Work Phone: Sodium [Moles/Vol] 139 mmol/L 136-145 [facility] Work Phone: Triglyceride [Mass/Vol] 73 mg/dL <199 [facility] Work Phone: Comment on above: The drugs N-Acetylcy steine and Metamizole may falsely depress this assay.Serum Triglycerides Reference Interval Normal <150 mg/dL Borderline high 150 - 199 mg/dL High 200 - 499 mg/dL Very High > or = 500 mg/dL WBC (Bld) [#/Vol] 8.4 10*3/uL 4.4-11.0 [facility] Work Phone: Bilirubin Test strip Ql (U)o n 07-22-2022 Bilirubin Ql (U) Negative Negative [facility] Work Phone: Blood erythrocytes count (nu mber/volume)on 07-22-2022 RBC (Bld) [#/Vol] 4.50 10*6/uL 4.2-5.4 [facility] Work Phone: Blood hemoglobin measurement (mass/volume)on 07-22-2022 Hemoglobin (Bld) [Mass/Vol] 13.0 g/dL 12.0-15.0 [facility] Work Phone: Blood platelet mean volumeon 07-22-2022 Platelet mean volume (Bld) [Entitic vol] 10.6 fL 6.2-12.0 [facility] Work Phone: Determination of erythrocyte mean corpuscular volume (MCV)on 07-22-2022 MCV (RBC) [Entitic vol] 91.3 fL 81-99 [facility] Work Phone: Direct bilirubinon 2 Bilirubin.direct [Mass/Vol] 0.16 mg/dL 0.00-0.30 [facility] Work Phone: Hematocrit Auto (Bld) [Volum e fraction]on 07-22-2022 Hematocrit (Bld) [Volume fraction] 41.1 % 37-47 [facility] Work Phone: Ketones Test strip Ql (U)on 07-22-2022 Ketones Ql (U) Negative Negative [facility] Work Phone: Laboratory - Chemistry and C hemistry - challengeon 07-22-2022 ALP [Catalytic activity/Vol] 62 U/L 45-117 [facility] Work Phone: ALT [Catalytic activity/Vol] 31 U/L 13-56 [facility] Work Phone: Cholesterol.total/Chol esterol in HDL [Mass ratio] 3.00 {ratio} [facility] Work Phone: CO2 [Moles/Vol] 25.0 mmol/L 21.0-32.0 [facility] Work Phone: Globulin (S) [Mass/Vol] 4.4 g/dL 2.2-4.2 [facility] Work Phone: Urea nitrogen/Creatinine [Mass ratio] 11.8 mg/mg 10-20 [facility] Work Phone: Laboratory - Hematology and Cell countson 07-22-2022 Erythrocyte distribution width (RBC) [Entitic vol] 40.2 fL 35.1-43.9 [facility] Work Phone: Erythrocyte distribution width (RBC) [Ratio] 12.0 % 11.6-14.6 [facility] Work Phone: Immature granulocytes/100 WBC (Bld) 0.600 % 0.0-0.9 [facility] Work Phone: Comment on above: IG% - Immature Granu locytes (promyelocytes, myelocytes and metamyelocytes) > 1% indicates that a LEFT SHIFT is Present. MCH (RBC) [Entitic mass] 28.9 pg 27.0-32.0 [facility] Work Phone: Nucleated RBC/100 WBC (Bld) [Ratio] 0 % 0-5 [facility] Work Phone: MCHC Auto (RBC) [Mass/Vol]on 07-22-2022 MCHC (RBC) [Mass/Vol] 31.6 g/dL 32-36 [facility] Work Phone: Nitrite Test strip Ql (U)on 07-22-2022 Nitrite Ql (U) Negative Negative [facility] Work Phone: No Panel Informationon 07-22 Estimated GFR (MDRD) Amer 100 mL/min >60 [facility] Work Phone: Comment on above: GFR Calc Estimated GFR (MDRD) Non-Af Amer 83 mL/min >60 [facility] Work Phone: Comment on above: Non- GFR Calc Platelets bldon 07-22-2022 Platelets (Bld) [#/Vol] See comment 150-450 [facility] Work Phone: Comment on above: Please [...] 07-22-2022 Protein Ql (U) 30 mg/dl Negative [facility] Work Phone: Segmented neutrophils/100 WB C Auto (Bld)on 07-22-2022 Segmented neutrophils/100 WBC (Bld) 62.2 % 47-70 [facility] Work Phone: Serum or plasma albumin emeka urement (mass/volume)on 07-22-2022 Albumin [Mass/Vol] 3.3 g/dL 3.2-5.0 [facility] Work Phone: Serum or plasma albumin/glob ulin mass ratioon 07-22-2022 Albumin/Globulin [Mass ratio] 0.8 {ratio} 0.9-2.4 [facility] Work Phone: Serum or plasma calcium emeka urement (mass/volume)on 07-22-2022 Calcium [Mass/Vol] 9.0 mg/dL 8.5-10.1 [facility] Work Phone: Serum or plasma cholesterol in HDL measurement (mass/volume)on 07-22-2022 Cholesterol in HDL [Mass/Vol] 74 mg/dL >40 [facility] Work Phone: Comment on above: The drugs N-Acetylcy steine and Metamizole may falsely depress this assay. Reference Range HDL <40 mg/dL Low HDL Cholesterol HDL >or= 60 mg/dL High HDL Cholesterol Serum or plasma cholesterol in VLDL measurement (mass/volume)on 07-22-2022 Cholesterol in VLDL [Mass/Vol] 15 mg/dL 5-40 [facility] Work Phone: Serum or plasma creatinine m easurement (mass/volume)on 07-22-2022 Creatinine [Mass/Vol] 0.85 mg/dL 0.55-1.02 [facility] Work Phone: Comment on above: The validity of the calculated GFR & GFRAA in patients over 70 years has not been determined. Clinical correlation is essential. Serum or plasma low density lipoprotein (LDL) cholesterol measurement (mass/volume)on 07-22-2022 Cholesterol in LDL [Mass/Vol] 135 mg/dL 0-130 [facility] Work Phone: Serum or plasma urea nitroge n measurement (mass/volume)on 07-22-2022 Urea nitrogen [Mass/Vol] 10 mg/dL 7-18 [facility] Work Phone: Serum or plasma uric acid me asurement (mass/volume)on 07-22-2022 Urate [Mass/Vol] 4.0 mg/dL 2.6-6.0 [facility] Work Phone: Comment on above: The drugs N-Acetylcy steine and Metamizole may falsely depress this assay. Thin prep Papanicolaou smear with manual screeningon 07-22-2022 Thin prep Papanicolaou smear with manual screening 26 U/L 15-37 [facility] Work Phone: Thin prep Papanicolaou smear with manual screening 6 5-15 [facility] Work Phone: Thin prep Papanicolaou smear with manual screening 252 U/L 84-246 [facility] Work Phone: Urine blood detectionon 06-25 RBC Ql (U) 25 /ul Negative [facility] Work Phone: Urine clarityon 07-22-2022 Clarity (U) Sl. Cloudy Clear [facility] Work Phone: Urine color determinationon 07-22-2022 Color (U) Straw Yellow [facility] Work Phone: Urine glucose detectionon Glucose Ql (U) Normal mg/dl Normal [facility] Work Phone: Urine leukocyte esterase det ection by dipstickon 07-22-2022 Leukocyte esterase Test strip Ql (U) 500 /ul Negative [facility] Work Phone: Urine pHon 07-22-2022 pH (U) 6.0 [pH] 5.0 - 8.0 [facility] Work Phone: Urine specific gravity measu rementon 07-22-2022 Specific gravity (U) [Rel density] 1.015 1.002-1.030 [facility] Work Phone: Urobilinogen Auto test strip Ql (U)on 07-22-2022 Urobilinogen Ql (U) Normal mg/dl Normal [facility] Work Phone: HPVon 05-11-2017 HPV Interp Invalid Interpretation Code Replaced By [facility] ([place] Comment on above: Order Comment: Order placed by AP_HPV_ORDER rule from [id number] Performed By: #### H PV ####[address] [address] HPV Source Cervix Normal Replaced By [facility] [place] Comment on above: Order Comment: Order placed by AP_HPV_ORDER rule from [id number] Performed By: #### H PV ####[address] [address] Vital Signs Date Time Vital Sign Value Performing Clinician Eloisai mushtaq 08-15-2025 13:16-0400 Body height 160.[address] Jorje Preciado MD Work Phone: 6(335)775-617025 [place] [address] 08-15-2025 13:16-0400 Body mass index (BMI) [Ratio] 27.7 kg/m2 Dr. Jorje Preciado MD Work Phone: 0(216)111-437825 [place] [address] 08-15-2025 13:16-0400 Body weight 70.[address] Jorje Preciado MD Work Phone: 1(160)923-496525 [place] [address] 08-15-2025 13:16-0400 Diastolic blood pressure 81 mm[Hg] Dr. Jorje Preciado MD Work Phone: 4(792)589-929325 [place] [address] 08-15-2025 13:16-0400 Systolic blood pressure 129 mm[Hg] Dr. Jorje Preciado MD Work Phone: 7(585)680-637025 [place] [address] 08-08-2025 13:07-0400 Body mass index (BMI) [Ratio] 27.6 kg/m2 Dr. Jorje Preciado MD Work Phone: 0(257)580-786725 [place] [address] 08-08-2025 13:07-0400 Body weight 70.[address] Jorje Preciado MD Work Phone: 6(300)086-693625 [place] [address] 08-08-2025 13:07-0400 Diastolic blood pressure 80 mm[Hg] Dr. Jorje Preciado MD Work Phone: 7(888)101-802425 [place] [address] 08-08-2025 13:07-0400 Systolic blood pressure 135 mm[Hg] Dr. Jorje Preciado MD Work Phone: 4(437)937-370725 [place] [address] 07-25-2025 07:56-0400 Body height 160.[address] Jorje Preciado MD Work Phone: 0(430)836-499725 [place] [address] 07-25-2025 07:56-0400 Body mass index (BMI) [Ratio] 27.3 kg/m2 Dr. Jorje Preciado MD Work Phone: 1(907)385-552125 [place] [address] 07-25-2025 07:56-0400 Body weight 69.[address] Jorje Preciado MD Work Phone: 8(488)918-226925 [place] [address] 07-25-2025 07:56-0400 Diastolic blood pressure 68 mm[Hg] Dr. Jorje Preciado MD Work Phone: 2(741)506-224825 [place] [address] 07-25-2025 07:56-0400 Systolic blood pressure 110 mm[Hg] Dr. Jorje Preciado MD Work Phone: 4(657)708-541125 [place] [address] 07-18-2025 08:33-0400 Body height 160.[address] Jorje Preciado MD Work Phone: 7(749)924-376925 [place] [address] 07-18-2025 08:31-0400 Body mass index (BMI) [Ratio] 27.3 kg/m2 Dr. Jorje Preciado MD Work Phone: 1(755)360-928525 [place] [address] 07-18-2025 08:31-0400 Body weight 69.[address] Jorje Preciado MD Work Phone: 8(688)606-945625 [place] [address] 07-18-2025 08:31-0400 Diastolic blood pressure 83 mm[Hg] Dr. Jorje Preciado MD Work Phone: 7(852)766-767925 [place] [address] 07-18-2025 08:31-0400 Systolic blood pressure 132 mm[Hg] Dr. Jorje Preciado MD Work Phone: 1(174)704-495625 [place] [address] 07-04-2025 09:04-0400 Body mass index (BMI) [Ratio] 27.3 kg/m2 Dr. Jorje Preciado MD Work Phone: 3(750)237-564425 [place] [address] 07-04-2025 09:04-0400 Body weight 69.[address] Jorje Preciado MD Work Phone: 6(834)283-149125 [place] [address] 07-04-2025 09:04-0400 Diastolic blood pressure 70 mm[Hg] Dr. Jorje Preciado MD Work Phone: 1(641)606-978825 [place] [address] 07-04-2025 09:04-0400 Systolic blood pressure 98 mm[Hg] Dr. Jorje Preciado MD Work Phone: 1(926)769-178525 [place] [address] 06-11-2025 07:26-0400 Body height 161.[address] Jorje Preciado MD Work Phone: [facility] 06-11-2025 07:26-0400 Body temperature 98.5 [degF] Dr. Jorje Preciado MD Work Phone: [facility] 06-11-2025 07:26-0400 Diastolic blood pressure 76 mm[Hg] Dr. Jorje Preciado MD Work Phone: [facility] 06-11-2025 07:26-0400 Heart rate 99 /min Dr. Jorje Preciado MD Work Phone: [facility] 06-11-2025 07:26-0400 Respiratory rate 12 /min Dr. Jorje Preciado MD Work Phone: [facility] 06-11-2025 07:26-0400 SaO2% (BldA) [Mass fraction] 98 % Dr. Jorje Preciado MD Work Phone: [facility] 06-11-2025 07:26-0400 Systolic blood pressure 104 mm[Hg] Dr. Jorje Preciado MD Work Phone: [facility] 05-16-2025 08:54-0400 Body height 161.29 cm Out [facility] 05-16-2025 08:54-0400 Body temperature 97.9 [degF] Out [facility] 05-16-2025 08:54-0400 Diastolic blood pressure 69 mm[Hg] Out [facility] 05-16-2025 08:54-0400 Heart rate 66 /min Out [facility] 05-16-2025 08:54-0400 Respiratory rate 18 /min Out [facility] 05-16-2025 08:54-0400 SaO2% (BldA) [Mass fraction] 96 % Out [facility] 05-16-2025 08:54-0400 Systolic blood pressure 103 mm[Hg] Out [facility] 05-09-2025 14:17-0400 Body height 161.29 cm Out [facility] 05-09-2025 14:17-0400 Body mass index (BMI) [Ratio] 26.8 kg/m2 Out [facility] 05-09-2025 14:17-0400 Body temperature 97.3 [degF] Out [facility] 05-09-2025 14:17-0400 Body weight 69.85 kg Out [facility] 05-09-2025 14:17-0400 Diastolic blood pressure 76 mm[Hg] Out [facility] 05-09-2025 14:17-0400 Heart rate 54 /min Out [facility] 05-09-2025 14:17-0400 Respiratory rate 18 /min Out [facility] 05-09-2025 14:17-0400 SaO2% (BldA) [Mass fraction] 99 % Out [facility] 05-09-2025 14:17-0400 Systolic blood pressure 127 mm[Hg] Out [facility] 02-10-2025 15:23-0400 Body mass index (BMI) [Ratio] 26.5 kg/m2 Out [facility] 02-10-2025 15:23-0400 Body weight 69.11 kg Out [facility] 02-10-2025 15:23-0400 Diastolic blood pressure 74 mm[Hg] Out [facility] 02-10-2025 15:23-0400 Systolic blood pressure 116 mm[Hg] Out [facility] 11-07-2024 06:00-0500 Body height 161.29 cm Out [facility] 11-07-2024 06:00-0500 Body mass index (BMI) [Ratio] 26.5 kg/m2 Out [facility] 11-07-2024 06:00-0500 Body temperature 98.7 [degF] Out [facility] 11-07-2024 06:00-0500 Body weight 69 kg Out [facility] 11-07-2024 06:00-0500 Diastolic blood pressure 64 mm[Hg] Out [facility] 11-07-2024 06:00-0500 Heart rate 92 /min Out [facility] 11-07-2024 06:00-0500 Respiratory rate 16 /min Out [facility] 11-07-2024 06:00-0500 SaO2% (BldA) [Mass fraction] 98 % [facility] 11-07-2024 06:00-0500 Systolic blood pressure 110 mm[Hg] [facility] 12-27-2023 14:46-0500 Body height 161.29 cm [facility] 12-27-2023 14:46-0500 Body mass index (BMI) [Ratio] 26.6 kg/m2 [facility] 12-27-2023 14:46-0500 Body weight 69.45 kg [facility] 12-27-2023 14:46-0500 Diastolic blood pressure 72 mm[Hg] [facility] 12-27-2023 14:46-0500 Systolic blood pressure 114 mm[Hg] [facility] Encounters Encounter Date Encounter Type Care Provider Facility Start: 08-15-2025 ambulatory Jorje Preciado [facility] lity:[facility] Start: 08-15-2025 End: 08-15-2025 ambulatory Jorje Preciado Facility:[facility] Start: 08-15-2025 ambulatory Jorje Montenegro lity:[facility] Start: 08-08-2025 End: 08-08-[address] Eugenia Paul DO -[facility] Work Phone: Start: 08-08-2025 End: 08-08-2025 ambulatory Jorje Preciado Facility:[facility] Start: 08-08-2025 End: 08-08-2025 ambulatory Eugenia Paul Facility:[facility] Start: 07-25-2025 End: 07-25-2025 Patient encounter procedure Caprice Woods CNM -[facility] Work Phone: Start: 07-25-2025 End: 07-25-[address] Jorje Preciado MD Work Phone: -[facility] Start: 07-25-2025 End: 07-25-2025 ambulatory Jorje Maurercullen Facility:[facility] Start: 07-20-2025 End: 07-20-2025 Patient encounter procedure Caprice ROGEL -Laboratory Work Phone: Start: 07-20-2025 End: 07-20-2025 ambulatory Jorje Maurercullen Facility:[facility] Start: 07-18-2025 End: 07-18-2025 Patient encounter procedure Caprice Woods [employer] -[facility] Work Phone: Start: 07-18-2025 End: 07-18-[address] Jorje Preciado MD Work Phone: -[facility] Start: 07-18-2025 End: 07-18-2025 ambulatory [facility] Facility:[facility] Start: 07-04-2025 End: 07-04-2025 Patient encounter procedure Caprice Woods [employer] -[facility] Work Phone: Start: 07-04-2025 End: 07-04-[address] Jorje Preciado MD Work Phone: -[facility] Start: 06-11-2025 End: 06-11-2025 Patient encounter procedure Kamron Bhakta PR -[facility] Work Phone: Start: 06-11-2025 End: 06-11-[address] Jorje Preciado MD Work Phone: -[facility] Start: 05-16-2025 End: 05-16-[address] Ezequiel Hurtado MD -[facility] Work Phone: Start: 05-16-2025 End: 05-16-2025 ambulatory [place] Town Doctor -[facility] Start: 05-10-2025 End: 05-10-2025 ambulatory Out of Town Doctor -Laboratory Specimen Start: 05-10-2025 End: 05-10-[address] Ezequiel Hurtado MD -Laboratory Specimen Work Phone: Start: 05-09-2025 End: 05-09-[address] Ezequiel Hurtado MD -[facility] Work Phone: Start: 05-09-2025 End: 05-10-2025 ambulatory Out of Town Doctor -[facility] Start: 02-10-2025 End: 02-10-2025 Patient encounter procedure Mihaela Burton [employer] -[facility] Work Phone: Start: 02-10-2025 End: 02-10-2025 Patient encounter status Mihaela Josephine [employer] [facility] Start: 02-10-2025 End: 02-10-2025 ambulatory [facility] Facility:[facility] Start: 01-03-2025 Encounter for genera l adult medical examination without abnormal findings [facility] Start: 12-23-2024 End: 12-23-2024 ambulatory Out of Town [facility] Work Phone: Start: 12-23-2024 End: 12-23-[address] Jorje Preciado MD -[facility] Work Phone: Start: 12-23-2024 End: 12-23-2024 ambulatory [facility] Facility:[facility] Start: 11-07-2024 End: 11-07-2024 Patient encounter procedure Dylan Childs PA -[facility] Work Phone: Start: 11-07-2024 End: 11-07-2024 ambulatory Out of Town Doctor Facility:[facility] Start: 12-27-2023 End: 12-27-2023 ambulatory Out of Town [facility] Work Phone: Start: 12-27-2023 End: 12-27-2023 Patient encounter procedure Out [facility], Specimen Work Phone: Start: 12-27-2023 End: 12-27-2023 Patient encounter procedure Out [facility] Work Phone: Start: 07-22-2022 Registered Referred [facility] Start: 04-28-2017 End: 04-29-2017 Ambulatory ADINA MARLOW Facility[place] Start: 04-28-2017 End: 04-29-2017 Ambulatory RASHID SWENSON REFERRING Facility:[facility] Procedures Date Procedure Procedure Detail Performing Clinician Start: 07-25-2025 Hepatitis C antibody measurement Dr. Jorje Preciado MD Work Phone: Comment on above: Reactive: Presumptiv e evidence of antibodies to HCV. Follow CDC recommendations for supplemental testing.Non-Reactive: Antibodies to HCV were not detected; does not exclude the possibility of exposure to HCVReactive Results are presumptive evidence of antibodies to HCV. Follow CDC recommendations for supplemental testing.Order confirmation testing: HCV Quant by PCR testing - HCVPCR #[id number] Non Reactive: < 0.8 Equivocal: >/= 0.8 to < 1.0 Reactive: >/= 1.0The CDC requires that a reactive/equivocal HCV antibody result be sent out for confirmation. HCV Quant by PCR testing. Start: 07-25-[address] Jorje Preciado MD Work Phone: Comment on above: Antibody Result: Int erpretationNon-Reactive: Non- ImmuneReactive: ImmuneThe following results were obtained with the [employer] Rubella IgG assay. Results from assays of other manufacturers cannot be used interchangeably. Start: 07-25-2025 Serologic test for syphilis Dr. Jorje Preciado MD Work Phone: Start: 07-18-[address] Zhang Preciado MD Work Phone: Plan of Treatment Date Care Activity Detail Author Start: 08-15-2025 Patient encounter procedure Registered Clinical -Lab [facility] Start: 08-15-2025 End: 08-15-2025 Patient encounter procedure Incomplete -[facility] Work Phone: Start: 07-25-2025 CBC W Auto Differential panel - Blood [facility] Start: 07-25-2025 Choriogonadotropin ( test) [Presence] in Serum or Plasma [facility] Start: 07-25-2025 Hepatitis C antibody measurement [facility] Start: 07-25-2025 Rubella IgG measurement [facility] Start: 07-25-2025 Serologic test for syphilis [facility] Start: 07-25-2025 [facility] Start: 07-04-2025 Hepatitis C antibody measurement [facility] Start: 07-04-2025 Rubella IgG measurement [facility] Start: 07-04-2025 Serologic test for syphilis [facility] Start: 07-04-2025 [facility] CBC W Auto Different ial panel - Blood [facility] Choriogonadotropin ( test) [Presence] in Serum or Plasma [facility] Erythrocyte mean cor puscular volume determination [facility] Hematocrit [Volume F raction] of Blood [facility] Hemoglobin [Mass/vol ume] in Blood [facility] Hepatitis B virus aguilar rface Ag [Presence] in Serum [facility] Leukocytes [#/volume ] in Blood [facility] Mean corpuscular hem oglobin concentration determination [facility] Mean corpuscular hem oglobin determination [facility] Neutrophil count [facility] Neutrophil percent differential count [facility] Platelets [#/volume] in Blood [facility] Red blood cell count [facility] Red cell distributio n width determination [facility] Streptococcus pyogen es Ag [Presence] in Throat by Rapid immunoassay [facility] Immunizations Immunization Date Immunization Notes [facility]25 influenza, seasonal, injectable, preservative free Dr. Jorje Preciado MD Work Phone: [facility] 08-01-2024 influenza, seasonal, injectable, preservative free Out [facility] Doctor [facility] 08-02-2023 influenza, injectabl e, quadrivalent, preservative free Out [facility] Doctor [facility] 08-01-2022 influenza, injectabl e, quadrivalent, preservative free Out [facility] Doctor [facility] 08-04-2021 influenza, injectabl e, quadrivalent, preservative free Out [facility] Doctor [facility] 08-04-2021 influenza, seasonal, injectable [facility] Work Phone: 12-18-2020 Covid (Moderna) [facility] 11-20-2020 Covid (Moderna) [facility] 08-10-2020 influenza, injectabl e, quadrivalent, preservative free [place] Doctor [facility] 08-10-2020 influenza, seasonal, injectable [facility] Work Phone: 08-07-2019 influenza, injectabl e, quadrivalent, preservative free [place] Doctor [facility] 08-07-2019 influenza, seasonal, injectable [facility] Work Phone: 08-01-2018 influenza, injectabl e, quadrivalent, preservative free Out [facility] Doctor [facility] 08-01-2018 influenza, seasonal, injectable [facility] Work Phone: Payers Date Payer Category Payer Self-pay [id number] 2023 Unknown [id number] 2016 Unknown [id number] Unknown [id number] Unknown [facility] [id number] Unknown [id number] 2.16.8 [id number] Unknown [id number] 2.16.8 [id number] Unknown [id number] 2.16.8 [id number] Unknown [id number] 2.16.8 40.1.454013.3.579.2.462 Unknown [id number] 2.16.8 40.1.072548.3.579.2.462 Unknown [id number] 2.16.8 40.1.793497.3.579.2.462 Unknown [id number] 2.16.8 40.1.717559.3.579.2.462 Unknown [id number] 2.16.8 40.1.643097.3.579.2.462 Unknown [id number] 2.16.8 40.1.964050.3.579.2.462 Unknown [id number] 2.16.8 40.1.492513.3.579.2.462 Unknown [id number] 2.16.8 40.1.023361.3.579.2.462 Unknown [id number] 2.16.8 40.1.826368.3.579.2.462 Unknown [id number] 2.16.8 40.1.955522.3.579.2.462 Unknown [id number] 2.16.8 40.1.451276.3.579.2.462 Unknown [id number] 2.16.8 40.1.275507.3.579.2.462 Unknown [id number] 2.16.8 40.1.068991.3.579.2.462 Unknown [id number] 2.16.8 40.1.183622.3.579.2.462 Unknown [id number] 2.16.8 40.1.175434.3.579.2.462 Unknown [id number] 2.16.8 40.1.162502.3.579.2.462 Social History Date Type Detail [facility] Work Phone: Start: 1990 Sex Assigned At Female [facility] Start: 12-27-2023 [facility] if ever smoked [facility] Start: 11-07-2024 End: 07-18-2025 Tobacco smoking status NHIS Never smoked tobacco (finding) [facility] Start: 01-03-2025 Sex Female (finding) 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 16, 2025 8:48am [facility] Work Phone: 1(920) 153-938707-18-2025 Evaluation note* Diagnosis Onset Date Resolution Status Admit Date 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 May 09, 2025 2:04pm 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 May 16, 2025 8:48am [facility] [employer] Work Phone: 1(874) 602-180107-18-2025 Evaluation note* Diagnosis Onset Date Resolution Status Admit Date 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 May 09, 2025 2:04pm 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 May 16, 2025 8:48am acute June 8:17am Supervision of normal acute July 18, 2025 8:17am Threatened acute Sept2024 8:17am [place] [facility] [employer] Work Phone: 1(238) 240-909507-18-2025 Evaluation note* Diagnosis Onset Date Resolution Status Admit Date 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 May 09, 2025 2:04pm 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 May 16, 2025 8:48am acute June 8:17am Supervision of normal acute July 18, 2025 8:17am Threatened acute Septe 2024 8:17am 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, 2025 7:51am acute July 25, 2 025 7:51am Supervision of normal acute July 25 7:51am Threatened acute Octob 2024 7:51am [place] [employer] Work Phone: 1(855) 708-265407-18-2025 Evaluation note* Diagnosis Onset Date Resolution Status Admit Date 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 May 09, 2025 2:04pm 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 May 16, 2025 8:48am acute June 8:17am Supervision of normal acute July 18, 2025 8:17am Threatened acute Septe 2024 8:17am 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, 2025 7:51am acute July 25, 2 025 7:51am Supervision of normal acute July 25 7:51am Threatened acute Octob er 2024 7:51am Bicornate uterus acute August 08, 2025 12:57pm Incomplete acute Octob er 2024 12:57pm Incomplete acute Octob er 2024 1:11pm [facility] Work Phone: 1(544) 191-382704-21-2025 Evaluation note* Diagnosis Onset Date Resolution Status Admit Date Encounter for routine gynecological examination noneactive February 10, 2025 3:22pm [facility] Work Phone: 1(150) 988-353104-21-2025 Evaluation note* Diagnosis Onset Date Resolution Status Admit Date Encounter for routine gynecological examination noneactive February 10, 2025 3:22pm 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 Endocervical and/or squamous metaplasticcells (endocervical component)are present.[facility] A#[id number] Hospital [place]Comment on above:Satisfactory for evaluation. Endocervical and/or squamous metaplasticcells (endocervical component)are present.Evaluation noteNo assessment information availableWRegency Hospital [place] Work Phone: Progress note Author Caprice Woods [facility] Note Date/Time July 18, 2025 9:05am [facility] [address] [place] [address], [address] [place] [address] OFFICE VISIT Date of Service: 07/18/25 MR#: [id number] Acct: [id number] Name: NADYA MOORE Rep #: [id number] : 1990 Provider: RAMIREZ Woods Age/Sex: 35/F Location: [facility] Status: Signed Intake Vital Signs 06/11/25 07:26 07/04/25 09:04 07/18/25 08:31 07/18/25 08:33 Height 5 ft 3.5 in 5 ft 3 in 5 ft 3 in 5 ft 3 in Weight: 154 lb 2 oz BMI 27.3 BP 132/83 H Intake Visit Reasons: *EST* NOB LMP 05/15, EAMON 02/19 Lay Out Former Required: No Is patient in pain?: No Allergies amoxicillin Allergy (Mild, Verified 07/18/25 08:30) Hives Penicillins (PCN) Allergy (Mild, Verified 07/18/25 08:30) Hives Medications ?Medication ?Instructions ?Recorded ?Confirmed ?Type echinacea 125 mg capsule 125 mg PO QDAY 06/11/2506/24 History multivitamin 1 tab PO QDAY 06/11/2507/18 History Last Menstrual Period: 05/15/25 Zika: Zika virus screening: Negative : Yes Have you fallen in the past year?: No PFSH PFSH Medical History Family history of colon cancer in mother Family history of factor V Leiden mutation Back pain Surgical History Neoplasm of uncertain behavior of face S/P wisdom tooth extraction Family History Grandmother Cancer paternal- multiple myeloma Mother Cancer melanoma Colon cancer, Onset Age: 60 Brother Factor V Leiden Bicuspid aortic valve Congenital heart defect Sister Congenital heart defect Bicuspid aortic valve Social History adopted: No household members: spouse number of children: 0 financial difficulty paying for basics: not very hard service: No 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 exposures/hazards: No pets and animals: Yes pets and animals: dog(s) history of recent travel: Yes sexually active: Yes do you think of yourself as: straight/heterosexual current gender identity: female Smoking Status: Never smoker second hand exposure: No alcohol intake: current alcohol intake frequency: a few times a month details: Not while substance use type: does not use well-balanced diet: daily or most days caffeine: Yes Type: coffee Number of servings: 1 eating out: rarely or never during the past year weight has: remained stable what type of physical activity do you participate in: walking, weight training and other details: Also gets physical activity with job How many days of moderate to strenuous exercise, like a brisk walk, did you do in the last 7 days: 3 frequency: 3-4 times per week duration: 30-45 minutes/day dago/nondenominational: Latter-Day seatbelt use: always do you feel safe at home: Yes additional social history: : 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 OB Visit EAMON Calculator Estimated Delivery Date Method Current WG Current Estimate 03/14/26 Ultrasound #1 5w 6d Other Estimates 02/19/26 LMP (Certain) 9w 1d Estimated Due Date: 02/19/26 Expected Delivery Route/Plan Labor Preferences- CB/BF classes: [] labor support person: [] labor intervention preferences: [] pain management options preferred: [] cut cord/dad catch: [] : [] PP control planned: [] discussed possible routes of delivery and associated risks: [] special requests: [] Specific Issue/Plans Covid status: [] Flu vaccine: [] Tdap vaccine: [] Rhogam: [] LARC form signed: [] Problem list reviewed and updated with the most current plan of care details and appropriate orders placed. Relevant counseling for the gestational age provided. Continue routine care and follow up unless otherwise noted in visit notes/problem list details Initial Weight: 154 lb Date -?-?-?-?-?-?-?-?-?-?-?-?- EGA Weight BP Urine Prot -?-?-?-?-?-?-?-?-?-?-?-?- Glucose FHR FuHt Pres Dilation -?-?-?-?-?-?-?-?-?-?-?-?- Effaced St Visit Note 07/18/25 -?-?-?-?-?-?-?-?-?-?-?-?- 5w 6d 154 lb 2 oz (+2 oz) 132/83 -?-?-?-?-?-?-?-?-?-?-?-?- -?-?-?-?-?-?-?-?-?-?-?-?- KW- CRL shows 5. 6 weeks gestation. plan HCG x 2 and repeat US next week. did have irregular cycles at q 6 weeks. HCG on Jun 26 Menstrual History Last Menstrual Period: 05/15/25 Reported LMP: definite Normal amount/duration: No Frequency in days: 42 On hormonal BC at conception: No (Off BC in January) hCG+: 06/27/25 Antepartum Record Genetic Screening: Congenital Heart Defect: Patient (Pt's brother & sister w/bicuspid aortic valve (pt has been tested and is fine)), Neural Tube Defect: Other, Hemoglobinopathy Or Carrier: Other, Cystic Fibrosis: Other, Chromosome Abnormality: Other, Saúl-Sachs: Other, Hemophilia: Other, Intellectual Disability/Autism: Other, Recurrent Loss/Stillbirth: Other, Other Structural Defect: Other, Other Genetic Disease: Patient (Pt's Factor V - brother, sister & mom is heterozygous (pt is tested and is negative)) and Maternal Metabolic Disorder: Other Infection History: Live with someone with TB or Exposed to TB: No, Patient or Partner has history of Genital Herpes: No, Rash or Viral illness since last mentrual period: No, Prior GBS-Infected child: No, History of STD: No, HIV Infection: No, History of Hepatitis: No, Recent travel outside of [place]: No, Concern for hepatitis exposure: No, Varicella immune: Yes (Had chicken pox) and Covid Vaccinated: Yes (Moderna - 10 24, Pfizer booster ... nothing since 2020) Medical History Medical History: Positive: Drug/latex allergies/reactions (Cillins) and Operations/hospitalizations (see surg hx) and Negative: Diabetes, Hypertension, Heart disease, Auto-immune disorder, Kidney disease/UTI, Neurologic/epilepsy, Psychiatric, Depression/ depression, Hepatitis/liver disease, Varicosities/phlebitis, Thyroid dysfunction, Trauma/domestic violence, History of blood transfusions, D (Rh) Sensitized, Pulmonary (e.g.,TB,Asthma), Seasonal allergies, Breast, Squeegee Finisher surgery, Anesthetic complications, History of abnormal pap, Uterine anomaly/ángel, Infertility, Anti-retroviral treatment, Relevant family history and Other ACOG First Trimester First Trimester: Desire for , Alcohol, Tobacco Cessation, Illicit/Recreational Drug/Substance Use, Intimate Partner Violence, Barriers to care, Unstable Housing, Communication Barriers, Environmental/Work Hazards, Anticipated Course of Care, Toxoplasmosis Precations, Use of Any medications, Sexual activity, Exercise, Dental Care, Sauna/Hot tub use, Seat Belt use, Childbirth classes/Hospital facilities, , Travel, Indications for Ultrasound and Screening for Aneuploidy Second Trimester Second Trimester: Signs and Symptoms of Labor, Selecting a care provider, Reproductive Life Planning & Contreception, Care Planning, Depression/Anxiety and Intimate Partner Violence; Discussed Tobacco Cessation Third Trimester Third Trimester: Pain Management Plans, Labor support person(s), Immediate Larc, Signs and Symptoms of Preeclampsia, Feeding Yes , [place] Education and Family Medical Leave or Disability Forms ROS Const Reports system reviewed and no additional complaints, except as documented, Denies fatigue, Denies headache(s) and Denies lethargy ENT Denies headache(s) Card Reports system reviewed and no additional complaints, except as documented Resp Reports system reviewed and no additional complaints, except as documented GI Reports system reviewed and no additional complaints, except as documented, Denies abdominal pain, Denies constipation, Denies cramping, Denies diarrhea and Denies dyspepsia Reports system reviewed and no additional complaints, except as documented, Denies abnormal vaginal bleeding, Denies difficulty voiding, Denies dyspareunia and Denies dysuria Musc Reports system reviewed and no additional complaints, except as documented Skin/Breast Reports system reviewed and no additional complaints, except as documented Neuro Yes system reviewed and no additional complaints, except as documented and No headache(s) Psych Reports system reviewed and no additional complaints, except as documented, Denies anhedonia and Denies anxiety Endo Reports system reviewed and no additional complaints, except as documented and Denies fatigue Exam Const General: cooperative, healthy appearing and comfortable Neck Neck: normal visual inspection and full ROM Chest Chest palpation & inspection: normal inspection of the chest Breast inspection: normal inspection of the breasts and normal inspection of the axillae Breast palpation: normal palpation of the breasts and normal palpation of the axillae Resp Effort & Inspection: normal respiratory effort and able to speak in complete sentences GI Inspection: normal to inspection Palpation: soft External Female Exam: normal external appearance and normal appearance of the urethra Urethra: normal appearance of the urethra Skin General: no rashes or lesions noted Neuro General: patient alert, patient awake and patient oriented x3 Extrem General: normal to inspection and full ROM Psych Appearance: grossly normal and well kempt Mental Status: mental status grossly normal Mood: congruent mood Affect: normal affect Speech and Movement: speech and movement normal Thought Process: normal Thought Content: normal Coding Level of Care Code OB Routine Diagnoses Supervision of normal Z34.90 9 weeks gestation of Z3A.09 Weeks of gestation: 9 weeks Threatened O20.0 Assessment and Plan Assessment and Plan (1) Supervision of normal : Status: Acute Comment: , EAMON 02/19/26, : Wilbur (2) : Status: Acute Qualifiers: Weeks of gestation: 9 weeks Qualified Code(s): Z3A.09 - 9 weeks gestation of Comment: Discussed genetic/carrier testing - undecided (3) Threatened : Status: Acute Comment: hcg x 2 and repeat US next week Orders: Orders hCG Titer Quant., Serum Today N91.2 - Amenorrhea, unspecified hCG Titer Quant., Serum 2 Days N91.2 - Amenorrhea, unspecified Comments Comments: Patient oriented to practice and discussed care expectations and screenings. ACOG book offered to patient. Discussed routine and specially indicated labs if needed- patient consents to testing. See problem list details for plan information. Optional screening including maternal carrier screenings, neural tube defect screening, genetic screening options including quad screen, nuchal translucency, sequential screening, and NIPT screening offered to patient and patient chose: NIPT and Carrier Clinical Quality Measures Falls Risk Screening/Assistive Devices Have you fallen in the past year?: No 07/18/25904 <Electronically signed by Caprice oropeza CNM> Date _ Caprice Woods CNM Cosigner Signature: Date (if applicable) CC: ~ [facility] Work Phone: Progress note Author Caprice Woods [facility] Note Date/Time July 25, 2025 8: 35am [facility] [address] [place] [address], [address] [place] [address] OFFICE VISIT Date of Service: 07/25/25 MR#: [id number] Acct: [id number] Name: NADYA MOORE Rep #: [id number] : 1990 Provider: RAMIREZ Woods Age/Sex: 35/F Location: [facility] Status: Signed Intake Vital Signs 07/18/25 08:33 07/25/25 07:56 Height 5 ft 3 in 5 ft 3 in Weight: 154 lb 1 oz BMI 27.3 BP 110/68 Intake Visit Reasons: rescan *kw Lay Out Former Required: No Is patient in pain?: No Allergies amoxicillin Allergy (Mild, Verified 07/25/25 07:57) Hives Penicillins (PCN) Allergy (Mild, Verified 07/25/25 07:57) Hives Medications ?Medication ?Instructions ?Recorded ?Confirmed ?Type echinacea 125 mg capsule 125 mg PO QDAY 06/11/2501/14 History multivitamin 1 tab PO QDAY 06/11/2507/25 History Last Menstrual Period: 05/15/25 Zika: Zika virus screening: Negative : No Have you fallen in the past year?: No PFSH PFSH Medical History Family history of colon cancer in mother Family history of factor V Leiden mutation Back pain Surgical History Neoplasm of uncertain behavior of face S/P wisdom tooth extraction Family History Grandmother Cancer paternal- multiple myeloma Mother Cancer melanoma Colon cancer, Onset Age: 60 Brother Factor V Leiden Bicuspid aortic valve Congenital heart defect Sister Congenital heart defect Bicuspid aortic valve Social History adopted: No household members: spouse number of children: 0 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 exposures/hazards: No pets and animals: Yes pets and animals: dog(s) history of recent travel: Yes sexually active: Yes Smoking Status: Never smoker second hand exposure: No alcohol intake: current alcohol intake frequency: a few times a month details: Not while substance use type: does not use well-balanced diet: daily or most days caffeine: Yes Type: coffee Number of servings: 1 eating out: rarely or never during the past year weight has: remained stable what type of physical activity do you participate in: walking, weight training and other details: Also gets physical activity with job frequency: 3-4 times per week duration: 30-45 minutes/day dago/nondenominational: Latter-Day seatbelt use: always do you feel safe at home: Yes additional social history: : Wilbur Willoughby @ [employer] History 1 Elective abortions 0 Hx Para 0 Spontaneous abortions 0 Hx # Term Pregnancies Ectopic pregnancies Hx # Pregnancies Multiple births # of living children 0 HPI rescan *kw Details: NADYA MOORE is a 35 year old who presents for routine OB visit. OB Visit EAMON Calculator Estimated Delivery Date Method Current WG Current Estimate 03/14/26 Ultrasound #1 6w 6d Other Estimates 02/19/26 LMP (Certain) 10w 1d Comments: HIV: Urine Culture: Sequential Screen: NIPT Screen: Expected Delivery Route/Plan Labor Preferences- CB/BF classes: [] labor support person: [] labor intervention preferences: [] pain management options preferred: [] cut cord/dad catch: [] : [] PP control planned: [] discussed possible routes of delivery and associated risks: [] special requests: [] Specific Issue/Plans Covid status: [] Flu vaccine: [] Tdap vaccine: [] Rhogam: [] LARC form signed: [] Problem list reviewed and updated with the most current plan of care details and appropriate orders placed. Relevant counseling for the gestational age provided. Continue routine care and follow up unless otherwise noted in visit notes/problem list details Initial Weight: 154 lb Date -?-?-?-?-?-?-?-?-?-?-?-?- EGA Weight BP Urine Prot -?-?-?-?--?-?-?-?-?-?-?-?- Glucose FHR FuHt Pres Dilation -?-?-?-?-?-?-?-?-?-?--?-?- Effaced St Visit Note 07/18/25 -?-?-?-?-?-?-?-?-?-?-?-?- 5w 6d 154 lb 2 oz (+2 oz) 132/83 -?-?-?-?-?-?-?-?-?-?-?-?- -?-?-?-?-?-?-?-?-?-?-?-?- KW- CRL shows 5. 6 weeks gestation. plan HCG x 2 and repeat US next week. did have irregular cycles at q 6 weeks. HCG on Jun 26 07/25/25 -?-?-?-?-?-?-?-?-?-?-?-?- 6w 6d 154 lb 1 oz (+1 oz) 110/68 Negative -?-?-?-?-?-?-?-?-?-?-?-?- Negative -?-?-?-?-?-?-?-?-?-?-?-?- KW- no vb/crampi ng. rescan today shows CRL of 6.1 weeks by JV with no FHT. is leaving for [place] tomorrow. will rescan when she gets back ACOG First Trimester First Trimester: Desire for , Alcohol, Tobacco Cessation, Illicit/Recreational Drug/Substance Use, Intimate Partner Violence, Barriers to care, Unstable Housing, Communication Barriers, Environmental/Work Hazards, Anticipated Course of Care, Toxoplasmosis Precations, Use of Any medications, Sexual activity, Exercise, Dental Care, Sauna/Hot tub use, Seat Belt use, Childbirth classes/Hospital facilities, Travel, Indications for Ultrasound and Screening for Aneuploidy; Discussed Second Trimester Second Trimester: Signs and Symptoms of Labor, Selecting a care provider, Reproductive Life Planning & Contreception, Care Planning, Depression/Anxiety and Intimate Partner Violence; Discussed Tobacco Cessation Third Trimester Third Trimester: Pain Management Plans, Labor support person(s), Immediate Larc, Signs and Symptoms of Preeclampsia, Feeding No , Education and Family Medical Leave or Disability Forms ROS Const Reports system reviewed and no additional complaints, except as documented Eyes Reports system reviewed and no additional complaints, except as documented ENT Reports system reviewed and no additional complaints, except as documented Card Reports system reviewed and no additional complaints, except as documented Resp Reports system reviewed and no additional complaints, except as documented GI Reports system reviewed and no additional complaints, except as documented, Denies nausea and Denies vomiting Reports system reviewed and no additional complaints, except as documented Musc Reports system reviewed and no additional complaints, except as documented Skin/Breast Reports system reviewed and no additional complaints, except as documented Neuro Yes system reviewed and no additional complaints, except as documented Psych Reports system reviewed and no additional complaints, except as documented Endo Reports system reviewed and no additional complaints, except as documented Derik/Lymph Reports system reviewed and no additional complaints, except as documented Aller/Immun Reports system reviewed and no additional complaints, except as documented Exam Const General: cooperative, healthy appearing and no acute distress Orientation: alert, awake and oriented x3 Neck Neck: normal visual inspection and full ROM Resp Effort & Inspection: normal respiratory effort, able to speak in complete sentences and symmetric chest movement GI Inspection: normal to inspection Palpation: soft and other Other: gravid Skin General: no rashes or lesions noted Neuro General: patient alert, patient awake and patient oriented x3 Cognition: normal cognition Speech: speech normal Gait: normal gait Motor: muscle tone normal throughout Extrem General: normal to inspection and full ROM Psych Appearance: grossly normal Mental Status: mental status grossly normal Mood: congruent mood Affect: normal affect Speech and Movement: speech and movement normal Attitude: cooperative Thought Process: normal Thought Content: normal Judgment: judgment good Results POC Urinalysis 2 Dip (Clinic) Office Urine Glucose Negative Last Edit by Belle Song on 07/25/25 08:02 Office Urine Protein Negative Last Edit by Belle Song on 07/25/25 08:02 Coding Level of Care Code OB Routine Diagnoses Threatened O20.0 Supervision of normal Z34.90 Less than 8 weeks gestation of Z3A.01 Weeks of gestation: less than 8 weeks Bicornate uterus Q51.3 Assessment and Plan Assessment and Plan (1) Threatened : Status: Acute Comment: hcg x 2 and repeat US next week (2) Supervision of normal : Status: Acute Comment: , EAMON 02/19/26, : Wilbur (3) : Status: Acute Qualifiers: Weeks of gestation: less than 8 weeks Qualified Code(s): Z3A.01 - Less than 8 weeks gestation of Comment: Discussed genetic/carrier testing - undecided (4) Bicornate uterus: Status: Acute Comment: in left horn Orders: Orders POC Urinalysis 2 Dip (Clinic) Today hCG Titer Quant., Serum Today O20.0 - Threatened Plan Details Additional Comments: ACOG trimester education reviewed and updated. see problem list details for updated plan management information and see below for orders placed at this visit. GA appropriate handout given. Clinical Quality Measures Falls Risk Screening/Assistive Devices Have you fallen in the past year?: No 07/25/25 0835 <Electronically signed by Caprice oropeza CNM> Date _ Caprice Woods CNM Cosigner Signature: Date (if applicable) CC: ~ [facility] Work Phone: Progrpsn note Author Eugenia Salas [facility] Note Date/Time August 08, 2025 1 :36pm [facility] [address] [place] [address], [address] [place] [address] OFFICE VISIT Date of Service: 08/08/25 MR#: [id number] Acct: [id number] Name: NADYA MOORE Rep #: [id number] : 1990 Provider: Dr. Adeline Paul DO Age/Sex: 35/F Location: [facility] [place] Status: Signed Intake Vital Signs 07/25/25 07:56 08/08/25 13:07 08/08/25 13:09 Height 5 ft 3 in 5 ft 3 in 5 ft 3 in Weight: 154 lb 1 oz 156 lb 1 oz BMI 27.3 27.6 BP 110/68 135/80 H Intake Visit Reasons: RESCAN *8w 1d Lay Out Former Required: No Is patient in pain?: No Allergies amoxicillin Allergy (Mild, Verified 08/08/25 13:06) Hives Penicillins (PCN) Allergy (Mild, Verified 08/08/25 13:06) Hives Medications ?Medication ?Instructions ?Recorded ?Confirmed ?Type echinacea 125 mg capsule 125 mg PO QDAY 06/11/2507/23 History multivitamin 1 tab PO QDAY 06/11/2508/08 History misoprostol 200 mcg tablet 600 mcg (3 x 200 mcg) vagin al ONCE 08/08/25 08/08/25 Rx (Cytotec) #3 tabs Last Menstrual Period: 05/15/25 Zika: Zika virus screening: Negative : No PFSH PFSH Medical History Family history of colon cancer in mother Family history of factor V Leiden mutation Back pain Surgical History Neoplasm of uncertain behavior of face S/P wisdom tooth extraction Family History Grandmother Cancer paternal- multiple myeloma Mother Cancer melanoma Colon cancer, Onset Age: 60 Brother Factor V Leiden Bicuspid aortic valve Congenital heart defect Sister Congenital heart defect Bicuspid aortic valve Social History adopted: No household members: spouse number of children: 0 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 exposures/hazards: No pets and animals: Yes pets and animals: dog(s) history of recent travel: Yes sexually active: Yes Smoking Status: Never smoker second hand exposure: No alcohol intake: current alcohol intake frequency: a few times a month details: Not while substance use type: does not use well-balanced diet: daily or most days caffeine: Yes Type: coffee Number of servings: 1 eating out: rarely or never during the past year weight has: remained stable what type of physical activity do you participate in: walking, weight training and other details: Also gets physical activity with job frequency: 3-4 times per week duration: 30-45 minutes/day dago/nondenominational: Latter-Day seatbelt use: always do you feel safe at home: Yes additional social history: : Wilbur Willoughby @ [employer] History 1 Elective abortions 0 Hx Para 0 Spontaneous abortions 1 Hx # Term Pregnancies Ectopic pregnancies Hx # Pregnancies Multiple births # of living children 0 HPI RESCAN *8w 1d Details: NADYA MOORE is a 35 year old who presents for routine OB visit. OB Visit EAMON Calculator Estimated Delivery Date Method Current WG Current Estimate 03/14/26 Ultrasound #1 8w 6d Other Estimates 02/19/26 LMP (Certain) 12w 1d Expected Delivery Route/Plan Labor Preferences- CB/BF classes: [] labor support person: [] labor intervention preferences: [] pain management options preferred: [] cut cord/dad catch: [] : [] PP control planned: [] discussed possible routes of delivery and associated risks: [] special requests: [] Specific Issue/Plans Covid status: [] Flu vaccine: [] Tdap vaccine: [] Rhogam: [] LARC form signed: [] Problem list reviewed and updated with the most current plan of care details and appropriate orders placed. Relevant counseling for the gestational age provided. Continue routine care and follow up unless otherwise noted in visit notes/problem list details Initial Weight: 154 lb Date -?-?-?-?-?-?-?-?-?-?-?-?- EGA Weight BP Urine Prot -?-?-?-?-?-?-?-?-?-?-?-?- Glucose FHR FuHt Pres Dilation -?-?-?-?-?-?-?-?-?-?-?-?- Effaced St Visit Note 07/18/25 -?-?-?-?-?-?-?-?-?-?-?-?- 5w 6d 154 lb 2 oz (+2 oz) 132/83 -?-?-?-?-?-?-?-?-?-?-?-?- -?-?-?-?-?-?-?-?-?-?-?-?- KW- CRL shows 5. 6 weeks gestation. plan HCG x 2 and repeat US next week. did have irregular cycles at q 6 weeks. HCG on Jun 26 07/25/25 -?-?-?-?-?-?-?-?-?-?-?-?- 6w 6d 154 lb 1 oz (+1 oz) 110/68 Negative -?-?-?-?-?-?-?-?-?-?-?-?- Negative -?-?-?-?-?-?-?-?-?-?-?-?- KW- no vb/crampi ng. rescan today shows CRL of 6.1 weeks by JV with no FHT. is leaving [place] tomorrow. will rescan when she gets back 08/08/25 -?-?-?-?-?-?-?-?-?-?-?-?- 8w 6d 156 lb 1 oz (+2 lb 1 oz) 135/80 -?-?-?-?-?-?-?-?-?-?-?-?- -?-?-?-?-?-?-?-?-?-?-?-?- JV- no andrea e present today on ultrasound. Pelvic exam shows dark blood in vagina and cervix closed. ACOG First Trimester First Trimester: Desire for , Alcohol, Tobacco Cessation, Illicit/Recreational Drug/Substance Use, Intimate Partner Violence, Barriers to care, Unstable Housing, Communication Barriers, Environmental/Work Hazards, Anticipated Course of Care, Toxoplasmosis Precations, Use of Any medications, Sexual activity, Exercise, Dental Care, Sauna/Hot tub use, Seat Belt use, Childbirth classes/Hospital facilities, Travel, Indications for Ultrasound and Screening for Aneuploidy; Discussed Second Trimester Second Trimester: Signs and Symptoms of Labor, Selecting a care provider, Reproductive Life Planning & Contreception, Care Planning, Depression/Anxiety and Intimate Partner Violence; Discussed Tobacco Cessation Third Trimester Third Trimester: Pain Management Plans, Labor support person(s), Immediate Larc, Signs and Symptoms of Preeclampsia, Infant Feeding No , [place] Education and Family Medical Leave or Disability Forms ROS Const All systems reviewed & are unremarkable except as noted in H Resp Reports system reviewed and no additional complaints, except as documented and Denies cough GI Reports as per HPI Psych Reports system reviewed and no additional complaints, except as documented Exam Const General: cooperative, healthy appearing, comfortable and no acute distress Resp Effort & Inspection: normal respiratory effort General: bimanual renal exam normal bilaterally External Female Exam: normal appearance of the urethra Urethra: normal appearance of the urethra Speculum Exam - Vagina: normal appearance of the vagina Speculum Exam - Cervix: normal appearance of the cervix Bimanual Exam- Adnexa, other: normal adnexae and normal Pelvic Support: normal Skin General: no rashes or lesions noted Psych Appearance: grossly normal Speech and Movement: speech and movement normal Coding Level of Care Code Off vis,est,level 4 Diagnoses Bicornate uterus Q51.3 Incomplete O03.4 Assessment and Plan Assessment and Plan (1) Bicornate uterus: Status: Acute Comment: in left horn (2) Incomplete : Status: Acute Plan: patient was given option for D&C vs cytotec. She wants to do nothing this weekend and wait untl repeat quant comes back. She understands this is a miscarriage, we are ruling out molar by looking at quant numbers. We discussed that if her quant went up from her last draw that I would recommend a D&C. if it went down then we can try cytotec. bleeding precautions discussed. 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) Chief Complaint Admit Date cough, congestion November 07, 2024 6 :08am 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/ [facility] November 07, 2024 6 :16am EORDER December 23, 2024 4:44 pm Reason for Visit Admit Date Influenza due to influenza virus, type A , human November 07, 2024 6:08am Chief Complaint Admit Date 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) February 10, 2025 3:2 2pm SKIN TAG ON THE L EYE LID May 09 2:04pm Reason for Visit Admit Date Encounter for routine gynecological exam ination February 10, 2025 3:22pm Chief Complaint Admit Date 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) February 10, 2025 3:2 2pm SKIN TAG ON THE L EYE LID May 09 2:04pm LEFT LOWER EYELID EXCISION SKIN TAG May 10, 2025 8:29am Reason for Visit Admit Date Encounter for routine gynecological exam ination February 10, 2025 3:22pm Neoplasm of uncertain behavior of face J david 2024 2:04pm Chief Complaint Admit Date 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) February 10, 2025 3:2 2pm SKIN TAG [...] Vitals & Education July 04, 2025 8:05am Chief Complaint Admit Date SKIN TAG ON THE L EYE LID May 09 2:04pm LEFT LOWER EYELID EXCISION SKIN TAG May 10, 2025 8:29am 1 W FU May 16, 2025 8:48 am SORE THROAT, FEVER June 11, 2025 7: 22am PNOB Vitals & Education July 04, 2025 8:05am *EST* NOB LMP 05/15, EAMON 02/19June 242024 8:17am Reason for Visit Admit Date Neoplasm of uncertain behavior of face J david 2024 2:04pm Neoplasm of uncertain behavior of face J david 2024 8:48am July 18, 2025 8:17am [facility] 8:17am Threatened July 18, 2025 8:17am Chief Complaint Admit Date SKIN TAG ON THE L EYE LID May 09 2:04pm LEFT LOWER EYELID EXCISION SKIN TAG May 10, 2025 8:29am 1 W May 16, 2025 8:48 am SORE THROAT, FEVER June 11, 2025 7: 22am PNOB Vitals & Education July 04, 2025 8:05am *EST* NOB LMP 05/15, EAMON 02/19June 242024 8:17am rescan *kw July 25, 2025 7: 51am Reason for Visit Admit Date Neoplasm of uncertain behavior of face J david 2024 2:04pm Neoplasm of uncertain behavior of face J david 2024 8:48am July 18, 2025 8:17am [facility] 8:17am Threatened July 18, 2025 8:17am Bicornate uterus July 25, 2025 7: 51am July 25, 2025 7: 51am Supervision of normal July 25, 2025 7:51am Threatened July 25, 2025 7: 51am Chief Complaint Admit Date SKIN TAG ON THE L EYE LID May 09 2:04pm LEFT LOWER EYELID EXCISION SKIN TAG May 10, 2025 8:29am 1 W FU May 16, 2025 8:48 am SORE THROAT, FEVER June 11, 2025 7: 22am PNOB Vitals & Education July 04, 2025 8:05am *EST* NOB LMP 05/15, EAMON 02/19June [id number] 8:17am rescan *kw July 25, 2025 7: 51am RESCAN *8w 1d August 08, 2025 1 2:57pm Rescan, miscarriage FU August 15 1:11pm Reason for Visit Admit Date Neoplasm of uncertain behavior of face J david 2024 2:04pm Neoplasm of uncertain behavior of face J david 2024 8:48am July 18, 2025 8:17am Supervision of normal Septembe r 2024 8:17am Threatened July 18, 2025 8:17am Bicornate uterus July 25, 2025 7: 51am July 25, 2025 7: 51am Supervision of normal July 25, 2025 7:51am Threatened July 25, 2025 7: 51am Bicornate uterus August 08, 2025 1 2:57pm Incomplete August 08, 2025 1 2:57pm Incomplete August 15, 2025 1 :11pm Additional Source Comments INFORMATION SOURCE (unrecogn ized section and content) DATE CREATED AUTHOR 04/18/2018 [facility] ([place]) DATE CREATED AUTHOR AUTHOR'S ORGANIZ ATION 04/18/2018 [facility] DATE CREATED AUTHOR AUTHOR'S ORGANIZ ATION 08/19/2025 [facility] Goals (unrecognized section and content) Type Care Experience Labor Preferences-CB /BF classes: []labor support person: []labor intervention preferences: []pain management options preferred: []cut cord/dad catch: []: []PP control planned: []discussed possible routes of delivery and associated risks: []special requests: [] Care Teams (unrecognized sec tion and content) Team Status: Active Member Role Status Dates Out of [facility] Doctor Primary Care Provider Active Team Status: Inactive Member Role Status Dates Out of [facility] Doctor Primary Care Provider, Referring Pr ovider Active Mihaela Burton PACKAGER HEAD, PACKAGER HEAD-C Attending Provider Active Team Status: Inactive Member Role Status Dates Out of [facility] Doctor Primary Care Provider Active Mihaela Burton PACKAGER HEAD, PACKAGER HEAD-C Attending Provider Active Team Status: Active Member Role Status Dates Dr. Jorje Preciado MD Primary Care Provider Acti ve Team Status: Inactive Member Role Status Dates Out of [facility] Doctor Primary Care Provider Active Start: November 07, 2024 End: November 07, 2024 Out of [facility] Doctor Referring Provider Active Sta rt: [...] Inactive Member Role/Relationship Status Dates Out of [facility] Doctor Referring Provider Active Sta rt: February 10, 2025 End: February 10, 2025 Mihaela Burton PACKAGER HEAD, PACKAGER HEAD-C Attending Provider Active Start: February 10, 2025 [...] June 11, 2025 End: June 11, 2025 SCOTT Tafoya Attending Provider Active Start: June 11, 2025 [...] July 04, 2025 End: July 04, 2025 Team Status: Active Member Role/Relationship Status Dates Dr. Jorje Preciado MD Primary care physician Act agustin Team Status: Inactive Member Role/Relationship Status Dates Dr. Jorje Preciado MD Primary care physician Act agustin Start: May 09, 2025 End: May 09, 2025 Dr. Jorje Preciado MD Referring Provider Active Start: May 09, 2025 End: May 09, 2025 Dr. Ezequiel Hurtado MD Attending physician Active Start: May 09, 2025 End: May 09, 2025 Team Status: Inactive Member Role/Relationship Status Dates Dr. Jorje Preciado MD Primary care physician Act agustin Start: May 10, 2025 End: May 10, 2025 Dr. Ezequiel Hurtado MD Attending physician Active Start: May 10, 2025 End: May 10, 2025 Dr. Ezequiel Hurtado MD Referring Provider Active Start: May 10, 2025 End: May 10, 2025 Team Status: Inactive Member Role/Relationship Status Dates Dr. Jorje Preciado MD Primary care physician Act agustin Start: May 16, 2025 End: May 16, 2025 Dr. Jorje Preciado MD Referring Provider Active Start: May 16, 2025 End: May 16, 2025 Dr. Ezequiel Hurtado MD Attending physician Active Start: May 16, 2025 End: May 16, 2025 Team Status: Inactive Member Role/Relationship Status Dates Dr. Jorje Preciado MD Primary care physician Act agustin Start: June 11, 2025 End: June 11, 2025 Dr. Jorje Preciado MD Referring Provider Active Start: June 11, 2025 End: June 11, 2025 SCOTT Tafoya Attending physician Active Start: June 11, 2025 End: June 11, 2025 Team Status: Inactive Member Role/Relationship Status Dates Dr. Jorje Preciado MD Primary care physician Act agustin Start: July 04, 2025 End: July 04, 2025 Dr. Jorje Preciado MD Referring Provider Active Start: July 04, 2025 End: July 04, 2025 Caprice Woods CNM Attending physician Active Start: July 04, 2025 End: July 04, 2025 Team Status: Inactive Member Role/Relationship Status Dates Dr. Jorje Preciado MD Primary care physician Act agustin Start: July 18, 2025 End: July 18, 2025 Dr. Jorje Preciado MD Referring Provider Active Start: July 18, 2025 End: July 18, 2025 Caprice Woods CNM Attending physician Active Start: July 18, 2025 End: July 18, 2025 Team Status: Active Member Role/Relationship Status Dates Dr. Jorje Preciado MD Primary care physician Act agustin Start: July 18, 2025 Caprice Woods CNM Attending physician Active Start: July 18, 2025 Team Status: Active Member Role/Relationship Status Dates Dr. Jorje Preciado MD Primary care physician Act agustin Start: July 20, 2025 Caprice Woods CNM Attending physician Active Start: July 20, 2025 Team Status: Inactive Member Role/Relationship Status Dates Dr. Jorje Preciado MD Primary care physician Act agustin Start: July 25, 2025 End: July 25, 2025 Dr. Jorje Preciado MD Referring Provider Active Start: July 25, 2025 End: July 25, 2025 Caprice Woods CNM Attending physician Active Start: July 25, 2025 End: July 25, 2025 Team Status: Active Member Role/Relationship Status Dates Dr. Jorje Preciado MD Primary care physician Act agustin Start: July 25, 2025 Caprice Woods CNM Attending physician Active Start: July 25, 2025 Team Status: Inactive Member Role/Relationship Status Dates Dr. Jorje Preciado MD Primary care physician Act agustin Start: July 18, 2025 End: July 18, 2025 Caprice Woods CNM Attending physician Active Start: July 18, 2025 End: July 18, 2025 Team Status: Inactive Member Role/Relationship Status Dates Dr. Jorje Preciado MD Primary care physician Act agustin Start: July 20, 2025 End: July 20, 2025 Caprice Woods CNM Attending physician Active Start: July 20, 2025 End: July 20, 2025 Team Status: Inactive Member Role/Relationship Status Dates Dr. Jorje Preciado MD Primary care physician Act agustin Start: July 25, 2025 End: July 25, 2025 Caprice Woods CNM Attending physician Active Start: July 25, 2025 End: July 25, 2025 Team Status: Inactive Member Role/Relationship Status Dates Dr. Jorje Preciado MD Primary care physician Act agustin Start: August 08, 2025 End: August 08, 2025 Dr. Jorje Preciado MD Referring Provider Active Start: August 08, 2025 End: August 08, 2025 Dr. Eugenia Paul DO Attending physician Acti ve Start: August 08, 2025 End: August 08, 2025 Team Status: Inactive Member Role/Relationship Status Dates Dr. Jorje Preciado MD Primary care physician Act agustin Start: August 08, 2025 End: August 08, 2025 Dr. Eugenia Paul DO Attending physician Acti ve Start: August 08, 2025 End: August 08, 2025 Team Status: Inactive Member Role/Relationship Status Dates Dr. Jorje Preciado MD Primary care physician Act agustin Start: August 15, 2025 End: August 15, 2025 Dr. Jorje Preciado MD Referring Provider Active Start: August 15, 2025 End: August 15, 2025 Dr. Eugenia Paul DO Attending physician Acti ve Start: August 15, 2025 End: August 15, 2025 Team Status: Active Member Role/Relationship Status Dates Dr. Jorje Preciado MD Primary care physician Act agustin Start: August 15, 2025 Dr. Eugenia Paul DO Attending physician Acti ve Start: August 15, 2025 FOR RECORDS PERTAINING TO PATIENTS WHO [...] BE BASED ON THE PRIMARY CLINICAL RECORDS. [facility] [employer] [facility]. provides no warranty or guarantee of the accuracy or completeness of information in this document.
[2025-08-22 12:48] LABS: hCG Titer Quant., Serum 322 mIU/mL (<9 non-preg)
== END | disposition home or self-care (01) ==
PROVIDERS: PCP Family Medicine; Visit Provider Obstetrics & Gynecology
DX: O03.4 Incomplete spontaneous abortion without complication (principal)
CPT/HCPCS: 36415; 84702

== ENCOUNTER → 2025-08-29 | Outpatient (CLI) | payer OTHER, SELFPAY ==
--- OUTSIDE RECORDS SUMMARY | 2025-08-29 08:25 | XMS RPT_ITS | CCD ---
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 Jorje Preciado MD Primary Care Provider Dr. Jorje Preciado MD Attending Provider Dr. Jorje Preciado MD Referring Provider [facility] Doctor, Out of Referring Provider Unavailab [...] Attending Physician Caprice Woods CNM Attending Physician Dr. Eugenia Paul DO Attending Physician Ranney, Christopher Primary Care Unavailable Caprice Woods Attending Unavailable Ranney, Christopher Primary Care Unavailable Ranney, Christopher Referring Unavailable Ezequiel Hurtado Attending Unavailable Ranney, Christopher Primary Care Unavailable Ranney, Christopher Referring Unavailable Vande Eugenia Salas Attending Unavailabl e Town Doctor, Out of Referring Unavailable [place] Doctor, Out of Primary Care Unavailable Dylan Nagel Attending Unavailable Ranney, Christopher Primary Care Unavailable Ranney, Christopher Referring Unavailable Ezequiel Hurtado Attending Unavailable Ranney, Christopher Primary Care Unavailable Mihaela Burton Attending Unavailable Town Doctor, Out of Referring Unavailable Ranney, Christopher Primary Care Unavailable Ranney, Christopher Referring Unavailable VandEugenia Jaime Attending Unavailabl e Ranney, Christopher Referring Unavailable Ranney, Christopher Primary Care Unavailable Vande Eugenia Salas Attending Unavailabl e Ranney, Christopher Primary Care Unavailable Ranney, Christopher Referring Unavailable Caprice Woods Attending Unavailable Town Doctor, Out of Referring Unavailable Town Doctor, Out of Primary Care Unavailable Dylan Nagel Attending Unavailable Ranney, Christopher Primary Care Unavailable Ranney, Christopher Referring Unavailable Caprice oWods Attending Unavailable Ranney, Christopher Attending Unavailable Ranney, Christopher Primary Care Unavailable Ranney, Christopher Referring Unavailable Ranney, Christopher Primary Care Unavailable Elizabethe Eugenia Salas Attending Unavailabl e Ranney, Christopher Primary Care Unavailable Vande VelEugenia la Attending Unavailabl e Ranney, Christopher Primary Care Unavailable Caprice Woods Attending Unavailable Ranney, Christopher Primary Care Unavailable Ranney, Christopher Referring Unavailable Caprice Woods Attending Unavailable Ranney, Christopher Primary Care Unavailable Caprice Woods Attending Unavailable Ranney, Christopher Primary Care Unavailable Vande Eugenia Salas Attending Unavailabl e Ranney, Christopher Primary Care Unavailable Ezequiel Hurtado Referring Unavailable Ezequiel Hurtado Attending Unavailable Ranney, Christopher Primary Care Unavailable Ranney, Christopher Referring Unavailable Kamron Chapa Attending Unavailable Allergies Allergy Classification Reported Allergen(s) Allergy Type Date of Onset Reaction(s) Facility (10 sources) Amoxicillin Drug Allergy 12-27-2023 [facility] (9 sources) Penicillins Allergy to substance 11-07-2024 [facility] (1 source) Amoxicillin Drug Allergy 08-15-2025 [facility] (1 source) Penicillins Drug allergy (disorder) 08-15-2025 [facility] Rep[facility] Medications Current Medications Medication Drug Class(es) Dates Sig (Normalized) Sig (Original) Echinacea 125 mg capsule (5 sources) Start: 06-11-2025 take 1 capsule by mouth once daily Start: 06-11-2025 take 1 capsule by sc ut once daily Echinacea 125 mg capsule Active [...] {tbl} PO daily June 11, 2025 12:00am [place] (Nk) (1 source) Start: 05-16-2025 [place] (Nk) A ctive May 16, 2025 12:00am [...] Comment on above: d/t 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 322 mIU/mL High <9 non-preg [facility] Comment on above: Result Comment: Gest ational Age 0.2-1 Week: 5-50 mIU/mL 1-2 Weeks: 50-500 mIU/mL 2-3 Weeks: 100-5000 mIU/mL 3-4 Weeks: 500-10,000 mIU/mL 4-5 Weeks:1000-50,000 mIU/mL 5-6 Weeks: 10,000-100,000 mIU/mL 6-8 Weeks: 15,000-200,000 mIU/mL 2-3 Months:10,000-100,000 mIU/mL Performed By: #### L 700.8000 ####[facility] [address] [place], [address] Analyst [employer] Office Visit Reporton 08-15-2025 Analyst [employer] Office Visit Report [facility]'s [address], [address] [place] [address] OFFICE VISIT Date of Service: 08/15/25 MR#: [id number] Acct: [id number] Name: NADYA MOORE Rep #: [id number] : 1990 Provider: Dr. 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/hazards: No pets and [...] 3-4 times per week duration: 30-45 minutes/day dago/adventism: Jew seatbelt use: always do you feel safe at home: Yes additional social history: : Wilbur Willoughby @ [employer] HPI Rescan, miscarriage FU Details: NADYA MOORE [...] 4RF 08/15/25 1406 Date Eugenia Paul DO [facility] Signature: Date (if applicable) CC: Normal [facility] Serum human chorionic gonado tropin detection for pregnancyOrdered By: Eugenia Salas on 08-15-2025 HCG ( test) Ql 2069 mIU/mL High <9 [facility] Comment on above: Gestational Age0.2-1 Week: 5-50 mIU/mL1-2 Weeks: 50-500 mIU/mL2-3 Weeks: 100-5000 mIU/mL3-4 Weeks: 500-10,000 mIU/mL4-5 Weeks:1000-50,000 mIU/mL5-6 Weeks: 10,000-100,000 mIU/mL6-8 Weeks: 15,000-200,000 mIU/mL2-3 Months:10,000-100,000 mIU/mL hCG Titer Quant., Serumon HCG QUANT. 2069 mIU/mL High <9 non-preg [facility] Comment on above: Result Comment: Gest ational Age 0.2-1 Week: 5-50 mIU/mL 1-2 Weeks: 50-500 mIU/mL 2-3 Weeks: 100-5000 mIU/mL 3-4 Weeks: 500-10,000 mIU/mL 4-5 Weeks:1000-50,000 mIU/mL 5-6 Weeks: 10,000-100,000 mIU/mL 6-8 Weeks: 15,000-200,000 mIU/mL 2-3 Months:10,000-100,000 mIU/mL Performed By: #### L 700.8000 ####[facility] [address] [place], [address] Analyst [employer]ing Office Visit Reporton 08-08-2025 Analyst [employer]ochemical Prospecting Office Visit Report [facility] [address], [address] [place] [address] OFFICE VISIT Date of Service: 08/08/25 MR#: [id number] Acct: [id number] Name: NADYA MOORE Rep #: [id number] : 1990 Provider: Dr. 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 HCG on Jun 26 07/25/25 -???-???-???-???-???-???- ???-???-???-???-???-???- 6w 6d 154 lb 1 oz (+1 oz) 110/68 Negative -???-???-???-???-???-???- ???-? (more content not included)... Normal [facility] Serum human chorionic gonado tropin detection for pregnancyOrdered By: Eugenia Salas on 08-08-2025 HCG ( test) [place]l [address] mIU/mL High <9 [facility] Comment on above: Gestational Age0.2-1 Week: 5-50 mIU/mL1-2 Weeks: 50-500 mIU/mL2-3 Weeks: 100-5000 mIU/mL3-4 Weeks: 500-10,000 mIU/mL4-5 Weeks:1000-50,000 mIU/mL5-6 Weeks: 10,000-100,000 mIU/mL6-8 Weeks: 15,000-200,000 mIU/mL2-3 Months:10,000-100,000 mIU/mL hCG Titer Quant., Serumon HCG QUANT. 96859 mIU/mL High <9 non-preg [facility] Comment on above: Result Comment: Gest ational Age 0.2-1 Week: 5-50 mIU/mL 1-2 Weeks: 50-500 mIU/mL 2-3 Weeks: 100-5000 mIU/mL 3-4 Weeks: 500-10,000 mIU/mL 4-5 Weeks:1000-50,000 mIU/mL 5-6 Weeks: 10,000-100,000 mIU/mL 6-8 Weeks: 15,000-200,000 mIU/mL 2-3 Months:10,000-100,000 mIU/mL Performed By: #### L 700.8000 ####[facility] [address] [facility]. [place], [place], [id number] Absolute lymphocyte countOrd ered By: Caprice Woods on 07-25-2025 Lymphocytes Auto (Unsp spec) [#/Vol] 2.19 10*3/uL 0.83-4.51 [facility] Absolute neutrophil countOrd ered By: Caprice Woods on 07-25-2025 Neutrophils (Bld) [#/Vol] 4.3 10*3/uL 2.0-7.7 [facility] Automated lymphocyte count a s percentage of total leukocytesOrdered By: Caprice Woods on 07-25-2025 Lymphocytes/100 WBC Auto (Unsp spec) 30.2 % 19-41 [facility] Basophil percentageOrdered B y: Caprice Woods on 07-25-2025 Basophils/100 WBC (Bld) 0.7 % 0-1 [facility] CBC W/Diff, Automatedon 10-0 Absolute Lymph 2.19 X10 3/uL Normal 0.83-4.51 [facility] Comment on above: Performed By: #### L 3890.6006, L3890.6301, L509.4006, L3890.6102, BTS, L100.0100, L700.8000, L509.8002 #### [facility] [address] [place], [place], [id number] Absolute Neut 4.3 X10 3/uL Normal 2.0-7.7 [facility] Comment on above: Performed By: #### L 3890.6006, L3890.6301, L509.4006, L3890.6102, BTS, L100.0100, L700.8000, L509.8002 #### [facility] [address] [place], [address] Basophils/100 WBC (Bld) 0.7 % Normal 0-1 [facility] Comment on above: Performed By: #### L 3890.6006, L3890.6301, L509.4006, L3890.6102, BTS, L100.0100, L700.8000, L509.8002 #### [facility] [address] [place], [address] Eosinophils/100 WBC (Bld) 2.2 % Normal 0-5 [facility] Comment on above: Performed By: #### L 3890.6006, L3890.6301, L509.4006, L3890.6102, BTS, L100.0100, L700.8000, L509.8002 #### [facility] [address] [place], [address] Erythrocyte distribution width (RBC) [Ratio] 12.2 % Normal 11.6-14.6 [facility] Comment on above: Performed By: #### L 3890.6006, L3890.6301, L509.4006, L3890.6102, BTS, L100.0100, L700.8000, L509.8002 #### [facility] [address] [place], [address] Hematocrit (Bld) [Volume fraction] 41.5 % Normal 37-47 [facility] Comment on above: Performed By: #### L 3890.6006, L3890.6301, L509.4006, L3890.6102, BTS, L100.0100, L700.8000, L509.8002 #### [facility] [address] [place], [address] Hemoglobin (Bld) [Mass/Vol] 13.8 g/dL Normal 12.0-15.0 [facility] Comment on above: Performed By: #### L 3890.6006, L3890.6301, L509.4006, L3890.6102, BTS, L100.0100, L700.8000, L509.8002 #### [facility] [address] [place], [address] IG% 0.300 Normal 0.0-0.9 [facility] Comment on above: Result Comment: IG% - Immature Granulocytes (promyelocytes, myelocytes and metamyelocytes) > 1% indicates that a LEFT SHIFT is Present. Performed By: #### L 3890.6006, L3890.6301, L509.4006, L3890.6102, BTS, L100.0100, L700.8000, L509.8002 #### [facility] [address] [place], [address] Lymphocytes/100 WBC (Bld) 30.2 % Normal 19-41 [facility] Comment on above: Performed By: #### L 3890.6006, L3890.6301, L509.4006, L3890.6102, BTS, L100.0100, L700.8000, L509.8002 #### [facility] [address] [place], [address] MCH (RBC) [Entitic mass] 29.7 pg Normal 27.0-32.0 [facility] Comment on above: Performed By: #### L 3890.6006, L3890.6301, L509.4006, L3890.6102, BTS, L100.0100, L700.8000, L509.8002 #### [facility] [address] [place], [address] MCHC (RBC) [Mass/Vol] 33.3 g/dL Normal 32-36 [facility] Comment on above: Performed By: #### L 3890.6006, L3890.6301, L509.4006, L3890.6102, BTS, L100.0100, L700.8000, L509.8002 #### [facility] [address] [place], [address] MCV (RBC) [Entitic vol] 89.2 fL Normal 81-99 [facility] Comment on above: Performed By: #### L 3890.6006, L3890.6301, L509.4006, L3890.6102, BTS, L100.0100, L700.8000, L509.8002 #### [facility] [address] [place], [address] Monocytes/100 WBC (Bld) 7.4 % Normal 0-10 [facility] Comment on above: Performed By: #### L 3890.6006, L3890.6301, L509.4006, L3890.6102, BTS, L100.0100, L700.8000, L509.8002 #### [facility] [address] [place], [address] Neutrophils/100 WBC (Bld) 59.2 % Normal 47-70 [facility] Comment on above: Performed By: #### L 3890.6006, L3890.6301, L509.4006, L3890.6102, BTS, L100.0100, L700.8000, L509.8002 #### [facility] [address] [place], [address] Nucleated RBC (Bld) [#/Vol] 0 10*3/uL Normal 0-5 [facility] Comment on above: Performed By: #### L 3890.6006, L3890.6301, L509.4006, L3890.6102, BTS, L100.0100, L700.8000, L509.8002 #### [facility] [address] [place], [address] Platelet mean volume (Bld) [Entitic vol] 11.0 fL Normal 6.2-12.0 [facility] Comment on above: Performed By: #### L 3890.6006, L3890.6301, L509.4006, L3890.6102, BTS, L100.0100, L700.8000, L509.8002 #### [facility] [address] [place], [address] Platelets (Bld) [#/Vol] 386 10*3/uL Normal 150-450 [facility] Comment on above: Performed By: #### L 3890.6006, L3890.6301, L509.4006, L3890.6102, BTS, L100.0100, L700.8000, L509.8002 #### [facility] [address] [place], [address] RBC (Bld) [#/Vol] 4.65 10*6/uL Normal 4.2-5.4 [facility] Comment on above: Performed By: #### L 3890.6006, L3890.6301, L509.4006, L3890.6102, BTS, L100.0100, L700.8000, L509.8002 #### [facility] [address] [place], [address] RDW SD 39.8 fl Normal 35.1-43.9 [facility] Comment on above: Performed By: #### L 3890.6006, L3890.6301, L509.4006, L3890.6102, BTS, L100.0100, L700.8000, L509.8002 #### [facility] [address] [place], [address] WBC (Bld) [#/Vol] 7.3 10*3/uL Normal 4.4-11.0 [facility] Comment on above: Performed By: #### L 3890.6006, L3890.6301, L509.4006, L3890.6102, BTS, L100.0100, L700.8000, L509.8002 #### [facility] [address] [place], [address] Eosinophil percentageOrdered By: Caprice Woods on 07-25-2025 Eosinophils/100 WBC (Bld) 2.2 % 0-5 [facility] Erythrocyte distribution wid th ratioOrdered By: Caprice Woods on 07-25-2025 Erythrocyte distribution width (RBC) [Ratio] 12.2 % 11.6-14.6 [facility] Erythrocyte distribution wid th standard deviationOrdered By: Caprice Woods on 07-25-2025 Erythrocyte distribution width (RBC) [Ratio] 39.8 fl 35.1-43.9 [facility] HIVon 07-25-2025 HIV Non-Reactive Normal Nonreactive [facility] Comment on above: Result Comment: Non- Reactive Reactive Repeatedly reactive samples must be confirmed according to CDC recommended confirmatory algorithms. The subresults for either HIVAG or AHIV can be used as an aid in the selection of the confirmation algorithm for reactive samples. Send out specimens with Reactive results to [facility] for confirmation. Order the HIV antibody detection and differentiation: lc#[id number] Performed By: #### L 3890.6006, L3890.6301, L509.4006, L3890.6102, BTS, L100.0100, L700.8000, L509.8002 ####[facility] [address] [place], [address] Hematocrit Auto (Bld) [Volum e fraction]Ordered By: Caprice Woods on 07-25-2025 Hematocrit (Bld) [Volume fraction] 41.5 % 37-47 [facility] Hemoglobin measurementOrdere d By: Caprice Woods on 07-25-2025 Hemoglobin (Bld) [Mass/Vol] 13.8 g/dL 12.0-15.0 [facility] Hepatitis C Antibodyon 07-25 Hepatitis C Ab Non-Reactive Normal Nonreactive [facility] Comment on above: Result Comment: Reac tive: Presumptive evidence of antibodies to HCV. Follow CDC recommendations for supplemental testing. Non-Reactive: Antibodies to HCV were not detected; does not exclude the possibility of exposure to HCV Reactive Results are presumptive evidence of antibodies to HCV. Follow CDC recommendations for supplemental testing. Order confirmation testing: HCV Quant by PCR testing - HCVPCR #[id number] Non Reactive: < 0.8 Equivocal: >/= 0.8 to < 1.0 Reactive: >/= 1.0 The [facility] requires that a reactive/equivocal HCV antibody result be sent out for confirmation. HCV Quant by PCR testing. Performed By: #### L 3890.6006, L3890.6301, L509.4006, L3890.6102, BTS, L100.0100, L700.8000, L509.8002 ####[facility] [address] [place], [place], [id number] Immature granulocytes/100 WB C Auto (Bld)Ordered By: Caprice Woods on 07-25-2025 Immature granulocytes/100 WBC (Bld) 0.300 % 0.0-0.9 [facility] Comment on above: IG% - Immature Granu locytes (promyelocytes, myelocytes and metamyelocytes) > 1% indicates that a LEFT SHIFT is Present. L3890.6102on 07-25-2025 HEP B Surf Ag Non-Reactive Normal Nonreactive [facility] Comment on above: Result Comment: Reac tive: Presumptive evidence of HBV. Repeatedly reactive samples must be confirmed using a neutralization test ([employer] HBsAg Confirmatory Test) Non-Reactive: HBsAg not detected; does not exclude the possibility of exposure to HBV Performed By: #### L 3890.6006, L3890.6301, L509.4006, L3890.6102, BTS, L100.0100, L700.8000, L509.8002 ####[facility] [address] [place], [place], [address] L509.4006on 07-25-2025 Rubella IgG REAC Normal Nonreactive [facility] Comment on above: Result Comment: Anti body Result: Interpretation Non-Reactive: Non-Immune Reactive: Immune The following results were obtained with the [employer] Rubella IgG assay. Results from assays of other manufacturers cannot be used interchangeably. Performed By: #### L 3890.6006, L3890.6301, L509.4006, L3890.6102, BTS, L100.0100, L700.8000, L509.8002 #### [facility] [address] [place], [address] Laboratory - Chemistry and C hemistry - challengeOrdered By: Caprice Woods on 07-25-2025 Glucose Ql (U) Negative [facility] Laboratory - Microbiology an d Antimicrobial susceptibilityOrdered By: Caprice Woods on 07-25-2025 HBV surface Ag Ql (S) Non-Reactive Nonreactive [facility] Comment on above: Reactive: Presumptiv e evidence of HBV. Repeatedly reactive samples must be confirmed using a neutralization test ([employer] HBsAg Confirmatory Test)Non-Reactive: HBsAg not detected; does not exclude the possibility of exposure to HBV Laboratory - UrinalysisOrder ed By: Caprice Woods on 07-25-2025 Protein Ql (U) Negative [facility] MCV (mean corpuscular volume ) determinationOrdered By: Caprice Woods on 07-25-2025 MCV (RBC) [Entitic vol] 89.2 fL 81-99 [facility] Mean corpuscular hemoglobin (MCH) determinationOrdered By: Caprice Woods on 07-25-2025 MCH (RBC) [Entitic mass] 29.7 pg 27.0-32.0 [facility] Mean corpuscular hemoglobin concentration (MCHC) determinationOrdered By: Caprice Woods on 07-25-2025 MCHC (RBC) [Mass/Vol] 33.3 g/dL 32-36 [facility] Mean platelet volume determi nationOrdered By: Caprice Woods on 07-25-2025 Platelet mean volume (Bld) [Entitic vol] 11.0 fL 6.2-12.0 [facility] Monocyte percentageOrdered B y: Caprice Woods on 07-25-2025 Monocytes/100 WBC (Bld) 7.4 % 0-10 [facility] Neutrophil percentageOrdered By: Caprice Woods on 07-25-2025 Neutrophils/100 WBC (Bld) 59.2 % 47-70 [facility] No Panel InformationOrdered By: Caprice Woods on 07-25-2025 HIV (1&2) Antibody Non-Reactive Nonreactive [facility] Comment on above: Non-ReactiveReactive Repeatedly reactive samples must be confirmed according to CDC recommended confirmatory algorithms. The subresults for either HIVAG or AHIV can be used as an aid in the selection of the confirmation algorithm for reactive samples.Send out specimens with Reactive results to [facility] for confirmation.Order the HIV antibody detection and differentiation: #[id number] Nucleated red blood cell per centageOrdered By: Caprice Woods on 07-25-2025 Nucleated RBC/100 WBC (Bld) [Ratio] 0 % 0-5 [facility] [employer]st [employer] Office Visit Reporton 07-25-2025 Analyst [employer] Office Visit Report [facility]'s [address], [address] [place] [address] OFFICE VISIT Date of Service: 07/25/25 MR#: [id number] Acct: [id number] Name: NADYA MOORE Rep #: [id number] : 1990 Provider: RAMIREZ Serrato ams Age/Sex: 35/F Location: [facility] [place] Status: Signed Intake Vital Signs 07/18/25 08:33 07/25/25 07:56 Height 5 ft 3 in 5 ft 3 in Weight: 154 lb 1 oz BMI 27.3 BP 110/68 Intake Visit Reasons: rescan *kw 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 Is patient in pain?: No [...] occupational status: employed 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 HCG on Jun 26 07/25/25 -???-???-???-???-???-???- ???-???-???-???-???-???- 6w 6d 154 lb 1 oz (+1 oz) 110/68 Negative -???-???-???-???-???-???- ???-???-???-???-???-???- Negative -???-???-???-???-???-???- ???-???-???-???-???-???- (more content not included)... Normal [facility] Platelet countOrdered By: Ramiro Woods on 07-25-2025 Platelets (Bld) [#/Vol] 386 10*3/uL 150-450 [facility] RBC Auto (Bld) [#/Vol]Ordere d By: Caprice Woods on 07-25-2025 RBC (Bld) [#/Vol] 4.65 10*6/uL 4.2-5.4 [facility] Serum human chorionic gonado tropin detection for pregnancyOrdered By: Caprice Woods on 07-25-2025 HCG ( [place]) [place]l [address] mIU/mL High <9 [facility] Comment on above: Gestational Age0.2-1 Week: 5-50 mIU/mL1-2 Weeks: 50-500 mIU/mL2-3 Weeks: 100-5000 mIU/mL3-4 Weeks: 500-10,000 mIU/mL4-5 Weeks:1000-50,000 mIU/mL5-6 Weeks: 10,000-100,000 mIU/mL6-8 Weeks: 15,000-200,000 mIU/mL2-3 Months:10,000-100,000 mIU/mL Syphilis Antibodieson 2024 Syphilis Abs Non-Reactive Normal Nonreactive [facility] Comment on above: Performed By: #### L 3890.6006, L3890.6301, L509.4006, L3890.6102, BTS, L100.0100, L700.8000, L509.8002 #### [facility] Laboratory [address] [place], [address] Type AND Screenon 07-25-2025 ABO and Rh group Nom (Bld) Blood group A Rh(D) positive Normal [facility] Comment on above: Order Comment: PN Performed By: #### L 3890.6006, L3890.6301, L509.4006, L3890.6102, BTS, L100.0100, L700.8000, L509.8002 #### [facility] [address] [place], [address] White blood cell (WBC) count Ordered By: Caprice Woods on 07-25-2025 WBC (Bld) [#/Vol] 7.3 10*3/uL 4.4-11.0 [facility] hCG Titer Quant., Serumon HCG QUANT. 39882 mIU/mL High <9 non-preg [facility] Comment on above: Result Comment: Gest ational Age 0.2-1 Week: 5-50 mIU/mL 1-2 Weeks: 50-500 mIU/mL 2-3 Weeks: 100-5000 mIU/mL 3-4 Weeks: 500-10,000 mIU/mL 4-5 Weeks:1000-50,000 mIU/mL 5-6 Weeks: 10,000-100,000 mIU/mL 6-8 Weeks: 15,000-200,000 mIU/mL 2-3 Months:10,000-100,000 mIU/mL Performed By: #### L 3890.6006, L3890.6301, L509.4006, L3890.6102, BTS, L100.0100, L700.8000, L509.8002 #### [facility] [address] [place], [place], [id number] Chlamydia/GC JASON aptimaon CHLAMY,NUC ACID Negative Normal Negative [facility] Comment on above: Performed By: #### L 7000.1800, ####[facility] [address] [place], [address] GC BY NUC ACID Negative Normal Negative [facility] Comment on above: Result Comment: Perf ormed at: =G - [facility] [address] Zacarias Hart[place] W [id number] Senior Solutions Engineer: Cristy Luis MD, Phone: [phone] Performed By: #### L 7000.1800, ####[facility] [address] [place], [address] Serum human chorionic gonado tropin detection for pregnancyOrdered By: Caprice Woods on 07-20-2025 HCG ( test) [place]l [address] mIU/mL High <9 [facility] Comment on above: Gestational Age0.2-1 Week: 5-50 mIU/mL1-2 Weeks: 50-500 mIU/mL2-3 Weeks: 100-5000 mIU/mL3-4 Weeks: 500-10,000 mIU/mL4-5 Weeks:1000-50,000 mIU/mL5-6 Weeks: 10,000-100,000 mIU/mL6-8 Weeks: 15,000-200,000 mIU/mL2-3 Months:10,000-100,000 mIU/mL Urine Cultureon 07-20-2025 [facility] Below infection leve l. Mixed Gram Positive Organisms Trinchera Count 1000-10,000 MIXC Mixed contaminants. Submit a new specimen if indicated. Normal [facility] Comment on above: Performed By: #### L 7000.1800, ####[facility] [address] [place], [place], [address] hCG Titer Quant., Serumon HCG QUANT. 10075 mIU/mL High <9 non-preg [facility] Comment on above: Result Comment: Gest ational Age 0.2-1 Week: 5-50 mIU/mL 1-2 Weeks: 50-500 mIU/mL 2-3 Weeks: 100-5000 mIU/mL 3-4 Weeks: 500-10,000 mIU/mL 4-5 Weeks:1000-50,000 mIU/mL 5-6 Weeks: 10,000-100,000 mIU/mL 6-8 Weeks: 15,000-200,000 mIU/mL 2-3 Months:10,000-100,000 mIU/mL Performed By: #### L 700.8000 ####[facility] [address] [place], [address] Chlamydia trachomatis rRNA d etection by probe and target amplification methodOrdered By: Caprice Woods on 07-18-2025 C. trachomatis rRNA JASON+probe Ql (Unsp spec) Negative Negative [facility] Neisseria gonorrhoeae nuclei c acid detection by amplified probe techniqueOrdered By: Caprice Woods on 07-18-2025 N. gonorrhoeae DNA JASON+probe Ql (Unsp spec) Negative Negative [facility] Comment on above: Performed at: =[address] [id number] Director: Cristy Luis MD, Phone: [phone] [employer] Office Visit Reporton 07-18-2025 [employer] Office Visit Report [facility] [address], [address] [place] [address] OFFICE VISIT Date of Service: 07/18/25 MR#: [id number] Acct: [id number] Name: NADYA MOORE Rep #: [id number] : 1990 Provider: RAMIREZ Serrato ams Age/Sex: 35/F Location: [facility] Status: Signed Intake Vital Signs 06/11/25 07:26 07/04/25 09:04 07/18/25 08:31 07/18/25 08:33 Height 5 ft 3.5 in 5 ft 3 in 5 ft 3 in 5 ft 3 in Weight: 154 lb 2 oz BMI 27.3 BP 132/83 H Intake Visit Reasons: *EST* NOB LMP 05/15, EAMON 02/19 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 p (more content not included)... Normal [facility] Serum human chorionic gonado tropin detection for pregnancyOrdered By: Caprice Woods on 07-18-2025 HCG ( [place]) [place]l [address] mIU/mL High <9 [facility] Comment on above: Gestational Age0.2-1 Week: 5-50 mIU/mL1-2 Weeks: 50-500 mIU/mL2-3 Weeks: 100-5000 mIU/mL3-4 Weeks: 500-10,000 mIU/mL4-5 Weeks:1000-50,000 mIU/mL5-6 Weeks: 10,000-100,000 mIU/mL6-8 Weeks: 15,000-200,000 mIU/mL2-3 Months:10,000-100,000 mIU/mL Urine cultureOrdered By: Henry Woods on 07-18-2025 Bacteria identified Cx Nom (U) Positive Abnormal [facility] hCG Titer Quant., Serumon HCG QUANT. 11161 mIU/mL High <9 non-preg [facility] Comment on above: Result Comment: Gest ational Age 0.2-1 Week: 5-50 mIU/mL 1-2 Weeks: 50-500 mIU/mL 2-3 Weeks: 100-5000 mIU/mL 3-4 Weeks: 500-10,000 mIU/mL 4-5 Weeks:1000-50,000 mIU/mL 5-6 Weeks: 10,000-100,000 mIU/mL 6-8 Weeks: 15,000-200,000 mIU/mL 2-3 Months:10,000-100,000 mIU/mL Performed By: #### L 700.8000 ####[facility] [address] [place], [address] Office Visit Reporton 2024 Office Visit Report [facility] [address] [place] [address] OFFICE VISIT Date of Service: 07/04/25 MR#: [id number] Acct: [id number] Patient: NADYA MOORE Rep #: [id number] : 1990 Provider: RAMIREZ Serrato ams Age/Sex: 35/F Location: [facility] Status: Signed Intake Vital Signs 06/11/25 07:26 [...] Cosigner Signature: Date (if applicable) CC: Normal [facility] Rapid group A Streptococcus antigen assay at point of careOrdered By: Kamron Bhakta on 06-11-2025 S. pyogenes Ag IA.rapid Ql (Throat) Negative [facility] Urgent Care Visit Reporton 0 06-11-2025 Urgent Care Visit Report [facility] 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 ???No cvtq-txh-oioclwr products taken to assist. No other associated [...] Acute (2 (more content not included)... Normal [facility] Plastic Surgery Visit Report on 05-16-2025 Plastic Surgery Visit Report [facility] Plastic Reconstructive Surgery [facility] [address] [place], [place] [address] OFFICE VISIT Date of Service: 05/16/25 MR#: [id number] Acct: [id number] Name: NADYA MOORE Rep #: [id number] : 1990 Provider: Dr. Ezequiel Hurtado MD Age/Sex: 34/F Location: [facility] Status: Signed Intake Vital Signs 05/09/25 14:17 [...] specimen is entirely submitted in 1 cassette. [place] 05/12/2025 CPT:50927 _ Electronically Signed by: Dr. Dr. 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 @ [employer] Smoking Status: Never smoker alcohol intake: current alcohol intake frequency: a few times a month substance use type: does not use seatbelt use: always do you feel safe at home: Yes additional social history: -Peter- named account executive Assessment and Plan (No Qualifiers) Assessment and Plan (1) Neoplasm of uncertain behavior of face: Status: Acute Comment: Skin tag (excised April 2025) Plan: Expected course Follow-up as needed 05/16/25 8387 Date Ezequiel Hurtado MD Cosigner Signature: Date (if applicable) CC: Normal [facility] Surgical pathology reportOrd ered By: Laila Bucio on 05-14-2025 Surgical pathology study [facility] Surgery Specimen Level Irina 05-10-2025 Surgery Specimen Level IV Patient Age/Sex Location Account Attending Physician NADYA MOORE 34/F [facility] [id number] Dr. Ezequiel Hurtado MD Specimen: [id number] Received: 05/10/25 Status: ALFREDO Ott Num: [id number] Spec Type: Lesion Subm Dr: Dr. Ezequiel [...] specimen is entirely submitted in 1 cassette. [place] 05/12/2025 CPT:94874 Patient Age/Sex Location Account Attending Physician NADYA MOORE 34/F [facility] [id number] Dr. Ezequiel Hurtado MD Signed (signature on file) Dr. Laila Bucio MD 05/14/25 1334 Normal [facility] Comment on above: Performed By: #### P AALIYAH ####[facility] [address] [place], [address] Plastic Surgery Visit Report on 05-09-2025 Plastic Surgery Visit Report [facility] Plastic Reconstructive Surgery [address], [address] [place] [address] OFFICE VISIT Date of Service: 05/09/25 MR#: [id number] Acct: [id number] Name: NADYA MOORE Rep #: [id number] : 1990 Provider: Dr. 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 smoker alcohol intake: current alcohol intake frequency: a few times a month substance use type: does not use seatbelt use: always do you feel safe at home: Yes additional social history: -Wilbur- named account executive HPI SKIN TAG ON THE L EYE [...] face D48.7 Comment 25 modifier with cpt 29044 Assessment and Plan (No Qualifiers) Assessment and [...] The lesion was sent to pathology CPT: 10465 Plan: Erythromycin ointment to be applied twice daily (ordered) for 3 days Anticipate some swelling and bruising Follow-up in 1 week for wound check and to review the pathology report 05/09/25 1829 Date Ezequiel Deutsch Signature: Date (if applicable) CC: Normal [facility] Office Visit Reporton 2024 Office Visit Report [facility] [address] [place] [address] OFFICE VISIT Date of Service: 11/07/24 MR#: [id number] Acct: [id number] Patient: NADYA MOORE Rep #: [id number] : 1990 Provider: SCOTT Alicia Age/Sex: 34/F Location: [facility] [facility] Status: Signed Intake Vital Signs 11/07/24 06:00 Height 5 ft 3.5 in Intake Visit Reasons: 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/ [facility] Chief Complaint: Annual Allergies amoxicillin Allergy [...] on 11/07/24 06:52 04/10/25 0815 Date Dylan Amadeo PA PA Cosigner Signature: Date (if applicable) CC: Normal [facility] [employer] Office Visit Reporton 02-10-2025 [employer]st [employer] Office Visit Report [facility] [address], [address] [place] [address] OFFICE VISIT Date of Service: 02/10/25 MR#: [id number] Acct: [id number] Name: NADYA MOORE Rep #: [id number] : 1990 Provider: FUENTES osborne Age/Sex: 34/F Location: [facility] Status: Signed Intake Vital Signs 12/27/23 14:46 11/07/24 06:00 02/10/25 15:23 02/10/25 15:27 Height 5 ft 3.5 in 5 ft 3.5 in 5 ft 3.5 in 5 ft 3.5 in Weight: 152 lb 6 oz BMI 26.5 BP 116/74 Intake Visit Reasons: Annual (BAR BACK) Chief Complaint: Annual 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 Is patient in pain?: No Allergies amoxicillin Allergy (Mild, Verified 02/10/25 15:23) Hives Penicillins (PCN) Allergy (Mild, Verified 02/10/25 15:23) Hives Is last menstrual period known: No Post menopausal: No Patient : No : No [facility] Medical History (Updated 02/10/25 @ 15:33 by Mihaela Burton NP, FUENTES) Family history of colon cancer in mother Family history of factor V Leiden mutation Back pain Surgical History S/P wisdom tooth extraction Family History Grandmother Cancer paternal- multiple myeloma Mother Cancer melanoma Social History household members: spouse 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: employed 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 Normal [facility] Fact V Leiden Mutationon FACTOR V LEIDEN Comment Normal . [facility] Comment on above: Result Comment: Gerriu lt: c.1601G>A (p.Kdj959Twl) - Not Detected This result is not associated with an increased risk for venous thromboembolism. See Additional Clinical Information and Comments. Additional Clinical Information: Venous thromboembolism is a multifactorial disease influenced by genetic, environmental, and circumstantial risk factors. The c.1601G>A (p. Nfg977Vvc) variant in the F5 gene, commonly referred [...] c.*97G>A variant and Factor V Leiden (PMID: 65683021). Additional risk factors include but are not [...] health care providers to discuss results at [phone] (6325). Test Details: Variant Analyzed: c.1601G>A (p. Jmf489Lhf), referred to as Factor V Leiden Methods/Limitations: [...] developed and its performance characteristics determined by [employer]. It has not been cleared or approved by the Food and Drug Administration. References: Sidney Oropeza, Donita PIEDRA, Toño R, Daria WW, Berny JH; ACMG Professional Practice and Guidelines Committee. Addendum: [employer] consensus statement on factor V Leiden mutation testing. Tamy Med. 2020Dec 25. doi: 10.1038/r38349-632-76292-d. PMID: 38280355. Barak SYLVESTER. Factor V Leiden Thrombophilia. 1998March 05 (Updated 2017Oct 26). In: Alex MP, Dorian HH, Ricky RA, et al., editors. Sukh(R) (Internet). [place] ([place]): [facility]; 2115-4659. Available from: https://www.ncbi.nlm.nih.gov/books/GYC3336/ Ant Oropeza, Donita PIEDRA, Cliff X, Neri B, Jeni EB, Ariana P, Sherri CS; [employer] Laboratory Grain Unloader Committee. Venous thromboembolism laboratory testing (factor V Leiden and factor II c.*97G>A), 2018 update: a technical standard of the [employer] and Genomics (ACMG). Tamy Med. 2017;20(12):8287-5488. doi: 10.1038/k97311-154-4351-s. Ep2017Jul 27. PMID: 36967858. Performed By: #### L 4500.5000 #### [facility] [address] [place], [place], [address] Reviewed By Comment Normal . [facility] Comment on above: Result Comment: Tech nical Component performed at [facility] Professional Component performed by: [employer] Nickolas Mckeon, Ph.D., [facility] Director, Molecular Genetics [address] [place] [address] [place] [address] Performed at: - [facility] [address] [facility], [facility], [place] [id number] Senior Solutions Engineer: Kimmie Saldaña [facility], Phone: [phone] Performed By: #### L 4500.5000 #### [facility] [address] [place], [place], [address] Clotting factor V Leiden mut ation detectionOrdered By: Jorje Preciado on 12-23-2024 Factor V Leiden Mutation Comment . [facility] Comment on above: Result: c.1601G>A (p .Ugt684Vgb) - Not DetectedThis result is not associated with an increased risk for venousthromboembolism. See Additional Clinical Information andComments.Additional Clinical Information:Venous thromboembolism is a multifactorial diseaseinfluenced by genetic, environmental, and circumstantialrisk factors. The c.1601G>A (p. Hsc641Tlk) variant in theF5 gene, commonly referred to [...] F2 c.*97G>Avariant and Factor V Leiden (PMID: 23827016). Additionalrisk factors include but are not limited [...] for health careproviders to discuss results at [phone] (4312).Test Details:Variant Analyzed: c.1601G>A (p. Qji387Elp), referred toas Factor V LeidenMethods/Limitations:DNA analysis of [...] was developed and its performance characteristicsdetermined by [employer]. It has not been cleared orapproved by the Food and Drug Administration.References:Sidney S, Donita AK, Toño R, Daria WW, Berny JH; ACMGProfessional Practice and Guidelines Committee. Addendum:[employer] consensus statement onfactor V Leiden mutation testing. Tamy Med. 2020Dec 25.doi: 10.1038/r92787-139-49279-f. PMID: 04102971.Barak SYLVESTER. Factor V Leiden Thrombophilia. 1998March 05(Updated 2017Oct 26). In: Alex MP, Dorian HH, Ricky RA,et al., editors. Sukh(R) (Internet). [place] ([place]):[facility]; 2972-4844. Availablefrom: https://www.ncbi.nlm.nih.gov/books/DFQ6380/Ant S, Donita AK, Coronado X, Neri B, Jeni EB, Ariana P,Sherri CS; [facility] Laboratory Grain Unloader Committee.Venous thromboembolism laboratory testing (factor V Leidenand factor II c.*97G>A), 2018 update: a technical standardof the [employer] and Genomics(ACMG). Tamy Med. 2018 Sep;20(12):4035-7539. doi:10.1038/r66889-856-7435-r. Epub 2017Jul 27. PMID: 11074353. Laboratory - Microbiology an d Antimicrobial susceptibilityon 11-07-2024 SARS-CoV-2 (COVID-19) RNA JASON+probe Ql (Unsp spec) Not detected [facility] No Panel Informationon 11-07 POC Nasal Swab Influenza A,B Detected [facility] POC Nasal Swab RSV Not detected [facility] Office Visit Reporton 2024 Office Visit Report [facility] [address] [place] [address] OFFICE VISIT Date of Service: 11/07/24 MR#: [id number] Acct: [id number] Patient: NADYA MOORE Rep #: [id number] : 1990 Provider: SCOTT Alicia Age/Sex: 34/F Location: [facility] Status: Signed Employer Purchased Covid Test Note: Patient here today for Covid Testing, requested by their Employer. Assessment and Plan Assessment and Plan Orders: Orders POC Cepheid Covid, FluAB, RSV Today Medications: New oseltamivir (Tamiflu) 75 mg PO Q12H 10 caps 0RF 5 days 11/07/24 0726 Date Dylan CHAVEZ Cosigner Signature: Date (if applicable) CC: Normal [facility] Urgent Care Visit Reporton 0 11-07-2024 Urgent Care Visit Report [facility] [address], [address] [place] [address] OFFICE VISIT Date of Service: 11/07/24 MR#: [id number] Acct: [id number] Name: NADYA MOORE Rep #: [id number] : 1990 Provider: SCOTT Alicia Age/Sex: 34/F Location: [facility] Status: Signed Intake [...] congestion Chief Complaint: cough, congest, MORRELL, BA 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 Normal [facility] Cervical or vaginal specimen microscopic examination by liquid based cytology (reportOrdered By: Mihaela Burton on 12-27-2023 Cytology report Cyto stain.thin prep Doc (Cvx/Vag) Comment . [facility] Comment on above: Criteria not met, HP V Genotype not performed.Performed at: - [address] [id number] Director: Cristy Luis MD, Phone: [phone] at: = - [facility] [id number] Director: Cristy Luis MD, Phone: [phone] Cervical or vagninal specime n microscopic examination by cytology stain (reported asOrdered By: Mihaela Burton on 12-27-2023 Cytology report Cyto stain Doc (Cvx/Vag) Comment . [facility] Comment on above: The Pap smear [...] DNA Probe+sig amp Ql (Cvx) Negative Negative [facility] Comment on above: This nucleic acid am plification test detects fourteen high- risk HPV types (16,18,31,33,35,39,45,51,52,56,58,59,66,68)without differentiation. Laboratory - CytologyOrdered By: Mihaela Burton on 12-27-2023 Blower Insulator Cyto stain Nom (Cvx/Vag) [ID] Comment . [facility] Comment on above: Lew Concepcion totechnologist (ASCP) Laboratory - Miscellaneous t estsOrdered By: Mihaela Burton on 12-27-2023 Service comment (Unsp spec) [Interp] . . [facility] Thin prep Papanicolaou smear with manual screeningOrdered By: Mihaela Burton on 12-27-2023 Thin prep Papanicolaou smear with manual screening Comment . [facility] Comment on above: NEGATIVE FOR INTRAEP ITHELIAL LESION OR MALIGNANCY. This liquid based Th inPrep(R) pap test was screened withthe use of an image guided system. Absolute lymphocyte counton 07-22-2022 Lymphocytes Auto (Unsp spec) [#/Vol] 2.29 10*3/uL 0.83-4.51 [facility] Work Phone: Absolute reticulocyte counto n 07-22-2022 Reticulocytes (Bld) [#/Vol] 0.00 10*3/uL 0-5 [facility] Work Phone: Basophil percentageon 2021 Basophil percentage 2.7 mg/dL 2.5-4.9 [facility] Work Phone: Bilirubin [Mass/Vol] 0.70 mg/dL 0.20-1.00 [facility] Work Phone: Comment on above: For patients on eltr ombopag therapy, use of Dimension [place] TBIL is not recommended. Chloride [Moles/Vol] 108 mmol/L 98-[address] [facility] Work Phone: Cholesterol [Mass/Vol] 224 mg/dL <200 [facility] Work Phone: Comment on above: <200 mg/dL Desirable 200-240 mg/dL Borderline >240 mg/dL High Risk Glucose [Mass/Vol] 91 mg/dL 74-106 [facility] Work Phone: Neutrophils (Bld) [#/Vol] 5.2 10*3/uL 2.0-7.7 [facility] Work Phone: Potassium [Moles/Vol] 3.7 mmol/L 3.5-5.1 [facility] Work Phone: Protein [Mass/Vol] 7.7 g/dL 6.4-8.2 [facility] Work Phone: Sodium [Moles/Vol] 139 mmol/L 136-145 [facility] Work Phone: Triglyceride [Mass/Vol] 73 mg/dL <199 [facility] Work Phone: Comment on above: The drugs N-Acetylcy steine and Metamizole may falsely depress this assay.Serum Triglycerides Reference Interval Normal <150 mg/dL Borderline high 150 - 199 mg/dL High 200 - 499 mg/dL Very High > or = 500 mg/dL WBC (Bld) [#/Vol] 8.4 10*3/uL 4.4-11.0 [facility] Work Phone: Bilirubin Test strip Ql (U)o n 07-22-2022 Bilirubin Ql (U) Negative Negative [facility] Work Phone: Blood erythrocytes count (nu mber/volume)on 07-22-2022 RBC (Bld) [#/Vol] 4.50 10*6/uL 4.2-5.4 [facility] Work Phone: Blood hemoglobin measurement (mass/volume)on 07-22-2022 Hemoglobin (Bld) [Mass/Vol] 13.0 g/dL 12.0-15.0 [facility] Work Phone: Blood platelet mean volumeon 07-22-2022 Platelet mean volume (Bld) [Entitic vol] 10.6 fL 6.2-12.0 [facility] Work Phone: Determination of erythrocyte mean corpuscular volume (MCV)on 07-22-2022 MCV (RBC) [Entitic vol] 91.3 fL 81-99 [facility] Work Phone: Direct bilirubinon 2 Bilirubin.direct [Mass/Vol] 0.16 mg/dL 0.00-0.30 [facility] Work Phone: Hematocrit Auto (Bld) [Volum e fraction]on 07-22-2022 Hematocrit (Bld) [Volume fraction] 41.1 % 37-47 [facility] Work Phone: Ketones Test strip Ql (U)on 07-22-2022 Ketones Ql (U) Negative Negative [facility] Work Phone: Laboratory - Chemistry and C hemistry - challengeon 07-22-2022 ALP [Catalytic activity/Vol] 62 U/L 45-117 [facility] Work Phone: ALT [Catalytic activity/Vol] 31 U/L 13-56 [facility] Work Phone: Cholesterol.total/Chol esterol in HDL [Mass ratio] 3.00 {ratio} [facility] Work Phone: CO2 [Moles/Vol] 25.0 mmol/L 21.0-32.0 [facility] Work Phone: Globulin (S) [Mass/Vol] 4.4 g/dL 2.2-4.2 [facility] Work Phone: Urea nitrogen/Creatinine [Mass ratio] 11.8 mg/mg 10-20 [facility] Work Phone: Laboratory - Hematology and Cell countson 07-22-2022 Erythrocyte distribution width (RBC) [Entitic vol] 40.2 fL 35.1-43.9 [facility] Work Phone: Erythrocyte distribution width (RBC) [Ratio] 12.0 % 11.6-14.6 [facility] Work Phone: Immature granulocytes/100 WBC (Bld) 0.600 % 0.0-0.9 [facility] Work Phone: Comment on above: IG% - Immature Granu locytes (promyelocytes, myelocytes and metamyelocytes) > 1% indicates that a LEFT SHIFT is Present. MCH (RBC) [Entitic mass] 28.9 pg 27.0-32.0 [facility] Work Phone: Nucleated RBC/100 WBC (Bld) [Ratio] 0 % 0-5 [facility] Work Phone: MCHC Auto (RBC) [Mass/Vol]on 07-22-2022 MCHC (RBC) [Mass/Vol] 31.6 g/dL 32-36 [facility] Work Phone: Nitrite Test strip Ql (U)on 07-22-2022 Nitrite Ql (U) Negative Negative [facility] Work Phone: No Panel Informationon 07-22 Estimated GFR (MDRD) Amer 100 mL/min >60 [facility] Work Phone: Comment on above: GFR Calc Estimated GFR (MDRD) Non-Af Amer 83 mL/min >60 [facility] Work Phone: Comment on above: Non- GFR Calc Platelets bldon 07-22-2022 Platelets (Bld) [#/Vol] See comment 150-450 [facility] Work Phone: Comment on above: Please [...] 07-22-2022 Protein Ql (U) 30 mg/dl Negative [facility] Work Phone: Segmented neutrophils/100 WB C Auto (Bld)on 07-22-2022 Segmented neutrophils/100 WBC (Bld) 62.2 % 47-70 [facility] Work Phone: Serum or plasma albumin emeka urement (mass/volume)on 07-22-2022 Albumin [Mass/Vol] 3.3 g/dL 3.2-5.0 [facility] Work Phone: Serum or plasma albumin/glob ulin mass ratioon 07-22-2022 Albumin/Globulin [Mass ratio] 0.8 {ratio} 0.9-2.4 [facility] Work Phone: Serum or plasma calcium emeka urement (mass/volume)on 07-22-2022 Calcium [Mass/Vol] 9.0 mg/dL 8.5-10.1 [facility] Work Phone: Serum or plasma cholesterol in HDL measurement (mass/volume)on 07-22-2022 Cholesterol in HDL [Mass/Vol] 74 mg/dL >40 [facility] Work Phone: Comment on above: The drugs N-Acetylcy steine and Metamizole may falsely depress this assay. Reference Range HDL <40 mg/dL Low HDL Cholesterol HDL >or= 60 mg/dL High HDL Cholesterol Serum or plasma cholesterol in VLDL measurement (mass/volume)on 07-22-2022 Cholesterol in VLDL [Mass/Vol] 15 mg/dL 5-40 [facility] Work Phone: Serum or plasma creatinine m easurement (mass/volume)on 07-22-2022 Creatinine [Mass/Vol] 0.85 mg/dL 0.55-1.02 [facility] Work Phone: Comment on above: The validity of the calculated GFR & GFRAA in patients over 70 years has not been determined. Clinical correlation is essential. Serum or plasma low density lipoprotein (LDL) cholesterol measurement (mass/volume)on 07-22-2022 Cholesterol in LDL [Mass/Vol] 135 mg/dL 0-130 [facility] Work Phone: Serum or plasma urea nitroge n measurement (mass/volume)on 07-22-2022 Urea nitrogen [Mass/Vol] 10 mg/dL 7-18 [facility] Work Phone: Serum or plasma uric acid me asurement (mass/volume)on 07-22-2022 Urate [Mass/Vol] 4.0 mg/dL 2.6-6.0 [facility] Work Phone: Comment on above: The drugs N-Acetylcy steine and Metamizole may falsely depress this assay. Thin prep Papanicolaou smear with manual screeningon 07-22-2022 Thin prep Papanicolaou smear with manual screening 26 U/L 15-37 [facility] Work Phone: Thin prep Papanicolaou smear with manual screening 6 5-15 [facility] Work Phone: Thin prep Papanicolaou smear with manual screening 252 U/L 84-246 [facility] Work Phone: Urine blood detectionon 06-25 RBC Ql (U) 25 /ul Negative [facility] Work Phone: Urine clarityon 07-22-2022 Clarity (U) Sl. Cloudy Clear [facility] Work Phone: Urine color determinationon 07-22-2022 Color (U) Straw Yellow [facility] Work Phone: Urine glucose detectionon Glucose Ql (U) Normal mg/dl Normal [facility] Work Phone: Urine leukocyte esterase det ection by dipstickon 07-22-2022 Leukocyte esterase Test strip Ql (U) 500 /ul Negative [facility] Work Phone: Urine pHon 07-22-2022 pH (U) 6.0 [pH] 5.0 - 8.0 [facility] Work Phone: Urine specific gravity measu rementon 07-22-2022 Specific gravity (U) [Rel density] 1.015 1.002-1.030 [facility] Work Phone: Urobilinogen Auto test strip Ql (U)on 07-22-2022 Urobilinogen Ql (U) Normal mg/dl Normal [facility] Work Phone: HPVon 05-11-2017 HPV Interp Invalid Interpretation Code [facility] ([place] Comment on above: Order Comment: Order placed by AP_HPV_ORDER rule from [id number] Performed By: #### H PV ####[place] [address] HPV Source Cervix Normal [facility] ([place]) Comment on above: Order Comment: Order placed by AP_HPV_ORDER rule from [id number] Performed By: #### H PV ####[address] [address] Vital Signs Date Time Vital Sign Value Performing Clinician Faci lity 08-15-2025 13:16-0400 Body height 160.[address] Jorje Preciado MD Work Phone: [facility] 08-15-2025 13:16-0400 Body mass index (BMI) [Ratio] 27.7 kg/m2 Dr. Jorje Preciado MD Work Phone: [facility] 08-15-2025 13:16-0400 Body weight 70.[address] Jorje Preciado MD Work Phone: [facility] 08-15-2025 13:16-0400 Diastolic blood pressure 81 mm[Hg] Dr. Jorje Preciado MD Work Phone: [facility] 08-15-2025 13:16-0400 Systolic blood pressure 129 mm[Hg] Dr. Jorje Preciado MD Work Phone: [facility] 08-08-2025 13:07-0400 Body mass index (BMI) [Ratio] 27.6 kg/m2 Dr. Jorje Preciado MD Work Phone: [facility] 08-08-2025 13:07-0400 Body weight 70.[address] Jorje Preciado MD Work Phone: 5(706)887-272288 [place] [address] 08-08-2025 13:07-0400 Diastolic blood pressure 80 mm[Hg] Dr. Jorje Preciado MD Work Phone: 8(107)014-348788 [place] [address] 08-08-2025 13:07-0400 Systolic blood pressure 135 mm[Hg] Dr. Jorje Preciado MD Work Phone: 5(839)463-756688 [place] [address] 07-25-2025 07:56-0400 Body height 160.[address] Jorje Preciado MD Work Phone: 6(269)859-264288 [place] [address] 07-25-2025 07:56-0400 Body mass index (BMI) [Ratio] 27.3 kg/m2 Dr. Jorje Preciado MD Work Phone: 7(082)620-136088 [place] [address] 07-25-2025 07:56-0400 Body weight 69.[address] Jorje Preciado MD Work Phone: 3(792)909-330588 [place] [address] 07-25-2025 07:56-0400 Diastolic blood pressure 68 mm[Hg] Dr. Jorje Preciado MD Work Phone: 8(467)038-033288 [place] [address] 07-25-2025 07:56-0400 Systolic blood pressure 110 mm[Hg] Dr. Jorje Preciado MD Work Phone: 8(003)144-029688 [place] [address] 07-18-2025 08:33-0400 Body height 160.[address] Jorje Preciado MD Work Phone: 9(682)757-141788 [place] [address] 07-18-2025 08:31-0400 Body mass index (BMI) [Ratio] 27.3 kg/m2 Dr. Jorje Preciado MD Work Phone: 2(904)979-116288 [place] [address] 07-18-2025 08:31-0400 Body weight 69.[address] Jorje Preciado MD Work Phone: 3(008)153-072288 [place] [address] 07-18-2025 08:31-0400 Diastolic blood pressure 83 mm[Hg] Dr. Jorje Preciado MD Work Phone: 8(373)639-369988 [place] [address] 07-18-2025 08:31-0400 Systolic blood pressure 132 mm[Hg] Dr. Jorje Preciado MD Work Phone: 0(936)625-531188 [place] [address] 07-04-2025 09:04-0400 Body mass index (BMI) [Ratio] 27.3 kg/m2 Dr. Jorje Preciado MD Work Phone: 4(753)829-004188 [place] [address] 07-04-2025 09:04-0400 Body weight 69.[address] Jorje Preciado MD Work Phone: 2(022)239-146888 [place] [address] 07-04-2025 09:04-0400 Diastolic blood pressure 70 mm[Hg] Dr. Jorje Preciado MD Work Phone: 6(413)179-306388 [place] [address] 07-04-2025 09:04-0400 Systolic blood pressure 98 mm[Hg] Dr. Jorje Preciado MD Work Phone: 3(763)142-573588 [place] [address] 06-11-2025 07:26-0400 Body height 161.[address] Jorje Preciado MD Work Phone: 0(114)223-774288 [place] [address] 06-11-2025 07:26-0400 Body temperature 98.5 [degF] Dr. Jorje Preciado MD Work Phone: 6(527)776-629888 [place] [address] 06-11-2025 07:26-0400 Diastolic blood pressure 76 mm[Hg] Dr. Jorje Preciado MD Work Phone: 0(241)313-693988 [place] [address] 06-11-2025 07:26-0400 Heart rate 99 /min Dr. Jorje Preciado MD Work Phone: 1(658)193-917688 [place] [address] 06-11-2025 07:26-0400 Respiratory rate 12 /min Dr. Jorje Preciado MD Work Phone: 8(439)941-746888 [place] [address] 06-11-2025 07:26-0400 SaO2% (BldA) [Mass fraction] 98 % Dr. Jorje Preciado MD Work Phone: 2(438)526-020088 [place] [address] 06-11-2025 07:26-0400 Systolic blood pressure 104 mm[Hg] Dr. Jorje Preciado MD Work Phone: 6(055)761-950788 [place] [address] 05-16-2025 08:54-0400 Body height 161.29 cm Out [facility] 05-16-2025 08:54-0400 Body temperature 97.9 [degF] Out [facility] 05-16-2025 08:54-0400 Diastolic blood pressure 69 mm[Hg] Out [facility] 05-16-2025 08:54-0400 Heart rate 66 /min Out [facility] 05-16-2025 08:54-0400 Respiratory rate 18 /min Out [facility] 05-16-2025 08:54-0400 SaO2% (BldA) [Mass fraction] 96 % Out [facility] 05-16-2025 08:54-0400 Systolic blood pressure 103 mm[Hg] Out [facility] 05-09-2025 14:17-0400 Body height 161.29 cm Out [facility] 05-09-2025 14:17-0400 Body mass index (BMI) [Ratio] 26.8 kg/m2 Out [facility] 05-09-2025 14:17-0400 Body temperature 97.3 [degF] Out [facility] 05-09-2025 14:17-0400 Body weight 69.85 kg Out [facility] 05-09-2025 14:17-0400 Diastolic blood pressure 76 mm[Hg] Out [facility] 05-09-2025 14:17-0400 Heart rate 54 /min Out [facility] 05-09-2025 14:17-0400 Respiratory rate 18 /min Out [facility] 05-09-2025 14:17-0400 SaO2% (BldA) [Mass fraction] 99 % Out [facility] 05-09-2025 14:17-0400 Systolic blood pressure 127 mm[Hg] Out [facility] 02-10-2025 15:23-0400 Body mass index (BMI) [Ratio] 26.5 kg/m2 Out [facility] 02-10-2025 15:23-0400 Body weight 69.11 kg Out [facility] 02-10-2025 15:23-0400 Diastolic blood pressure 74 mm[Hg] Out [facility] 02-10-2025 15:23-0400 Systolic blood pressure 116 mm[Hg] Out [facility] 11-07-2024 06:00-0500 Body height 161.29 cm Out [facility] 11-07-2024 06:00-0500 Body mass index (BMI) [Ratio] 26.5 kg/m2 Out [facility] 11-07-2024 06:00-0500 Body temperature 98.7 [degF] Out [facility] 11-07-2024 06:00-0500 Body weight 69 kg Out [facility] 11-07-2024 06:00-0500 Diastolic blood pressure 64 mm[Hg] Out [facility] 11-07-2024 06:00-0500 Heart rate 92 /min Out [facility] 11-07-2024 06:00-0500 Respiratory rate 16 /min Out [facility] 11-07-2024 06:00-0500 SaO2% (BldA) [Mass fraction] 98 % Out [facility] 11-07-2024 06:00-0500 Systolic blood pressure 110 mm[Hg] Out [facility] 12-27-2023 14:46-0500 Body height 161.29 cm Out [facility] 12-27-2023 14:46-0500 Body mass index (BMI) [Ratio] 26.6 kg/m2 Out [facility] 12-27-2023 14:46-0500 Body weight 69.45 kg Out [facility] 12-27-2023 14:46-0500 Diastolic blood pressure 72 mm[Hg] [facility] 12-27-2023 14:46-0500 Systolic blood pressure 114 mm[Hg] Out [facility] Encounters Encounter Date Encounter Type Care Provider Facility Start: 08-22-2025 ambulatory Jorje landin:[facility] Start: 08-15-2025 End: 08-15-2025 ambulatory Chijose g Preciado Facility:[facility] Start: 08-15-2025 ambulatory Jorje Preciado Faci lity:[facility] Start: 08-15-2025 End: 08-15-20[facility] Start: 08-08-2025 End: 08-08-[address] Eugenia Paul DO -[facility] Work Phone: Start: 08-08-2025 End: 08-08-[address] Jorje Preciado MD Work Phone: [facility] Start: 08-08-2025 End: 08-08-2025 ambulatory Jorje Preciado Facility:[facility] Start: 07-25-2025 End: 07-25-2025 Patient encounter procedure Caprice Woods CNM -[facility] Work Phone: Start: 07-25-2025 End: 07-25-[address] Jorje Preciado MD Work Phone: [facility] Start: 07-25-2025 End: 07-25-2025 ambulatory Jorje Preciado Facility:[facility] Start: 07-20-2025 End: 07-20-2025 Patient encounter procedure Caprice Woods CNM -Laboratory Work Phone: Start: 07-20-2025 End: 07-20-2025 ambulatory Jorje Preciado Facility:[facility] Start: 07-18-2025 End: 07-18-2025 Patient encounter procedure Caprice Woods CNM -[facility] Work Phone: Start: 07-18-2025 End: 07-18-[address] Jorje Preciado MD Work Phone: [facility] Start: 07-18-2025 End: 07-18-2025 ambulatory Jorje Preciado Facility:[facility] Start: 07-04-2025 End: 07-04-2025 Patient encounter procedure Caprice Woods CNM -[facility] Work Phone: Start: 07-04-2025 End: 07-04-[address] Jorje Preciado MD Work Phone: -[facility] Start: 06-11-2025 End: 06-11-2025 Patient encounter procedure Kamron Bhakta [place] -[facility] Work Phone: Start: 06-11-2025 End: 06-11-[address] Jorje Preciado MD Work Phone: -[employer] Start: 05-16-2025 End: 05-16-[address] Ezequiel Hurtado MD -[facility] Work Phone: Start: 05-16-2025 End: 05-16-2025 ambulatory Out of Town Doctor -[facility] Start: 05-10-2025 End: 05-10-2025 ambulatory Out of Town Doctor -Laboratory Specimen Start: 05-10-2025 End: 05-10-[address] Ezequiel Hurtado MD -Laboratory Specimen Work Phone: Start: 05-09-2025 End: 05-09-[address] Ezequiel Hurtado MD -[facility] Work Phone: Start: 05-09-2025 End: 05-10-2025 ambulatory Out of Town Doctor -[facility] Start: 02-10-2025 End: 02-10-2025 Patient encounter procedure Mihaela DILL -[facility] Work Phone: Start: 02-10-2025 End: 02-10-2025 Patient encounter status Mihaela Burton NP-C [facility] Start: 02-10-2025 End: 02-10-2025 ambulatory Jorje Preciado Facility:[facility] Start: 01-03-2025 Encounter for genera l adult medical examination without abnormal findings [facility] Start: 12-23-2024 End: 12-23-2024 ambulatory Out of Town [facility] Work Phone: Start: 12-23-2024 End: 12-23-[address] Jorje Preciado MD -Laboratory, [place] Work Phone: Start: 12-23-2024 End: 12-23-2024 ambulatory Jorje Preciado Facility:[facility] Start: 11-07-2024 End: 11-07-2024 Patient encounter procedure Dylan Childs PA -[facility] Work Phone: Start: 11-07-2024 End: 11-07-2024 ambulatory Out of Town Doctor Facility:[facility] Start: 12-27-2023 End: 12-27-2023 ambulatory Out of [facility] Doctor [facility] Work Phone: Start: 12-27-2023 End: 12-27-2023 Patient encounter procedure Out [facility]-Laboratory, Specimen Work Phone: Start: 12-27-2023 End: 12-27-2023 Patient encounter procedure Out [facility] Doctor [facility] Work Phone: Start: 07-22-2022 Registered Referred [facility] Start: 04-28-2017 End: 04-29-2017 Ambulatory ADINA MARLOW Facility:[facility] Start: 04-28-2017 End: 04-29-2017 Ambulatory RASHID SWENSON REFERRING Facility:[facility] Procedures Date Procedure Procedure Detail [...] HCV Quant by PCR testing - HCVPCR #[id number] Non Reactive: < 0.8 Equivocal: >/= 0.8 [...] 08-15-2025 Patient encounter procedure Registered Clinical -Lab [facility] Start: 08-15-2025 End: 08-15-2025 Patient encounter procedure Incomplete -[facility] Work Phone: Start: 07-25-2025 CBC W Auto Differential panel - Blood [facility] Start: 07-25-2025 Choriogonadotropin ( test) [Presence] in Serum or Plasma [facility] Start: 07-25-2025 Hepatitis C antibody measurement [facility] Start: 07-25-2025 Rubella IgG measurement [facility] Start: 07-25-2025 Serologic test for syphilis [facility] Start: 07-25-2025 [facility] Start: 07-04-2025 Hepatitis C antibody measurement [facility] Start: 07-04-2025 Rubella IgG measurement [facility] Start: 07-04-2025 Serologic test for syphilis [facility] Start: 07-04-2025 [facility] CBC W Auto Different ial panel - Blood [facility] Choriogonadotropin ( test) [Presence] in Serum or Plasma [facility] Erythrocyte mean cor puscular volume determination [facility] Hematocrit [Volume F raction] of Blood [facility] Hemoglobin [Mass/vol ume] in Blood [facility] Hepatitis B virus aguilar rface Ag [Presence] in Serum [facility] Leukocytes [#/volume ] in Blood [facility] Mean corpuscular hem oglobin concentration determination [facility] Mean corpuscular hem oglobin determination [facility] Neutrophil count [facility] Neutrophil percent differential count [facility] Platelets [#/volume] in Blood [facility] Red blood cell count [facility] Red cell distributio n width determination [facility] Streptococcus pyogen es Ag [Presence] in Throat by Rapid immunoassay [facility] Immunizations Immunization Date Immunization Notes Care Provider Teresa ordaz 08-11-2025 influenza, seasonal, injectable, preservative free Dr. Jorje Preciado MD Work Phone: [facility] 08-01-2024 influenza, seasonal, injectable, preservative free Out [facility] Doctor [facility] 08-02-2023 influenza, injectabl e, quadrivalent, preservative free [facility] Doctor [facility] 08-01-2022 influenza, injectabl e, quadrivalent, preservative free [facility] Doctor [facility] 08-04-2021 influenza, injectabl e, quadrivalent, preservative free Out [facility] Doctor [facility] 08-04-2021 influenza, seasonal, injectable [facility] Work Phone: 12-18-2020 Covid (Moderna) [facility] 11-20-2020 Covid (Moderna) [facility] 08-10-2020 influenza, injectabl e, quadrivalent, preservative free Out [facility] Doctor [facility] 08-10-2020 influenza, seasonal, injectable [facility] Work Phone: 08-07-2019 influenza, injectabl e, quadrivalent, preservative free Out [facility] Doctor [facility] 08-07-2019 influenza, seasonal, injectable [facility] Work Phone: 08-01-2018 influenza, injectabl e, quadrivalent, preservative free Out [facility] Doctor [facility] 08-01-2018 influenza, seasonal, injectable [facility] Work Phone: Payers Date Payer Category Payer Self-pay [id number] 2023 Unknown [id number] 2016 Unknown [id number] Unknown [id number] Unknown [facility] [id number] Unknown [id number] 2.16.8 40.1.043308.3.579.2.462 Unknown [id number] 2.16.8 40.1.302137.3.579.2.462 Unknown [id number] 2.16.8 40.1.147675.3.579.2.462 Unknown [id number] 2.16.8 40.1.923543.3.579.2.462 Unknown [id number] 2.16.8 40.1.330781.3.579.2.462 Unknown [id number] 2.16.8 40.1.599426.3.579.2.462 Unknown [id number] 2.16.8 40.1.978322.3.579.2.462 Unknown [id number] 2.16.8 40.1.477273.3.579.2.462 Unknown [id number] 2.16.8 40.1.983020.3.579.2.462 Unknown [id number] 2.16.8 40.1.228944.3.579.2.462 Unknown [id number] 2.16.8 40.1.134651.3.579.2.462 Unknown [id number] 2.16.8 40.1.493066.3.579.2.462 Unknown [id number] 2.16.8 40.1.618216.3.579.2.462 Unknown [id number] 2.16.8 40.1.313704.3.579.2.462 Unknown [id number] 2.16.8 40.1.195414.3.579.2.462 Unknown [id number] 2.16.8 40.1.550112.3.579.2.462 Unknown [id number] 2.16.8 40.1.151802.3.579.2.462 Unknown [id number] 2.16.8 40.1.700297.3.579.2.462 Unknown [id number] 2.16.8 40.1.093944.3.579.2.462 Unknown [id number] 2.16.8 40.1.290931.3.579.2.462 Social History Date Type Detail [facility] Work Phone: Start: 1990 Sex Assigned At Female [facility] Start: 12-27-2023 Tobacco smoking stat [facility] Unknown if ever smoked [facility] Start: 11-07-2024 End: 07-18-2025 Tobacco smoking status NHIS Never smoked tobacco (finding) [facility] Start: 01-03-2025 Sex Female (finding) [facility] Sex [facility] Clinical Notes 12-27-2023 to 08-08-2025 Note Date & Type Note Facility 08-08-2025 Progress note [facility] 07-25-2025 Progress note [facility] 07-18-2025 Progress note [facility] 05-09-2025 Evaluation note Diagnosis Onset Date Resolution 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, 2025 2:04pm 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 16, 2025 8:48am [facility] Work Phone: 1(166) 302-358307-18-2025 Evaluation note* Diagnosis Onset Date Resolution Status Admit Date 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 May 09, 2025 2:04pm 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 May 16, 2025 8:48am [facility] Work Phone: 1(201) 570-761507-18-2025 Evaluation note* Diagnosis Onset Date Resolution Status Admit Date 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 May 09, 2025 2:04pm 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 May 16, 2025 8:48am acute June 8:17am Supervision of normal acute July 18, 2025 8:17am Threatened acute Septe 2024 8:17am [facility] [employer] [facility] Work Phone: 1(326) 331-159407-18-2025 Evaluation note* Diagnosis Onset Date Resolution Status Admit Date 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 May 09, 2025 2:04pm 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 May 16, 2025 8:48am acute June 8:17am Supervision of normal acute July 18, 2025 8:17am Threatened acute Septe mb2024 8:17am 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, 2025 7:51am acute July 25, 025 7:51am Supervision of normal acute July 25 7:51am Threatened acute Octob 2024 7:51am [facility] Work Phone: 1(337) 106-420707-18-2025 Evaluation note* Diagnosis Onset Date Resolution Status Admit Date 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 May 09, 2025 2:04pm 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 May 16, 2025 8:48am acute June 8:17am Supervision of normal acute July 18, 2025 8:17am Threatened acute 2024 8:17am 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, 2025 7:51am acute July 25, 025 7:51am Supervision of normal acute July 25 7:51am Threatened acute Octob er 2024 7:51am Bicornate uterus acute August 08, 2025 12:57pm Incomplete acute Octob er 2024 12:57pm Incomplete acute Octob er 2024 1:11pm [facility] Work Phone: 1(636) 188-542504-21-2025 Evaluation note* Diagnosis Onset Date Resolution Status Admit Date Encounter for routine gynecological examination noneactive February 10, 2025 3:22pm [facility] Work Phone: 1(582) 459-889504-21-2025 Evaluation note* Diagnosis Onset Date Resolution Status Admit Date Encounter for routine gynecological examination noneactive February 10, 2025 3:22pm 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 Endocervical and/or squamous metaplasticcells (endocervical component)are present.[facility] A#[id number] Memorial HospitalComment on above:Satisfactory for evaluation. Endocervical and/or squamous metaplasticcells (endocervical component)are present.Evaluation noteNo assessment information availableWCommunity Memorial Hospital Work Phone: Progress note Author Caprice Woods [facility] Note Date/Time July 18, 2025 9:05am [facility] [address], [address] [place] [address] OFFICE VISIT Date of Service: 07/18/25 MR#: [id number] Acct: [id number] Name: NADYA MOORE Rep #: [id number] : 1990 Provider: RAMIREZ Woods Age/Sex: 35/F Location: [facility] Status: Signed Intake Vital Signs 06/11/25 07:26 07/04/25 09:04 07/18/25 08:31 07/18/25 08:33 Height 5 ft 3.5 in 5 ft 3 in 5 ft 3 in 5 ft 3 in Weight: 154 lb 2 oz BMI 27.3 BP 132/83 H Intake Visit Reasons: *EST* NOB LMP 05/15, EAMON 02/19 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 Is patient in pain?: No Allergies amoxicillin Allergy (Mild, Verified 07/18/25 08:30) Hives Penicillins (PCN) Allergy (Mild, Verified 07/18/25 08:30) Hives Medications ?Medication ?Instructions ?Recorded ?Confirmed ?Type echinacea 125 mg capsule 125 mg PO QDAY 06/11/25 09/2 04/16 History multivitamin 1 tab PO QDAY 06/11/2507/18 [...] occupational status: employed 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 exposures/hazards: No pets and [...] 3-4 times per week duration: 30-45 minutes/day dago/adventism: Jew seatbelt use: always do you feel safe at home: Yes additional social history: : Wilbur Willoughby @ [employer] History 1 Elective abortions 0 Hx Para [...] (Rh) Sensitized, Pulmonary (e.g.,TB,Asthma), Seasonal allergies, Breast, Flight Service Agent surgery, Anesthetic complications, History of abnormal pap, [...] and Symptoms of Preeclampsia, Feeding Yes , Education and Family Medical Leave or [...] Cosigner Signature: Date (if applicable) CC: ~ [facility] Work Phone: Progress note Author Caprice Woods [facility] Note Date/Time July 25, 2025 8: 35am [facility] [address] [place] [address], [address] [place] [address] OFFICE VISIT Date of Service: 07/25/25 MR#: [id number] Acct: [id number] Name: NADYA MOORE Rep #: [id number] : 1990 Provider: RAMIREZ Woods Age/Sex: 35/F Location: [facility] Status: Signed Intake Vital Signs 07/18/25 08:33 07/25/25 07:56 Height 5 ft 3 in 5 ft 3 in Weight: 154 lb 1 oz BMI 27.3 BP 110/68 Intake Visit Reasons: rescan *kw 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 Is patient in pain?: No [...] occupational status: employed 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 exposures/hazards: No pets and [...] 3-4 times per week duration: 30-45 minutes/day dago/adventism: Jew seatbelt use: always do you feel safe [...] Symptoms of Preeclampsia, Infant Feeding No , Education and Family Medical [...] fallen in the past year?: No 07/25/25 0865 <Electronically signed by Caprice Bill s CNM> Date _ Caprice Woods CNM Cosigner Signature: Date (if applicable) CC: ~ [facility] Work Phone: Progress note Author Eugenia Salas [facility] Note Date/Time August 08, 2025 1 :36pm [facility] [address], [address] [place] [address] OFFICE VISIT Date of Service: 08/08/25 MR#: [id number] Acct: [id number] Name: NADYA MOORE Rep #: [id number] : 1990 Provider: Dr. 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 (BAR BACK) Chief Complaint Admit Date cough, congestion November 07, 2024 6 :08am 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/ [facility] November 07, 2024 6 :16am [employer] December 23, 2024 4:44 pm Reason for Visit Admit Date Influenza due to influenza virus, type A , human November 07, 2024 6:08am Chief Complaint Admit Date Annual (BAR BACK) February 10, 2025 3:2 2pm SKIN TAG ON THE L EYE LID May 09 2:04pm Reason for Visit Admit Date Encounter for routine gynecological exam ination February 10, 2025 3:22pm Chief Complaint Admit Date Annual (BAR BACK) February 10, 2025 3:2 2pm SKIN TAG ON THE L EYE LID May 09 2:04pm LEFT LOWER EYELID EXCISION SKIN TAG May 10, 2025 8:29am Reason for Visit Admit Date Encounter for routine gynecological exam ination February 10, 2025 3:22pm Neoplasm of uncertain behavior of face J david 2024 2:04pm Chief Complaint Admit Date Annual (BAR BACK) February 10, 2025 3:2 2pm SKIN TAG [...] July 18, 2025 8:17am [facility] 8:17[facility] Threatened July 18, 2025 8:17am Chief [...] Neoplasm of uncertain behavior of face J 2024 2:04pm Neoplasm of uncertain behavior of face J david 2024 8:48am July 18, 2025 8:17am Supervision of normal [facility] 2024 8:17am Threatened July 18, 2025 8:17am [...] Neoplasm of uncertain behavior of face J 2024 8:48am July 18, 2025 8:17am Supervision [...] section and content) DATE CREATED AUTHOR 04/18/2018 [facility] ([place]) DATE CREATED AUTHOR AUTHOR'S ORGANIZ ATION 04/18/2018 [facility] DATE CREATED AUTHOR AUTHOR'S ORGANIZ ATION 08/23/2025 [facility] Goals (unrecognized section and content) Type Care Experience Labor Preferences-CB /BF classes: []labor support person: []labor intervention preferences: []pain management options preferred: []cut cord/dad catch: []: []PP control planned: []discussed possible routes of delivery and associated risks: []special requests: [] Care Teams (unrecognized sec tion and content) Team Status: Active Member Role Status Dates Out of [facility] Doctor Primary Care Provider Active Team Status: Inactive Member Role Status Dates Out of [facility] Doctor Primary Care Provider, Referring Pr ovider Active Mihaela Burton BELLOWS ASSEMBLER, BELLOWS ASSEMBLER-C Attending Provider Active Team Status: Inactive Member Role Status Dates Out of [facility] Doctor Primary Care Provider Active Mihaela Burton NP BELLOWS ASSEMBLER-C Attending Provider Active Team Status: Active Member Role Status Dates Dr. Jorje Preciado MD Primary Care Provider Acti ve Team Status: Inactive Member Role Status Dates Out of [facility] Doctor Primary Care Provider Active Start: November 07, 2024 End: November 07, 2024 Out of [facility] Doctor Referring Provider Active Sta rt: November 07, 2024 End: November 07, 2024 Dylan CHAVEZ, PA Attending Provider Active Sta rt: November [...] Inactive Member Role/Relationship Status Dates Out of [facility] Doctor Referring Provider Active Sta rt: February 10, 2025 End: February 10, 2025 Mihaela Burton BELLOWS ASSEMBLER, BELLOWS ASSEMBLER-C Attending Provider Active Start: February 10, 2025 [...] Inactive Member Role/Relationship Status Dates Dr. Jorje Precidao MD Primary Care Provider Acti ve Start: [...] 11, 2025 End: June 11, 2025 Kamron CHAVEZ, PA Attending Provider Active Start: June 11, [...] 11, 2025 End: June 11, 2025 Kamron Bhakta PA, PA Attending physician Active Start: June 11, 2025 [...] 2025 End: August 08, 2025 Dr. Eugenia Pual DO Attending physician Acti ve Start: August [...] BE BASED ON THE PRIMARY CLINICAL RECORDS. [employer] provides no warranty or guarantee of the accuracy or completeness of information in this document.
[2025-08-29 13:05] LABS: hCG Titer Quant., Serum 79 mIU/mL (<9 non-preg)
== END | disposition home or self-care (01) ==
PROVIDERS: Obstetrics & Gynecology; PCP Family Medicine; Visit Provider Obstetrics & Gynecology
DX: O03.4 Incomplete spontaneous abortion without complication (principal)
CPT/HCPCS: 36415; 84702

== ENCOUNTER → 2025-09-05 | Outpatient (CLI) | payer OTHER, SELFPAY ==
[2025-09-05 13:14] LABS: hCG Titer Quant., Serum 28 mIU/mL (<9 non-preg)
== END | disposition home or self-care (01) ==
LOC: BWCLAB 08:08
PROVIDERS: Obstetrics & Gynecology; PCP Family Medicine; Visit Provider Obstetrics & Gynecology
DX: O03.4 Incomplete spontaneous abortion without complication (principal)
CPT/HCPCS: 36415; 84702

== ENCOUNTER → 2025-09-15 | Outpatient (CLI) | payer OTHER, SELFPAY ==
[2025-09-15 10:11] LABS: hCG Titer Quant., Serum 10 mIU/mL (<9 non-preg)
--- OUTSIDE RECORDS SUMMARY | 2025-09-15 10:29 | XMS RPT_ITS | CCD ---
Author Organization [facility] Care Team Providers Care Food And Beverage Service Manager Name Role Phone ADINA MARLOW Unavailable Unavailable ADINA MARLOW Unavailable Unavailable PHYSICIAN, NONE Unavailable Unavailable REFERRING, PHY WO ID Unavailable Unavailable ADINA MARLOW Unavailable Unavailable PHYSICIAN, NONE Unavailable Unavailable [facility] Doctor, Out of Primary Care Provider [facility] Doctor, Out of Referring Provider Unavailab sarai Burton INSULATION CUTTER AND FORMER, INSULATION CUTTER AND FORMER-C Mihaela Attending Provider [facility] Doctor, Out of Primary Care Provider [facility] Doctor, Out of Referring Provider Unavailab Dylan Al Attending Provider Dr. Jorje Preciado MD Primary Care Provider Dr. Jorje Preciado MD Attending Provider [phone] Dr. Jorje Preciado MD Referring Provider [phone] [facility] Doctor, Out of Referring Provider Unavailab [...] Attending Physician [phone] Kamron Chapa Attending Physician [phone] Caprice Woods CNM Attending Physician Dr. Eugenia Paul DO Attending Physician Ranney, Christopher Primary Care Unavailable Caprice Woods Attending Unavailable Ranney, Christopher Primary Care Unavailable Caprice Woods Attending Unavailable Ranney, Christopher Primary Care Unavailable Caprice Woods Attending Unavailable Ranney, Christopher Primary Care Unavailable Ranney, Christopher Referring Unavailable Kamron Chapa Attending Unavailable Ranney, Christopher Primary Care Unavailable Ranney, Christopher Referring Unavailable Caprice Woods Attending Unavailable Ranney, Christopher Primary Care Unavailable Ezequiel Hurtado Referring Unavailable Ezequiel Hurtado Attending Unavailable Ranney, Christopher Primary Care Unavailable Vande Eugenia Salas Attending Unavailabl e Ranney, Christzachary Attending Unavailable Ranney, Christopher Primary Care Unavailable Ranney, Christopher Referring Unavailable Ranney, Christopher Primary Care Unavailable Ranney, Christopher Referring Unavailable Caprice Woods Attending Unavailable Dylan Nagel Attending Unavailable Town Doctor, Out of Referring Unavailable [facility] Doctor, Out of Primary Care Unavailable Ranney, Christopher Primary Care Unavailable Eugenia Paul Attending Unavailabl e Ranney, Christopher Primary Care Unavailable Miley Corral Attending Unavailable Ranney, Christopher Primary Care Unavailable Vande Eugenia Salas Attending Unavailabl e Ranney, Christopher Primary Care Unavailable Ranney, Christopher Referring Unavailable Caprice Woods Attending Unavailable Ranney, Christopher Primary Care Unavailable Ranney, Christopher Referring Unavailable Vande Eugenia Salas Attending Unavailabl e Ranney, Christopher Primary Care Unavailable Mihaela Burton NP Attending Unavailable Town Doctor, Out of Referring Unavailable Ranney, Christopher Primary Care Unavailable Ranney, Christopher Referring Unavailable Ezequiel Hurtado Attending Unavailable Vande Eugenia Salas Attending Unavailabl e Ranney, Christopher Primary Care Unavailable Ranney, Christopher Referring Unavailable Dylan Nagel Attending Unavailable Town Doctor, Out of Referring Unavailable [place] Doctor, Out of Primary Care Unavailable Ranney, Christopher Primary Care Unavailable Ranney, Christopher Referring Unavailable Vande Eugenia Salas Attending Unavailabl e Ranney, Christopher Primary Care Unavailable Jorje Preciado Referring Unavailable Ezequiel Hurtado Attending Unavailable Allergies Allergy Classification Reported Allergen(s) Allergy Type Date of Onset Reaction(s) Facility (10 sources) Amoxicillin Drug Allergy 12-27-2023 [facility] (9 sources) Penicillins Allergy to substance 11-07-2024 [facility] (1 source) Amoxicillin Drug Allergy 08-15-2025 [facility] (1 source) Penicillins Drug allergy (disorder) 08-15-2025 [facility] Rep[facility] Medications Current Medications Medication Drug Class(es) Dates Sig (Normalized) Sig (Original) Echinacea 125 mg capsule (5 sources) Start: 06-11-2025 take 1 capsule by mouth once daily Start: 06-11-2025 take 1 capsule by mo uth once daily Echinacea 125 mg capsule Active [...] {tbl} PO daily June 11, 2025 12:00am Justin (Nk) (1 source) Start: 05-16-2025 Justin (Nk) A ctive May 16, 2025 12:00am [...] Comment on above: d/t degenerative dis c, 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 79 mIU/mL High <9 [facility] Comment on above: Result Comment: Gest ational Age 0.2-1 Week: 5-50 mIU/mL 1-2 Weeks: 50-500 mIU/mL 2-3 Weeks: 100-5000 mIU/mL 3-4 Weeks: 500-10,000 mIU/mL 4-5 Weeks:1000-50,000 mIU/mL 5-6 Weeks: 10,000-100,000 mIU/mL 6-8 Weeks: 15,000-200,000 mIU/mL 2-3 Months:10,000-100,000 mIU/mL Performed By: #### L 700.8000 #### [facility] Laboratory [facility] [place], [address] hCG Titer Quant., Serumon HCG QUANT. 322 mIU/mL High <9 [facility] Comment on above: Result Comment: Gest ational Age 0.2-1 Week: 5-50 mIU/mL 1-2 Weeks: 50-500 mIU/mL 2-3 Weeks: 100-5000 mIU/mL 3-4 Weeks: 500-10,000 mIU/mL 4-5 Weeks:1000-50,000 mIU/mL 5-6 Weeks: 10,000-100,000 mIU/mL 6-8 Weeks: 15,000-200,000 mIU/mL 2-3 Months:10,000-100,000 mIU/mL Performed By: #### L 700.8000 ####[facility] [address] [place], [place], [id number] Real Estate Specialist Office Visit Reporton 08-15-2025 Real Estate Specialist Office Visit Report [facility] [place] [address], [address] [place] [address] OFFICE VISIT Date of Service: 08/15/25 MR#: [id number] Acct: [id number] Name: NADYA MOORE Rep #: [id number] : 1990 Provider: Dr. 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 exposures/hazards: No pets and [...] 3-4 times per week duration: 30-45 minutes/day dago/zoroastrian: Anabaptism seatbelt use: always do you feel safe at home: Yes additional social history: : Wilbur Willoughby @ [employer] HPI Rescan, miscarriage FU Details: NADYA MOORE [...] 4RF 08/15/25 1406 Date Eugenia Paul DO [facility] Signature: Date (if applicable) CC: Normal [facility] Serum human chorionic gonado tropin detection for pregnancyOrdered By: Eugenia Salas on 08-15-2025 HCG ( test) Ql 2069 mIU/mL High <9 [facility] Comment on above: Gestational Age0.2-1 Week: 5-50 mIU/mL1-2 Weeks: 50-500 mIU/mL2-3 Weeks: 100-5000 mIU/mL3-4 Weeks: 500-10,000 mIU/mL4-5 Weeks:1000-50,000 mIU/mL5-6 Weeks: 10,000-100,000 mIU/mL6-8 Weeks: 15,000-200,000 mIU/mL2-3 Months:10,000-100,000 mIU/mL hCG Titer Quant., Serumon HCG QUANT. 2069 mIU/mL High <9 non-preg [facility] Comment on above: Result Comment: Gest ational Age 0.2-1 Week: 5-50 mIU/mL 1-2 Weeks: 50-500 mIU/mL 2-3 Weeks: 100-5000 mIU/mL 3-4 Weeks: 500-10,000 mIU/mL 4-5 Weeks:1000-50,000 mIU/mL 5-6 Weeks: 10,000-100,000 mIU/mL 6-8 Weeks: 15,000-200,000 mIU/mL 2-3 Months:10,000-100,000 mIU/mL Performed By: #### L 700.8000 ####[facility] [address] [place], [address] Real Estate Specialist Office Visit Reporton 08-08-2025 Real Estate Specialist Office Visit Report [facility] [place] [address], [address] [place] [address] OFFICE VISIT Date of Service: 08/08/25 MR#: [id number] Acct: [id number] Name: NADYA MOORE Rep #: [id number] : 1990 Provider: Dr. 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 HCG on Sept 4 07/25/25 -???-???-???-???-???-???- ???-???-???-???-???-???- 6w 6d 154 lb 1 oz (+1 oz) 110/68 Negative -???-???-???-???-???-???- ???-? (more content not included)... Normal [facility] Serum human chorionic gonado tropin detection for pregnancyOrdered By: Eugenia Salas on 08-08-2025 HCG ( [place]) [place] [address] mIU/mL High <9 [facility] Comment on above: Gestational Age0.2-1 Week: 5-50 mIU/mL1-2 Weeks: 50-500 mIU/mL2-3 Weeks: 100-5000 mIU/mL3-4 Weeks: 500-10,000 mIU/mL4-5 Weeks:1000-50,000 mIU/mL5-6 Weeks: 10,000-100,000 mIU/mL6-8 Weeks: 15,000-200,000 mIU/mL2-3 Months:10,000-100,000 mIU/mL hCG Titer Quant., Serumon HCG QUANT. 30900 mIU/mL High <9 non-preg [facility] Comment on above: Result Comment: Gest ational Age 0.2-1 Week: 5-50 mIU/mL 1-2 Weeks: 50-500 mIU/mL 2-3 Weeks: 100-5000 mIU/mL 3-4 Weeks: 500-10,000 mIU/mL 4-5 Weeks:1000-50,000 mIU/mL 5-6 Weeks: 10,000-100,000 mIU/mL 6-8 Weeks: 15,000-200,000 mIU/mL 2-3 Months:10,000-100,000 mIU/mL Performed By: #### L 700.8089 ####[facility] [address] [place], [address] Absolute lymphocyte countOrd ered By: Caprice Woods on 07-25-2025 Lymphocytes Auto (Unsp spec) [#/Vol] 2.19 10*3/uL 0.83-4.51 [facility] Absolute neutrophil countOrd ered By: Caprice Woods on 07-25-2025 Neutrophils (Bld) [#/Vol] 4.3 10*3/uL 2.0-7.7 [facility] Automated lymphocyte count a s percentage of total leukocytesOrdered By: Caprice Woods on 07-25-2025 Lymphocytes/100 WBC Auto (Unsp spec) 30.2 % 19-41 [facility] Basophil percentageOrdered B y: Caprice Woods on 07-25-2025 Basophils/100 WBC (Bld) 0.7 % 0-1 [facility] CBC W/Diff, Automatedon Absolute Lymph 2.19 X10 3/uL Normal 0.83-4.51 [facility] Comment on above: Performed By: #### L 509.8002, L3890.6006, L3890.6301, L509.4006, L3890.6102, BTS, L100.0100, L700.8000 #### [facility] Laboratory [address] [place], [address] Absolute Neut 4.3 X10 3/uL Normal 2.0-7.7 [facility] Comment on above: Performed By: #### L 509.8002, L3890.6006, L3890.6301, L509.4006, L3890.6102, BTS, L100.0100, L700.8000 #### [facility] [address] [place], [address] Basophils/100 WBC (Bld) 0.7 % Normal 0-1 [facility] Comment on above: Performed By: #### L 509.8002, L3890.6006, L3890.6301, L509.4006, L3890.6102, BTS, L100.0100, L700.8000 #### [facility] [address] [place], [address] Eosinophils/100 WBC (Bld) 2.2 % Normal 0-5 [facility] Comment on above: Performed By: #### L 509.8002, L3890.6006, L3890.6301, L509.4006, L3890.6102, BTS, L100.0100, L700.8000 #### [facility] [address] [place], [address] Erythrocyte distribution width (RBC) [Ratio] 12.2 % Normal 11.6-14.6 [facility] Comment on above: Performed By: #### L 509.8002, L3890.6006, L3890.6301, L509.4006, L3890.6102, BTS, L100.0100, L700.8000 #### [facility] [address] [place], [address] Hematocrit (Bld) [Volume fraction] 41.5 % Normal 37-47 [facility] Comment on above: Performed By: #### L 509.8002, L3890.6006, L3890.6301, L509.4006, L3890.6102, BTS, L100.0100, L700.8000 #### [facility] [address] [place], [address] Hemoglobin (Bld) [Mass/Vol] 13.8 g/dL Normal 12.0-15.0 [facility] Comment on above: Performed By: #### L 509.8002, L3890.6006, L3890.6301, L509.4006, L3890.6102, BTS, L100.0100, L700.8000 #### [facility] [address] [place], [address] IG% 0.300 Normal 0.0-0.9 [facility] Comment on above: Result Comment: IG% - Immature Granulocytes (promyelocytes, myelocytes and metamyelocytes) > 1% indicates that a LEFT SHIFT is Present. Performed By: #### L 509.8002, L3890.6006, L3890.6301, L509.4006, L3890.6102, BTS, L100.0100, L700.8000 #### [facility] [address] [place], [address] Lymphocytes/100 WBC (Bld) 30.2 % Normal 19-41 [facility] Comment on above: Performed By: #### L 509.8002, L3890.6006, L3890.6301, L509.4006, L3890.6102, BTS, L100.0100, L700.8000 #### [facility] [address] [place], [address] MCH (RBC) [Entitic mass] 29.7 pg Normal 27.0-32.0 [facility] Comment on above: Performed By: #### L 509.8002, L3890.6006, L3890.6301, L509.4006, L3890.6102, BTS, L100.0100, L700.8000 #### [facility] [address] [place], [address] MCHC (RBC) [Mass/Vol] 33.3 g/dL Normal 32-36 [facility] Comment on above: Performed By: #### L 509.8002, L3890.6006, L3890.6301, L509.4006, L3890.6102, BTS, L100.0100, L700.8000 #### [facility] [address] [place], [address] MCV (RBC) [Entitic vol] 89.2 fL Normal 81-99 [facility] Comment on above: Performed By: #### L 509.8002, L3890.6006, L3890.6301, L509.4006, L3890.6102, BTS, L100.0100, L700.8000 #### [facility] [address] [place], [address] Monocytes/100 WBC (Bld) 7.4 % Normal 0-10 [facility] Comment on above: Performed By: #### L 509.8002, L3890.6006, L3890.6301, L509.4006, L3890.6102, BTS, L100.0100, L700.8000 #### [facility] [address] [place], [address] Neutrophils/100 WBC (Bld) 59.2 % Normal 47-70 [facility] Comment on above: Performed By: #### L 509.8002, L3890.6006, L3890.6301, L509.4006, L3890.6102, BTS, L100.0100, L700.8000 #### [facility] [address] [place], [address] Nucleated RBC (Bld) [#/Vol] 0 10*3/uL Normal 0-5 [facility] Comment on above: Performed By: #### L 509.8002, L3890.6006, L3890.6301, L509.4006, L3890.6102, BTS, L100.0100, L700.8000 #### [facility] [address] [place], [address] Platelet mean volume (Bld) [Entitic vol] 11.0 fL Normal 6.2-12.0 [facility] Comment on above: Performed By: #### L 509.8002, L3890.6006, L3890.6301, L509.4006, L3890.6102, BTS, L100.0100, L700.8000 #### [facility] [address] [place], [address] Platelets (Bld) [#/Vol] 386 10*3/uL Normal 150-450 [facility] Comment on above: Performed By: #### L 509.8002, L3890.6006, L3890.6301, L509.4006, L3890.6102, BTS, L100.0100, L700.8000 #### [facility] [address] [place], [address] RBC (Bld) [#/Vol] 4.65 10*6/uL Normal 4.2-5.4 [facility] Comment on above: Performed By: #### L 509.8002, L3890.6006, L3890.6301, L509.4006, L3890.6102, BTS, L100.0100, L700.8000 #### [facility] [address] [place], [address] RDW SD 39.8 fl Normal 35.1-43.9 [facility] Comment on above: Performed By: #### L 509.8002, L3890.6006, L3890.6301, L509.4006, L3890.6102, BTS, L100.0100, L700.8000 #### [facility] [address] [place], [address] WBC (Bld) [#/Vol] 7.3 10*3/uL Normal 4.4-11.0 [facility] Comment on above: Performed By: #### L 509.8002, L3890.6006, L3890.6301, L509.4006, L3890.6102, BTS, L100.0100, L700.8000 #### [facility] [address] [place], [address] Eosinophil percentageOrdered By: Caprice Woods on 07-25-2025 Eosinophils/100 WBC (Bld) 2.2 % 0-5 [facility] Erythrocyte distribution wid th ratioOrdered By: Caprice Woods on 07-25-2025 Erythrocyte distribution width (RBC) [Ratio] 12.2 % 11.6-14.6 [facility] Erythrocyte distribution wid th standard deviationOrdered By: Caprice Woods on 07-25-2025 Erythrocyte distribution width (RBC) [Ratio] 39.8 fl 35.1-43.9 [facility] HIVon 07-25-2025 HIV Non-Reactive Normal Nonreactive [facility] Comment on above: Result Comment: Non- Reactive Reactive Repeatedly reactive samples must be confirmed according to CDC recommended confirmatory algorithms. The subresults for either HIVAG or AHIV can be used as an aid in the selection of the confirmation algorithm for reactive samples. Send out specimens with Reactive results to [facility] for confirmation. Order the HIV antibody detection and differentiation: lc#[id number] Performed By: #### L 509.8002, L3890.6006, L3890.6301, L509.4006, L3890.6102, BTS, L100.0100, L700.8000 ####[facility] [address] [place], [place], [id number] Hematocrit Auto (Bld) [Volum e fraction]Ordered By: Caprice Woods on 07-25-2025 Hematocrit (Bld) [Volume fraction] 41.5 % 37-47 [facility] Hemoglobin measurementOrdere d By: Caprice Woods on 07-25-2025 Hemoglobin (Bld) [Mass/Vol] 13.8 g/dL 12.0-15.0 [facility] Hepatitis C Antibodyon 07-25 Hepatitis C Ab Non-Reactive Normal Nonreactive [facility] Comment on above: Result Comment: Reac tive: Presumptive evidence of antibodies to HCV. Follow CDC recommendations for supplemental testing. Non-Reactive: Antibodies to HCV were not detected; does not exclude the possibility of exposure to HCV Reactive Results are presumptive evidence of antibodies to HCV. Follow CDC recommendations for supplemental testing. Order confirmation testing: HCV Quant by PCR testing - HCVPCR #[id number] Non Reactive: < 0.8 Equivocal: >/= 0.8 to < 1.0 Reactive: >/= 1.0 The CDC requires that a reactive/equivocal HCV antibody result be sent out for confirmation. HCV Quant by PCR testing. Performed By: #### L 509.8002, L3890.6006, L3890.6301, L509.4006, L3890.6102, BTS, L100.0100, L700.8000 ####[facility] [address] [place], [place], [id number] Immature granulocytes/100 WB C Auto (Bld)Ordered By: Caprice Woods on 07-25-2025 Immature granulocytes/100 WBC (Bld) 0.300 % 0.0-0.9 [facility] Comment on above: IG% - Immature Granu locytes (promyelocytes, myelocytes and metamyelocytes) > 1% indicates that a LEFT SHIFT is Present. L3890.6102on 07-25-2025 HEP B Surf Ag Non-Reactive Normal Nonreactive [facility] Comment on above: Result Comment: Reac tive: Presumptive evidence of HBV. Repeatedly reactive samples must be confirmed using a neutralization test ([employer] HBsAg Confirmatory Test) Non-Reactive: HBsAg not detected; does not exclude the possibility of exposure to HBV Performed By: #### L 509.8002, L3890.6006, L3890.6301, L509.4006, L3890.6102, BTS, L100.0100, L700.8000 ####[facility] [address] [facility] [place], [place], [address] L509.4006on 07-25-2025 Rubella IgG REAC Normal Nonreactive [facility] Comment on above: Result Comment: Anti body Result: Interpretation Non-Reactive: Non-Immune Reactive: Immune The following results were obtained with the [employer] Rubella IgG assay. Results from assays of other manufacturers cannot be used interchangeably. Performed By: #### L 509.8002, L3890.6006, L3890.6301, L509.4006, L3890.6102, BTS, L100.0100, L700.8000 #### [facility] [address] [place], [place], [id number] Laboratory - Chemistry and C hemistry - challengeOrdered By: Caprice Woods on 07-25-2025 Glucose Ql (U) Negative [facility] Laboratory - Microbiology an d Antimicrobial susceptibilityOrdered By: Caprice Woods on 07-25-2025 HBV surface Ag Ql (S) Non-Reactive Nonreactive [facility] Comment on above: Reactive: Presumptiv e evidence of HBV. Repeatedly reactive samples must be confirmed using a neutralization test ([employer] HBsAg Confirmatory Test)Non-Reactive: HBsAg not detected; does not exclude the possibility of exposure to HBV Laboratory - UrinalysisOrder ed By: Caprice Woods on 07-25-2025 Protein Ql (U) Negative [facility] MCV (mean corpuscular volume ) determinationOrdered By: Caprice Woods on 07-25-2025 MCV (RBC) [Entitic vol] 89.2 fL 81-99 [facility] Mean corpuscular hemoglobin (MCH) determinationOrdered By: Caprice Woods on 07-25-2025 MCH (RBC) [Entitic mass] 29.7 pg 27.0-32.0 [facility] Mean corpuscular hemoglobin concentration (MCHC) determinationOrdered By: Caprice Woods on 07-25-2025 MCHC (RBC) [Mass/Vol] 33.3 g/dL 32-36 [facility] Mean platelet volume determi nationOrdered By: Caprice Woods on 07-25-2025 Platelet mean volume (Bld) [Entitic vol] 11.0 fL 6.2-12.0 [facility] Monocyte percentageOrdered B y: Caprice Woods on 07-25-2025 Monocytes/100 WBC (Bld) 7.4 % 0-10 [facility] Neutrophil percentageOrdered By: Caprice Woods on 07-25-2025 Neutrophils/100 WBC (Bld) 59.2 % 47-70 [facility] No Panel InformationOrdered By: Caprice Woods on 07-25-2025 HIV (1&2) Antibody Non-Reactive Nonreactive [facility] Comment on above: Non-ReactiveReactive Repeatedly reactive samples must be confirmed according to CDC recommended confirmatory algorithms. The subresults for either HIVAG or AHIV can be used as an aid in the selection of the confirmation algorithm for reactive samples.Send out specimens with Reactive results to [facility] for confirmation.Order the HIV antibody detection and differentiation: #[id number] Nucleated red blood cell per centageOrdered By: Caprice Woods on 07-25-2025 Nucleated RBC/100 WBC (Bld) [Ratio] 0 % 0-5 [facility] Real Estate Specialist Office Visit Reporton 07-25-2025 Real Estate Specialist Office Visit Report [address], [address] [place] [address] OFFICE VISIT Date of Service: 07/25/25 MR#: [id number] Acct: [id number] Name: NADYA MOORE Rep #: [id number] : 1990 Provider: RAMIREZ Serrato ams Age/Sex: 35/F [place] [facility] Status: Signed Intake Vital Signs 07/18/25 08:33 07/25/25 07:56 Height 5 ft 3 in 5 ft 3 in Weight: 154 lb 1 oz BMI 27.3 BP 110/68 Intake Visit Reasons: rescan *kw Seasonal Clerk Required: No Is patient in pain?: No [...] occupational status: employed 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 Normal [facility] Platelet countOrdered By: Ramiro Woods on 07-25-2025 Platelets ([facility]) [#/Vol] 386 10*3/uL 150-450 [facility] RBC Auto (d) [#/Vol]Ordere d By: Caprice Woods on 07-25-2025 RBC (d) [#/Vol] 4.65 10*6/uL 4.2-5.4 [facility] Serum human chorionic gonado tropin detection for pregnancyOrdered By: Caprice Woods on 07-25-2025 HCG ( test) [place]l [address] mIU/mL High <9 [facility] Comment on above: Gestational Age0.2-1 Week: 5-50 mIU/mL1-2 Weeks: 50-500 mIU/mL2-3 Weeks: 100-5000 mIU/mL3-4 Weeks: 500-10,000 mIU/mL4-5 Weeks:1000-50,000 mIU/mL5-6 Weeks: 10,000-100,000 mIU/mL6-8 Weeks: 15,000-200,000 mIU/mL2-3 Months:10,000-100,000 mIU/mL Syphilis Antibodieson 2024 Syphilis Abs Non-Reactive Normal Nonreactive [facility] Comment on above: Performed By: #### L 509.8002, L3890.6006, L3890.6301, L509.4006, L3890.6102, BTS, L100.0100, L700.8000 #### [facility] [address] [place], [place], [id number] Type AND Screenon 07-25-2025 ABO and Rh group Nom (Bld) Blood group A Rh(D) positive Normal [facility] Comment on above: Order Comment: PN Performed By: #### L 509.8002, L3890.6006, L3890.6301, L509.4006, L3890.6102, BTS, L100.0100, L700.8000 #### [facility] [address] [place], [place], [address] White blood cell (WBC) count Ordered By: Caprice Woods on 07-25-2025 WBC (Bld) [#/Vol] 7.3 10*3/uL 4.4-11.0 [facility] hCG Titer Quant., Serumon HCG QUANT. 61757 mIU/mL High <9 non-preg [facility] Comment on above: Result Comment: Gest ational Age 0.2-1 Week: 5-50 mIU/mL 1-2 Weeks: 50-500 mIU/mL 2-3 Weeks: 100-5000 mIU/mL 3-4 Weeks: 500-10,000 mIU/mL 4-5 Weeks:1000-50,000 mIU/mL 5-6 Weeks: 10,000-100,000 mIU/mL 6-8 Weeks: 15,000-200,000 mIU/mL 2-3 Months:10,000-100,000 mIU/mL Performed By: #### L 509.8002, L3890.6006, L3890.6301, L509.4006, L3890.6102, BTS, L100.0100, L700.8000 #### [facility] [address] [place], [address] Chlamydia/GC JASON aptimaon CHLAMY,NUC ACID Negative Normal Negative [facility] Comment on above: Performed By: #### L 7000.1800, M100.2200 ####[facility] [address] [place], [place], [address] GC BY NUC ACID Negative Normal Negative [facility] Comment on above: Result Comment: Perf ormed at: =G - [facility] [address] [id number] Herbarium Curator: Cristy Luis MD, Phone: [phone] Performed By: #### L 7000.1800, M100.2200 ####[facility] [address] [place], [place], [address] Serum human chorionic gonado tropin detection for pregnancyOrdered By: Caprice Woods on 07-20-2025 HCG ( test) [place]l [address] mIU/mL High <9 [facility] Comment on above: Gestational Age0.2-1 Week: 5-50 mIU/mL1-2 Weeks: 50-500 mIU/mL2-3 Weeks: 100-5000 mIU/mL3-4 Weeks: 500-10,000 mIU/mL4-5 Weeks:1000-50,000 mIU/mL5-6 Weeks: 10,000-100,000 mIU/mL6-8 Weeks: 15,000-200,000 mIU/mL2-3 Months:10,000-100,000 mIU/mL Urine Cultureon 07-20-2025 URC Below infection leve l. Mixed Gram Positive Organisms [place] Count 1000-10,000 MIXC Mixed contaminants. Submit a new specimen if indicated. Normal [facility] Comment on above: Performed By: #### L 7000.1800, M100.2200 ####[facility] [address] [place], [place], [address] hCG Titer Quant., Serumon HCG QUANT. 80318 mIU/mL High <9 non-preg [facility] Comment on above: Result Comment: Gest ational Age 0.2-1 Week: 5-50 mIU/mL 1-2 Weeks: 50-500 mIU/mL 2-3 Weeks: 100-5000 mIU/mL 3-4 Weeks: 500-10,000 mIU/mL 4-5 Weeks:1000-50,000 mIU/mL 5-6 Weeks: 10,000-100,000 mIU/mL 6-8 Weeks: 15,000-200,000 mIU/mL 2-3 Months:10,000-100,000 mIU/mL Performed By: #### L 700.8000 ####[facility] [address] [place], [place], [address] Chlamydia trachomatis rRNA d etection by probe and target amplification methodOrdered By: Caprice Woods on 07-18-2025 C. trachomatis rRNA JASON+probe Ql (Unsp spec) Negative Negative [facility] Neisseria gonorrhoeae nuclei c acid detection by amplified probe techniqueOrdered By: Caprice Woods on 07-18-2025 N. gonorrhoeae DNA JASON+probe Ql (Unsp spec) Negative Negative [facility] Comment on above: Performed at: =[facility] [id number] Director: Cristy Luis MD, Phone: [phone] Real Estate Specialist Office Visit Reporton 07-18-2025 Real Estate Specialist Office Visit Report [facility] [address], [address] [place] [id number] OFFICE VISIT Date of Service: 07/18/25 MR#: [id number] Acct: [id number] Name: NADYA MOORE Rep #: [id number] : 1990 Provider: RAMIREZ Serrato ams Age/Sex: 35/F Location: [facility] Status: Signed Intake Vital Signs 06/11/25 07:26 07/04/25 09:04 07/18/25 08:31 07/18/25 08:33 Height 5 ft 3.5 in 5 ft 3 in 5 ft 3 in 5 ft 3 in Weight: 154 lb 2 oz BMI 27.3 BP 132/83 H Intake Visit Reasons: *EST* NOB LMP 05/15, EAMON 02/19 Seasonal Clerk Required: No Is patient in pain?: No [...] occupational status: employed 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 p (more content not included)... Normal [facility] Serum human chorionic gonado tropin detection for pregnancyOrdered By: Caprice Woods on 07-18-2025 HCG ( test) Ql [address] mIU/mL High <9 [facility] Comment on above: Gestational Age0.2-1 Week: 5-50 mIU/mL1-2 Weeks: 50-500 mIU/mL2-3 Weeks: 100-5000 mIU/mL3-4 Weeks: 500-10,000 mIU/mL4-5 Weeks:1000-50,000 mIU/mL5-6 Weeks: 10,000-100,000 mIU/mL6-8 Weeks: 15,000-200,000 mIU/mL2-3 Months:10,000-100,000 mIU/mL Urine cultureOrdered By: Hnery Woods on 07-18-2025 Bacteria identified Cx Nom (U) Positive Abnormal [facility] hCG Titer Quant., Serumon HCG QUANT. 40067 mIU/mL High <9 non-preg [facility] Comment on above: Result Comment: Gest ational Age 0.2-1 Week: 5-50 mIU/mL 1-2 Weeks: 50-500 mIU/mL 2-3 Weeks: 100-5000 mIU/mL 3-4 Weeks: 500-10,000 mIU/mL 4-5 Weeks:1000-50,000 mIU/mL 5-6 Weeks: 10,000-100,000 mIU/mL 6-8 Weeks: 15,000-200,000 mIU/mL 2-3 Months:10,000-100,000 mIU/mL Performed By: #### L 700.8000 ####[facility] [address] [place], [address] Office Visit Reporton 2024 Office Visit Report [facility] [address] [place] [address] OFFICE VISIT Date of Service: 07/04/25 MR#: [id number] Acct: [id number] Patient: NADYA MOORE Rep #: [id number] : 1990 Provider: RAMIREZ Serrato ams Age/Sex: 35/F Location: [facility] Status: Signed Intake Vital Signs 06/11/25 07:26 [...] Deutsch Signature: Date (if applicable) CC: Normal [facility] Rapid group A Streptococcus antigen assay at point of careOrdered By: Kamron Bhakta on 06-11-2025 S. pyogenes Ag IA.rapid Ql (Throat) Negative [facility] Urgent Care Visit Reporton 0 06-11-2025 Urgent Care Visit Report [facility] [address], [address] [place] [address] OFFICE VISIT Date of Service: 06/11/25 MR#: [id number] Acct: [id number] Name: NADYA MOORE Rep #: [id number] : 1990 Provider: SCOTT Hobbs Age/Sex: 34/F Location: [facility] Status: Signed Intake Vital Signs 05/16/25 08:54 [...] air Intake Visit Reasons: SORE THROAT, FEVER Seasonal Clerk Required: No Accompanied by: Self Is patient [...] occupational status: employed 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 ???No viwj-zdu-tpcvspg products taken to assist. No other associated [...] Acute (2 (more content not included)... Normal [facility] Plastic Surgery Visit Report on 05-16-2025 Plastic Surgery Visit Report [facility] Plastic Reconstructive Surgery [address], [address] [place] [address] OFFICE VISIT Date of Service: 05/16/25 MR#: [id number] Acct: [id number] Name: NADYA MOORE Rep #: [id number] : 1990 Provider: Dr. Ezequiel Hurtado MD Age/Sex: 34/F Location: [facility] Status: Signed Intake Vital Signs 05/09/25 [...] specimen is entirely submitted in 1 cassette. TN 05/12/2025 CPT:59719 _ Electronically Signed by: Dr. Dr. 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 @ [employer] Smoking Status: Never smoker alcohol intake: current alcohol intake frequency: a few times a month substance use type: does not use seatbelt use: always do you feel safe at home: Yes 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 Ezequiel Hurtado MD Specimen: [id number] Received: 05/10/25-1611 Status: ALFREDO Ott Num: [id number] Spec Type: Lesion Subm Dr: Dr. Ezequiel [...] specimen is entirely submitted in 1 cassette. [place] 05/12/2025 CPT:16857 Patient Age/Sex Location Account Attending Physician NADYA MOORE 34/F [facility] [id number] Dr. Ezequiel Hurtado MD Signed (signature on file) Dr. Laila Bucio MD 05/14/25 1334 Normal [facility] Comment on above: Performed By: #### P SUIV ####[facility] [address] [place], [place], [id number] Plastic Surgery Visit Report on 05-09-2025 Plastic Surgery Visit Report [facility] Plastic Reconstructive Surgery [address], [address] [place], [place] [address] OFFICE VISIT Date of Service: 05/09/25 MR#: [id number] Acct: [id number] Name: NADYA MOORE Rep #: [id number] : 1990 Provider: Dr. 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 @ [employer] Smoking Status: Never smoker alcohol intake: current alcohol intake frequency: a few times a month substance use type: does not use seatbelt use: always do you feel safe at home: Yes 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 HPI SKIN TAG ON THE L EYE [...] face D48.7 Comment 25 modifier with cpt 35733 Assessment and Plan (No Qualifiers) Assessment and [...] The lesion was sent to pathology CPT: 89947 Plan: Erythromycin ointment to be applied twice daily (ordered) for 3 days Anticipate some swelling and bruising Follow-up in 1 week for wound check and to review the pathology report 05/09/25 182 Date Ezequiel Hurtado MD [facility] Signature: Date (if applicable) CC: Normal [facility] Office Visit Reporton 2024 Office Visit Report [facility] [address] [place] [address] OFFICE VISIT Date of Service: 11/07/24 MR#: [id number] Acct: [id number] Patient: NADYA MOORE Rep #: [id number] : 1990 Provider: SCOTT Alicia Age/Sex: 34/F Location: [facility] Status: Signed Intake Vital Signs 11/07/24 06:00 Height 5 ft 3.5 in Intake Visit Reasons: 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/ [employer] [employer] [facility] Chief Complaint: Annual Allergies amoxicillin Allergy (Mild, [...] Deutsch Signature: Date (if applicable) CC: Normal [facility] Real Estate Specialist Office Visit Reporton 02-10-2025 Real Estate Specialist Office Visit Report [facility] [address], [facility] [address] [place] [address] OFFICE VISIT Date of Service: 02/10/25 MR#: [id number] Acct: [id number] Name: NADYA MOOREN Rep #: [id number] : 1990 Provider: FUENTES osborne Age/Sex: 34/F Location: [facility] Status: Signed Intake Vital Signs 12/27/23 14:46 11/07/24 06:00 02/10/25 15:23 02/10/25 15:27 Height 5 ft 3.5 in 5 ft 3.5 in 5 ft 3.5 in 5 ft 3.5 in Weight: 152 lb 6 oz BMI 26.5 BP 116/74 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) Chief Complaint: Annual Seasonal Clerk Required: No Is patient in pain?: No Allergies amoxicillin Allergy (Mild, Verified 02/10/25 15:23) Hives Penicillins (PCN) Allergy (Mild, Verified 02/10/25 15:23) Hives Is last menstrual period known: No Post menopausal: No Patient : No : No PFS Medical History (Updated 02/10/25 @ 15:33 by Mihaela Burton INSULATION CUTTER AND FORMER, INSULATION CUTTER AND FORMER-C) Family history of colon cancer in mother Family history of factor V Leiden mutation Back pain Surgical History S/P wisdom tooth extraction Family History Grandmother Cancer paternal- multiple myeloma Mother Cancer melanoma Social History household members: spouse 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: employed 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 Normal [facility] Fact V Leiden Mutationon FACTOR V LEIDEN Comment Normal . [facility] Comment on above: Result Comment: Resu lt: c.1601G>A (p.Tbm547Ive) - Not Detected This result is not associated with an increased risk for venous thromboembolism. See Additional Clinical Information and Comments. Additional Clinical Information: Venous thromboembolism is a multifactorial disease influenced by genetic, environmental, and circumstantial risk factors. The c.1601G>A (p. Qdh232Zoj) variant in the F5 gene, commonly referred [...] c.*97G>A variant and Factor V Leiden (PMID: 44910555). Additional risk factors include but are not [...] health care providers to discuss results at [phone] (0047). Test Details: Variant Analyzed: c.1601G>A (p. Xhi071Bhi), referred to as Factor V Leiden Methods/Limitations: [...] developed and its performance characteristics determined by [facility]. It has not been cleared or approved by the Food and Drug Administration. References: Sidney S, Donita AK, Toño R, Daria WW, Berny CARTER; ACMG Professional Practice and Guidelines Committee. Addendum: [employer] [employer] consensus statement on factor V Leiden mutation testing. Tamy Med. 2020Dec 25. doi: 10.1038/i39029-588-36595-j. PMID: 99571044. Barak SYLVESTER. Factor V Leiden Thrombophilia. 1998March 05 (Updated 2017Oct 26). In: Alex MP, Dorian HH, Ricky RA, et al., editors. Sukh(Samara) (Internet). [place] ([place]): [facility]; 2945-0002. Available from: https://www.ncbi.nlm.nih.gov/books/QPR5167/ Ant S, Donita AK, Cliff X, Neri B, Jeni EB, Ariana P, Sherri CS; [employer] Laboratory Inbound Sales Advisor Committee. Venous thromboembolism laboratory testing (factor V Leiden and factor II c.*97G>A), 2018 update: a technical standard of the [employer] [employer] and Genomics (ACMG). Tamy Med. 2018 Sep;20(12):6405-2864. doi: 10.1038/x96829-370-0369-z. Epub 2017Jul 27. PMID: 15266449. Performed By: #### L 4500.5000 #### [facility] [address] [place], [address] Reviewed By Comment Normal . [facility] Comment on above: Result Comment: Tech nical Component [facility] at [facility] Professional Component performed by: Génie Numérique Nickolas Mckeon, Ph.D., [facility] Director, Molecular Genetics [address] [place] [address] [place] [address] Performed at: [facility] [address] [place], [place] [id number] Herbarium Curator: Kimmie Saldaña [facility], Phone: [phone] Performed By: #### L 4500.5000 #### [facility] [address] [place], [place], [address] Clotting factor V Leiden mut ation detectionOrdered By: Jorje Preciado on 12-23-2024 Factor V Leiden Mutation Comment . [facility] Comment on above: Result: c.1601G>A (p .Kln863Vkm) - Not DetectedThis result is not associated with an increased risk for venousthromboembolism. See Additional Clinical Information andComments.Additional Clinical Information:Venous thromboembolism is a multifactorial diseaseinfluenced by genetic, environmental, and circumstantialrisk factors. The c.1601G>A (p. Jzr417Qiy) variant in theF5 gene, commonly referred to [...] F2 c.*97G>Avariant and Factor V Leiden (PMID: 76812682). Additionalrisk factors include but are not limited [...] for health careproviders to discuss results at [phone] (4335).Test Details:Variant Analyzed: c.1601G>A (p. Gkk188Dld), referred toas Factor V LeidenMethods/Limitations:DNA analysis of [...] was developed and its performance characteristicsdetermined by [facility]. It has not been cleared orapproved by the Food and Drug Administration.References:Sidney Oropeza, Donita PIEDRA, Toño R, Daria WW, Berny JH; ACMGProfessional Practice and Guidelines Committee. Addendum:[employer] [employer] consensus statement onfactor V Leiden mutation testing. Tamy Med. 2020Dec 25.doi: 10.1038/b15488-210-78532-l. PMID: 20005090.Barak SYLVESTER. Factor V Leiden Thrombophilia. 1998March 05(Updated 2017Oct 26). In: Alex MP, Dorian HH, Ricky RA,et al., editors. Sukh(R) (Internet). [place] ([place]):[facility]; 1571-7395. Availablefrom: https://www.ncbi.nlm.nih.gov/books/TEY9611/Ant Oropeza, Donita PIEDRA, Cliff X, Neri B, Jeni EB, Ariana P,Sherri CS; [employer] Laboratory Inbound Sales Advisor Committee.Venous thromboembolism laboratory testing (factor V Leidenand factor II c.*97G>A), 2018 update: a technical standardof the [place] College of [employer] and Genomics(ACMG). Tamy Med. 2018 Sep;20(12):3078-0219. doi:10.1038/u51793-853-5325-b. Epub 2017Jul 27. PMID: 31005479. Laboratory - Microbiology an d Antimicrobial susceptibilityon 11-07-2024 SARS-CoV-2 (COVID-19) RNA JASON+probe Ql (Unsp spec) Not detected [facility] No Panel Informationon 11-07 POC Nasal Swab Influenza A,B Detected [facility] POC Nasal Swab RSV Not detected [facility] Office Visit Reporton 2024 Office Visit Report [facility] [address] [place] [address] OFFICE VISIT Date of Service: 11/07/24 MR#: [id number] Acct: [id number] Patient: NADYA MOORE Rep #: [id number] : 1990 Provider: SCOTT Alicia Age/Sex: 34/F Location: [facility] Status: Signed Employer Purchased Covid Test Note: Patient here today for Covid Testing, requested by their Employer. Assessment and Plan Assessment and Plan Orders: Orders POC Cepheid Covid, FluAB, RSV Today Medications: New oseltamivir (Tamiflu) 75 mg PO Q12H 10 caps 0RF 5 days 11/07/24725 Date Dylan CHAVEZ Cosigner Signature: Date (if applicable) CC: Normal [facility] Urgent Care Visit Reporton 0 11-07-2024 Urgent Care Visit Report [facility] 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 Normal [facility] Cervical or vaginal specimen microscopic examination by liquid based cytology (reportOrdered By: Mihaela Burton on 12-27-2023 Cytology report Cyto stain.thin prep Doc (Cvx/Vag) Comment . [facility] Comment on above: Criteria not met, HP V Genotype not performed.Performed at: - [facility] [address] [id number] Director: Cristy Luis MD, Phone: [phone] at: = - [facility] [address] [place], [place] [id number] Director: Cristy Luis MD, Phone: [phone] Cervical or vagninal specime n microscopic examination by cytology stain (reported asOrdered By: Mihaela Burton on 12-27-2023 Cytology report Cyto stain Doc (Cvx/Vag) Comment . [facility] Comment on above: The Pap smear is [...] DNA Probe+sig amp Ql (Cvx) Negative Negative [facility] Comment on above: This nucleic acid am plification test detects fourteen high- risk HPV types (16,18,31,33,35,39,45,51,52,56,58,59,66,68)without differentiation. Laboratory - CytologyOrdered By: Mihaela Burton on 12-27-2023 Financial Internship Cyto stain Nom (Cvx/Vag) [ID] Comment . [facility] Comment on above: Lew Concepcion totechnologist (ASCP) Laboratory - Miscellaneous t estsOrdered By: Mihaela Burton on 12-27-2023 Service comment (Unsp spec) [Interp] . . [facility] Thin prep Papanicolaou smear with manual screeningOrdered By: Mihaela Burton on 12-27-2023 Thin prep Papanicolaou smear with manual screening Comment . [facility] Comment on above: NEGATIVE FOR INTRAEP ITHELIAL LESION OR MALIGNANCY. This liquid based Th inPrep(R) pap test was screened withthe use of an image guided system. Absolute lymphocyte counton 07-22-2022 Lymphocytes Auto (Unsp spec) [#/Vol] 2.29 10*3/uL 0.83-4.51 [facility] Work Phone: Absolute reticulocyte counto n 07-22-2022 Reticulocytes (Bld) [#/Vol] 0.00 10*3/uL 0-5 [facility] Work Phone: Basophil percentageon 2021 Basophil percentage 2.7 mg/dL 2.5-4.9 [facility] Work Phone: Bilirubin [Mass/Vol] 0.70 mg/dL 0.20-1.00 [facility] Work Phone: Comment on above: For patients on eltr ombopag therapy, use of Dimension Norris TBIL is not recommended. Chloride [Moles/Vol] 108 mmol/L 98-107 [facility] Work Phone: Cholesterol [Mass/Vol] 224 mg/dL <200 [facility] [facility] Work Phone: Comment on above: <200 mg/dL Desirable 200-240 mg/dL Borderline >240 mg/dL High Risk Glucose [Mass/Vol] 91 mg/dL 74-106 [facility] Work Phone: Neutrophils (Bld) [#/Vol] 5.2 10*3/uL 2.0-7.7 [facility] Work Phone: Potassium [Moles/Vol] 3.7 mmol/L 3.5-5.1 [facility] Work Phone: Protein [Mass/Vol] 7.7 g/dL 6.4-8.2 [facility] Work Phone: Sodium [Moles/Vol] 139 mmol/L 136-145 [facility] Work Phone: Triglyceride [Mass/Vol] 73 mg/dL <199 [facility] Work Phone: Comment on above: The drugs N-Acetylcy steine and Metamizole may falsely depress this assay.Serum Triglycerides Reference Interval Normal <150 mg/dL Borderline high 150 - 199 mg/dL High 200 - 499 mg/dL Very High > or = 500 mg/dL WBC (Bld) [#/Vol] 8.4 10*3/uL 4.4-11.0 [facility] Work Phone: Bilirubin Test strip Ql (U)o n 07-22-2022 Bilirubin Ql (U) Negative Negative [facility] Work Phone: Blood erythrocytes count (nu mber/volume)on 07-22-2022 RBC (Bld) [#/Vol] 4.50 10*6/uL 4.2-5.4 [facility] Work Phone: Blood hemoglobin measurement (mass/volume)on 07-22-2022 Hemoglobin (Bld) [Mass/Vol] 13.0 g/dL 12.0-15.0 [facility] Work Phone: Blood platelet mean volumeon 07-22-2022 Platelet mean volume (Bld) [Entitic vol] 10.6 fL 6.2-12.0 [facility] Work Phone: Determination of erythrocyte mean corpuscular volume (MCV)on 07-22-2022 MCV (RBC) [Entitic vol] 91.3 fL 81-99 [facility] Work Phone: Direct bilirubinon 2 Bilirubin.direct [Mass/Vol] 0.16 mg/dL 0.00-0.30 [facility] Work Phone: Hematocrit Auto (Bld) [Volum e fraction]on 07-22-2022 Hematocrit (Bld) [Volume fraction] 41.1 % 37-47 [facility] Work Phone: Ketones Test strip Ql (U)on 07-22-2022 Ketones Ql (U) Negative Negative [facility] Work Phone: Laboratory - Chemistry and C hemistry - challengeon 07-22-2022 ALP [Catalytic activity/Vol] 62 U/L 45-117 [facility] Work Phone: ALT [Catalytic activity/Vol] 31 U/L 13-56 [facility] Work Phone: Cholesterol.total/Chol esterol in HDL [Mass ratio] 3.00 {ratio} [facility] Work Phone: CO2 [Moles/Vol] 25.0 mmol/L 21.0-32.0 [facility] Work Phone: Globulin (S) [Mass/Vol] 4.4 g/dL 2.2-4.2 [facility] Work Phone: Urea nitrogen/Creatinine [Mass ratio] 11.8 mg/mg 10-20 [facility] Work Phone: Laboratory - Hematology and Cell countson 07-22-2022 Erythrocyte distribution width (RBC) [Entitic vol] 40.2 fL 35.1-43.9 [facility] Work Phone: Erythrocyte distribution width (RBC) [Ratio] 12.0 % 11.6-14.6 [facility] Work Phone: Immature granulocytes/100 WBC (Bld) 0.600 % 0.0-0.9 [facility] Work Phone: Comment on above: IG% - Immature Granu locytes (promyelocytes, myelocytes and metamyelocytes) > 1% indicates that a LEFT SHIFT is Present. MCH (RBC) [Entitic mass] 28.9 pg 27.0-32.0 [facility] Work Phone: Nucleated RBC/100 WBC (Bld) [Ratio] 0 % 0-5 [facility] Work Phone: MCHC Auto (RBC) [Mass/Vol]on 07-22-2022 MCHC (RBC) [Mass/Vol] 31.6 g/dL 32-36 [facility] Work Phone: Nitrite Test strip Ql (U)on 07-22-2022 Nitrite Ql (U) Negative Negative [facility] Work Phone: No Panel Informationon 07-22 Estimated GFR (MDRD) Amer 100 mL/min >60 [facility] Work Phone: Comment on above: GFR Calc Estimated GFR (MDRD) Non-Af Amer 83 mL/min >60 [facility] Work Phone: Comment on above: Non- GFR Calc Platelets bldon 07-22-2022 Platelets (Bld) [#/Vol] See comment 150-450 [facility] Work Phone: Comment on above: Please note: [...] 07-22-2022 Protein Ql (U) 30 mg/dl Negative [facility] Work Phone: Segmented neutrophils/100 WB C Auto (Bld)on 07-22-2022 Segmented neutrophils/100 WBC (Bld) 62.2 % 47-70 [facility] Work Phone: Serum or plasma albumin emeka urement (mass/volume)on 07-22-2022 Albumin [Mass/Vol] 3.3 g/dL 3.2-5.0 [facility] Work Phone: Serum or plasma albumin/glob ulin mass ratioon 07-22-2022 Albumin/Globulin [Mass ratio] 0.8 {ratio} 0.9-2.4 [facility] Work Phone: Serum or plasma calcium emeka urement (mass/volume)on 07-22-2022 Calcium [Mass/Vol] 9.0 mg/dL 8.5-10.1 [facility] Work Phone: Serum or plasma cholesterol in HDL measurement (mass/volume)on 07-22-2022 Cholesterol in HDL [Mass/Vol] 74 mg/dL >40 [facility] Work Phone: Comment on above: The drugs N-Acetylcy steine and Metamizole may falsely depress this assay. Reference Range HDL <40 mg/dL Low HDL Cholesterol HDL >or= 60 mg/dL High HDL Cholesterol Serum or plasma cholesterol in VLDL measurement (mass/volume)on 07-22-2022 Cholesterol in VLDL [Mass/Vol] 15 mg/dL 5-40 [facility] Work Phone: Serum or plasma creatinine m easurement (mass/volume)on 07-22-2022 Creatinine [Mass/Vol] 0.85 mg/dL 0.55-1.02 [facility] Work Phone: Comment on above: The validity of the calculated GFR & GFRAA in patients over 70 years has not been determined. Clinical correlation is essential. Serum or plasma low density lipoprotein (LDL) cholesterol measurement (mass/volume)on 07-22-2022 Cholesterol in LDL [Mass/Vol] 135 mg/dL 0-130 [facility] Work Phone: Serum or plasma urea nitroge n measurement (mass/volume)on 07-22-2022 Urea nitrogen [Mass/Vol] 10 mg/dL 7-18 [facility] Work Phone: Serum or plasma uric acid me asurement (mass/volume)on 07-22-2022 Urate [Mass/Vol] 4.0 mg/dL 2.6-6.0 [facility] Work Phone: Comment on above: The drugs N-Acetylcy steine and Metamizole may falsely depress this assay. Thin prep Papanicolaou smear with manual screeningon 07-22-2022 Thin prep Papanicolaou smear with manual screening 26 U/L 15-37 [facility] Work Phone: Thin prep Papanicolaou smear with manual screening 6 5-15 [facility] Work Phone: Thin prep Papanicolaou smear with manual screening 252 U/L 84-246 [facility] Work Phone: Urine blood detectionon 06-25 RBC Ql (U) 25 /ul Negative [facility] Work Phone: Urine clarityon 07-22-2022 Clarity (U) Sl. Cloudy Clear [facility] Work Phone: Urine color determinationon 07-22-2022 Color (U) Straw Yellow [facility] Work Phone: Urine glucose detectionon Glucose Ql (U) Normal mg/dl Normal [facility] Work Phone: Urine leukocyte esterase det ection by dipstickon 07-22-2022 Leukocyte esterase Test strip Ql (U) 500 /ul Negative [facility] Work Phone: Urine pHon 07-22-2022 pH (U) 6.0 [pH] 5.0 - 8.0 [facility] Work Phone: Urine specific gravity measu rementon 07-22-2022 Specific gravity (U) [Rel density] 1.015 1.002-1.030 [facility] Work Phone: Urobilinogen Auto test strip Ql (U)on 07-22-2022 Urobilinogen Ql (U) Normal mg/dl Normal [facility] Work Phone: HPVon 05-11-2017 HPV Interp Invalid Interpretation Code [facility] ([place]) Comment on above: Order Comment: Order placed by AP_HPV_ORDER rule from [id number] Performed By: #### H PV ####[place] [address] HPV Source Cervix Normal [facility] ([place]) Comment on above: Order Comment: Order placed by AP_HPV_ORDER rule from [id number] Performed By: #### H PV ####[address] [address] Vital Signs Date Time Vital Sign Value Performing Clinician Moni landin 08-15-2025 13:16-0400 Body height 160.[address] Jorje Preciado MD Work Phone: [facility] 08-15-2025 13:16-0400 Body mass index (BMI) [Ratio] 27.7 kg/m2 Dr. Jorje Preciado MD Work Phone: 0(820)629-964231 [place] [address] 08-15-2025 13:16-0400 Body weight 70.[address] Jorje Preciado MD Work Phone: 4(059)671-306531 [place] [address] 08-15-2025 13:16-0400 Diastolic blood pressure 81 mm[Hg] Dr. Jorje Preciado MD Work Phone: 4(306)968-614231 [place] [address] 08-15-2025 13:16-0400 Systolic blood pressure 129 mm[Hg] Dr. Jorje Preciado MD Work Phone: 1(288)072-368731 [place] [address] 08-08-2025 13:07-0400 Body mass index (BMI) [Ratio] 27.6 kg/m2 Dr. Jorje Preciado MD Work Phone: 5(466)414-121031 [place] [address] 08-08-2025 13:07-0400 Body weight 70.[address] Jorje Preciado MD Work Phone: 6(442)955-973731 [place] [address] 08-08-2025 13:07-0400 Diastolic blood pressure 80 mm[Hg] Dr. Jorje Preciado MD Work Phone: 0(202)824-198031 [place] [address] 08-08-2025 13:07-0400 Systolic blood pressure 135 mm[Hg] Dr. Jorje Preciado MD Work Phone: 4(747)737-369331 [place] [address] 07-25-2025 07:56-0400 Body height 160.[address] Jorje Preciado MD Work Phone: 3(482)275-735131 [place] [address] 07-25-2025 07:56-0400 Body mass index (BMI) [Ratio] 27.3 kg/m2 Dr. Jorje Preciado MD Work Phone: 7(863)213-610631 [place] [address] 07-25-2025 07:56-0400 Body weight 69.[address] Jorje Preciado MD Work Phone: 6(362)999-734831 [place] [address] 07-25-2025 07:56-0400 Diastolic blood pressure 68 mm[Hg] Dr. Jorje Preciado MD Work Phone: 6(542)488-920331 [place] [address] 07-25-2025 07:56-0400 Systolic blood pressure 110 mm[Hg] Dr. Jorje Preciado MD Work Phone: [facility] 07-18-2025 08:33-0400 Body height 160.[address] Jorje Preciado MD Work Phone: [facility] 07-18-2025 08:31-0400 Body mass index (BMI) [Ratio] 27.3 kg/m2 Dr. Jorje Preciado MD Work Phone: 2(061)292-573898 [address] 07-18-2025 08:31-0400 Body weight 69.[address] Jorje Preciado MD Work Phone: 8(586)437-440931 [place] [address] 07-18-2025 08:31-0400 Diastolic blood pressure 83 mm[Hg] Dr. Jorje Preciado MD Work Phone: 5(249)203-188431 [place] [address] 07-18-2025 08:31-0400 Systolic blood pressure 132 mm[Hg] Dr. Jorje Preciado MD Work Phone: 6(308)630-442731 [place] [address] 07-04-2025 09:04-0400 Body mass index (BMI) [Ratio] 27.3 kg/m2 Dr. Jorje Preciado MD Work Phone: 4(179)061-597131 [place] [address] 07-04-2025 09:04-0400 Body weight 69.[address] Jorje Preciado MD Work Phone: 5(167)023-089131 [place] [address] 07-04-2025 09:04-0400 Diastolic blood pressure 70 mm[Hg] Dr. Jorje Preciado MD Work Phone: 8(848)951-191573 [place] [address] 07-04-2025 09:04-0400 Systolic blood pressure 98 mm[Hg] Dr. Jorje Preciado MD Work Phone: 0(702)881-744231 [place] [address] 06-11-2025 07:26-0400 Body height 161.[address] Jorje Preciado MD Work Phone: 8(686)898-119198 [address] 06-11-2025 07:26-0400 Body temperature 98.5 [degF] Dr. Jorje Preciado MD Work Phone: [facility] 06-11-2025 07:26-0400 Diastolic blood pressure 76 mm[Hg] Dr. Jorje Preciado MD Work Phone: [facility] 06-11-2025 07:26-0400 Heart rate 99 /min Dr. Jorje Preciado MD Work Phone: [facility] 06-11-2025 07:26-0400 Respiratory rate 12 /min Dr. Jorje Preciado MD Work Phone: [facility] 06-11-2025 07:26-0400 SaO2% (BldA) [Mass fraction] 98 % Dr. Jorje Preciado MD Work Phone: [facility] 06-11-2025 07:26-0400 Systolic blood pressure 104 mm[Hg] Dr. Jorje Preciado MD Work Phone: [facility] 05-16-2025 08:54-0400 Body height 161.29 cm Out [facility] 05-16-2025 08:54-0400 Body temperature 97.9 [degF] Out [facility] 05-16-2025 08:54-0400 Diastolic blood pressure 69 mm[Hg] Out [facility] 05-16-2025 08:54-0400 Heart rate 66 /min Out [facility] 05-16-2025 08:54-0400 Respiratory rate 18 /min Out [facility] 05-16-2025 08:54-0400 SaO2% (BldA) [Mass fraction] 96 % Out [facility] 05-16-2025 08:54-0400 Systolic blood pressure 103 mm[Hg] Out [facility] 05-09-2025 14:17-0400 Body height 161.29 cm Out [facility] 05-09-2025 14:17-0400 Body mass index (BMI) [Ratio] 26.8 kg/m2 Out [facility] 05-09-2025 14:17-0400 Body temperature 97.3 [degF] Out [facility] 05-09-2025 14:17-0400 Body weight 69.85 kg Out [facility] 05-09-2025 14:17-0400 Diastolic blood pressure 76 mm[Hg] Out [facility] 05-09-2025 14:17-0400 Heart rate 54 /min Out [facility] 05-09-2025 14:17-0400 Respiratory rate 18 /min Out [facility] 05-09-2025 14:17-0400 SaO2% (BldA) [Mass fraction] 99 % Out [facility] 05-09-2025 14:17-0400 Systolic blood pressure 127 mm[Hg] Out [facility] 02-10-2025 15:23-0400 Body mass index (BMI) [Ratio] 26.5 kg/m2 Out [facility] 02-10-2025 15:23-0400 Body weight 69.11 kg Out [facility] 02-10-2025 15:23-0400 Diastolic blood pressure 74 mm[Hg] Out [facility] 02-10-2025 15:23-0400 Systolic blood pressure 116 mm[Hg] Out [facility] 11-07-2024 06:00-0500 Body height 161.29 cm Out [facility] 11-07-2024 06:00-0500 Body mass index (BMI) [Ratio] 26.5 kg/m2 Out [facility] 11-07-2024 06:00-0500 Body temperature 98.7 [degF] Out [facility] 11-07-2024 06:00-0500 Body weight 69 kg Out [facility] 11-07-2024 06:00-0500 Diastolic blood pressure 64 mm[Hg] Out [facility] 11-07-2024 06:00-0500 Heart rate 92 /min Out [facility] 11-07-2024 06:00-0500 Respiratory rate 16 /min Out [facility] 11-07-2024 06:00-0500 SaO2% (BldA) [Mass fraction] 98 % [facility] 11-07-2024 06:00-0500 Systolic blood pressure 110 mm[Hg] [facility] 12-27-2023 14:46-0500 Body height 161.29 cm [facility] 12-27-2023 14:46-0500 Body mass index (BMI) [Ratio] 26.6 kg/m2 [facility] 12-27-2023 14:46-0500 Body weight 69.45 kg [facility] 12-27-2023 14:46-0500 Diastolic blood pressure 72 mm[Hg] [facility] 12-27-2023 14:46-0500 Systolic blood pressure 114 mm[Hg] [facility] Encounters Encounter Date Encounter Type Care Provider Facility Start: 08-29-2025 ambulatory Jorje Preciado [facility] lity:[facility] Start: 08-22-2025 End: 08-22-2025 [facility] Start: 08-15-2025 End: 08-15-2025 ambulatory [facility] Start: 08-15-2025 [facility] Start: 08-15-2025 End: 08-15-2025 [facility] Start: 08-08-2025 End: 08-08-[address] Eugenia Paul DO -[facility] Work Phone: Start: 08-08-2025 End: 08-08-[address] Jorje Preciado MD Work Phone: -[facility] Start: 08-08-2025 End: 08-08-2025 ambulatory Jorje Preciado Facility:[facility] Start: 07-25-2025 End: 07-25-2025 Patient encounter procedure Caprice Woods CNM -[facility] Work Phone: Start: 07-25-2025 End: 07-25-[address] Jorje Preciado MD Work Phone: -[facility] Start: 07-25-2025 End: 07-25-2025 ambulatory Jorje Preciado Facility:[facility] Start: 07-20-2025 End: 07-20-2025 Patient encounter procedure Caprice ROGEL -Laboratory Work Phone: Start: 07-20-2025 End: 07-20-2025 ambulatory Jorje Preciado Facility:[facility] Start: 07-18-2025 End: 07-18-2025 Patient encounter procedure Caprice ROGEL -[facility] Work Phone: Start: 07-18-2025 End: 07-18-[address] Jorje Preciado MD Work Phone: -[facility] Start: 07-18-2025 End: 07-18-2025 ambulatory Jorje Preciado Facility:[facility] Start: 07-04-2025 End: 07-04-2025 Patient encounter procedure Caprice ROGEL -[facility] Work Phone: Start: 07-04-2025 End: 07-04-[address] Jorje Preciado MD Work Phone: -[facility] Start: 06-11-2025 End: 06-11-2025 Patient encounter procedure Kamron Bhakta [place] -[facility] Work Phone: Start: 06-11-2025 End: 06-11-[address] Jorje Preciado MD Work Phone: -[facility] Start: 05-16-2025 End: 05-16-[address] Ezequiel Hurtado MD -[facility] Work Phone: Start: 05-16-2025 End: 05-16-2025 ambulatory Out of Town Doctor -[facility] Start: 05-10-2025 End: 05-10-2025 ambulatory [place] of Town Doctor -Laboratory Specimen Start: 05-10-2025 End: 05-10-[address] Ezequiel Hurtado MD -Laboratory Specimen Work Phone: Start: 05-09-2025 End: 05-09-[address] Ezequiel Hurtado MD -[facility] Work Phone: Start: 05-09-2025 End: 05-10-2025 ambulatory Out of Town Doctor -[facility] Start: 02-10-2025 End: 02-10-2025 Patient encounter procedure Mihaela Burton INS[employer] C[employer]TER AND FORMER-C -[facility] Work Phone: Start: 02-10-2025 End: 02-10-2025 Patient encounter status Mihaela Josephine INSULATION CUTTER AND FORMER-C [facility] Start: 02-10-2025 End: 02-10-2025 ambulatory [facility] [place] [facility] Start: 01-03-2025 Encounter for genera l adult medical examination without abnormal findings [facility] Start: 12-23-2024 End: 12-23-2024 ambulatory Out of Town [facility] Work Phone: Start: 12-23-2024 End: 12-23-[address] Jorje Preciado MD -Laboratory, [place] Work Phone: Start: 12-23-2024 End: 12-23-[facility] Start: 11-07-2024 End: 11-07-2024 Patient encounter procedure Dylan CHAVEZ -[facility] Work Phone: Start: 11-07-2024 End: 11-07-2024 ambulatory Dylan CHAVEZ Facility:[facility] Start: 12-27-2023 End: 12-27-2023 ambulatory Out of Town [facility] Work Phone: Start: 12-27-2023 End: 12-27-2023 Patient encounter procedure Out Town [facility], Specimen Work Phone: Start: 12-27-2023 End: 12-27-2023 Patient encounter procedure Out [facility] [place] Work Phone: Start: 07-22-2022 Registered Referred [facility] Start: 04-28-2017 End: 04-29-2017 Ambulatory ADINA MARLOW Facility[facility] Start: 04-28-2017 End: 04-29-2017 Ambulatory RASHID SWENSON REFERRING Facility:[facility] Procedures Date Procedure Procedure Detail Performing Clinician [...] HCV Quant by PCR testing - HCVPCR #[id number] Non Reactive: < 0.8 Equivocal: >/= 0.8 [...] 08-15-2025 Patient encounter procedure Registered Clinical -Lab [facility] [place] Start: 08-15-2025 End: 08-15-2025 Patient encounter procedure Incomplete -[facility] Work Phone: Start: 07-25-2025 CBC W Auto Differential panel - Blood [facility] Start: 07-25-2025 Choriogonadotropin ( test) [Presence] in Serum or Plasma [facility] Start: 07-25-2025 Hepatitis C antibody measurement [facility] Start: 07-25-2025 Rubella IgG measurement [facility] Start: 07-25-2025 Serologic test for syphilis [facility] Start: 07-25-2025 [facility] Start: 07-04-2025 Hepatitis C antibody measurement [facility] Start: 07-04-2025 Rubella IgG measurement [facility] Start: 07-04-2025 Serologic test for syphilis [facility] Start: 07-04-2025 [facility] CBC W Auto Different ial panel - Blood [facility] Choriogonadotropin ( test) [Presence] in Serum or Plasma [facility] Erythrocyte mean cor puscular volume determination [facility] Hematocrit [Volume F raction] of Blood [facility] Hemoglobin [Mass/vol ume] in Blood [facility] Hepatitis B virus aguilar rface Ag [Presence] in Serum [facility] Leukocytes [#/volume ] in Blood [facility] Mean corpuscular hem oglobin concentration determination [facility] Mean corpuscular hem oglobin determination [facility] Neutrophil count [facility] Neutrophil percent differential count [facility] Platelets [#/volume] in Blood [facility] Red blood cell count [facility] Red cell distributio n width determination [facility] Streptococcus pyogen es Ag [Presence] in Throat by Rapid immunoassay [facility] Immunizations Immunization Date Immunization Notes Care Provider [facility] 08-11-2025 influenza, seasonal, injectable, preservative free Dr. Jorje Preciado MD Work Phone: [facility] 08-01-2024 influenza, seasonal, injectable, preservative free Out [facility] Doctor [facility] 08-02-2023 influenza, injectabl e, quadrivalent, preservative free Out [facility] Doctor [facility] 08-01-2022 influenza, injectabl e, quadrivalent, preservative free Out [facility] Doctor [facility] 08-04-2021 influenza, injectabl e, quadrivalent, preservative free Out [facility] Doctor [facility] 08-04-2021 influenza, seasonal, injectable [facility] Work Phone: 12-18-2020 Covid (Moderna) [facility] 11-20-2020 Covid (Moderna) [facility] 08-10-2020 influenza, injectabl e, quadrivalent, preservative free [place] Doctor [facility] 08-10-2020 influenza, seasonal, injectable [facility] Work Phone: 08-07-2019 influenza, injectabl e, quadrivalent, preservative free [place] Doctor [facility] 08-07-2019 influenza, seasonal, injectable [facility] Work Phone: 08-01-2018 influenza, injectabl e, quadrivalent, preservative free Out [facility] Doctor [facility] 08-01-2018 influenza, seasonal, injectable [facility] Work Phone: Payers Date Payer Category Payer Self-pay [id number] 2023 Unknown [id number] 2016 Unknown [id number] Unknown [id number] Unknown [facility] [id number] Unknown [id number] 2.16.8 [id number] Unknown [id number] 2.16.8 [id number] Unknown [id number] 2.16.8 [id number] Unknown [id number] 2.16.8 [id number] Unknown [id number] 2.16.8 [id number] Unknown [id number] 2.16.8 [id number] Unknown [id number] 2.16.8 [id number] Unknown [id number] 2.16.8 [id number] Unknown [id number] 2.16.8 [id number] Unknown [id number] 2.16.8 40.1.694494.3.579.2.462 Unknown [id number] 2.16.8 40.1.751368.3.579.2.462 Unknown [id number] 2.16.8 40.1.915871.3.579.2.462 Unknown [id number] 2.16.8 40.1.334289.3.579.2.462 Unknown [id number] 2.16.8 40.1.270577.3.579.2.462 Unknown [id number] 2.16.8 40.1.860036.3.579.2.462 Unknown [id number] 2.16.8 40.1.131492.3.579.2.462 Unknown [id number] 2.16.8 40.1.885894.3.579.2.462 Unknown [id number] 2.16.8 40.1.844260.3.579.2.462 Unknown [id number] 2.16.8 40.1.459352.3.579.2.462 Unknown [id number] 2.16.8 40.1.527272.3.579.2.462 Unknown [id number] 2.16.8 40.1.511757.3.579.2.462 Social History Date Type Detail [facility] Work Phone: Start: 1990 Sex Assigned At Female [facility] Start: 12-27-2023 [facility] Start: 11-07-2024 End: 07-18-2025 Tobacco smoking status NHIS Never smoked tobacco (finding) [facility] Start: 01-03-2025 Sex Female (finding) [place] [facility] Sex [place] [facility] Clinical Notes 12-27-2023 to 08-08-2025 Note Date & Type Note Facility 08-08-2025 Progress note [facility] 07-25-2025 Progress note [facility] 07-18-2025 Progress note [facility] 05-09-2025 Evaluation note Diagnosis Onset Date Resolution 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, 2025 2:04pm 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 16, 2025 8:48am [facility] Work Phone: 1(451) 152-946807-18-2025 Evaluation note* Diagnosis Onset Date Resolution Status Admit Date 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 May 09, 2025 2:04pm 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 May 16, 2025 8:48am [facility] Work Phone: 1(395) 513-937707-18-2025 Evaluation note* Diagnosis Onset Date Resolution Status Admit Date 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 May 09, 2025 2:04pm 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 May 16, 2025 8:48am acute June 8:17am Supervision of normal acute July 18, 2025 8:17am Threatened acute Septe 2024 8:17am [facility] Work Phone: 1(251) 564-176307-18-2025 Evaluation note* Diagnosis Onset Date Resolution Status [...] normal acute July 25 7:51am Threatened acute Oct2024 7:51am [facility] Work Phone: 1(875) 517-445007-18-2025 Evaluation note* Diagnosis Onset Date Resolution Status Admit Date 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 May 09, 2025 2:04pm 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 May 16, 2025 8:48am acute June 8:17am Supervision of normal acute July 18, 2025 8:17am Threatened acute Septe mber 2024 8:17am 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, 2025 7:51am acute July 25, 2 025 7:51am Supervision of normal acute July 25 7:51am Threatened acute Octob 2024 7:51am Bicornate uterus acute August 08, 2025 12:57pm Incomplete acute Octob er 2024 12:57pm Incomplete acute Octob er 2024 1:11pm [facility] Work Phone: 1(369) 504-146404-21-2025 Evaluation note* Diagnosis Onset Date Resolution Status Admit Date Encounter for routine gynecological examination noneactive February 10, 2025 3:22pm [facility] Work Phone: 1(708) 357-321704-21-2025 Evaluation note* Diagnosis Onset Date Resolution Status Admit Date Encounter for routine gynecological examination noneactive February 10, 2025 3:22pm 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 Endocervical and/or squamous metaplasticcells (endocervical component)are present.[facility] A#[id number] Parma Medical CenterComment on above:Satisfactory for evaluation. Endocervical and/or squamous metaplasticcells (endocervical component)are present.Evaluation noteNo assessment information availableWOhioHealth Gr[facility] Work Phone: Progress note Author Caprice Woods [facility] Note Date/Time July 18, 2025 9:05am [facility] [address] [place] [address], [address] [place] [address] OFFICE VISIT Date of Service: 07/18/25 MR#: [id number] Acct: [id number] Name: NADYA MOORE Rep #: [id number] : 1990 Provider: RAMIREZ Woods Age/Sex: 35/F [place] [facility] Status: Signed Intake Vital Signs 06/11/25 07:26 07/04/25 09:04 07/18/25 08:31 07/18/25 08:33 Height 5 ft 3.5 in 5 ft 3 in 5 ft 3 in 5 ft 3 in Weight: 154 lb 2 oz BMI 27.3 BP 132/83 H Intake Visit Reasons: *EST* NOB LMP 05/15, EAMON 02/19 Seasonal Clerk Required: No Is patient in pain?: No Allergies amoxicillin Allergy (Mild, Verified 07/18/25 08:30) Hives Penicillins (PCN) Allergy (Mild, Verified 07/18/25 08:30) Hives Medications ?Medication ?Instructions ?Recorded ?Confirmed ?Type echinacea 125 mg capsule 125 mg PO QDAY 06/11/25 09/04/16 History multivitamin 1 tab PO QDAY 06/11/2507/18 History Last Menstrual Period: 05/15/25 Zika: Zika virus screening: Negative : Yes Have you fallen in the past year?: No [facility] Medical History Family history of colon cancer [...] occupational status: employed 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 exposures/hazards: No pets and [...] 3-4 times per week duration: 30-45 minutes/day dago/zoroastrian: Anabaptism seatbelt use: always do you feel safe at home: Yes additional social history: : Wilbur Willoughby @ [employer] History 1 Elective abortions 0 Hx Para [...] (Rh) Sensitized, Pulmonary (e.g.,TB,Asthma), Seasonal allergies, Breast, Chief Operator surgery, Anesthetic complications, History of abnormal pap, [...] and Symptoms of Preeclampsia, Feeding Yes , [place] Education and Family Medical Leave or Disability [...] you fallen in the past year?: No 09/26/25 0905 <Electronically signed by Caprice oropeza CNM> Date _ Caprice Woods CNM Cosigner Signature: Date (if applicable) CC: ~ [facility] Work Phone: Progress note Author Caprice Woods [facility] Note Date/Time July 25, 2025 8: 35am [facility] [address] [place] [address], [address] [place] [address] OFFICE VISIT Date of Service: 07/25/25 MR#: [id number] Acct: [id number] Name: TERESANADYA BURNSN Rep #: [id number] : 1990 Provider: RAMIREZ Woods Age/Sex: 35/F [place] [facility] Status: Signed Intake Vital Signs 07/18/25 08:33 07/25/25 07:56 Height 5 ft 3 in 5 ft 3 in Weight: 154 lb 1 oz BMI 27.3 BP 110/68 Intake Visit Reasons: rescan *kw Seasonal Clerk Required: No Is patient in pain?: No [...] occupational status: employed 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 exposures/hazards: No pets and [...] 3-4 times per week duration: 30-45 minutes/day dago/zoroastrian: Anabaptism seatbelt use: always do you feel safe at home: Yes additional social history: : [employer]bur Willoughby @ [employer] History 1 Elective abortions 0 Hx Para [...] and Symptoms of Preeclampsia, Feeding No , [place] Education and Family Medical Leave or Disability [...] Cosigner Signature: Date (if applicable) CC: ~ [facility] Work Phone: Progress note Author Eugenia Salas [facility] Note Date/Time August 08, 2025 1 :36pm [facility] [address] [place] [address], [address] [place] [address] OFFICE VISIT Date of Service: 08/08/25 MR#: [id number] Acct: [id number] Name: NADYA MOORE Rep #: [id number] : 1990 Provider: Dr. 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 exposures/hazards: No pets and [...] 3-4 times per week duration: 30-45 minutes/day dago/zoroastrian: Anabaptism seatbelt use: always do you feel safe at home: Yes additional social history: : Wilbur Willoughby @ [employer] History 1 Elective abortions 0 Hx Para [...] and Symptoms of Preeclampsia, Feeding No , [place] Education and Family Medical Leave or Disability [...] Cosigner Signature: Date (if applicable) CC: ~ [facility] Work Phone: Reason for referral (narrative)No reason for referral information availableWOhioHealth Grady Memorial Hospital Work Phone: Summary Purpose Family [...] 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) Chief Complaint Admit Date cough, congestion November 07, 2024 6 :08am 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/ [facility] November 07, 2024 6 :16am [employer] December 23, 2024 4:44 pm Reason for Visit Admit Date Influenza due to influenza virus, type A , human November 07, 2024 6:08am Chief Complaint Admit Date 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) February 10, 2025 3:2 2pm SKIN TAG ON THE L EYE LID May 09 2:04pm Reason for Visit Admit Date Encounter for routine gynecological exam ination February 10, 2025 3:22pm Chief Complaint Admit Date 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) February 10, 2025 3:2 2pm SKIN TAG ON THE L EYE LID May 09 2:04pm LEFT LOWER EYELID EXCISION SKIN TAG May 10, 2025 8:29am Reason for Visit Admit Date Encounter for routine gynecological exam ination February 10, 2025 3:22pm Neoplasm of uncertain behavior of face J david 2024 2:04pm Chief Complaint Admit Date 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) February 10, 2025 3:2 2pm SKIN TAG [...] July 18, 2025 8:17am Supervision of normal [facility] 2024 8:17am Threatened July 18, 2025 8:17am Chief [...] 18, 2025 8:17am Supervision of normal Sept[place] 2024 8:17am Threatened July 18, 2025 8:17am [...] July 18, 2025 8:17am Supervision of normal Jun[place] 2024 8:17am Threatened July 18, 2025 8:17am [...] section and content) DATE CREATED AUTHOR 04/18/2018 [facility] ([place]) DATE CREATED AUTHOR AUTHOR'S ORGANIZ ATION 04/18/2018 [facility] DATE CREATED AUTHOR AUTHOR'S ORGANIZ ATION 08/30/2025 [facility] Goals (unrecognized section and content) Type Care Experience Labor Preferences-CB /BF classes: []labor support person: []labor intervention preferences: []pain management options preferred: []cut cord/dad catch: []: []PP control planned: []discussed possible routes of delivery and associated risks: []special requests: [] Care Teams (unrecognized sec tion and content) Team Status: Active Member Role Status Dates Out of [facility] Doctor Primary Care Provider Active Team Status: Inactive Member Role Status Dates Out of [facility] Primary Care Provider, Referring Pr ovider Active Mihaela Burton INSULATION CUTTER AND FORMER, INSULATION CUTTER AND FORMER-C Attending Provider Active Team Status: Inactive Member Role Status Dates Out of [facility] Primary Care Provider Active Mihaela Burton INSULATION CUTTER AND FORMER, INSULATION CUTTER AND FORMER-C Attending Provider Active Team Status: Active Member Role Status Dates Dr. Jorje Preciado MD Primary Care Provider Acti ve Team Status: Inactive Member Role Status Dates Out of [facility] Primary Care Provider Active Start: November 07, 2024 End: November 07, 2024 Out of [facility] Doctor Referring Provider Active Sta rt: [...] Inactive Member Role/Relationship Status Dates Out of [facility] Referring Provider Active Sta rt: February 10, 2025 End: February 10, 2025 Mihaela Burton INSULATION CUTTER AND FORMER, INSULATION CUTTER AND FORMER-C Attending Provider Active Start: February 10, 2025 [...] 11, 2025 Kamron Bhakta PA, PA Attending Provider Active Start: June 11, [...] BE BASED ON THE PRIMARY CLINICAL RECORDS. [facility]. provides no warranty or guarantee of the accuracy or completeness of information in this document.
== END | disposition home or self-care (01) ==
PROVIDERS: Obstetrics & Gynecology; PCP Family Medicine; Visit Provider Obstetrics & Gynecology
DX: O03.4 Incomplete spontaneous abortion without complication (principal)
CPT/HCPCS: 36415; 84702

== ENCOUNTER → 2025-09-22 | Outpatient (CLI) | payer OTHER, SELFPAY ==
[2025-09-22 17:41] LABS: hCG Titer Quant., Serum 6 mIU/mL (<9 non-preg)
== END | disposition home or self-care (01) ==
PROVIDERS: PCP Family Medicine; Visit Provider Obstetrics & Gynecology
DX: O03.4 Incomplete spontaneous abortion without complication (principal)
CPT/HCPCS: 36415; 84702